=== PATIENT | male | born 1945 | race Caucasian/White ===

== ENCOUNTER 2016-08-24 10:12 | Emergency (ER) | payer MEDICARE ==
--- NOTE | 2016-08-24 10:49 | ED ---
General Adult HPI - General Chief complaint: Extremity Problem,Nontraumatic Stated complaint: arm swelling Time Seen by Provider: 08/24/16 10:25 Source: patient, RN notes reviewed Mode of arrival: ambulatory Limitations: no limitations - History of Present Illness Initial comments: Patient 71-year-old male who presents emergency room today with chief complaint of right arm swelling over the last 3 days. Patient does admit that he noticed this 3 days ago. He states that he had some local redness to the back of the forearm. He states it was mildly tender. States doesn't seem to be worse with any movements. Denies any injury or trauma. States with the family doctor earlier today and was advised coming here to the emergency room for further evaluation of this arm swelling and rule out blood clot with ultrasound. Patient denies any recent fever, chills, shortness of breath, chest pain, back pain, abdominal pain, nausea or vomiting, numbness or tingling, dysuria or hematuria, constipation or diarrhea, headaches or visual changes, or any other complaints. - Related Data Home Medications Medication Instructions Recorded Confirmed Atorvastatin [Lipitor] 20 mg PO HS 08/24/16 08/24/16 Lisinopril [Zestril] 10 mg PO DAILY 08/24/16 08/24/16 Previous Rx's Medication Instructions Recorded Cephalexin [Keflex] 500 mg PO Q12HR 10 Days 08/24/16 Allergies Allergy/AdvReac Type Severity Reaction Status Date / Time No Known Allergies Allergy Verified 08/24/16 10:36 Review of Systems ROS Statement: Those systems with pertinent positive or pertinent negative responses have been documented in the HPI. ROS Other: All systems not noted in ROS Statement are negative. Past Medical History Past Medical History: Hyperlipidemia, Hypertension History of Any Multi-Drug Resistant Organisms: None Reported Past Surgical History: Appendectomy Past Psychological History: No Psychological Hx Reported Smoking Status: Current every day smoker Past Alcohol Use History: Daily Past Drug Use History: None Reported General Exam - General Exam Comments Initial Comments: General: The patient is awake and alert, in no distress, and does not appear acutely ill. Eye: Pupils are equal, round and reactive to light, extra-ocular movements are intact. No nystagmus. There is normal conjunctiva bilaterally. No signs of icterus. Ears, nose, mouth and throat: There are moist mucous membranes and no oral lesions. Neck: The neck is supple, there is no tenderness or JVD. Cardiovascular: There is a regular rate and rhythm. No murmur, rub or gallop is appreciated. Respiratory: Lungs are clear to auscultation, respirations are non-labored, breath sounds are equal. No wheezes, stridor, rales, or rhonchi. Musculoskeletal: Moderate swelling to the right forearm. Normal ROM, no tenderness. Strength 5/5. Sensation intact. Pulses equal bilaterally 2+. Neurological: A&O x 3. CN II-XII intact, There are no obvious motor or sensory deficits. Coordination appears grossly intact. Speech is normal. Skin: Skin is warm and dry and no rashes or lesions are noted. Mild tenderness to the volar aspect of the right forearm. No trichomoniasis streaking. Psychiatric: Cooperative, appropriate mood & affect, normal judgment. Limitations: no limitations Course Vital Signs 08/24/16 10:16 Temperature 98.4 F Pulse Rate 69 Respiratory 18 Rate Blood Pressure 132/86 O2 Sat by Pulse 97 Oximetry Medical Decision Making - Medical Decision Making Case discussed in detail with attending physician Dr. Dobson. Patient ultrasound negative for any evidence of DVT. There is some faint redness to the volar aspect. There is swelling. Patient has no pain. Pulses equal bilaterally 2+. Patient will be started on a antibiotic to cover for sinus infection advised close follow-up the family doctor. Advised return if any symptoms increase worsen or for any other concerns. He states understanding and is in agreement with this plan. Disposition Clinical Impression: Cellulitis Disposition: HOME SELF-CARE Condition: Good Instructions: Cellulitis (ED) Additional Instructions: Please use medication as discussed. Please follow-up with family doctor in the next 2 days of symptoms have not improved. Please return to emergency room if the symptoms increase or worsen or for any other concerns. Prescriptions: Cephalexin [Keflex] 500 mg PO Q12HR 10 Days Referrals: Dane Baxter MD [Primary Care Provider] - 1-2 days Time of Disposition: 11:34
--- NOTE | 2016-08-24 11:15 | US ---
EXAMINATION TYPE: US venous doppler duplex UE RT DATE OF EXAM: 08/24/2016 COMPARISON: NONE CLINICAL HISTORY: Pain. Edema right arm x 3 days SIDE PERFORMED: right Right Arm: No evidence of DVT as visualized IMPRESSION: THIS EXAMINATION IS NEGATIVE FOR DVT WITHIN THE RIGHT ARM.
[2016-08-24 11:55] VITALS: BP 104/70; PULSE 62; RESP 16; TEMP 97.5
== END 2016-08-24 11:55 | disposition home or self-care (01) ==
LOC: EC 10:12
DX: L03.113 Cellulitis of right upper limb (principal); E78.5 Hyperlipidemia, unspecified; I10 Essential (primary) hypertension; F17.200 Nicotine dependence, unspecified, uncomplicated; Z79.899 Other long term (current) drug therapy
CPT/HCPCS: 99283

== ENCOUNTER → 2017-01-31 | Outpatient (CLI) | payer MEDICARE ==
--- NOTE | 2017-01-31 09:15 | US ---
EXAMINATION TYPE: US duplex aorta DATE OF EXAM: 01/31/2017 COMPARISON: NONE CLINICAL HISTORY: Z13.9 Screening for disorder. Pt states screening, no complaints at this time, smok er EXAM MEASUREMENTS: Abdominal Aorta: Proximal: 3.5 x 3.3 cm Mid: 2.5 x 2.5 cm Distal: 2.6 x 2.6 cm Bifurcation: STANLEY: 1.7 x 1.9 cm GUME: 1.5 x 2.0 cm Aorta ectatic with abnormal measurement at proximal portion >3cm Aorta is visualized through the bifurcation with mild to moderate diffuse atherosclerotic change. Guy e ectasia is present. IMPRESSION: Atherosclerotic and ectatic abdominal aorta with 3.5 cm aneurysm proximally measured by t echnologist.
== END | disposition home or self-care (01) ==
LOC: RADUSWWP 08:08
PROVIDERS: ATTEND Family Medicine
DX: I70.0 Atherosclerosis of aorta (principal); I71.4 Abdominal aortic aneurysm, without rupture
CPT/HCPCS: 93979

== ENCOUNTER → 2017-02-01 | Outpatient (CLI) | payer MEDICARE ==
--- NOTE | 2017-02-01 08:44 | BD ---
EXAMINATION TYPE: MG DEXA axial skeleton. DATE OF EXAM: 02/01/2017 CLINICAL HISTORY: Height: 68.5 inches Weight: 230 pounds FRAX RISK QUESTIONS: Alcohol (3 or more units per day): 3-4 beers a day Family History (Parent hip fracture): no Glucocorticoids (More than 3mos): no (Ex: prednisone, prednisolone, methylprednisolone, dexamethasone, and hydrocortisone). History of Fracture in Adulthood: finger Secondary Osteoporosis: 1. Type 1 Diabetes: no 2. Hyperthyroidism: no 4. Malnutrition: no 5. Chronic liver disease: no Rheumatoid Arthritis: no Current Tobacco Use: yes RISK FACTORS HISTORY OF: Family History of Osteoporosis: no Active: yes Diet low in dairy products/other sources of calcium: somewhat, perhaps one serving several times a w [place] Lost more than 2 inches in height since high school: no Frequent falls: no Poor Health: no Hyperparathyroidism: no Adrenal Insufficiency: no MEDICATIONS: Prednisone or other steroids: no Thyroid Medications: no Osteoporosis Medications: no Additional Medications: Blood pressure meds & cholesterol med Additional History: prison back pain EXAM MEASUREMENTS: Bone mineral densitometry was performed using the [employer] System. Bone mineral density as measured about the Lumbar spine is: ----- L1-L4(G/cm2): 1.499 T Score Values are as follows: ----- L2: 1.9 ----- L3: 3.5 ----- L4: 3.3 ----- L1-L4: 2.7 Bone mineral density BASELINE Bone mineral density about the R hip (g/cm2): 1.079 Bone mineral density about the L hip (g/cm2): 1.060 T Score values are as follows: -----R Neck: 0.3 -----L Neck: 0.2 -----R Total: 1.3 -----L Total: 1.4 Bone mineral density BASELINE IMPRESSION: Normal (Values between +1 and -1 indicate normal bone mass). Consider repeating this study in 5 year s or sooner if there is some new clinical indication. NOTE: T-SCORE=SD OF THE YOUNG ADULT MEAN.
== END | disposition home or self-care (01) ==
LOC: RADBDWWP 07:47
PROVIDERS: ATTEND Family Medicine
DX: Z13.9 Encounter for screening, unspecified (principal)
CPT/HCPCS: 77080

== ENCOUNTER → 2018-11-12 | Outpatient (CLI) | payer MEDICARE ==
--- NOTE | 2018-11-12 14:56 | CTL ---
EXAMINATION TYPE: CT Low Dose Lung DATE OF EXAM ORDERED: 11/12/2018 HISTORY: . Lung cancer screening CT DLP: 140.[address] CTDI: 3.4 mGy Automated exposure control for dose reduction was used. SCREENING VISIT: Initial COMPARISON: None TECHNIQUE: Low dose computed tomography scan was performed through the chest at 1 mm thick sections and reconstructed images in the coronal plane at [address] DIAGNOSTIC QUALITY: Satisfactory FINDINGS: LUNG NODULES: None. LUNGS: COPD: Severity: None Fibrosis: Severity: None Lymph nodes: None Other findings: None RIGHT PLEURAL SPACE: Effusion: None Calcification: None Thickening: None Pneumothorax: None LEFT PLEURAL SPACE: Effusion: None Calcification: None Thickening: None Pneumothorax: None HEART: Heart Size: Normal Coronary calcification: Fairly extensive Pericardial effusion: None OTHER FINDINGS: Upper abdomen: Normal Bony thorax: Normal Supraclavicular region: Normal Other: Ascending thoracic aorta at the level the main pulmonary artery measures 4.5 cm. The main pulmonary artery at the bifurcation measures 2.4 cm. IMPRESSION: 1. No suspicious lung findings. 2. Ascending thoracic aortic aneurysm of 4.[address] CHEST RECOMMENDATION: Yes, [address] chest for ascending thoracic aortic aneurysm CT LUNG RAD: 2 MTDD
== END | disposition home or self-care (01) ==
LOC: RADCTMAIN 08:05
PROVIDERS: ATTEND Family Medicine
DX: Z12.2 Encounter for screening for malignant neoplasm of respiratory organs (principal); I71.2 Thoracic aortic aneurysm, without rupture; F17.210 Nicotine dependence, cigarettes, uncomplicated

== ENCOUNTER 2019-05-20 11:21 | Inpatient (IN) | payer MEDICARE ==
[2019-05-20] MEDS ORDERED: SODIUM CHLORIDE 0.9% 1,000 ML IV STA (11:33)
[2019-05-20] MEDS ORDERED: MORPHINE SULFATE 4 MG/ML SYRINGE IV STA (11:33)
[2019-05-20] MEDS ORDERED: ASPIRIN 81 MG PO STA (11:33)
--- NOTE | 2019-05-20 11:41 | ED ---
General Adult HPI - General Chief complaint: Chest Pain Stated complaint: chest pain/SOB Time Seen by Provider: 05/20/19 11:25 Source: patient, EMS, RN notes reviewed, old records reviewed (Reviewed CT report) Mode of arrival: EMS Limitations: no limitations - History of Present Illness Initial comments: Patient is a pleasant 74-year-old male presenting to the emergency Department with complaints of chest discomfort. Onset of symptoms was a couple of weeks ago. Symptoms have been getting worse. Discomfort is moderate to severe rated 7 or 8/10. Discomfort feels like pressure in the chest without radiation. Patient has some associated dyspnea. Symptoms worsen with exertion. Patient has occasional associated sweating. No nausea. No history of similar symptoms previously. Patient does have a known history of thoracic aortic aneurysm - Related Data Home Medications Medication Instructions Recorded Confirmed Atorvastatin [Lipitor] 20 mg PO HS 08/24/16 05/20/19 Lisinopril [Zestril] 10 mg PO DAILY 08/24/16 05/20/19 Albuterol Sulfate [Ventolin HFA] 2 puff INHALATION RT-Q4H PRN 05/20/19 05/20/19 Cholecalciferol [Vitamin D3 (25 2,000 unit PO DAILY 05/20/19 05/20/19 Mcg = 1000 Iu)] Vits A,C,E/Lutein/Minerals [Vision 1 tab PO DAILY 05/20/19 05/20/19 Formula with Lutein Tab] Allergies Allergy/AdvReac Type Severity Reaction Status Date / Time No Known Allergies Allergy Verified 05/20/19 12:02 Review of Systems ROS Statement: Those systems with pertinent positive or pertinent negative responses have been documented in the HPI. ROS Other: All systems not noted in ROS Statement are negative. Constitutional: Denies: fever Eyes: Denies: eye pain ENT: Denies: ear pain Respiratory: Denies: cough Cardiovascular: Reports: chest pain Endocrine: Denies: fatigue Gastrointestinal: Denies: abdominal pain Genitourinary: Denies: dysuria Musculoskeletal: Denies: back pain Skin: Denies: rash Neurological: Denies: weakness Past Medical History Past Medical History: Hyperlipidemia, Hypertension Additional Past Medical History / Comment(s): aortic aneurysm History of Any Multi-Drug Resistant Organisms: None Reported Past Surgical History: Appendectomy Past Psychological History: No Psychological Hx Reported Smoking Status: Current every day smoker Past Alcohol Use History: Daily Past Drug Use History: None Reported General Exam Limitations: no limitations General appearance: alert, in no apparent distress Head exam: Present: normocephalic Eye exam: Present: normal appearance, PERRL ENT exam: Present: normal oropharynx Neck exam: Present: normal inspection Respiratory exam: Present: normal lung sounds bilaterally Cardiovascular Exam: Present: regular rate, normal rhythm Expanded Peripheral pulses: 2+: Radial (R), Radial (L), Posterior Tibialis (R), Posterior Tibialis (L), Dorsalis Pedis (R), Dorsalis Pedis (L) GI/Abdominal exam: Present: soft. Absent: tenderness Extremities exam: Present: normal inspection. Absent: pedal edema, calf tenderness Neurological exam: Present: alert Psychiatric exam: Present: normal affect, normal mood Skin exam: Present: normal color Course Vital Signs 05/20/19 05/20/19 05/20/19 11:23 11:29 11:30 Temperature 97.9 F Pulse Rate 81 Respiratory 18 Rate Blood Pressure 101/77 101/77 101/77 O2 Sat by Pulse 99 Oximetry 05/20/19 05/20/19 05/20/19 11:40 11:50 12:00 Temperature Pulse Rate 76 76 Respiratory 14 14 20 Rate Blood Pressure 103/76 103/76 103/76 O2 Sat by Pulse 96 96 95 Oximetry 05/20/19 05/20/19 05/20/19 12:10 12:20 12:30 Temperature Pulse Rate 74 76 Respiratory 20 12 Rate Blood Pressure 93/70 93/70 93/70 O2 Sat by Pulse 98 97 Oximetry 05/20/19 12:38 Temperature Pulse Rate 76 Respiratory 12 Rate Blood Pressure 93/70 O2 Sat by Pulse 97 Oximetry EKG Findings - EKG Comments: EKG Findings:: Normal sinus rhythm 83. For screening AV block [place] 202. QRS 84. QT 388. QTC 455. Normal axis. Septal Q waves. Nonspecific T waves. Medical Decision Making - Medical Decision Making Patient reevaluated and resting comfortably in bed, discomfort has improved to around 3 or 4/10. Case discussed with Dr. Knott who will admit covering for Dr. Baxter. Cardiology has been paged. - Lab Data Result diagrams: 05/20/19 11:27 05/20/19 11:27 Lab Results 05/20/19 05/20/19 05/20/19 Range/Units 11:27 11:27 11:27 WBC 8.9 (3.8-10.6) k/uL RBC 3.70 L (4.30-5.90) m/uL Hgb 11.3 L (13.0-17.5) gm/dL Hct 35.3 L (39.0-53.0) % MCV 95.4 (80.0-100.0) fL MCH 30.7 (25.0-35.0) pg MCHC 32.2 (31.0-37.0) g/dL RDW 13.8 (11.5-15.5) % Plt Count 131 L (150-450) k/uL Neutrophils % 78 % Lymphocytes % 15 % Monocytes % 4 % Eosinophils % 1 % Basophils % 0 % Neutrophils # 6.9 (1.3-7.7) k/uL Lymphocytes # 1.4 (1.0-4.8) k/uL Monocytes # 0.4 (0-1.0) k/uL Eosinophils # 0.1 (0-0.7) k/uL Basophils # 0.0 (0-0.2) k/uL PT 11.2 (9.0-12.0) sec INR 1.1 (<1.2) APTT 20.2 L (22.0-30.0) sec Sodium 138 (137-145) mmol/L Potassium 4.4 (3.5-5.1) mmol/L Chloride 109 H (98-107) mmol/L Carbon Dioxide 21 L (22-30) mmol/L Anion Gap 8 mmol/L BUN 27 H (9-20) mg/dL Creatinine 1.03 (0.66-1.25) mg/dL Est GFR (CKD-EPI)AfAm 84 (>60 ml/min/1.73 sqM) Est GFR (CKD-EPI)NonAf 73 (>60 ml/min/1.73 sqM) Glucose 166 H (74-99) mg/dL Calcium 8.2 L (8.4-10.2) mg/dL Magnesium 1.9 (1.6-2.3) mg/dL Total Bilirubin 0.8 (0.2-1.3) mg/dL AST 52 (17-59) U/L ALT 59 H (4-49) U/L Alkaline Phosphatase 121 (38-126) U/L Troponin I (0.000-0.034) ng/mL Total Protein 5.8 L (6.3-8.2) g/dL Albumin 3.2 L (3.5-5.0) g/dL 05/20/19 Range/Units 11:27 WBC (3.8-10.6) k/uL RBC (4.30-5.90) m/uL Hgb (13.0-17.5) gm/dL Hct (39.0-53.0) % MCV (80.0-100.0) fL MCH (25.0-35.0) pg MCHC (31.0-37.0) g/dL RDW (11.5-15.5) % Plt Count (150-450) k/uL Neutrophils % % Lymphocytes % % Monocytes % % Eosinophils % % Basophils % % Neutrophils # (1.3-7.7) k/uL Lymphocytes # (1.0-4.8) k/uL Monocytes # (0-1.0) k/uL Eosinophils # (0-0.7) k/uL Basophils # (0-0.2) k/uL PT (9.0-12.0) sec INR (<1.2) APTT (22.0-30.0) sec Sodium (137-145) mmol/L Potassium (3.5-5.1) mmol/L Chloride (98-107) mmol/L Carbon Dioxide (22-30) mmol/L Anion Gap mmol/L BUN (9-20) mg/dL Creatinine (0.66-1.25) mg/dL Est GFR (CKD-EPI)AfAm (>60 ml/min/1.73 sqM) Est GFR (CKD-EPI)NonAf (>60 ml/min/1.73 sqM) Glucose (74-99) mg/dL Calcium (8.4-10.2) mg/dL Magnesium (1.6-2.3) mg/dL Total Bilirubin (0.2-1.3) mg/dL AST (17-59) U/L ALT (4-49) U/L Alkaline Phosphatase (38-126) U/L Troponin I 2.990 H* (0.000-0.034) ng/mL Total Protein (6.3-8.2) g/dL Albumin (3.5-5.0) g/dL - Radiology Data Radiology results: report reviewed (CT angios chest is negative for pulmonary embolism. Correlate for CHF with bilateral pleural effusions. COPD. Pulmonary nodules. Pancreatic calcification.) Critical Care Time Critical Care Time: Yes Total Critical Care Time: 32 Disposition Clinical Impression: Acute non-ST elevation myocardial infarction (NSTEMI) Disposition: ADMITTED IP TO THIS [facility] Condition: Serious Is patient prescribed a controlled substance at d/c from ED?: No Referrals: Dane Baxter MD [Primary Care Provider] - 1-2 days Decision Time: 12:57
[2019-05-20 11:54] LABS: Basophils % (A) 0 %; Eosinophils # (A) 0.1 k/uL (0-0.7); Eosinophils % (A) 1 %; HCT 35.3 % (39.0-53.0); HGB 11.3 gm/dL (13.0-17.5); Lymphocytes # (A) 1.4 k/uL (1.0-4.8); Lymphocytes % (A) 15 %; MCH 30.7 pg (25.0-35.0); MCHC 32.2 g/dL (31.0-37.0); MCV 95.4 fL (80.0-100.0); Mean Platelet Volume 10.4; Monocytes # (A) 0.4 k/uL (0-1.0); Monocytes % (A) 4 %; Neutrophils # (A) 6.9 k/uL (1.3-7.7); Neutrophils % (A) 78 %; Platelet Count 131 k/uL (150-450); RDW 13.8 % (11.5-15.5); WBC 8.9 k/uL (3.8-10.6)
[2019-05-20 12:00] LABS: Albumin 3.2 g/dL (3.5-5.0); Calcium 8.2 mg/dL (8.4-10.2); Magnesium 1.9 mg/dL (1.6-2.3); Potassium 4.4 mmol/L (3.5-5.1); Total Bilirubin 0.8 mg/dL (0.2-1.3); Total Protein 5.8 g/dL (6.3-8.2)
[2019-05-20 12:13] LABS: INR 1.1 (<1.2); Prothrombin Time 11.2 sec (9.0-12.0)
[2019-05-20 12:22] LABS: Partial Thromboplastin Time 20.2 sec (22.0-30.0)
--- NOTE | 2019-05-20 12:44 | CT ---
EXAMINATION TYPE: CT angio chest DATE OF EXAM: 05/20/2019 12:25 PM COMPARISON: 11/12/2018 HISTORY: Chest pain and SOB CT DLP: 572.4 mGycm Automated exposure control for dose reduction was used. CONTRAST: CTA scan of the thorax is performed without and with IV Contrast, patient injected with 100 ml mL of Isovue 370, pulmonary embolism protocol. . FINDINGS: LUNGS: Hyperinflation suggests COPD and there is a coarsened interstitium. Bilateral pleural effusion s and consolidation likely in the basis of compressive atelectasis. No pneumothorax. Multiple subpleu ral less than 5 mm nodules are seen. MEDIASTINUM: There is satisfactory enhancement of the pulmonary artery and its branches, there is no CT evidence for pulmonary embolism. There is lymphadenopathy within the hilum bilaterally measuring a short axis of 1.5 cm. There is a 1 cm subcarinal lymphadenopathy measured in short axis. Trace of p ericardial fluid noted. There is coronary artery calcification and atherosclerotic change aorta. OTHER: Hypertrophic change of the spine noted. Trace amount ascites noted. Somewhat lobular contour the liver correlate with LFTs. Atherosclerotic change of the visualized vasculature. Calcification wi thin the pancreatic tail incidentally noted. IMPRESSION: 1. No diagnostic evidence of pulmonary embolism 2. Correlate for CHF with bilateral pleural effusions. 3. COPD. 4. There are multiple less than 5 mm pulmonary nodules too small to characterize. Given they were not seen with certainty on the recent CT scan recommended short-term follow-up standard CT of the chest for further evaluation. Additionally, bilateral hilar adenopathy noted measuring short axis of 1.5 cm 5. There is a small calcification within the pancreatic tail. Assessment pancreas is incomplete. Maggie elate with dedicated ultrasound or CT scan as clinically warranted.
[2019-05-20] MEDS ORDERED: HEPARIN SODIUM,PORCINE 5,000 UNIT/ML 1 ML VIAL IV PRN ×2 (12:54→15:49)
[2019-05-20] MEDS ORDERED: HEPARIN SODIUM,PORCINE 5,000 UNIT/ML 1 ML VIAL IV ONE (12:54)
[2019-05-20] MEDS ORDERED: NITROGLYCERIN SL TABS 0.4 MG TAB SUBLINGUAL PRN ×2 (12:58→14:22)
--- NOTE | 2019-05-20 12:58 | XR ---
EXAMINATION TYPE: XR chest 1V portable DATE OF EXAM: 05/20/2019 COMPARISON: Same date CTA chest study HISTORY: Chest pain. TECHNIQUE: Single frontal view of the chest is obtained. FINDINGS: There is background mild to moderate underlying emphysematous change with right greater th an left bibasilar opacities corresponding to small pleural effusions and associated atelectasis and/o r infiltrate. The cardiac silhouette size is upper limits of normal. The osseous structures are in tact. IMPRESSION: Background [id number] emphysematous change with central vascular congestion and sm all right greater than left pleural effusions along with mild interstitial edema. Suspected fluid ove rload state. Correlate clinically.
[2019-05-20] MEDS: HEPARIN SOD,PORK IN 0.45% NACL 25,000 UNIT in 0.45% NACL 1 250ML.BAG IV SCH ×2 (13:41→15:46)
[2019-05-20] MEDS ORDERED: ATORVASTATIN 80 MG TAB PO STA (14:22)
[2019-05-20] MEDS ORDERED: ALPRAZolam 0.5 MG TAB PO PRN (14:22)
[2019-05-20] MEDS ORDERED: ALPRAZolam 0.25 MG TAB PO PRN (14:22)
[2019-05-20] MEDS ORDERED: SODIUM CHLORIDE 0.9% 1,000 ML in EMPTY BAG 1 BAG IV ONE (14:22)
[2019-05-20] MEDS ORDERED: ASPIRIN 325 MG TAB PO STA (14:22)
[2019-05-20] MEDS ORDERED: ALBUTEROL NEBULIZED 2.5 MG/3 ML INHALATION PRN (14:41)
[2019-05-20] MEDS ORDERED: fentaNYL (PF) 50 MCG/ML 2 ML AMP ONE (14:43)
[2019-05-20] MEDS ORDERED: VERAPAMIL 2.5 MG/ML 2 ML AMP ONE (14:43)
[2019-05-20] MEDS ORDERED: IV FLUID CONTINUATION 900 ML IV ONE (14:47)
[2019-05-20] MEDS ORDERED: LIDOCAINE 1% INJ 10MG/ML (20 ML MDV) ONE ×2 (14:54→15:24)
[2019-05-20] MEDS ORDERED: fentaNYL (PF) 50 MCG/ML 2 ML AMP IV ONE (14:56)
[2019-05-20] MEDS: LIDOCAINE 1% INJ 10MG/ML (20 ML MDV) SQ ONE ×2 (14:57→15:09)
[2019-05-20] MEDS ORDERED: VERAPAMIL SYRINGE (5 MG/10 ML) INTRAARTER ONE (15:00)
[2019-05-20] MEDS ORDERED: IOPAMIDOL-370 125ML BTL INJ ONE (15:25)
[2019-05-20] MEDS ORDERED: MD COMMUNICATION TO PHARMACY 1 EACH MISC PO ONE ×5 (15:26)
[2019-05-20] MEDS ORDERED: RX INFO: IV CONTRAST WAS GIVEN 1 EACH MISC MISCELLANE PRN (15:46)
[2019-05-20] MEDS ORDERED: SODIUM CHLORIDE 0.9% 1,000 ML IV SCH (16:00)
[2019-05-20] MEDS ORDERED: HEPARIN SOD,PORK IN 0.45% NACL 25,000 UNIT in 0.45% NACL 1 250ML.BAG IV SCH (16:00)
[2019-05-20 16:05] LABS: Glucose,Whole Blood 121 mg/dL (75-99)
[2019-05-20] MEDS ORDERED: THIAMINE 100 MG TAB PO SCH (16:30)
--- NOTE | 2019-05-20 16:49 | P.GSCN ---
<Jeanna Corona - Last Filed: 05/20/19 16:29> History of Present Illness Consult date: 05/20/19 Reason for Consult: Severe triple vessel coronary artery disease with left main disease Requesting physician: Tavia Lux History of present illness: This is a 74-year-old active gentleman who follows on an outpatient basis with Dr. Baxter. He has a previous medical history of hypertension, hyperlipidemia, current tobacco dependence, daily alcohol use although he has cut down lately, and appendectomy. He denies any other medical history. He presented to [facility] emergency room this morning with complaints of severe chest discomf ort which he described as pressure associated with shortness of breath, and diaphoresis. Denies nausea or any other aggravating or alleviating symptoms. EKG was completed demonstrating normal sinus rhythm with no ST elevation, troponin was 2.90, BNP was 3420. Chest x-ray was completed demonstrating changes associated with COPD, central vascular congestion, and bilateral pleural effusions, right greater than left. Chest CT was also completed demonstrating no evidence of tumor embolism, bilateral pleural effusions present, COPD present, and trace ascites. Urgent consultation was placed to Dr. Lux who saw the patient and recommended heart catheterization which was completed today. Heart catheterization demonstrated severe triple vessel coronary artery disease with significant left main disease. Due to these findings Dr. Kim from cardiothoracic surgery was urgently consulted and did see the patient in the catheterization lab. Recommendations were for placement of intra-aortic balloon pump, with urgent/emergent coronary artery bypass grafting within 24 hours. Transthoracic echocardiogram was completed in the clinical lab scientist which demonstrated impaired left ventricular function with ejection fraction approximately 35% and hypokinesis of the anterior apical wall with no significant valvular pathology. Review of Systems Review of systems was completed is negative except as noted - Cardiovascular Reports as per HPI, Reports chest pain, Reports dyspnea on exertion, Reports shortness of breath - Respiratory Reports as per HPI Past Medical History Past Medical History: Coronary Artery Disease (CAD), COPD, Eye Disorder, Hyperlipidemia, Hypertension, Osteoarthritis (OA), Pneumonia, Vascular Disorder Additional Past Medical History / Comment(s): Thoracic aortic aneurysm, arthritis bilateral hands, back problems, macular degeneration bilaterally. History of Any Multi-Drug Resistant Organisms: None Reported Past Surgical History: Appendectomy Additional Past Surgical History / Comment(s): L lower leg hematoma removal, colonoscopies/benign polypectomy Past Anesthesia/Blood Transfusion Reactions: No Reported Reaction Past Psychological History: No Psychological Hx Reported Smoking Status: Current every day smoker Past Alcohol Use History: Daily Past Drug Use History: None Reported - Past Family History Father Family Medical History: Diabetes Mellitus Additional Family Medical History / Comment(s): Father lived to be 92 yrs old. Mother Family Medical History: Cancer Additional Family Medical History / Comment(s): Mother had lung cancer. She was a smoker. Medications and Allergies Home Medications Medication Instructions Recorded Confirmed Type Atorvastatin [Lipitor] 20 mg PO HS 08/24/16 05/20/19 History Lisinopril [Zestril] 10 mg PO DAILY 08/24/16 05/20/19 History Albuterol Sulfate [Ventolin HFA] 2 puff INHALATION RT-Q4H PRN 05/20/19 05/20/19 History Cholecalciferol [Vitamin D3 (25 2,000 unit PO DAILY 05/20/19 05/20/19 History Mcg = 1000 Iu)] Vits A,C,E/Lutein/Minerals [Vision 1 tab PO DAILY 05/20/19 05/20/19 History Formula with Lutein Tab] Allergies Allergy/AdvReac Type Severity Reaction Status Date / Time No Known Allergies Allergy Verified 05/20/19 12:02 Surgical - Exam Vital Signs Temp Pulse Resp BP Pulse Ox 97.9 F 81 18 101/77 99 05/20/19 11:23 05/20/19 11:23 05/20/19 11:23 05/20/19 11:23 05/20/19 11:23 - General well developed, well nourished, no distress, no pain - Eyes normal ocular movement - ENT no hearing loss - Neck no masses, no bruits, trachea midline - Respiratory Lungs sounds diminished bilaterally. Respirations even, nonlabored. Currently on 2 L nasal cannula with oxygen saturation 97%. No clubbing or cyanosis present. - Cardiovascular S1, S2 present. Regular rate and rhythm, sinus rhythm on telemetry. Palpable peripheral pulses bilaterally. No edema present. No calf pain or tenderness noted. Right radial artery catheterization site with Tband in place. Left Adrian's test positive, greater than 8 seconds. Right femoral artery with intra- aortic balloon pump with augmentation 1:1. - Abdomen Abdomen: soft, non tender, bowel sounds - Genitourinary Deferred - Rectum Deferred - Integumentary no rash, no growths - Neurologic normal coordination, normal sensation - Musculoskeletal normal posture - Psychiatric oriented to time, oriented to person, oriented to place, speech is normal, memory intact Results - Labs 05/20/19 11:27 05/20/19 11:27 Abnormal Lab Results - Last 24 Hours (Table) 05/20/19 05/20/19 05/20/19 Range/Units 11:27 11:27 11:27 RBC 3.70 L (4.30-5.90) m/uL Hgb 11.3 L (13.0-17.5) gm/dL Hct 35.3 L (39.0-53.0) % Plt Count 131 L (150-450) k/uL APTT 20.2 L (22.0-30.0) sec Chloride 109 H (98-107) mmol/L Carbon Dioxide 21 L (22-30) mmol/L BUN 27 H (9-20) mg/dL Glucose 166 H (74-99) mg/dL POC Glucose (mg/dL) (75-99) mg/dL Calcium 8.2 L (8.4-10.2) mg/dL ALT 59 H (4-49) U/L Troponin I (0.000-0.034) ng/mL Total Protein 5.8 L (6.3-8.2) g/dL Albumin 3.2 L (3.5-5.0) g/dL 05/20/19 05/20/19 Range/Units 11:27 16:03 RBC (4.30-5.90) m/uL Hgb (13.0-17.5) gm/dL Hct (39.0-53.0) % Plt Count (150-450) k/uL APTT (22.0-30.0) sec Chloride (98-107) mmol/L Carbon Dioxide (22-30) mmol/L BUN (9-20) mg/dL Glucose (74-99) mg/dL POC Glucose (mg/dL) 121 H (75-99) mg/dL Calcium (8.4-10.2) mg/dL ALT (4-49) U/L Troponin I 2.990 H* (0.000-0.034) ng/mL Total Protein (6.3-8.2) g/dL Albumin (3.5-5.0) g/dL Diabetes panel 05/20/19 Range/Units 11:27 Sodium 138 (137-145) mmol/L Potassium 4.4 (3.5-5.1) mmol/L Chloride 109 H (98-107) mmol/L Carbon Dioxide 21 L (22-30) mmol/L BUN 27 H (9-20) mg/dL Creatinine 1.03 (0.66-1.25) mg/dL Glucose 166 H (74-99) mg/dL Calcium 8.2 L (8.4-10.2) mg/dL AST 52 (17-59) U/L ALT 59 H (4-49) U/L Alkaline Phosphatase 121 (38-126) U/L Total Protein 5.8 L (6.3-8.2) g/dL Albumin 3.2 L (3.5-5.0) g/dL Calcium panel 05/20/19 Range/Units 11:27 Calcium 8.2 L (8.4-10.2) mg/dL Albumin 3.2 L (3.5-5.0) g/dL Pituitary panel 05/20/19 Range/Units 11:27 Sodium 138 (137-145) mmol/L Potassium 4.4 (3.5-5.1) mmol/L Chloride 109 H (98-107) mmol/L Carbon Dioxide 21 L (22-30) mmol/L BUN 27 H (9-20) mg/dL Creatinine 1.03 (0.66-1.25) mg/dL Glucose 166 H (74-99) mg/dL Calcium 8.2 L (8.4-10.2) mg/dL Adrenal panel 05/20/19 Range/Units 11:27 Sodium 138 (137-145) mmol/L Potassium 4.4 (3.5-5.1) mmol/L Chloride 109 H (98-107) mmol/L Carbon Dioxide 21 L (22-30) mmol/L BUN 27 H (9-20) mg/dL Creatinine 1.03 (0.66-1.25) mg/dL Glucose 166 H (74-99) mg/dL Calcium 8.2 L (8.4-10.2) mg/dL Total Bilirubin 0.8 (0.2-1.3) mg/dL AST 52 (17-59) U/L ALT 59 H (4-49) U/L Alkaline Phosphatase 121 (38-126) U/L Total Protein 5.8 L (6.3-8.2) g/dL Albumin 3.2 L (3.5-5.0) g/dL - Imaging Chest x-ray: report reviewed, image reviewed CT scan - chest: report reviewed, image reviewed EKG: image reviewed Additional studies: Heart catheterization films reviewed in the clinical lab scientist with Dr. Kim and Dr. Lux Assessment and Plan Assessment: 1. Severe triple-vessel coronary artery disease with significant left main disease 2. Non-STEMI this admission 3. Hypertension 4. Hyperlipidemia 5. Current chronic tobacco dependence 6. Daily EtOH use Plan: The patient was seen and examined with Dr. Kim and Dr. Lux and the heart catheterization lab. Chart/diagnostics were reviewed. Recommendation is for emergent coronary artery bypass graft surgery tomorrow, 05/21/[address] Kim. Usual perioperative course was discussed in detail with the patient, all risks and benefits were reviewed, all questions were answered and the patient does consent to surgery. Intra-aortic balloon pump was placed in the clinical lab scientist. Patient is on a heparin IV. We will hydrate his kidneys. Continue aspirin, statin, beta tosha, heparin drip. No IV nitro. Preoperative testing was initiated. More recommendations to follow Thank you Dr. Lux for this consult. We look forward to working with you the care of your patient. Time with Patient: Greater than 30 <Neto Kim - Last Filed: 05/20/19 17:04> History of Present Illness History of present illness: Patint started experiencing chest pain for around a month now that it got much worse the past 2 days occuring at rest sometimes with the longest episode lasting around 1/2 hour. Currently pain free. Also history of Abdominal aortic aneurysm on US performed in 2017 (max 3.5 cm). His Ascending aorta on current CT shows moderate dilatation at 4.1 cm (measured on 2D reconstrruction by myself) . Surgical - Exam Vital Signs Temp Pulse Resp BP Pulse Ox 97.9 F 81 18 101/77 99 05/20/19 11:23 05/20/19 11:23 05/20/19 11:23 05/20/19 11:23 05/20/19 11:23 Results - Labs 05/20/19 11:27 05/20/19 11:27 Abnormal Lab Results - Last 24 Hours (Table) 05/20/19 05/20/19 05/20/19 Range/Units 11:27 11:27 11:27 RBC 3.70 L (4.30-5.90) m/uL Hgb 11.3 L (13.0-17.5) gm/dL Hct 35.3 L (39.0-53.0) % Plt Count 131 L (150-450) k/uL APTT 20.2 L (22.0-30.0) sec Chloride 109 H (98-107) mmol/L Carbon Dioxide 21 L (22-30) mmol/L BUN 27 H (9-20) mg/dL Glucose 166 H (74-99) mg/dL POC Glucose (mg/dL) (75-99) mg/dL Calcium 8.2 L (8.4-10.2) mg/dL ALT 59 H (4-49) U/L Troponin I (0.000-0.034) ng/mL Total Protein 5.8 L (6.3-8.2) g/dL Albumin 3.2 L (3.5-5.0) g/dL 05/20/19 05/20/19 Range/Units 11:27 16:03 RBC (4.30-5.90) m/uL Hgb (13.0-17.5) gm/dL Hct (39.0-53.0) % Plt Count (150-450) k/uL APTT (22.0-30.0) sec Chloride (98-107) mmol/L Carbon Dioxide (22-30) mmol/L BUN (9-20) mg/dL Glucose (74-99) mg/dL POC Glucose (mg/dL) 121 H (75-99) mg/dL Calcium (8.4-10.2) mg/dL ALT (4-49) U/L Troponin I 2.990 H* (0.000-0.034) ng/mL Total Protein (6.3-8.2) g/dL Albumin (3.5-5.0) g/dL Diabetes panel 05/20/19 Range/Units 11:27 Sodium 138 (137-145) mmol/L Potassium 4.4 (3.5-5.1) mmol/L Chloride 109 H (98-107) mmol/L Carbon Dioxide 21 L (22-30) mmol/L BUN 27 H (9-20) mg/dL Creatinine 1.03 (0.66-1.25) mg/dL Glucose 166 H (74-99) mg/dL Calcium 8.2 L (8.4-10.2) mg/dL AST 52 (17-59) U/L ALT 59 H (4-49) U/L Alkaline Phosphatase 121 (38-126) U/L Total Protein 5.8 L (6.3-8.2) g/dL Albumin 3.2 L (3.5-5.0) g/dL Calcium panel 05/20/19 Range/Units 11:27 Calcium 8.2 L (8.4-10.2) mg/dL Albumin 3.2 L (3.5-5.0) g/dL Pituitary panel 05/20/19 Range/Units 11:27 Sodium 138 (137-145) mmol/L Potassium 4.4 (3.5-5.1) mmol/L Chloride 109 H (98-107) mmol/L Carbon Dioxide 21 L (22-30) mmol/L BUN 27 H (9-20) mg/dL Creatinine 1.03 (0.66-1.25) mg/dL Glucose 166 H (74-99) mg/dL Calcium 8.2 L (8.4-10.2) mg/dL Adrenal panel 05/20/19 Range/Units 11:27 Sodium 138 (137-145) mmol/L Potassium 4.4 (3.5-5.1) mmol/L Chloride 109 H (98-107) mmol/L Carbon Dioxide 21 L (22-30) mmol/L BUN 27 H (9-20) mg/dL Creatinine 1.03 (0.66-1.25) mg/dL Glucose 166 H (74-99) mg/dL Calcium 8.2 L (8.4-10.2) mg/dL Total Bilirubin 0.8 (0.2-1.3) mg/dL AST 52 (17-59) U/L ALT 59 H (4-49) U/L Alkaline Phosphatase 121 (38-126) U/L Total Protein 5.8 L (6.3-8.2) g/dL Albumin 3.2 L (3.5-5.0) g/dL Assessment and Plan Assessment: Moderate dilatation abdominal and ascending aorta. Plan: Preliminary findings on 2D Echo: moderate LV dysfunction 35%, mild MR, Severe hypokinesia to akinesia mid to distal asia-apical wall. Patient candidate for high risk CABG using IGLESIAS and SVG (positive left modified Adrian's test). The STS risk was discussed with him. He understood it and agreed to proceed. NETO KIM MD
--- NOTE | 2019-05-20 17:13 | HP ---
HISTORY AND PHYSICAL DATE OF SERVICE: 05/20/2019. CHIEF COMPLAINT: Chest pain. HISTORY OF PRESENT ILLNESS: This 74-year-old gentleman with a past medical history of hypertension, hyperlipidemia, history of aortic aneurysm, appendectomy, being followed by Dr. Baxter in the outpatient setting, was complaining of some chest pain which was felt in the anterior part of chest, moderate in intensity without much radiation; more of a pressure type. Patient came to [facility] and was admitted for further evaluation. Of note, the patient is also complaining of significant increased shortness of breath and difficult exhalation and dyspnea which has been progressive over the past several weeks. The patient continues to smoke but is trying to cut down. There is no history of any fever, rigor or chills. No history of headache, loss of consciousness, seizures at this time. The troponins were found to be 2.990, indicating [id number]-elevation myocardial infarction. The EKG showed diffuse ST-T changes and inferior wall changes. Chest CTA showed a trace amount of ascites; otherwise some CHF and bilateral pleural effusion was suspected. Five-millimeter pulmonary nodules were also noted also. Calcification noted in the pancreatic tail. There is no history of any fever, rigors, chills at this time. PAST MEDICAL HISTORY: History of hypertension, hyperlipidemia, history of aortic aneurysm, history of nicotine dependence. MEDICATIONS PRIOR TO ADMISSION: 1. Vitamin A, C, lutein 1 p.o. daily. 2. Zestril 10 mg daily. 3. Vitamin D3 2000 daily. 4. Lipitor 20 mg at bedtime. 5. Albuterol 2 puffs q.4 p.r.n. ALLERGIES: NONE. FAMILY HISTORY: No history of heart disease or strokes in the family. SOCIAL HISTORY: History of smoking, continued and ongoing. REVIEW OF SYSTEMS: ENT: No diminished hearing. No diminished vision. CARDIOVASCULAR SYSTEM: As mentioned earlier. RESPIRATORY SYSTEM: As mentioned earlier. GI: No nausea, vomiting, diarrhea. : No dysuria or retention. NERVOUS SYSTEM: No numbness, weakness. ALLERGY/IMMUNOLOGY: No asthma, hayfever. MUSCULOSKELETAL: As mentioned earlier. HEMATOLOGY/ONCOLOGY: No history of anemia. ENDOCRINE: No history of diabetes, hypothyroidism. CONSTITUTIONAL: As mentioned earlier. DERMATOLOGY: Negative. RHEUMATOLOGY: Negative. PSYCHIATRY: As mentioned earlier. PHYSICAL EXAMINATION: Patient alert and oriented x3. Pulse 73, blood pressure 98/78, respiration 21, temperature normal, pulse ox 97% on room air. HEENT: Conjunctivae normal. NECK: No jugular venous distention. CARDIOVASCULAR SYSTEM: S1, S2 muffled. RESPIRATORY SYSTEM: Breath sounds diminished at the bases. A few scattered rhonchi and crackles. ABDOMEN: Soft, obese, non-tender. LEGS: No edema. No swelling. NERVOUS SYSTEM: No focal deficit. LABS: WBC 8.9, hemoglobin 11.3, platelets 131. Sodium 138, potassium 4.4 and troponin 2.990. ASSESSMENT: 1. Chest pain, possible acute [id number]-elevation myocardial infarction. 2. Troponin 2.990. 3. Shortness of breath for evaluation. Rule out COPD or CHF. 4. Elevated random blood sugar; diabetes mellitus, type 2. 5. Increased ALT. 6. Continued ongoing nicotine dependence. 7. Anemia, normocytic, undetermined etiology. 8. Thrombocytopenia. 9. Hypertension. 10.Hyperlipidemia. 11.History of aortic aneurysm. 12.History of appendectomy. 13.History of ethanol. RECOMMENDATIONS AND DISCUSSION: In this 74-year-old gentleman who presented with multiple complex medical issues, we will monitor the patient closely, continue the current medications, continue symptomatic treatment. Unstable angina protocol. Cardiology consultation for possible cardiac cath. Otherwise, 2D echo with Doppler. Repeat chest x-ray. The BNP is elevated up to 3420. Prognosis is guarded. Further recommendations to follow. A copy of this dictation is being forwarded to Dr. Baxter, who is the primary physician. MMTIARRAL / ANDREWN: [id number] /
--- NOTE | 2019-05-20 17:33 | XR ---
EXAMINATION TYPE: XR chest 1V portable DATE OF EXAM: 05/20/2019 COMPARISON: Today HISTORY: Chest pain. Balloon pump. TECHNIQUE: Single view FINDINGS: There is mild pulmonary interstitial edema. Heart is top normal in size. There is no pulmon landon consolidation. There are chest leads. No catheter seen. IMPRESSION: Pulmonary interstitial edema the same or slightly improved compared to exam earlier today .
[2019-05-20] MEDS ORDERED: NITROGLYCERIN OINT 1 INCH/GM PACKET TOPICAL SCH (18:00)
[2019-05-20 18:41] LABS: Basophils % (A) 0 %; Eosinophils # (A) 0.1 k/uL (0-0.7); Eosinophils % (A) 1 %; HCT 37.8 % (39.0-53.0); HGB 11.8 gm/dL (13.0-17.5); Hypochromasia Slight; Lymphocytes # (A) 1.3 k/uL (1.0-4.8); Lymphocytes % (A) 15 %; MCHC 31.3 g/dL (31.0-37.0); MCV 99.1 fL (80.0-100.0); Mean Platelet Volume 10.5; Monocytes # (A) 0.4 k/uL (0-1.0); Monocytes % (A) 4 %; Neutrophils # (A) 6.7 k/uL (1.3-7.7); Neutrophils % (A) 79 %; Platelet Count 118 k/uL (150-450); RBC 3.81 m/uL (4.30-5.90); RDW 13.8 % (11.5-15.5); WBC 8.5 k/uL (3.8-10.6)
[2019-05-20 18:46] LABS: INR 1.1 (<1.2); Partial Thromboplastin Time 51.4 sec (22.0-30.0); Prothrombin Time 11.3 sec (9.0-12.0)
[2019-05-20 18:49] LABS: Albumin 3.5 g/dL (3.5-5.0); Calcium 8.5 mg/dL (8.4-10.2); Magnesium 2.1 mg/dL (1.6-2.3); Potassium 4.5 mmol/L (3.5-5.1); Total Bilirubin 0.6 mg/dL (0.2-1.3); Total Protein 6.5 g/dL (6.3-8.2)
[2019-05-20] MEDS ORDERED: METOPROLOL TARTRATE 12.5 MG TAB PO STA (19:01)
--- NOTE | 2019-05-20 19:23 | US ---
EXAMINATION TYPE: US carotid duplex BILAT DATE OF EXAM: 05/20/2019 COMPARISON: NONE CLINICAL HISTORY: PreOp Cardiac Surgery. Heart surgery tomorrow. EXAM MEASUREMENTS: RIGHT: Peak Systolic Velocity (PSV) cm/sec ----- Right CCA: 49.3 ----- Right ICA: 62.3 ----- Right ECA: 36.2 ICA/CCA ratio: 1.3 RIGHT: End Diastole cm/sec ----- Right CCA: 24.8 ----- Right ICA: 26.0 ----- Right ECA: 15.8 LEFT: Peak Systolic Velocity (PSV) cm/sec ----- Left CCA: 86.7 ----- Left ICA: 79.8 ----- Left ECA: 82.87 ICA/CCA ratio: 1.2 LEFT: End Diastole cm/sec ----- Left CCA: 28.9 ----- Left ICA: 30.4 ----- Left ECA: 18.7 VERTEBRALS (direction of flow): Right Vertebral: Antegrade Left Vertebral: Antegrade Rhythm: Normal Bilateral plaque visualized. No significant stenosis seen IMPRESSION: There is antegrade flow in the vertebral arteries. There is minimal plaque formation. Images and sylvia urements suggest less than 35% stenosis in both internal carotid arteries. Criteria for Assigning % of Stenosis / Diameter reduction (Estimation based on the indirect measurements of the internal carotid artery velocities (ICA PSV). 1. Normal (no stenosis)=ICA PSV < 125 cm/s: ratio < 2.0: ICA EDV<40 cm/s. 2. Less than 50% stenosis=ICA PSV < 125 cm/s: ratio < 2.0: ICA EDV<40 cm/s. 3. 50 to 69% stenosis=ICA PSV of 125 to 230 cm/s: ration 2.0 ? 4.0: ICA EDV 40-100 cm/s. 4. Greater than 70% stenosis to near occlusion= ICA PSV > 230 cm/s: ratio > 4.0: ICA EDV > 100 cm/s. 5. Near occlusion= ICA PSV velocities may be low or undetectable: variable ratio and ICA EDV. 6. Total occlusion=unable to detect flow.
[2019-05-20] MEDS ORDERED: ALBUTEROL NEBULIZED 2.5 MG/3 ML INHALATION SCH (20:00)
[2019-05-20 20:05] LABS: Appearance,Urine Clear (Clear); Bacteria,Urine Rare /hpf; Bilirubin,Urine Negative (Negative); Blood,Urine Negative (Negative); Color,Urine Yellow; Glucose,Urine (UA) Negative (Negative); Hyaline Casts,Urine 1 /lpf (0-2); Ketones,Urine Negative (Negative); Leukocyte Esterase,Urine Negative (Negative); Mucus,Urine Few /hpf; Nitrite,Urine Negative (Negative); Protein,Urine 1+ (Negative); RBC,Urine 3 /hpf (0-5); Squamous Epithelial Cell,Urine <1 /hpf (0-4); WBC,Urine 10 /hpf (0-5)
[2019-05-20 20:23] LABS: Specific Gravity,Urine >1.050 (1.001-1.035)
[2019-05-20] MEDS: BUDESONIDE 0.5 MG/2 ML NEBU INHALATION SCH (20:31)
--- NOTE | 2019-05-20 21:10 | CONS ---
CONSULTATION Mr. Ansari is a 74-year-old male with known history of hypertension, hyperlipidemia, history of chronic tobacco use and a prior history of alcohol intake who presented with symptoms of chest discomfort. His discomfort has been going on for months, exertional in pattern, associated with dyspnea. His discomfort was worse today and he came into the emergency room. He is feeling better at the time of my evaluation. He denies any prior documented history of cardiac disease or prior cardiac evaluation. He has no PND, no orthopnea. He has chronic dyspnea on exertion. He used to smoke up to two packs per day. He is down to about a third of a pack a day. He used to have a history of significant alcohol intake up to 6 months ago. He has no history of malignant arrhythmia or syncope. His coronary risk factors are remarkable for hypertension, hyperlipidemia and smoking. He is nondiabetic. MEDICATIONS: Lisinopril 10 mg daily, Lipitor 20 mg daily, albuterol and vitamin D. REVIEW OF SYSTEMS: RESPIRATORY SYSTEM: He has chronic dyspnea on exertion, chronic tobacco use. GI SYSTEM: No recent GI bleeding. He has a prior history of bleeding related to hemorrhoids. SYSTEM: No dysuria or hematuria. NERVOUS SYSTEM: No stroke or seizure. PHYSICAL EXAMINATION: This is a 74-year-old male, alert, oriented, in no apparent distress. Blood pressure is running in the low 100s with a heart rate in the 70s. HEAD: Normocephalic. Eyes: Sclerae anicteric. NECK: Good carotid upstroke. No bruit. No jugular venous distention. LUNGS: Decreased air exchange and a few scattered wheezes. HEART: Regular rate, rhythm. Distant heart sounds. S1, S2. No S3. No murmur appreciated. ABDOMEN: Soft, nontender. Positive bowel sounds. No organomegaly. EXTREMITIES: No edema. Intact distal pulses. LAB DATA/IMAGING: Lab data revealed BUN and creatinine of 27 and 1.03. Troponin 2.99. NT-proBNP of 3420. Hemoglobin of 11.3. His chest x-ray revealed mild to moderate emphysema with mild congestion. He underwent CT angiogram of the chest that revealed no evidence of pulmonary embolism, evidence of COPD, multiple pulmonary nodules and calcification in the pancreatic tail. His EKG revealed a sinus mechanism, normal axis, intervals, poor R-wave progression; cannot exclude anterior myocardial infarction with ST-segment depression in the lateral leads. IMPRESSION: 1. Yql-[id number]-elevation myocardial infarction in a patient with multiple risk factors. 2. Chronic tobacco use. 3. History of hypertension. 4. Hyperlipidemia. 5. Chronic obstructive pulmonary disease. RECOMMENDATIONS: From the cardiac standpoint, I have recommended proceeding with coronary angiography to assess his status and guide his treatment. The rationale behind the procedure, its risks and complications were discussed with the patient, who is in full understanding and agreement. Thank you for this consult. Will follow with you. MARIA DL / IJN: [id number] /
[2019-05-20] MEDS: METOPROLOL TARTRATE 12.5 MG TAB PO ONE (21:27)
--- NOTE | 2019-05-20 23:02 | CC ---
CARDIAC CATHETERIZATION REPORT Mr. Ansari is a 74-year-old male with known history of hypertension, hyperlipidemia, who presented with progressive symptoms of exertional chest discomfort and dyspnea on exertion. In the emergency room he was found to have ST-segment depression on the lateral leads with evidence of troponin elevation up to 2.9. In view of that, recommendation was made regarding cardiac catheterization. The procedure, its risks and complication were discussed with the patient, who was in full understanding and agreement. PROCEDURE DESCRIPTION: Patient was brought to the veterinarian laboratory animal care in a fasting, semi-sedated state after receiving fentanyl Benadryl and achieving moderate conscious sedated state. Using Xylocaine anesthesia and Seldinger technique, a 6-Cuban sheath was introduced in the right radial artery. Selective right and left coronary angiography was performed using 5- Cuban 3-1/2 bend right and left Raj catheters. Multiple views were taken of the arteries, including hemiaxial views. Following that, a 5-Cuban tight pigtail catheter was introduced in the left ventricle and pressures were calculated. Following that, catheter was removed, and using a microcatheter, the right femoral artery after xylocaine anesthesia was cannulated. Following that an intra-aortic balloon pump was inserted under fluoroscopic guidance and secured in place. Following that, the right radial sheath was removed and hemostasis was obtained with deployment of a TR band. There was no immediate complication. Patient was returned to his room in stable condition. Of note, the patient received 5000 units of intravenous heparin. FINDINGS: FLUOROSCOPY: There was severe calcification involving all the coronary arteries. LEFT MAIN: This is a large-sized vessel bifurcating into left circumflex and left anterior descending artery. Left main coronary artery has a 99% stenosis distally. LEFT ANTERIOR DESCENDING ARTERY: This vessel gives rise to a large diagonal branch. At the takeoff of the diagonal branch the LAD is subtotally occluded with slow antegrade flow. The diagonal branch has no high-grade stenosis. LEFT CIRCUMFLEX: This is a nondominant vessel, large in caliber, giving rise to 3 obtuse marginal branches. The third one is the largest in caliber. The proximal left circumflex has diffuse intimal disease up to 80%. Prior to the takeoff of the second obtuse marginal branch there is a 90% stenosis. The rest of the vessel has no high- grade stenosis. RIGHT CORONARY ARTERY: This is a large dominant vessel, calcified, bifurcating into PDA and posterolateral segment and branches. The proximal right coronary artery has a 99% stenosis and there is another plaque of 80% in the mid segment. The rest of the vessel has no high-grade stenosis. LEFT VENTRICULOGRAM: Left ventriculogram was not performed. HEMODYNAMICS: There was no gradient across the aortic valve. The left ventricular end-diastolic pressure was 26 mmHg. CONCLUSION: 1. Calcified coronary arteries. 2. Critical stenosis in the left main. 3. Severe triple-vessel coronary artery disease. RECOMMENDATIONS: In view of findings and anatomy, I have recommended proceeding with evaluation for coronary artery bypass grafting in an emergent fashion. Those findings and recommendations were discussed with the patient, and he is in full understanding and agreement. He has been evaluated by Dr. Kim. Duration of procedure was 43 minutes. MMTIARRAL / ANDREWN: [id number] /
--- NOTE | 2019-05-20 23:02 | LTR ---
May 20, 2019 To: Dr. Baxter Re: Brock Ansari (49) Dear Dr. Baxter, I had the pleasure of performing cardiac catheterization on Mr. Ansari at [facility] on May 19, and a full copy of the procedure note will be forwarded to you. In brief, he was found to have critical left main disease with severe triple-vessel coronary artery disease. Based on those findings, he is scheduled to undergo coronary artery bypass grafting tomorrow. I will keep you updated on his progress. Thank you again for allowing me to participate in his care. Please feel free to call with any questions. Sincerely, Tavia Lux M.D. ISAK / LUKASZ: [id number] /
[2019-05-21 01:05] LABS: Hemoglobin A1C 5.5 % (4.0-6.0)
[2019-05-21 04:21] LABS: Hepatitis A Antibody IgM Non-Reactive (Non-Reactive); Hepatitis B Core IgM Non-Reactive (Non-Reactive); Hepatitis B Surface Antigen Non-Reactive (Non-Reactive)
[2019-05-21 04:27] LABS: Basophils % (A) 0 %; Eosinophils % (A) 0 %; HCT 36.3 % (39.0-53.0); HGB 11.6 gm/dL (13.0-17.5); Lymphocytes # (A) 1.8 k/uL (1.0-4.8); Lymphocytes % (A) 19 %; MCH 30.5 pg (25.0-35.0); MCV 95.4 fL (80.0-100.0); Mean Platelet Volume 10.2; Monocytes # (A) 0.4 k/uL (0-1.0); Monocytes % (A) 4 %; Neutrophils # (A) 7.4 k/uL (1.3-7.7); Neutrophils % (A) 75 %; Platelet Count 125 k/uL (150-450); RDW 13.8 % (11.5-15.5); WBC 9.9 k/uL (3.8-10.6)
[2019-05-21 04:58] LABS: African American GFR (CKD) >90 (>60 ml/min/1.73 sqM); Anion Gap 8 mmol/L; Blood Urea Nitrogen 25 mg/dL (9-20); Calcium 8.5 mg/dL (8.4-10.2); Carbon Dioxide 22 mmol/L (22-30); Chloride 109 mmol/L (98-107); Cholesterol 136 mg/dL (<200); Glucose 98 mg/dL (74-99); HDL Cholesterol 25 mg/dL (40-60); LDL Cholesterol,Calculated 92 mg/dL (0-99); Non-African American GFR(CKD) 82 (>60 ml/min/1.73 sqM); Potassium 4.3 mmol/L (3.5-5.1); Sodium 139 mmol/L (137-145); Triglycerides 97 mg/dL (<150)
[2019-05-21] MEDS ORDERED: ALBUMIN HUMAN 25% 50 ML in EMPTY BAG 1 BAG IVPB ONE (05:00)
[2019-05-21] MEDS ORDERED: PROTAMINE SULFATE 10 MG/ML 25 ML VIAL IV ONE ×2 (05:00→16:23)
[2019-05-21] MEDS ORDERED: MANNITOL 25% 12.5 GM/50 ML VIAL IV ONE ×2 (05:00)
[2019-05-21] MEDS ORDERED: NITROGLYCERIN-D5W PMX 25 MG/250 ML BTL IV ONE (05:00)
[2019-05-21] MEDS ORDERED: ceFAZolin 2,000 MG in SODIUM CHLORIDE 0.9% 30 ML IVPB ONE (05:00)
[2019-05-21] MEDS ORDERED: ALBUMIN HUMAN 5% 500 ML in EMPTY BAG 1 BAG IVPB ONE ×6 (05:00)
[2019-05-21] MEDS ORDERED: CALCIUM CHLORIDE 100 MG/ML 10 ML SYRINGE IVP ONE (05:00)
[2019-05-21] MEDS ORDERED: ATORVASTATIN 10 MG TAB PO ONE (05:00)
[2019-05-21] MEDS ORDERED: PHENYLEPHRINE 10 MG/ML VIAL IV ONE (05:00)
[2019-05-21] MEDS ORDERED: ceFAZolin 1,000 MG in SODIUM CHLORIDE 0.9% IRRIGATIO 1,000 ML IRRIGATION ONE (05:00)
[2019-05-21] MEDS ORDERED: MAGNESIUM SULFATE SYG 4.06 MEQ/ML SYRINGE IV ONE (05:00)
[2019-05-21] MEDS ORDERED: ASPIRIN 325 MG TAB PO ONE (05:00)
[2019-05-21] MEDS ORDERED: TRANEXAMIC ACID 2,000 MG in SODIUM CHLORIDE 0.9% 80 ML IV ONE (05:00)
[2019-05-21] MEDS ORDERED: ceFAZolin 2 GM in SODIUM CHLORIDE 0.9% 30 ML IVPB ONE (05:00)
[2019-05-21] MEDS ORDERED: MUPIROCIN 2% OINT 22 GM TUBE NASAL SCH (05:00)
[2019-05-21] MEDS: METOPROLOL TARTRATE 12.5 MG TAB PO ONE (05:13)
[2019-05-21] MEDS ORDERED: NITROGLYCERIN-D5W PMX 50 MG in DEXTROSE/WATER 1 250ML.BAG IV SCH ×2 (06:00→16:15)
[2019-05-21] MEDS ORDERED: HEPARIN SODIUM 1,000 UN/ML (10ML VL) IV ONE (06:00)
[2019-05-21] MEDS ORDERED: INSULIN REGULAR 100 UNIT in SODIUM CHLORIDE 0.9% 100 ML IV SCH (06:00)
[2019-05-21] MEDS ORDERED: SODIUM BICARB 8.4% 50 ML SYR (1 MEQ/ML) IV ONE (06:00)
[2019-05-21] MEDS ORDERED: HEPARIN SODIUM,PORCINE 5,000 UNIT in SODIUM CHLORIDE 0.9% 500 ML 500 ML IV ONE (06:00)
[2019-05-21] MEDS ORDERED: DEXTROSE 5% IN WATER 1,000 ML with POTASSIUM CHLORIDE 25 MEQ, SODIUM CHLORIDE 2.5MEQ/ML... IV SCH ×6 (06:00)
[2019-05-21] MEDS ORDERED: PHENYLEPHRINE 40 MG in SODIUM CHLORIDE 0.9% 250 ML IV ONE (06:00)
[2019-05-21] MEDS ORDERED: CHLORHEXIDINE GLUCONATE 15 ML CUP MUCOUS MEM ONE (06:00)
[2019-05-21] MEDS ORDERED: NOREPINEPHRINE 4 MG in SODIUM CHLORIDE 0.9% 250 ML IV SCH (06:00)
[2019-05-21] MEDS ORDERED: PROTAMINE SULFATE 250 MG in EMPTY BAG 1 BAG IV ONE (06:00)
[2019-05-21] MEDS ORDERED: PAPAVERINE 360 MG in SODIUM CHLORIDE 0.9% 90 ML IV ONE ×2 (06:00→09:21)
[2019-05-21] MEDS ORDERED: DEXTROSE 5% IN WATER 1,000 ML with POTASSIUM CHLORIDE 110 MEQ, MAGNESIUM SULFATE 16 MEQ... IV SCH ×5 (06:00)
[2019-05-21] MEDS ORDERED: CLEVIDIPINE BUTYRATE 25 MG in EMPTY BAG 1 BAG IV SCH (06:00)
[2019-05-21] MEDS ORDERED: PROPOFOL 1,000 MG in EMPTY BAG 1 BAG IV PRN (06:00)
--- NOTE | 2019-05-21 08:11 | XR ---
EXAMINATION TYPE: XR chest 1V portable DATE OF EXAM: 05/21/2019 COMPARISON: 05/20/2019 HISTORY: Congestive heart failure. TECHNIQUE: Single frontal view of the chest is obtained. FINDINGS: Right infrahilar airspace disease is persistent and similar in degree to the prior. Mild d iffuse interstitial prominence. Intracardiac balloon pump overlies the aortic arch. Cardiomediastinal silhouette is stable. No new pneumothorax. Costophrenic angles are not included on the images. IMPRESSION: Persistent right infrahilar opacity may represent confluent pulmonary edema or pneumonia . Background mild interstitial coronary edema is likely on the basis of congestive heart failure.
[2019-05-21 08:29] LABS: ABG Base Excess -2.4 mmol/L; ABG Glucose Whole Blood 100 mg/dL (75-99); ABG HCO3 23 mmol/L (21-25); ABG Hematocrit 33 % (34.0-46.0); ABG Ionized Calcium 4.7 mg/dL (4.5-5.3); ABG Lactic Acid Whole Blood 0.9 mmol/L (0.5-1.6); ABG Oxygen Saturation 88.3 % (94-97); ABG PCO2 40 mmHg (35-45); ABG PH 7.37 (7.35-7.45); ABG Potassium Whole Blood 4.2 mmol/L (3.4-4.5); ABG Sodium Whole Blood 140 mmol/L (135-146); ABG TCO2 24 mmol/L (19-24)
[2019-05-21] MEDS: BUDESONIDE 0.5 MG/2 ML NEBU INHALATION SCH ×2 (08:44→19:13)
--- NOTE | 2019-05-21 08:57 | PN ---
PROGRESS NOTE Mr. Ansari is a 74-year-old male with a known history of hypertension, hyperlipidemia, history of chronic tobacco use and a prior history of alcohol intake who presented to the emergency room with symptoms of chest pain, non ST-segment elevation myocardial infarction, underwent cardiac catheterization, was found to have critical left main disease as well as severe triple-vessel disease. An intra-aortic balloon pump was placed and is scheduled to undergo surgical intervention this morning. He could not sleep last night because of anxiety, but he had no further anginal pain. He is in sinus mechanism. There is no evidence of ventricular ectopic activity. Hemodynamically, he has been stable. He continued to be on aspirin once a day, Lipitor 80 mg daily, and metoprolol tartrate 12.5 mg. PHYSICAL EXAMINATION: Blood pressure running in the low 100s with the heart rate in 70s. LUNGS: Clear anteriorly with decreased air exchange, no wheezes. HEART: Regular rate and rhythm. S1, S2. No S3. No rub. ABDOMEN: Soft, nontender. EXTREMITIES: No edema. Right Groin: No hematoma. Right radial pulse intact. LAB DATA: Lab data revealed BUN and creatinine 25 and 0.93, potassium 4.3 hemoglobin of 11.6. IMPRESSION: 1. Non ST-segment elevation myocardial infarction. 2. Severe triple-vessel coronary artery disease with severe critical left main disease. 3. Ischemic cardiomyopathy. 4. History of chronic tobacco use and chronic obstructive lung disease. 5. Hypertension. 6. Hyperlipidemia. 7. Prior history of alcohol intake. RECOMMENDATION: From the cardiac standpoint, will continue present therapy. We will proceed with surgical intervention as scheduled today. Depending on his progress, further condition will be made. Those findings and recommendations were discussed with the patient and his family. ISAK / ANDREWN: [id number] /
[2019-05-21] MEDS ORDERED: CHOLECALCIFEROL 1,000 UNIT TAB PO SCH (09:00)
[2019-05-21] MEDS ORDERED: ASPIRIN 325 MG TAB PO SCH (09:00)
[2019-05-21] MEDS ORDERED: LISINOPRIL 10 MG TAB PO SCH (09:00)
--- NOTE | 2019-05-21 09:08 | P.ANPRN ---
Procedure Note - Anesthesia - Invasive Line Right Central Line Time Out Performed: Yes (750) Date of Procedure: 05/21/19 Time of Procedure: 07:51 Location of Patient: OR Preparation: Sterile Prep Arterial Line Location: Brachial Ultrasound Used: Yes Purpose - Visualization and Identification of Vasculature: Yes Needle Guage: 18g angiocath Image Stored and Saved: Yes (Image saved to chart) Narrative: Central line placement per sterile protocol utilized. +Local +Angiocath +CVP +Jwire +uneventful dilation and introduction right IJ Cordis. Free Flow. Non Pulsitile Right [place] Antonio Time Out Performed: Yes (750) Date of Procedure: 05/21/19 Time of Procedure: 07:59 Location of Patient: OR Preparation: Sterile Prep Arterial Line Location: Brachial (R IJ) Ultrasound Used: No Purpose - Visualization and Identification of Vasculature: No Needle Guage: n/a Image Stored and Saved: No Narrative: Central line placement per sterile protocol utilized. [place] floated utilizing sterile protocol to pA at 51 cm, no wedge.
[2019-05-21] MEDS ORDERED: SODIUM CHLORIDE 0.9% 500 ML 500 ML with HEPARIN SODIUM,PORCINE 5,000 UNIT IV ONE ×2 (09:21)
[2019-05-21] MEDS ORDERED: ceFAZolin 1,000 MG in SODIUM CHLORIDE 0.9% 1,000 ML IRRIGATION ONE (09:22)
--- NOTE | 2019-05-21 10:05 | CONS ---
CONSULTATION PULMONARY/CRITICAL CARE CONSULTATION: DATE OF SERVICE: May 21, 2019 This is a patient who apparently presented to the the emergency room at 11:30 a.m. yesterday for chest pain. He also apparently had shortness of breath. It had been going on for a couple of weeks and getting progressively worse. He graded his pain as being 7 or 8/10. It felt like pressure in his chest without radiation. He also felt short of breath. He states that when he exerted himself, his symptoms got worse. He also had some diaphoresis without nausea. He apparently has had no previous symptoms similar to this. Anyway, he was evaluated in the emergency room and admitted with a diagnosis of non-ST segment elevation myocardial infarction. Intra-aortic balloon pump was placed. It is augmenting at 1:1. He had a cardiac catheterization performed yesterday by Dr. Lux. It showed calcified coronary arteries, critical stenosis in the left main coronary artery, and severe triple vessel coronary artery disease. The patient is going to the operating room today for a bypass grafting maybe 3 or 4 vessel. In addition, in the emergency room, he had a CT angiogram which showed no evidence of PE but evidence of CHF and pleural effusion as well as COPD. In addition, he had multiple 5-mm pulmonary nodules too small to characterize. In addition, he had bilateral hilar adenopathy with lymph nodes measuring 1.5 cm. A chest x-ray was also done in the emergency room yesterday which showed some emphysematous changes and some vascular congestion. EKG did not show any ST segment changes and Thoracic Surgery was consulted. The patient when seen this morning was on O2 at 3 liters by nasal cannula. He was getting saline at 80 cc an hour and heparin via a weight-based protocol. Again, the balloon pump was augmenting at 1:1. HOME MEDICATIONS: His home medications are reviewed. He was on Lipitor, Zestril, albuterol inhaler, vitamin D3, eye vitamins. ALLERGIES: BENIGN. MEDICAL HISTORY: Hyperlipidemia and hypertension possibly from underlying COPD from chronic tobacco use. He also has a history of aortic aneurysm. SURGICAL HISTORY: Previous appendectomy. SOCIAL HISTORY: Positive for previous heavy alcohol use and current every day tobacco use. No illicit drug use. FAMILY HISTORY: Noncontributory. Apparently, mother and father were healthy. REVIEW OF SYSTEMS: CONSTITUTIONAL: Negative. NEUROLOGIC: Negative. HEENT: Negative. CARDIOVASCULAR: Chest pain. PULMONARY: Shortness of breath. GI: Negative. : Negative. HEMATOLOGIC: Negative. IMMUNOLOGIC: Negative. ENDOCRINE: Negative. DERMATOLOGIC: Negative. PHYSICAL EXAMINATION: VITAL SIGNS: Temperature 98, heart rate 66, respiratory rate 19, saturation 92% on 3 liters. Appears in no acute distress. HEENT: Examination is grossly unremarkable. Nasal O2 in place. NECK: Supple. Full range of motion. No adenopathy. CARDIOVASCULAR: Examination reveals regular rhythm and rate. Heart rate is 66 beats per minute. S1, S2 normal. LUNGS: Reveal clear breath sounds. No wheezers, rhonchi or crackles. ABDOMEN: Soft. Bowel sounds are heard. EXTREMITIES: Intact. No cyanosis, clubbing or edema. SKIN: Without rash. NEUROLOGIC: Examination is brief but nonfocal. LABS: Nasal swab was pending. Labs are reviewed. From this morning, white count 9.9, hemoglobin 11.6, hematocrit 36.3, platelet count 125,000. Sodium 139, potassium 4.3, chloride 109, CO2 22, anion gap is 8, BUN and creatinine were 25 and 0.93. His troponins were 3.640 and 5.610. Urine was essentially negative. Hepatitis screen was negative. RADIOLOGY: Chest x-ray in my opinion shows some mild fluid overload and vascular congestion. MEDICATIONS: Medications are reviewed. Everything seems appropriate. ASSESSMENT: 1. Severe triple vessel coronary artery disease. 2. Non-ST segment elevation myocardial infarction. 3. Hypertension by history. 4. History of hyperlipidemia. 5. Probable COPD from nearly 60 years of tobacco use. 6. History of thoracic aortic aneurysm. 7. Prior history of appendectomy. 8. History of ongoing tobacco use with nicotine addiction. PLAN: The patient is going to the operating room today. We will see him afterwards. Hopefully, we will get him extubated within six hours of leaving the operating room. We will make sure that he is on albuterol and Atrovent updrafts q.4 hours after surgery. We will work on getting him weaned from mechanical ventilation. We will encourage the hourly use of incentive spirometer once extubated. ISAK / ANDREWN: [id number] /
[2019-05-21 10:52] LABS: ABG Base Excess -6.2 mmol/L; ABG Glucose Whole Blood 130 mg/dL (75-99); ABG HCO3 21 mmol/L (21-25); ABG Hematocrit 36 % (34.0-46.0); ABG Ionized Calcium 4.8 mg/dL (4.5-5.3); ABG Lactic Acid Whole Blood 0.9 mmol/L (0.5-1.6); ABG Oxygen Saturation 99.1 % (94-97); ABG PCO2 51 mmHg (35-45); ABG PH 7.23 (7.35-7.45); ABG PO2 182 mmHg (83-108); ABG Potassium Whole Blood 4.6 mmol/L (3.4-4.5); ABG Sodium Whole Blood 140 mmol/L (135-146); ABG TCO2 23 mmol/L (19-24)
[2019-05-21 10:55] LABS: ABG Base Excess -6.1 mmol/L; ABG Glucose Whole Blood 130 mg/dL (75-99); ABG HCO3 21 mmol/L (21-25); ABG Hematocrit 35 % (34.0-46.0); ABG Ionized Calcium 4.8 mg/dL (4.5-5.3); ABG Lactic Acid Whole Blood 0.8 mmol/L (0.5-1.6); ABG Oxygen Saturation 99.2 % (94-97); ABG PCO2 50 mmHg (35-45); ABG PH 7.24 (7.35-7.45); ABG PO2 191 mmHg (83-108); ABG Potassium Whole Blood 4.6 mmol/L (3.4-4.5); ABG Sodium Whole Blood 140 mmol/L (135-146); ABG TCO2 23 mmol/L (19-24)
[2019-05-21 11:58] LABS: ABG Base Excess -3.3 mmol/L; ABG Glucose Whole Blood 131 mg/dL (75-99); ABG HCO3 22 mmol/L (21-25); ABG Hematocrit 32 % (34.0-46.0); ABG Ionized Calcium 4.7 mg/dL (4.5-5.3); ABG Lactic Acid Whole Blood 1.4 mmol/L (0.5-1.6); ABG Oxygen Saturation 99.6 % (94-97); ABG PCO2 40 mmHg (35-45); ABG PH 7.35 (7.35-7.45); ABG PO2 196 mmHg (83-108); ABG Potassium Whole Blood 4.5 mmol/L (3.4-4.5); ABG Sodium Whole Blood 140 mmol/L (135-146); ABG TCO2 23 mmol/L (19-24)
[2019-05-21 12:43] LABS: ABG Base Excess -1.3 mmol/L; ABG Glucose Whole Blood 198 mg/dL (75-99); ABG HCO3 25 mmol/L (21-25); ABG Hematocrit 27 % (34.0-46.0); ABG Ionized Calcium 4.3 mg/dL (4.5-5.3); ABG Lactic Acid Whole Blood 1.2 mmol/L (0.5-1.6); ABG Oxygen Saturation 98.9 % (94-97); ABG PCO2 49 mmHg (35-45); ABG PH 7.32 (7.35-7.45); ABG PO2 139 mmHg (83-108); ABG Potassium Whole Blood 5.4 mmol/L (3.4-4.5); ABG Sodium Whole Blood 137 mmol/L (135-146); ABG TCO2 27 mmol/L (19-24)
[2019-05-21 13:07] LABS: ABG Base Excess -1.9 mmol/L; ABG Glucose Whole Blood 199 mg/dL (75-99); ABG HCO3 24 mmol/L (21-25); ABG Hematocrit 29 % (34.0-46.0); ABG Ionized Calcium 4.4 mg/dL (4.5-5.3); ABG Lactic Acid Whole Blood 1.3 mmol/L (0.5-1.6); ABG Oxygen Saturation 99.9 % (94-97); ABG PCO2 43 mmHg (35-45); ABG PH 7.35 (7.35-7.45); ABG PO2 367 mmHg (83-108); ABG Potassium Whole Blood 4.9 mmol/L (3.4-4.5); ABG Sodium Whole Blood 138 mmol/L (135-146); ABG TCO2 25 mmol/L (19-24)
[2019-05-21 13:36] LABS: ABG Base Excess -1.9 mmol/L; ABG Glucose Whole Blood 218 mg/dL (75-99); ABG HCO3 24 mmol/L (21-25); ABG Hematocrit 28 % (34.0-46.0); ABG Ionized Calcium 4.4 mg/dL (4.5-5.3); ABG Lactic Acid Whole Blood 1.6 mmol/L (0.5-1.6); ABG Oxygen Saturation 97.9 % (94-97); ABG PCO2 43 mmHg (35-45); ABG PH 7.35 (7.35-7.45); ABG PO2 105 mmHg (83-108); ABG Sodium Whole Blood 137 mmol/L (135-146); ABG TCO2 25 mmol/L (19-24)
[2019-05-21 14:04] LABS: ABG Base Excess -2.6 mmol/L; ABG Glucose Whole Blood 206 mg/dL (75-99); ABG HCO3 24 mmol/L (21-25); ABG Hematocrit 27 % (34.0-46.0); ABG Ionized Calcium 4.5 mg/dL (4.5-5.3); ABG Oxygen Saturation 99.8 % (94-97); ABG PCO2 47 mmHg (35-45); ABG PH 7.31 (7.35-7.45); ABG PO2 309 mmHg (83-108); ABG Potassium Whole Blood 4.6 mmol/L (3.4-4.5); ABG Sodium Whole Blood 138 mmol/L (135-146); ABG TCO2 25 mmol/L (19-24)
[2019-05-21 14:58] LABS: ABG PO2 55 mmHg (83-108)
[2019-05-21 14:59] LABS: ABG Base Excess -3.3 mmol/L; ABG Glucose Whole Blood 171 mg/dL (75-99); ABG HCO3 23 mmol/L (21-25); ABG Hematocrit 26 % (34.0-46.0); ABG Ionized Calcium 4.8 mg/dL (4.5-5.3); ABG Oxygen Saturation 98.8 % (94-97); ABG PCO2 43 mmHg (35-45); ABG PH 7.33 (7.35-7.45); ABG PO2 138 mmHg (83-108); ABG Potassium Whole Blood 3.9 mmol/L (3.4-4.5); ABG Sodium Whole Blood 139 mmol/L (135-146); ABG TCO2 24 mmol/L (19-24)
[2019-05-21 15:02] LABS: ABG Lactic Acid Whole Blood 2.1 mmol/L (0.5-1.6)
[2019-05-21 15:24] LABS: ABG Lactic Acid Whole Blood 2.9 mmol/L (0.5-1.6)
[2019-05-21] MEDS ORDERED: MILRINONE-D5W PMX 20 MG in DEXTROSE/WATER 1 100ML.BAG IV SCH (15:48)
[2019-05-21] MEDS ORDERED: BENZOCAINE/MENTHOL LOZENG 1 EACH LOZENGE MUCOUS MEM PRN (15:48)
[2019-05-21] MEDS ORDERED: Magnesium Replacement Protocol 1 EACH MISC MISCELLANE PRN (15:48)
[2019-05-21] MEDS ORDERED: Phosphorus Replacement Protoco 1 EACH MISC MISCELLANE PRN (15:48)
[2019-05-21] MEDS ORDERED: PROPOFOL 1,000 MG in EMPTY BAG 1 BAG IV SCH (15:48)
[2019-05-21] MEDS ORDERED: Potassium Replacement Protocol 1 EACH MISC MISCELLANE PRN (15:48)
[2019-05-21] MEDS ORDERED: ONDANSETRON 4 MG/2 ML VIAL IVP PRN (15:48)
[2019-05-21] MEDS ORDERED: CALCIUM GLUCONATE 2 GM in SODIUM CHLORIDE 0.9% 100 ML IVPB PRN (15:48)
[2019-05-21] MEDS ORDERED: METOCLOPRAMIDE 5 MG/ML 2 ML VIAL IVP PRN (15:48)
[2019-05-21] MEDS ORDERED: MORPHINE SULFATE 2 MG/ML SYRINGE IVP PRN (15:48)
[2019-05-21] MEDS: LACTATED RINGERS 1,000 ML IV SCH (16:15)
[2019-05-21] MEDS: INSULIN REGULAR 100 UNIT in SODIUM CHLORIDE 0.9% 100 ML IV SCH (16:15)
[2019-05-21] MEDS: NOREPINEPHRINE 4 MG in SODIUM CHLORIDE 0.9% 250 ML IV SCH (16:15)
[2019-05-21 16:22] LABS: Glucose,Whole Blood 151 mg/dL (75-99)
[2019-05-21] MEDS ORDERED: PROTAMINE SULFATE 10 MG/ML 5 ML VIAL IV ONE (16:23)
[2019-05-21] MEDS ORDERED: ALBUMIN HUMAN 5% (25gm) 500 ML VIAL IVPB ONE (16:23)
[2019-05-21] MEDS ORDERED: PROPOFOL 10 MG/ML 20 ML VIAL IV ONE (16:23)
[2019-05-21] MEDS ORDERED: MIDAZOLAM 2 MG/2 ML VIAL ONE (16:23)
[2019-05-21] MEDS ORDERED: VECURONIUM 10 MG VIAL IV ONE (16:23)
[2019-05-21] MEDS ORDERED: LACTATED RINGERS 1,000 ML BAG IV ONE (16:23)
[2019-05-21] MEDS ORDERED: TRANEXAMIC ACID 1,000 MG/10 ML VIAL ONE (16:23)
[2019-05-21] MEDS ORDERED: NITROGLYCERIN-D5W PMX 50 MG/250 ML BOTTLE IV ONE (16:23)
[2019-05-21] MEDS ORDERED: SODIUM CHLORIDE 0.9% 250 ML BAG ONE (16:23)
[2019-05-21] MEDS ORDERED: ALBUTEROL INHALER 60 PUFF/8 GM INHALER INHALATION ONE (16:23)
[2019-05-21] MEDS ORDERED: MAGNESIUM SULFATE 4 MEQ/ML 10ML VIAL ONE (16:23)
[2019-05-21] MEDS ORDERED: HEPARIN SODIUM,PORCINE 10,000 UNIT/ML 1 ML VIAL ONE (16:23)
[2019-05-21] MEDS ORDERED: PHENYLEPHRINE-0.9% NACL SYG 1 MG/10 ML SYRINGE ONE (16:23)
[2019-05-21] MEDS ORDERED: SODIUM BICARB 8.4% 50 ML SYR (1 MEQ/ML) ONE (16:23)
[2019-05-21] MEDS ORDERED: WATER FOR INJECTION, STERILE 10 ML VIAL IV ONE (16:23)
[2019-05-21] MEDS ORDERED: LIDOCAINE 2% SYG (PF) 100 MG/5 ML ONE (16:23)
[2019-05-21] MEDS ORDERED: ELECTROLYTE-R (PH 7.4) 1,000 ML IV.SOLN IV ONE (16:23)
[2019-05-21] MEDS ORDERED: CALCIUM CHLORIDE 100 MG/ML 10 ML SYRINGE ONE (16:23)
[2019-05-21] MEDS ORDERED: fentaNYL (PF) 50 MCG/ML 50 ML VIAL ONE (16:23)
--- NOTE | 2019-05-21 16:29 | XR ---
EXAMINATION TYPE: XR chest 1V portable DATE OF EXAM: 05/21/2019 COMPARISON: 05/21/2019 HISTORY: Status post cardiac surgery TECHNIQUE: Single frontal view of the chest is obtained. FINDINGS: Left thoracostomy tube terminates overlying the left upper lung. Right-sided Pimento-Antonio cat heter from the internal jugular approach terminates in the pulmonary outflow tract. Post CABG changes of the chest are seen. Intracardiac balloon pump overlies the inferior aspect of the aortic arch. Ao rtic closure device is seen. Mediastinal drains are present. Trace left apical pneumothorax estimated at less than 5%. Small amount air is seen adjacent to the left ventricular margin possibly due to ad jacent atelectasis or pleural air. Minimal right infrahilar subsegmental atelectasis is seen. Stable cardiomediastinal silhouette size. Endotracheal tube terminates appropriately at the level of the aor tic arch. IMPRESSION: Appropriately placed lines and tubes. Trace left residual pneumothorax and minimal right basilar subsegmental atelectasis.
[2019-05-21 16:51] LABS: ABG Base Excess -3.4 mmol/L; ABG HCO3 24 mmol/L (21-25); ABG Oxygen Saturation 99.5 % (94-97); ABG PCO2 53 mmHg (35-45); ABG PH 7.26 (7.35-7.45); ABG PO2 186 mmHg (83-108); ABG TCO2 25 mmol/L (19-24); Allen Test Performed? Yes
[2019-05-21] MEDS: IPRATROPIUM-ALBUTEROL 3 ML NEB INHALATION SCH ×3 (16:55→20:00)
[2019-05-21 17:05] LABS: Glucose,Whole Blood 160 mg/dL (75-99)
[2019-05-21 17:20] LABS: Basophils % (A) 0 %; Eosinophils % (A) 0 %; HCT 26.7 % (39.0-53.0); Lymphocytes % (A) 6 %; MCH 31.8 pg (25.0-35.0); MCHC 33.2 g/dL (31.0-37.0); MCV 95.6 fL (80.0-100.0); Monocytes # (A) 0.9 k/uL (0-1.0); Monocytes % (A) 5 %; Neutrophils # (A) 16.2 k/uL (1.3-7.7); Neutrophils % (A) 88 %; Platelet Count 107 k/uL (150-450); RBC 2.79 m/uL (4.30-5.90); RDW 13.9 % (11.5-15.5); WBC 18.4 k/uL (3.8-10.6)
[2019-05-21 17:23] LABS: HGB 8.9 gm/dL (13.0-17.5)
[2019-05-21 17:27] LABS: INR 1.3 (<1.2); Partial Thromboplastin Time 29.6 sec (22.0-30.0); Prothrombin Time 12.7 sec (9.0-12.0)
[2019-05-21 17:30] LABS: Ionized Calcium 4.9 mg/dL (4.5-5.3)
[2019-05-21] MEDS: ATORVASTATIN 80 MG TAB PO SCH (17:36)
[2019-05-21 17:40] LABS: ALT 39 U/L (4-49); AST 68 U/L (17-59); African American GFR (CKD) >90 (>60 ml/min/1.73 sqM); Albumin 2.7 g/dL (3.5-5.0); Alkaline Phosphatase 70 U/L (38-126); Anion Gap 5 mmol/L; Blood Urea Nitrogen 22 mg/dL (9-20); Calcium 7.6 mg/dL (8.4-10.2); Carbon Dioxide 24 mmol/L (22-30); Chloride 108 mmol/L (98-107); Glucose 134 mg/dL (74-99); Magnesium 2.5 mg/dL (1.6-2.3); Non-African American GFR(CKD) 88 (>60 ml/min/1.73 sqM); Sodium 137 mmol/L (137-145); Total Bilirubin 1.7 mg/dL (0.2-1.3); Total Protein 4.9 g/dL (6.3-8.2)
[2019-05-21 18:17] LABS: Glucose,Whole Blood 172 mg/dL (75-99)
[2019-05-21] MEDS: ACETAMINOPHEN IV (For NPO) 1,000 MG in EMPTY BAG 1 BAG IVPB SCH ×2 (18:46→23:55)
[2019-05-21] MEDS: KETOROLAC 30 MG/ML 1 ML VIAL IVP SCH ×2 (18:56→23:54)
[2019-05-21 19:19] LABS: Glucose,Whole Blood 167 mg/dL (75-99)
[2019-05-21 20:20] LABS: Glucose,Whole Blood 158 mg/dL (75-99)
[2019-05-21] MEDS: ALBUMIN HUMAN 5% 250 ML in EMPTY BAG 1 BAG IVPB PRN ×5 (20:26→22:41)
[2019-05-21] MEDS: DEXMEDETOMIDINE/0.9% NACL(PMX) 400 MCG in EMPTY BAG 1 BAG IV SCH (20:40)
[2019-05-21 20:41] LABS: Basophils % (A) 0 %; Eosinophils % (A) 0 %; HCT 26.2 % (39.0-53.0); HGB 8.5 gm/dL (13.0-17.5); Lymphocytes # (A) 0.7 k/uL (1.0-4.8); Lymphocytes % (A) 4 %; MCH 30.9 pg (25.0-35.0); MCHC 32.3 g/dL (31.0-37.0); MCV 95.6 fL (80.0-100.0); Mean Platelet Volume 9.9; Monocytes # (A) 0.6 k/uL (0-1.0); Monocytes % (A) 4 %; Neutrophils # (A) 14.8 k/uL (1.3-7.7); Neutrophils % (A) 92 %; Platelet Count 120 k/uL (150-450); RBC 2.74 m/uL (4.30-5.90); WBC 16.1 k/uL (3.8-10.6)
[2019-05-21 21:18] LABS: Glucose,Whole Blood 142 mg/dL (75-99)
[2019-05-21] MEDS ORDERED: CALCIUM GLUCONATE 1 GM in SODIUM CHLORIDE 0.9% 100 ML IVPB ONE (21:30)
[2019-05-21 22:14] LABS: Glucose,Whole Blood 118 mg/dL (75-99)
--- NOTE | 2019-05-21 22:17 | XR ---
EXAMINATION TYPE: XR chest 1V portable DATE OF EXAM: 05/21/2019 COMPARISON: Today HISTORY: Balloon pump placement TECHNIQUE: Single view portable FINDINGS: There is right jugular catheter with the tip in the main pulmonary artery. Endotracheal tub e is 6 cm from the benito. There is nasogastric tube. There are sternal wires. There is mild pulmonar y interstitial edema. There is left-sided chest tube. No pneumothorax. There is mild blunting right c ostophrenic angle. IMPRESSION: Right pleural effusion increased compared to exam earlier today. Increased infiltrate rig ht lower lobe. Mild pulmonary edema unchanged.
[2019-05-21] MEDS: CLEVIDIPINE BUTYRATE 25 MG in EMPTY BAG 1 BAG IV SCH (22:18)
[2019-05-21] MEDS: MUPIROCIN 2% OINT 22 GM TUBE NASAL SCH (22:18)
[2019-05-21 22:19] LABS: Basophils % (A) 0 %; Eosinophils % (A) 0 %; HCT 23.5 % (39.0-53.0); HGB 7.4 gm/dL (13.0-17.5); Lymphocytes # (A) 0.5 k/uL (1.0-4.8); Lymphocytes % (A) 4 %; MCH 30.2 pg (25.0-35.0); MCHC 31.7 g/dL (31.0-37.0); MCV 95.3 fL (80.0-100.0); Mean Platelet Volume 11.2; Monocytes # (A) 0.6 k/uL (0-1.0); Monocytes % (A) 4 %; Neutrophils % (A) 91 %; Platelet Count 107 k/uL (150-450); RBC 2.47 m/uL (4.30-5.90); WBC 13.2 k/uL (3.8-10.6)
[2019-05-21 23:04] LABS: Glucose,Whole Blood 92 mg/dL (75-99)
[2019-05-21] MEDS: IPRATROPIUM-ALBUTEROL 3 ML NEB INHALATION PRN (23:13)
[2019-05-21 23:54] LABS: Glucose,Whole Blood 97 mg/dL (75-99)
[2019-05-21] MEDS: HEPARIN SODIUM,PORCINE 5,000 UNIT/ML 1 ML VIAL SQ SCH (23:55)
[2019-05-22] MEDS ORDERED: SALINE 1 500ML.BAG with HEPARIN SODIUM,PORCINE/NS/PF 1,000 UNIT IV ONE (01:00)
[2019-05-22 01:05] LABS: Glucose,Whole Blood 145 mg/dL (75-99)
[2019-05-22 02:06] LABS: Glucose,Whole Blood 146 mg/dL (75-99)
[2019-05-22] MEDS: DEXMEDETOMIDINE/0.9% NACL(PMX) 400 MCG in EMPTY BAG 1 BAG IV SCH (02:06)
[2019-05-22 02:38] LABS: ABG HCO3 21 mmol/L (21-25); ABG Oxygen Saturation 95.7 % (94-97); ABG PCO2 34 mmHg (35-45); ABG PO2 73 mmHg (83-108); ABG TCO2 22 mmol/L (19-24); Allen Test Performed? Yes
[2019-05-22] MEDS: HYDROcodone/APAP 5-325MG 1 EACH TAB PO PRN ×5 (02:40→20:58)
[2019-05-22 03:03] LABS: Glucose,Whole Blood 136 mg/dL (75-99)
[2019-05-22] MEDS: NOREPINEPHRINE 4 MG in SODIUM CHLORIDE 0.9% 250 ML IV SCH ×3 (03:37→23:39)
[2019-05-22 04:04] LABS: Glucose,Whole Blood 115 mg/dL (75-99)
[2019-05-22 04:18] LABS: Basophils % (A) 0 %; Eosinophils % (A) 0 %; HCT 22.8 % (39.0-53.0); HGB 7.4 gm/dL (13.0-17.5); Lymphocytes % (A) 7 %; MCH 30.6 pg (25.0-35.0); MCHC 32.5 g/dL (31.0-37.0); MCV 94.3 fL (80.0-100.0); Mean Platelet Volume 10.5; Monocytes # (A) 0.7 k/uL (0-1.0); Monocytes % (A) 4 %; Neutrophils # (A) 12.9 k/uL (1.3-7.7); Neutrophils % (A) 88 %; Platelet Count 109 k/uL (150-450); RBC 2.42 m/uL (4.30-5.90); WBC 14.7 k/uL (3.8-10.6)
[2019-05-22 04:24] LABS: Ionized Calcium 4.8 mg/dL (4.5-5.3)
[2019-05-22 04:32] LABS: ALT 30 U/L (4-49); AST 64 U/L (17-59); African American GFR (CKD) >90 (>60 ml/min/1.73 sqM); Albumin 3.1 g/dL (3.5-5.0); Alkaline Phosphatase 63 U/L (38-126); Anion Gap 7 mmol/L; Blood Urea Nitrogen 25 mg/dL (9-20); Calcium 8.2 mg/dL (8.4-10.2); Carbon Dioxide 23 mmol/L (22-30); Chloride 108 mmol/L (98-107); Glucose 99 mg/dL (74-99); Magnesium 2.3 mg/dL (1.6-2.3); Non-African American GFR(CKD) 79 (>60 ml/min/1.73 sqM); Potassium 3.9 mmol/L (3.5-5.1); Sodium 138 mmol/L (137-145); Total Protein 5.2 g/dL (6.3-8.2)
[2019-05-22 05:04] LABS: Glucose,Whole Blood 94 mg/dL (75-99)
[2019-05-22] MEDS: KETOROLAC 30 MG/ML 1 ML VIAL IVP SCH ×3 (05:26→18:44)
[2019-05-22] MEDS ORDERED: POTASSIUM CHLORIDE ER 20 MEQ TAB.ER PO SCH (06:00)
[2019-05-22 06:05] LABS: Glucose,Whole Blood 115 mg/dL (75-99)
[2019-05-22 07:04] LABS: Glucose,Whole Blood 144 mg/dL (75-99)
--- NOTE | 2019-05-22 07:30 | PN ---
PROGRESS NOTE PULMONARY/CRITICAL CARE PROGRESS NOTE: DATE OF SERVICE: 05/22/2019 CRITICAL CARE TIME 33 minutes. This is a patient who is postop day #1 status post 4-vessel bypass grafting. He had a IGLESIAS to LAD bypass and 3 saphenous vein grafts. The patient is doing relatively well. He was finally extubated early this morning. He is currently on 6 L. He is on Primacor at 0.1 mcg/kg per minute, lactated Ringer's at 50 mL an hour, insulin drip at 3 units an hour, norepinephrine at 7 mcg/minute, Precedex 0.2 mcg/kg per hour. He still has a balloon pump in place. He is augmenting at 1-1. The patient as I mentioned is a feeling a bit more stable today. Unfortunately, we cannot extubate him within the 6 hour window. The patient will likely have his balloon pump removed today according to Cardiothoracic surgery. He has no particular complaints at this time. Current vital signs are reviewed. Temperature is 98.2, heart rate 92, respiratory rate 19, blood pressure 98/44. Pulmonary pressure is 34/10. central venous pressure is 10, saturation is 98% on 6 L. Appears in no acute distress. Currently lying flat. HEENT: Examination is grossly unremarkable. Nasal O2 in place. NECK: Supple. No adenopathy or thyromegaly. CARDIOVASCULAR: Examination reveals regular rhythm and rate. Heart rate mid to high 80s. S1, S2 normal. LUNGS: A few scattered rhonchi. Some mild expiratory crackles. No wheezes. Breath sounds equal. ABDOMEN: Soft. Bowel sounds are heard. EXTREMITIES: Intact. No significant edema. SKIN: Without rash. NEUROLOGIC: Examination is nonfocal. He is calm. He does respond appropriately. LAB DATA: Reviewed. White count 14.7, hemoglobin 7.4, hematocrit 22.8, platelet count 109,000, blood gas prior to extubation showed a pO2 of 73, pCO2 of 34, pH 7.40. Sodium 138, potassium 3.9, chloride 108, CO2 is 23, anion gap is 7. BUN and creatinine were 25 and 0.96. Albumin 3.1. Microbiology is negative. Chest x-ray shows either infiltrate or atelectasis at the right lung base. The costophrenic angles look clear. Postoperative changes are noted. Current medications are reviewed. The patient remains on Pulmicort and updrafts. ASSESSMENT: 1. Postoperative day #1 status post 4-vessel bypass grafting including IGLESIAS to LAD and 3 saphenous vein grafts and left atrial appendage exclusion. 2. Severe triple-vessel coronary artery disease. 3. Non ST-segment elevation myocardial infarction. 4. Benign essential hypertension by history. 5. History of hyperlipidemia. 6. Probable underlying COPD from nearly 60 years of tobacco use. 7. History of thoracic aortic aneurysm. 8. Prior history of appendectomy. 9. History of ongoing tobacco use and nicotine addiction. PLAN: The patient currently is still on a number of different drips including Primacor 0.1 mcg/kg per minute, Precedex 0.2 mcg/kg per hour, norepinephrine at 7 mcg/minute and insulin drip at 3 units an hour. In addition, he is getting lactated Ringer's at 50 mL an hour. The intra-aortic balloon pump will place Augmentin at 1-1. Currently, he is clinically stable. Chest x-ray does not look bad. Oxygenation is reasonable. He is alert and oriented. Labs, x-rays and medications are all reviewed. Critical care time 33 minutes. MMODL / IJN: [id number] /
--- NOTE | 2019-05-22 07:37 | XR ---
EXAMINATION TYPE: XR chest 1V portable DATE OF EXAM: 05/22/2019 CLINICAL HISTORY: Difficulty breathing progress study. Status post aortic balloon placement. TECHNIQUE: Single AP portable supine view of the chest is obtained. COMPARISON: Chest x-ray from one day earlier and older studies. FINDINGS: Interval extubation removal of endotracheal and orogastric tubes. Overlying sternal wires and mediastinal clips redemonstrated. Stable right internal jugular Olive-Antonio catheter and cardiac cl osure device superior left heart border. Stable mediastinal drainage catheter and left-sided chest tu be along with linear density from aortic balloon pump just below aortic knob. Patchy bibasilar opacit ies and mild cardiomegaly remains present. No pneumothorax seen bilaterally. Osseous structures are i ntact. IMPRESSION: Interval extubation. Persistent mild cardiomegaly and small bilateral pleural effusions w ith associated right greater than left bibasilar atelectasis and/or infiltrates.
[2019-05-22] MEDS: BUDESONIDE 0.5 MG/2 ML NEBU INHALATION SCH ×2 (08:00→19:42)
[2019-05-22] MEDS: FORMOTEROL FUMARATE 20 MCG/2 ML NEBU INHALATION SCH ×2 (08:00→19:42)
[2019-05-22] MEDS: IPRATROPIUM-ALBUTEROL 3 ML NEB INHALATION SCH ×4 (08:00→19:42)
--- NOTE | 2019-05-22 08:00 | PN ---
PROGRESS NOTE Mr. Ansari is a 74-year-old male with known history of hypertension, hyperlipidemia, chronic tobacco use, who presented to the hospital with non ST-segment elevation myocardial infarction, underwent a cardiac catheterization, was found to have severe triple-vessel coronary artery disease with severe left main disease. He underwent placement of an ICD of an intra-aortic balloon pump yesterday underwent coronary bypass grafting. He is extubated, awake, alert, still has the intra-aortic balloon pump in place. He has no chest discomfort. He is in sinus mechanism on Milrinone and norepinephrine. The balloon pump continue to remains at 1-1. His urine output is stable. He continues to be on aspirin once a day, Lipitor 80 mg daily, Plavix 75 mg daily, metoprolol tartrate 12.5 mg twice a day. PHYSICAL EXAMINATION: Blood pressure running in the 90s and low 100s with a heart rate in 90s lungs is clear to auscultation anteriorly. HEART: Regular rhythm S1, S2. No S3, plus rub. No gallop. ABDOMEN: Soft, nontender. EXTREMITIES: No edema. Right groin is dry. LAB DATA: Lab data revealed a hemoglobin of 7.4 BUN creatinine 25 and 0.96. IMPRESSION: 1. Status post bypass grafting for severe triple-vessel coronary disease. 2. Status post non ST-segment elevation myocardial infarction. 3. Chief history of hypertension. 4. History of hyperlipidemia. 5. History of chronic tobacco use. 6. Ischemic cardiomyopathy. RECOMMENDATION: From the cardiac standpoint, will wean the intra-aortic balloon pump and probably remove the today. We will continue the rest of his medical regimen. Depending on his blood pressure, the dose of his beta tosha will be increased and an ROBSON inhibitor will be added. We will wean the Milrinone and norepinephrine as tolerated. Of note, the patient received a IGLESIAS to LAD, saphenous vein graft to the ramus, obtuse marginal branch 1 and to the PDA. He will continue incentive spirometry and depending on his progress, further recommendation will be made. MMODL / IJN: [id number] /
--- NOTE | 2019-05-22 08:00 | OP ---
OPERATIVE REPORT DATE OF SURGERY: 05/21/2019 SURGEON: Dr. Radhika Kim ASSISTANTS: 1. Noel Jennings. 2. Phil Sunshine. PREOPERATIVE DIAGNOSES: Non-ST elevation myocardial infarction, severe left main disease, severe ostial right coronary artery disease, subtotal occlusion of the left anterior descending artery, moderate left ventricular dysfunction with an ejection fraction estimated at 35%, mild mitral valve regurgitation, hypertension, hyperlipidemia, tobacco, and ETOH abuse. POSTOPERATIVE DIAGNOSES: Non-ST elevation myocardial infarction, severe left main disease, severe ostial right coronary artery disease, subtotal occlusion of the left anterior descending artery, moderate left ventricular dysfunction with an ejection fraction estimated at 35%, mild mitral valve regurgitation, hypertension, hyperlipidemia, tobacco, and ETOH abuse with evidence of an old anteroapical myocardial infarction. PROCEDURE: 1. Quadruple coronary artery bypass grafting using the left internal mammary artery to the left anterior descending artery, reverse saphenous vein graft from the aorta to the high diagonal artery, reverse saphenous vein graft taken from the previous vein graft and anastomosed to the first obtuse marginal artery, reverse saphenous vein graft from the aorta to the posterior descending artery. 2. Exclusion of the left atrial appendage using a 45-mm AtriClip. 3. Intraoperative graft flow measurement using the [employer]. 4. Intraoperative transesophageal echocardiogram and epiaortic scanning. INDICATIONS FOR SURGERY: The patient is a 74-year-old gentleman with the above comorbidities who was admitted yesterday with chest pain that got worse and had been evolving in an unstable fashion for two days and admits to having pain for a month on and off. His enzymes were positive. He was taken to the lab courier where the angiogram showed severe calcified proximal right coronary artery as well as severe distal left main disease with subtotally occluded left anterior descending artery. A 2D echo showed an ejection fraction of 35% with severe anteroapical hypokinesia and septal hypokinesia, with mild mitral valve regurgitation. The patient had an intra-aortic balloon pump placed preoperatively in the lab courier and was taken to the ICU where he was worked up and stabilized over night and hydrated and he had also received a CT scan of the chest with contrast earlier. The patient has been taken today for an urgent/emergent coronary artery bypass grafting with an increased STS as was discussed with him and . They understood it and agreed to proceed. DESCRIPTION OF PROCEDURE: The patient was brought from the ICU with an arterial line already in place. As mentioned above, he had an intra-aortic balloon pump placed in the lab courier after his angiogram and view of anatomy. His troponin had peaked at 5. In the preoperative holding area, he had a [place] [employer]-Antonio catheter inserted that showed a PA pressure of 5/20 with a cardiac index of 2.7. Subsequently, he was brought to the operating room where general endotracheal anesthesia was induced uneventfully. He remained stable. Benjamin catheter was inserted. The chest, abdomen, and both lower extremities were prepped and draped using ChloraPrep. Ioban was used to cover the skin. The patient received 2 gm of cefazolin intravenously. Transesophageal echocardiogram confirmed the preoperative finding of moderate left ventricular dysfunction with severe drc-fh-ebgmiy intra-apical and intraseptal hypokinesia to akinesia. There was mild mitral valve regurgitation. The right ventricular function was overall preserved. Midline sternotomy was performed and BoneSeal was used. The left nohemy-sternum was elevated and the left internal mammary artery was harvested in a somewhat skeletonized fashion. The left pleura was intentionally opened in this process and was drained with a 19-Thai Alcon drain. I made a small opening in the right pleura at the end of the case to aspirate 700 mL of serous right pleural effusion that was seen on CT scan. The right pleural cavity was not drained. In the same setting, initially, the left greater saphenous vein was harvested endoscopically from groin to above the ankle level. In view of poor quality in some of its segment, decision was made to harvest the right greater saphenous vein which was done between groin to below-knee level. All in all, we had reasonable segments of vein to work with. The patient had a positive modified Adrian's test precluding using the radial artery as a conduit. Both leg incisions were closed over drains. Mediastinal fat was transected between two ties and epiaortic scanning revealed concentric intimal thickening but no protruding atheroma in the ascending aorta. Pericardium was opened in an inverted T-fashion. Pericardial cradle was created. Findings included a mildly dilated aorta that we knew about and was around [address] scan. The heart was also enlarged. There was severe calcific coronary artery disease involving mainly the first third to the first proximal half of each coronary system. Distally, the targets were soft. After systemic heparinization after placement of respective pledgeted pursestring, aortic cannulation of the proximal arch with a 21-Thai Softflow cannula and venous cannulation via the right atrial appendage was performed. Antegrade as well retrograde cardioplegia catheters were placed. Cardiopulmonary bypass was initiated and patient's temperature was allowed to drift down to 34 degrees Celsius. With the heart empty and beating, we looked at the target. There was evidence of an old intra-apical myocardial infarction with thinning and fibrotic changes. The LAD was found in its qrc-nj-teesri aspect which was thin walled. The high diagonal artery or ramus intermedius artery was found and was soft. The more distal circumflex artery was also found and had a soft distality. On the right side, the posterior descending artery proximal aspect was elected for bypass and it was also soft. Aorta was clamped with a soft clamp and myocardial protection was achieved with an initial dose of 800 mL of antegrade cold blood cardioplegia followed by 400 mL of retrograde cold blood cardioplegia. All subsequent doses were given retrograde at 15- minute intervals. The first distal anastomosis was seen in a segment of vein and the high diagonal artery which was around 1.5 mm in diameter, thinned wall, using Prolene 7-0 in continuous fashion. The second distal anastomosis was seen in another segment of vein and the posterior descending artery which was around 1.5 mm in diameter, thinned wall, using a Prolene 7-0 in continuous fashion. A third and last venous distal anastomosis was seen in another segment of vein and the distal circumflex artery which was around 1.5 mm in diameter, thinned wall. The fourth and last distal anastomosis was seen in the left internal mammary artery and the kiw-nj-iswwgy aspect of the left anterior descending artery which was around 1.7 mm in diameter, thin walled. The mammary veins were affixed to the epicardium with Prolene 6-0 suture. Satisfied with the distal anastomosis, attention was moved to performing the proximal anastomosis. Rewarming was started. The vein to the distal circumflex artery was something we knew about would be short to reach the aorta but that was the only usable segment. For the other two veins to the ramus and to the posterior descending artery, two buttons of 4 mm each were punched out of the ascending aorta and the proximal anastomosis performed using Prolene 6-0 in continuous fashion. The inflow of the vein graft going to the distal circumflex artery was taken from the vein that is going to the ramus intermedius artery around 2 cm from its proximal implantation of the aorta. That venovenostomy was performed using Prolene 7-0 in continuous fashion. Retrograde airing of the vein graft was done as we were given the retrograde warm blood for a total of around 1 liter. The patient was given lidocaine and magnesium and had been half loaded with Primacor. Deairing maneuvers were done and the aorta was unclamped with the patient in Trendelenburg position and the aortic root vent on maximum. He regained spontaneous sinus rhythm. After around 15 minutes of reperfusion, we were able to wean off of cardiopulmonary bypass on low dose Primacor for the balloon pump at 1:1. To mention that the balloon pump was left on internal mode during bypass. The left atrial appendage was excluded with a 45 mm AtriClip before we unclamped the aorta. Test dose and full dose of protamine was given. Decannulation followed. Two monopolar atrial pacing wires were affixed to respective pursestring on the right atrial wall. No ventricular pacing wires placed. Two 19-Thai Alcon drains were left substernally. A groove was made in the left pleural pericardial fat to accommodate the mammary artery medial to the lung and away from the posterior sternal table. Pericardial fat was loosely approximated over the aorta and the graft and the heart. After ensuring adequate hemostasis and hemodynamics and after correct sponge, instrument, and needle counts, and after performing a graft flow measurement earlier that showed excellent functioning grafts, the sternum was closed using 6 figure-of- eight pineal cables after interposing Fibrillar between the sternal edges. Thorough irrigation with cefazolin followed. The rest of the closure proceeded in layers. Skin glue was applied. The patient did not receive blood bank product but received 400 mL of Cell Saver blood. He was transferred to the ICU with a cardiac index of 3.7, PA pressure of 38/21, mean atrial pressure of 75 with an intra-aortic balloon pump at 1:1, and a Primacor at 0.15 mcg/kg per minute and low-dose levophed. The graft flow measurement performed earlier before giving protamine showed a flow of 90 mL/minute in the vein graft going to the posterior descending artery. In the vein graft going to the first obtuse marginal artery, the flow was 139 mL/minute with a pulsatility index of 1.5 and diastolic filling of 77%. The flow into the vein graft going to the ramus intermedius artery was around 77 mL/minute with a pulsatility index of 1.7 and diastolic filling of 67%. The flow into the left intramammary artery to the left anterior descending artery was 120 mL/minute, pulsatility index of 1.6, and diastolic filling of 68%, all showing beautifully functioning grafts. MMODL / IJN: [id number] /
[2019-05-22 08:14] LABS: Glucose,Whole Blood 114 mg/dL (75-99)
--- NOTE | 2019-05-22 08:59 | ECHOF ---
Referral Reason:mi MEASUREMENTS -------- HEIGHT: 0.0 cm WEIGHT: 0.0 kg BP: RVIDd: 3.6 cm (< 3.3) IVSd: 1.4 cm (0.6 - 1.1) LVIDd: 5.4 cm (3.9 - 5.3) LVPWd: 1.8 cm (0.6 - 1.1) IVSs: 1.7 cm LVIDs: 4.5 cm LVPWs: 1.8 cm Ao Diam: 3.6 cm (2.0 - 3.7) AV Cusp: 1.9 cm (1.5 - 2.6) FINDINGS -------- Sinus rhythm. This was a technically adequate study. The left ventricular size is normal. There is mild concentric left ventricular hypertrophy. Overa ll left ventricular systolic function is severely impaired with, an EF between 25 - 30 %. Mitral Do ppler inflow pattern suggests diastolic filling abnormality {E/E'}. Mid anteroseptal LV wall motion is hypokinetic. Apical anterior LV wall motion is hypokinetic. Apical lateral LV wall motion i s hypokinetic. Apical inferior LV wall motion is hypokinetic. Apical septum LV wall motion is h ypokinetic. The right ventricle is normal in size. The left atrium was not well visualized. The left atrium is mildly dilated. The right atrium was not well visualized. Interatrial and interventricular septum intact. There is moderate aortic valve sclerosis. There is no evidence of aortic regurgitation. There is mild aortic stenosis present. Mild mitral regurgitation is present. The tricuspid valve was not well visualized. Mild tricuspid regurgitation present. Unable to mone mate RVSP due to inadequate TR jet spectral doppler profile. There is no pulmonic regurgitation present. The aortic root size is normal. The inferior vena cava is mildly dilated. There is no pericardial effusion. CONCLUSIONS -------- 1. Sinus rhythm. 2. This was a technically adequate study. 3. The left ventricular size is normal. 4. There is mild concentric left ventricular hypertrophy. 5. Mid anteroseptal LV wall motion is hypokinetic. 6. Apical anterior LV wall motion is hypokinetic. 7. Apical lateral LV wall motion is hypokinetic. 8. Apical inferior LV wall motion is hypokinetic. 9. Apical septum LV wall motion is hypokinetic. 10. The right ventricle is normal in size. 11. The left atrium was not well visualized. 12. The left atrium is mildly dilated. 13. The right atrium was not well visualized. 14. Interatrial and interventricular septum intact. 15. There is no evidence of aortic regurgitation. 16. There is mild aortic stenosis present. 17. Mild mitral regurgitation is present. 18. The tricuspid valve was not well visualized. 19. Mild tricuspid regurgitation present. 20. Unable to estimate RVSP due to inadequate TR jet spectral doppler profile. 21. There is no pulmonic regurgitation present. 22. The aortic root size is normal. 23. The inferior vena cava is mildly dilated. 24. There is no pericardial effusion. MEDICAL LOGISTICS SPECIALIST: Karyn Briseno RDCS
[2019-05-22] MEDS ORDERED: BISACODYL 10 MG SUPP RECTAL PRN (09:00)
[2019-05-22] MEDS ORDERED: PANTOPRAZOLE 40 MG/10 ML VIAL IVP SCH (09:00)
[2019-05-22] MEDS ORDERED: MAGNESIUM HYDROXIDE 2,400 MG/10 ML CUP PO PRN (09:00)
[2019-05-22] MEDS: HEPARIN SODIUM,PORCINE 5,000 UNIT/ML 1 ML VIAL SQ SCH ×2 (09:04→18:44)
[2019-05-22 09:11] LABS: Glucose,Whole Blood 84 mg/dL (75-99)
--- NOTE | 2019-05-22 09:22 | P.PCN ---
Date of Procedure: 05/22/19 Indications for Procedure: This is a 74-year-old gentleman was found to have multivessel coronary artery disease with left main disease. An intra-aortic balloon pump was placed in the Disk Recordist by Dr. Lux. He went for coronary artery bypass surgery yesterday and has done well. This morning he is hemodynamically stable and is no longer in need of intra-aortic balloon pump assistance. Removal of the device was recommended. The risks, benefits, alternatives to this procedure were discussed with the patient, all questions were answered. Consent was obtained Description of Procedure: The right groin was examined. There was no evidence of hematoma. The balloon pump was turned off. The pre-existing sheath and balloon were removed en caleb and the artery was allowed to bleed both antegrade and retrograde for several beats. Direct pressure was held over the site for 40 minutes. There was no residual bleeding or hematoma noted. The groin itself was soft. The right lower extremity appeared warm and well perfused. There was no immediate complications. He remained hemodynamically stable with good follow-up cardiac index.
[2019-05-22 09:46] VITALS: BMI 35.4
[2019-05-22] MEDS: METOPROLOL TARTRATE 12.5 MG TAB PO SCH ×2 (09:47→20:59)
[2019-05-22] MEDS: CLOPIDOGREL 75 MG TAB PO SCH (09:47)
[2019-05-22] MEDS: ATORVASTATIN 80 MG TAB PO SCH (09:47)
[2019-05-22] MEDS: ASPIRIN 325 MG TAB PO SCH (09:47)
--- NOTE | 2019-05-22 09:52 | P.PN ---
Subjective Progress Note Date: 05/22/19 Principal diagnosis: Non-ST elevation myocardial infarction, severe left main disease, severe ostial right coronary artery, subtotal occlusion of the left anterior descending arter y, moderate left ventricular dysfunction with an ejection fraction estimated at 35%, mild mitral valve regurgitation. Previous medical history of evidence of old anteroapical myocardial infarction, hypertension, hyperlipidemia, current chronic tobacco dependence, daily EtOH abuse, abdominal aortic aneurysm measured 3.5 cm in 2017, current CT shows moderate dilatation at 4.1 cm POD #1 quadruple coronary artery bypass grafting using the left internal mammary artery to the left anterior descending artery, reverse saphenous vein graft from the aorta to the high diagonal artery, reverse saphenous vein graft taken from the previous vein graft and an anastomosis to the first obtuse marginal artery, reverse saphenous vein graft from the aorta to the posterior descending artery. Endoscopic harvesting of the left greater saphenous vein from the groin to above the knee level, as well as the right greater saphenous vein from the groin to below the knee level. Exclusion of the left atrial appendage using a 45 mm after clip. Intraoperative graft flow measurements using the [employer] system. Intraoperative transesophageal echocardiogram and epi-aortic scanning. Postoperative acute blood loss anemia, expected secondary to hemodilution and cardiopulmonary bypass pump Patient's currently laying flat in bed in no acute distress in the intensive care unit. He was successfully extubated this morning at 2:45. Intra-aortic balloon pump was removed at this morning. The patient complains of post surgical pain which he states is well controlled on current medication regimen, denies shortness of breath. He is in normal sinus rhythm and hemodynamically stable on small dose of Levophed. Primacor was turned off this morning. Remains on Precedex. Mediastinal left pleural chest tubes, right internal jugular [place]/Cordis, left radial arterial line present. No new concerns. Objective - Vital Signs Vital signs: Vital Signs Temp 99.3 F 05/22/19 08:00 Pulse 92 05/22/19 09:00 Resp 16 05/22/19 09:00 BP 116/56 05/21/19 16:30 Pulse Ox 95 05/22/19 09:00 Intake & Output 05/21/19 05/22/19 05/22/19 18:59 06:59 18:59 Intake Total 868.988 3587.638 417.192 Output Total 2348 1155 205 Balance -5524.231 4505.638 212.192 Weight 112.1 kg Intake: IV 327.5 2242.5 247 Albumin 1250 Cardiac Output 60 300 20 Lactated Ringers 1,000 ml 150 600 150 @ 20 mls/hr IV .Q24H BRENDA Rx#:[id number] Nitroglycerin-D5w Pmx 50 4.5 1.5 mg In Dextrose/Water 1 250ml.bag @ 5 MCG/MIN 1.5 mls/hr IV .Q24H BRENDA Rx#: [id number] Pressure Bags 27 91 27 Sodium Chloride 0.9% 1, 80 000 ml @ 80 mls/hr IV . [id number] BRENDA Rx#:[id number] ceFAZolin 2 gm In Sodium 50 Chloride 0.9% 50 ml @ 100 mls/hr IVPB Q8HR BRENDA Rx# :[id number] Intake, IV Titration 57.300 404.138 170.192 Amount Dexmedetomidine/0.9% NaCl 77.658 (Pmx) 400 mcg In Empty Bag 1 bag @ Titrate IV . Q0M BRENDA Rx#:[id number] Insulin Regular 100 unit 4.848 43.120 10.420 In Sodium Chloride 0.9% 100 ml @ Per Protocol IV .Q0M BRENDA Rx#:[id number] Milrinone-D5w Pmx 20 mg 22.205 24.974 In Dextrose/Water 1 100ml .bag @ Per Protocol IV . Q0M BRENDA Rx#:[id number] Nitroglycerin-D5w Pmx 50 7.875 mg In Dextrose/Water 1 250ml.bag @ 5 MCG/MIN 1.5 mls/hr IV .Q24H BRENDA Rx#: [id number] Norepinephrine 4 mg In 3.277 220.462 134.798 Sodium Chloride 0.9% 250 ml @ 0.02 MCG/KG/MIN 7. 864 mls/hr IV .Q24H BRENDA Rx#:[id number] Propofol 1,000 mg In 49.175 32.818 Empty Bag 1 bag @ Titrate IV .Q0M BRENDA Rx#: [id number] Output: Chest Tube Drainage 450 380 100 Left Lateral Chest 280 230 50 Mediastinal 170 150 50 Drainage 220 Left Calf 40 Right Calf 180 Urine 898 555 105 Estimated Blood Loss 1000 Other: Voiding Method Indwelling Catheter Indwelling Catheter ABP, PAP, CO, CI - Last Documented Arterial Blood Pressure 97/53 Pulmonary Artery Pressure 40/17 Cardiac Output 9.9 Cardiac Index 4.5 - Constitutional General appearance: Present: cooperative, no acute distress - Respiratory Details: Lungs sounds diminished bilaterally. Respirations even, nonlabored. Currently on 6 L nasal cannula with oxygen saturation 96%. Able to achieve 1200 mL on his incentive spirometry. Strong cough. Mediastinal chest tube to continuous wall suction, 80 mL serosanguineous drainage overnight, 400 mL since surgery, no air leak present. Left pleural chest tube to continuous wall suction, 120 mL serosanguineous drainage overnight, 500 mL since surgery, no air leak present. - Cardiovascular Details: S1, S2 present. Positive rub. Regular rate and rhythm, sinus rhythm on telemetry. Sternum stable. A/V epicardial pacemaker wires present, connected to generator, AAI mode with backup rate 50 bpm. Palpable peripheral pulses bilaterally. No edema present. No calf pain or tenderness noted. Right internal jugular [place], left radial arterial line present. Last CO/CI 9.9/4.5 on small dose IV Levophed. Heart hugger in place. Antiembolism stockings, SCDs present. - Gastrointestinal Gastrointestinal Comment(s): Abdomen soft, nontender, nondistended. Active bowel sounds present 4 quadrants. Tolerating clear liquids. Negative flatus. - Genitourinary Genitourinary Comment(s): Benjamin present draining clear, yellow urine. Output 30-50 mL per hour overnight. - Integumentary Integumentary Comment(s): Skin is warm dry with evidence of good perfusion. Anterior chest incision well approximated and covered with dry intact dressing. Right femoral artery balloon pump site without hematoma. Right and left lower extremity EVH site well approximated, ANGEL drains present with minimal drainage. - Neurologic Neurologic: Present: CNII-XII intact - Musculoskeletal Musculoskeletal: Present: strength equal bilaterally - Psychiatric Psychiatric: Present: A&O x's 3, appropriate affect, intact judgment & insight - Allied health notes Allied health notes reviewed: nursing - Labs CBC & Chem 7: 05/22/19 04:00 05/22/19 04:00 Labs: Abnormal Lab Results - Last 24 Hours (Table) 05/20/19 05/21/19 05/21/19 Range/Units 15:35 08:31 10:54 WBC (3.8-10.6) k/uL RBC (4.30-5.90) m/uL Hgb (13.0-17.5) gm/dL Hct (39.0-53.0) % Plt Count (150-450) k/uL Neutrophils # (1.3-7.7) k/uL Lymphocytes # (1.0-4.8) k/uL PT (9.0-12.0) sec INR (<1.2) ABG pH 7.23 L (7.35-7.45) ABG pCO2 51 H (35-45) mmHg ABG pO2 55 L* 182 H (83-108) mmHg ABG Total CO2 (19-24) mmol/L ABG O2 Saturation 88.3 L 99.1 H (94-97) % ABG Hematocrit 33 L (34.0-46.0) % ABG Potassium 4.6 H (3.4-4.5) mmol/L ABG Ionized Calcium (4.5-5.3) mg/dL ABG Glucose 100 H 130 H (75-99) mg/dL ABG Lactic Acid (0.5-1.6) mmol/L Hemoglobin 10.9 L 11.6 L (13.0-17.5) gm/dL Chloride (98-107) mmol/L BUN (9-20) mg/dL Glucose (74-99) mg/dL POC Glucose (mg/dL) (75-99) mg/dL Calcium (8.4-10.2) mg/dL Magnesium (1.6-2.3) mg/dL Total Bilirubin (0.2-1.3) mg/dL AST (17-59) U/L Total Protein (6.3-8.2) g/dL Albumin (3.5-5.0) g/dL Arterial Blood Potassium 4.6 H (3.4-4.5) mmol/L Arterial Blood Glucose 100 H 130 H (75-99) mg/dL Crossmatch See Detail 05/21/19 05/21/19 05/21/19 Range/Units 10:57 12:00 12:45 WBC (3.8-10.6) k/uL RBC (4.30-5.90) m/uL Hgb (13.0-17.5) gm/dL Hct (39.0-53.0) % Plt Count (150-450) k/uL Neutrophils # (1.3-7.7) k/uL Lymphocytes # (1.0-4.8) k/uL PT (9.0-12.0) sec INR (<1.2) ABG pH 7.24 L 7.32 L (7.35-7.45) ABG pCO2 50 H 49 H (35-45) mmHg ABG pO2 191 H 196 H 139 H (83-108) mmHg ABG Total CO2 27 H (19-24) mmol/L ABG O2 Saturation 99.2 H 99.6 H 98.9 H (94-97) % ABG Hematocrit 32 L 27 L (34.0-46.0) % ABG Potassium 4.6 H 5.4 H (3.4-4.5) mmol/L ABG Ionized Calcium 4.3 L (4.5-5.3) mg/dL ABG Glucose 130 H 131 H 198 H (75-99) mg/dL ABG Lactic Acid (0.5-1.6) mmol/L Hemoglobin 11.5 L 10.5 L 8.9 L (13.0-17.5) gm/dL Chloride (98-107) mmol/L BUN (9-20) mg/dL Glucose (74-99) mg/dL POC Glucose (mg/dL) (75-99) mg/dL Calcium (8.4-10.2) mg/dL Magnesium (1.6-2.3) mg/dL Total Bilirubin (0.2-1.3) mg/dL AST (17-59) U/L Total Protein (6.3-8.2) g/dL Albumin (3.5-5.0) g/dL Arterial Blood Potassium 4.6 H 5.4 H (3.4-4.5) mmol/L Arterial Blood Glucose 130 H 131 H 198 H (75-99) mg/dL Crossmatch 05/21/19 05/21/19 05/21/19 Range/Units 13:08 13:38 14:06 WBC (3.8-10.6) k/uL RBC (4.30-5.90) m/uL Hgb (13.0-17.5) gm/dL Hct (39.0-53.0) % Plt Count (150-450) k/uL Neutrophils # (1.3-7.7) k/uL Lymphocytes # (1.0-4.8) k/uL PT (9.0-12.0) sec INR (<1.2) ABG pH 7.31 L (7.35-7.45) ABG pCO2 47 H (35-45) mmHg ABG pO2 367 H 309 H (83-108) mmHg ABG Total CO2 25 H 25 H 25 H (19-24) mmol/L ABG O2 Saturation 99.9 H 97.9 H 99.8 H (94-97) % ABG Hematocrit 29 L 28 L 27 L (34.0-46.0) % ABG Potassium 4.9 H 5.0 H 4.6 H (3.4-4.5) mmol/L ABG Ionized Calcium 4.4 L 4.4 L (4.5-5.3) mg/dL ABG Glucose 199 H 218 H 206 H (75-99) mg/dL ABG Lactic Acid 2.1 H (0.5-1.6) mmol/L Hemoglobin 9.5 L 9.1 L 8.8 L (13.0-17.5) gm/dL Chloride (98-107) mmol/L BUN (9-20) mg/dL Glucose (74-99) mg/dL POC Glucose (mg/dL) (75-99) mg/dL Calcium (8.4-10.2) mg/dL Magnesium (1.6-2.3) mg/dL Total Bilirubin (0.2-1.3) mg/dL AST (17-59) U/L Total Protein (6.3-8.2) g/dL Albumin (3.5-5.0) g/dL Arterial Blood Potassium 4.9 H 5.0 H 4.6 H (3.4-4.5) mmol/L Arterial Blood Glucose 199 H 218 H 206 H (75-99) mg/dL Crossmatch 05/21/19 05/21/19 05/21/19 Range/Units 15:00 16:19 16:44 WBC 18.4 H (3.8-10.6) k/uL RBC 2.79 L (4.30-5.90) m/uL Hgb 8.9 L D (13.0-17.5) gm/dL Hct 26.7 L (39.0-53.0) % Plt Count 107 L (150-450) k/uL Neutrophils # 16.2 H (1.3-7.7) k/uL Lymphocytes # (1.0-4.8) k/uL PT (9.0-12.0) sec INR (<1.2) ABG pH 7.33 L (7.35-7.45) ABG pCO2 (35-45) mmHg ABG pO2 138 H (83-108) mmHg ABG Total CO2 (19-24) mmol/L ABG O2 Saturation 98.8 H (94-97) % ABG Hematocrit 26 L (34.0-46.0) % ABG Potassium (3.4-4.5) mmol/L ABG Ionized Calcium (4.5-5.3) mg/dL ABG Glucose 171 H (75-99) mg/dL ABG Lactic Acid 2.9 H* (0.5-1.6) mmol/L Hemoglobin 8.4 L (13.0-17.5) gm/dL Chloride (98-107) mmol/L BUN (9-20) mg/dL Glucose (74-99) mg/dL POC Glucose (mg/dL) 151 H (75-99) mg/dL Calcium (8.4-10.2) mg/dL Magnesium (1.6-2.3) mg/dL Total Bilirubin (0.2-1.3) mg/dL AST (17-59) U/L Total Protein (6.3-8.2) g/dL Albumin (3.5-5.0) g/dL Arterial Blood Potassium (3.4-4.5) mmol/L Arterial Blood Glucose 171 H (75-99) mg/dL Crossmatch 05/21/19 05/21/19 05/21/19 Range/Units 16:44 16:44 16:46 WBC (3.8-10.6) k/uL RBC (4.30-5.90) m/uL Hgb (13.0-17.5) gm/dL Hct (39.0-53.0) % Plt Count (150-450) k/uL Neutrophils # (1.3-7.7) k/uL Lymphocytes # (1.0-4.8) k/uL PT 12.7 H (9.0-12.0) sec INR 1.3 H (<1.2) ABG pH 7.26 L (7.35-7.45) ABG pCO2 53 H (35-45) mmHg ABG pO2 186 H (83-108) mmHg ABG Total CO2 25 H (19-24) mmol/L ABG O2 Saturation 99.5 H (94-97) % ABG Hematocrit (34.0-46.0) % ABG Potassium (3.4-4.5) mmol/L ABG Ionized Calcium (4.5-5.3) mg/dL ABG Glucose (75-99) mg/dL ABG Lactic Acid (0.5-1.6) mmol/L Hemoglobin (13.0-17.5) gm/dL Chloride 108 H (98-107) mmol/L BUN 22 H (9-20) mg/dL Glucose 134 H (74-99) mg/dL POC Glucose (mg/dL) (75-99) mg/dL Calcium 7.6 L (8.4-10.2) mg/dL Magnesium 2.5 H (1.6-2.3) mg/dL Total Bilirubin 1.7 H (0.2-1.3) mg/dL AST 68 H (17-59) U/L Total Protein 4.9 L (6.3-8.2) g/dL Albumin 2.7 L (3.5-5.0) g/dL Arterial Blood Potassium (3.4-4.5) mmol/L Arterial Blood Glucose (75-99) mg/dL Crossmatch 05/21/19 05/21/19 05/21/19 Range/Units 17:03 18:16 19:16 WBC (3.8-10.6) k/uL RBC (4.30-5.90) m/uL Hgb (13.0-17.5) gm/dL Hct (39.0-53.0) % Plt Count (150-450) k/uL Neutrophils # (1.3-7.7) k/uL Lymphocytes # (1.0-4.8) k/uL PT (9.0-12.0) sec INR (<1.2) ABG pH (7.35-7.45) ABG pCO2 (35-45) mmHg ABG pO2 (83-108) mmHg ABG Total CO2 (19-24) mmol/L ABG O2 Saturation (94-97) % ABG Hematocrit (34.0-46.0) % ABG Potassium (3.4-4.5) mmol/L ABG Ionized Calcium (4.5-5.3) mg/dL ABG Glucose (75-99) mg/dL ABG Lactic Acid (0.5-1.6) mmol/L Hemoglobin (13.0-17.5) gm/dL Chloride (98-107) mmol/L BUN (9-20) mg/dL Glucose (74-99) mg/dL POC Glucose (mg/dL) 160 H 172 H 167 H (75-99) mg/dL Calcium (8.4-10.2) mg/dL Magnesium (1.6-2.3) mg/dL Total Bilirubin (0.2-1.3) mg/dL AST (17-59) U/L Total Protein (6.3-8.2) g/dL Albumin (3.5-5.0) g/dL Arterial Blood Potassium (3.4-4.5) mmol/L Arterial Blood Glucose (75-99) mg/dL Crossmatch 05/21/19 05/21/19 05/21/19 Range/Units 20:00 20:17 21:15 WBC 16.1 H (3.8-10.6) k/uL RBC 2.74 L (4.30-5.90) m/uL Hgb 8.5 L (13.0-17.5) gm/dL Hct 26.2 L (39.0-53.0) % Plt Count 120 L (150-450) k/uL Neutrophils # 14.8 H (1.3-7.7) k/uL Lymphocytes # 0.7 L (1.0-4.8) k/uL PT (9.0-12.0) sec INR (<1.2) ABG pH (7.35-7.45) ABG pCO2 (35-45) mmHg ABG pO2 (83-108) mmHg ABG Total CO2 (19-24) mmol/L ABG O2 Saturation (94-97) % ABG Hematocrit (34.0-46.0) % ABG Potassium (3.4-4.5) mmol/L ABG Ionized Calcium (4.5-5.3) mg/dL ABG Glucose (75-99) mg/dL ABG Lactic Acid (0.5-1.6) mmol/L Hemoglobin (13.0-17.5) gm/dL Chloride (98-107) mmol/L BUN (9-20) mg/dL Glucose (74-99) mg/dL POC Glucose (mg/dL) 158 H 142 H (75-99) mg/dL Calcium (8.4-10.2) mg/dL Magnesium (1.6-2.3) mg/dL Total Bilirubin (0.2-1.3) mg/dL AST (17-59) U/L Total Protein (6.3-8.2) g/dL Albumin (3.5-5.0) g/dL Arterial Blood Potassium (3.4-4.5) mmol/L Arterial Blood Glucose (75-99) mg/dL Crossmatch 05/21/19 05/21/19 05/22/19 Range/Units 22:10 22:12 01:04 WBC 13.2 H (3.8-10.6) k/uL RBC 2.47 L (4.30-5.90) m/uL Hgb 7.4 L (13.0-17.5) gm/dL Hct 23.5 L (39.0-53.0) % Plt Count 107 L (150-450) k/uL Neutrophils # 12.0 H (1.3-7.7) k/uL Lymphocytes # 0.5 L (1.0-4.8) k/uL PT (9.0-12.0) sec INR (<1.2) ABG pH (7.35-7.45) ABG pCO2 (35-45) mmHg ABG pO2 (83-108) mmHg ABG Total CO2 (19-24) mmol/L ABG O2 Saturation (94-97) % ABG Hematocrit (34.0-46.0) % ABG Potassium (3.4-4.5) mmol/L ABG Ionized Calcium (4.5-5.3) mg/dL ABG Glucose (75-99) mg/dL ABG Lactic Acid (0.5-1.6) mmol/L Hemoglobin (13.0-17.5) gm/dL Chloride (98-107) mmol/L BUN (9-20) mg/dL Glucose (74-99) mg/dL POC Glucose (mg/dL) 118 H 145 H (75-99) mg/dL Calcium (8.4-10.2) mg/dL Magnesium (1.6-2.3) mg/dL Total Bilirubin (0.2-1.3) mg/dL AST (17-59) U/L Total Protein (6.3-8.2) g/dL Albumin (3.5-5.0) g/dL Arterial Blood Potassium (3.4-4.5) mmol/L Arterial Blood Glucose (75-99) mg/dL Crossmatch 05/22/19 05/22/19 05/22/19 Range/Units 02:04 02:36 03:01 WBC (3.8-10.6) k/uL RBC (4.30-5.90) m/uL Hgb (13.0-17.5) gm/dL Hct (39.0-53.0) % Plt Count (150-450) k/uL Neutrophils # (1.3-7.7) k/uL Lymphocytes # (1.0-4.8) k/uL PT (9.0-12.0) sec INR (<1.2) ABG pH (7.35-7.45) ABG pCO2 34 L (35-45) mmHg ABG pO2 73 L (83-108) mmHg ABG Total CO2 (19-24) mmol/L ABG O2 Saturation (94-97) % ABG Hematocrit (34.0-46.0) % ABG Potassium (3.4-4.5) mmol/L ABG Ionized Calcium (4.5-5.3) mg/dL ABG Glucose (75-99) mg/dL ABG Lactic Acid (0.5-1.6) mmol/L Hemoglobin (13.0-17.5) gm/dL Chloride (98-107) mmol/L BUN (9-20) mg/dL Glucose (74-99) mg/dL POC Glucose (mg/dL) 146 H 136 H (75-99) mg/dL Calcium (8.4-10.2) mg/dL Magnesium (1.6-2.3) mg/dL Total Bilirubin (0.2-1.3) mg/dL AST (17-59) U/L Total Protein (6.3-8.2) g/dL Albumin (3.5-5.0) g/dL Arterial Blood Potassium (3.4-4.5) mmol/L Arterial Blood Glucose (75-99) mg/dL Crossmatch 05/22/19 05/22/19 05/22/19 Range/Units 04:00 04:00 04:01 WBC 14.7 H (3.8-10.6) k/uL RBC 2.42 L (4.30-5.90) m/uL Hgb 7.4 L (13.0-17.5) gm/dL Hct 22.8 L (39.0-53.0) % Plt Count 109 L (150-450) k/uL Neutrophils # 12.9 H (1.3-7.7) k/uL Lymphocytes # (1.0-4.8) k/uL PT (9.0-12.0) sec INR (<1.2) ABG pH (7.35-7.45) ABG pCO2 (35-45) mmHg ABG pO2 (83-108) mmHg ABG Total CO2 (19-24) mmol/L ABG O2 Saturation (94-97) % ABG Hematocrit (34.0-46.0) % ABG Potassium (3.4-4.5) mmol/L ABG Ionized Calcium (4.5-5.3) mg/dL ABG Glucose (75-99) mg/dL ABG Lactic Acid (0.5-1.6) mmol/L Hemoglobin (13.0-17.5) gm/dL Chloride 108 H (98-107) mmol/L BUN 25 H (9-20) mg/dL Glucose (74-99) mg/dL POC Glucose (mg/dL) 115 H (75-99) mg/dL Calcium 8.2 L (8.4-10.2) mg/dL Magnesium (1.6-2.3) mg/dL Total Bilirubin (0.2-1.3) mg/dL AST 64 H (17-59) U/L Total Protein 5.2 L (6.3-8.2) g/dL Albumin 3.1 L (3.5-5.0) g/dL Arterial Blood Potassium (3.4-4.5) mmol/L Arterial Blood Glucose (75-99) mg/dL Crossmatch 05/22/19 05/22/19 05/22/19 Range/Units 06:02 07:03 08:02 WBC (3.8-10.6) k/uL RBC (4.30-5.90) m/uL Hgb (13.0-17.5) gm/dL Hct (39.0-53.0) % Plt Count (150-450) k/uL Neutrophils # (1.3-7.7) k/uL Lymphocytes # (1.0-4.8) k/uL PT (9.0-12.0) sec INR (<1.2) ABG pH (7.35-7.45) ABG pCO2 (35-45) mmHg ABG pO2 (83-108) mmHg ABG Total CO2 (19-24) mmol/L ABG O2 Saturation (94-97) % ABG Hematocrit (34.0-46.0) % ABG Potassium (3.4-4.5) mmol/L ABG Ionized Calcium (4.5-5.3) mg/dL ABG Glucose (75-99) mg/dL ABG Lactic Acid (0.5-1.6) mmol/L Hemoglobin (13.0-17.5) gm/dL Chloride (98-107) mmol/L BUN (9-20) mg/dL Glucose (74-99) mg/dL POC Glucose (mg/dL) 115 H 144 H 114 H (75-99) mg/dL Calcium (8.4-10.2) mg/dL Magnesium (1.6-2.3) mg/dL Total Bilirubin (0.2-1.3) mg/dL AST (17-59) U/L Total Protein (6.3-8.2) g/dL Albumin (3.5-5.0) g/dL Arterial Blood Potassium (3.4-4.5) mmol/L Arterial Blood Glucose (75-99) mg/dL Crossmatch Microbiology - Last 24 Hours (Table) 05/20/19 20:55 Nasal Screen MRSA/MSSA - Preliminary Nasal Swab - Imaging and Cardiology Chest x-ray: report reviewed, image reviewed Assessment and Plan Assessment: 1. Severe triple-vessel coronary artery disease with significant left main disease, status post four-vessel CABG 2. Non-STEMI this admission 3. Hypertension 4. Hyperlipidemia 5. Current chronic tobacco dependence 6. Daily EtOH use 7. Postoperative acute blood loss anemia Plan: 1. Continue aspirin, statin, Plavix, beta tosha therapy. Will increase beta tosha therapy as tolerated. Wean levo as tolerated. Primacor discontinued 2. Monitor right femoral artery balloon pump site for hematoma, drainage. Once able to sit up will discontinue Precedex 3. Wean O2 as tolerated. Encourage is a spontaneous 10 times every hour while awake. 4. Bronchodilators, inhaled steroids per pulmonology. 5. Will monitor daily labs and x-rays. Electrolyte replacement per protocol. No blood transfusion. 6. Once able to be out of bed increase activity as tolerated. PT/OT/cardiac rehab following. 7. Pain controlled current medication regimen 8. IV insulin management per primary care service 9. Will discontinue [place]. Connect Cordis to continue CVP monitoring 10. Will continue chest tubes for another 24 hours 11. Continue Benjamin catheter for another 24 hours for strict accurate intake and output 12. More recommendations to follow based on patient's progress. Time with Patient: Greater than 30
[2019-05-22 10:05] LABS: Glucose,Whole Blood 117 mg/dL (75-99)
--- NOTE | 2019-05-22 10:11 | P.VSCSTY ---
Greater Saphenous Vein Mapping This is bilateral lower extremity greater saphenous vein mapping. Date of service: 05/20/2019 Vein quality and ultrasound appearance: We see no endoluminal thrombus or wall changes. Vein size groin right : 8.5 x 5.2 groin left: 7.8 x 6.8 High thigh right: 4.4 x 3.9 high thigh left: 6.3 x 4.5 Mid thigh right: 3.8 x 3.6 mid thigh left: 5.2 x 4.3 Above-knee right: 2.5 x 2.2 above- knee left: 4.7 x 4.2 Below knee right: 4.4 x 2.6 below-knee left: 3.7 x 2.2 Mid calf right: 2.8 x 1.6 mid calf left: 3.5 x 1.7 Ankle right: 2.3 x 1.4 ankle left: 1.9 x 1.7 Impression: Usable bilateral greater saphenous vein. Both legs become small about mid calf..
--- NOTE | 2019-05-22 10:16 | P.PN ---
Progress Note - Text Progress Note Date: 05/21/19 Presenting complaint: Chest pain Interval history: Patient admitted with acute non-ST elevation NH. SEVERE coronary artery disease. EF of 35%. Patient today underwent quadruple bypass. In the ICU. Intubated. FiO2 60%, PEEP of 10. Drips include nitroglycerin, milrinone, norepinephrine, insulin, has been on Precedex been changed to Toprol before. Telemetry shows sinus rhythm. Patient is an aortic balloon pump. Has 3 chest tubes including 2 mediastinal and one left pleural. Has 2 ANGEL drains in the leg. Progress review of systems cannot be done-patient intubated Current medications reviewed in today's electronic records On examination: VITAL SIGNS: Afebrile, 86, 17, 11 4/50, 99% GENERAL APPEARANCE: BMI 35.5, laying in bed, intubated. HEENT: Normal external appearance of nose and ear. Endotracheal tube EYES: Pupils equal. Conjunctiva normal. NECK: JVD unable to assess. Mass not palpable. RESPIRATORY: Respiratory effort normal. Lungs decreased breath sounds, 2 mediastinal one left pleural chest tube. CARDIOVASCULAR: First and second sounds normal. No edema. ABDOMEN: Soft. Liver and spleen not palpable. No tenderness. No mass palpable. PSYCHIATRY: Patient sedated INVESTIGATIONS, reviewed in the clinical context: White count 16.1 hemoglobin 8.5 platelets 120 Potassium 4 creatinine 0.82 Assessment: -Status post four-vessel coronary bypass -Severe coronary artery disease per cardiac catheterization -Acute non-Q-wave NH, POA -COPD in a current smoker -Hyperlipidemia -Essential hypertension -Primary osteoarthritis -Thoracic aortic aneurysm -Macular degeneration bilaterally -Chronic nicotine dependence patient cigarette smoker Plan: Patient currently intubated current drips include nitroglycerin,milrinone, norepinephrine, insulin, Lasix is being switched to propofol. Will be followed closely hemodynamically. Is an aortic balloon pump. Currently no family the bedside. Thank you Dr. Kim
[2019-05-22] MEDS: ALBUMIN HUMAN 5% 250 ML in EMPTY BAG 1 BAG IVPB PRN (10:53)
[2019-05-22 11:19] LABS: Glucose,Whole Blood 144 mg/dL (75-99)
[2019-05-22] MEDS: LACTATED RINGERS 1,000 ML IV SCH (11:20)
[2019-05-22] MEDS: MUPIROCIN 2% OINT 22 GM TUBE NASAL SCH ×2 (11:20→21:02)
[2019-05-22 12:19] LABS: Glucose,Whole Blood 102 mg/dL (75-99)
[2019-05-22] MEDS ORDERED: NICOTINE 14MG/24HR PATCH TRANSDERM PRN (13:12)
[2019-05-22] MEDS ORDERED: THIAMINE 100 MG TAB PO SCH (13:15)
[2019-05-22 13:26] LABS: Glucose,Whole Blood 114 mg/dL (75-99)
--- NOTE | 2019-05-22 13:31 | P.PN ---
Progress Note - Text Progress Note Date: 05/22/19 Presenting complaint: Chest pain Interval history: Patient admitted with acute non-ST elevation DE. Severe coronary artery disease. EF of 35%. April 22-quadruple bypass. In the ICU. Today-extubated. Awake. Laying in bed. After balloon pump. Hemoglobin was 7.4. Also on Precedex and insulin. On 11 g of Levothroid. Chest tube still in place. On 6 L of oxygen. For the low blood pressure given albumin bolus. Some shortness of breath Review of systems: Was done for constitutional, cardiovascular, GI, pulmonary. relevant finding as above Active Medications Hydrocodone Bitart/Acetaminophen ([place] 5-325) 2 each PO Q4HR PRN PRN Reason: Severe Pain Last Admin: 05/22/19 09:53 Dose: 2 each Documented by: Hydrocodone Bitart/Acetaminophen ([place] 5-325) 1 each PO Q4HR PRN PRN Reason: Moderate Pain Last Admin: 05/22/19 06:18 Dose: 1 each Documented by: Albuterol/Ipratropium (Duoneb 0.5 Mg-3 Mg/3 Ml Soln) 3 ml INHALATION RT-Q2H PRN PRN Reason: Shortness Of Breath Or Wheezing Last Admin: 05/21/19 23:13 Dose: 3 ml Documented by: Albuterol/Ipratropium (Duoneb 0.5 Mg-3 Mg/3 Ml Soln) 3 ml INHALATION RT-QID [facility] Last Admin: 05/22/19 12:31 Dose: 3 ml Documented by: Alprazolam (Xanax) 0.25 mg PO BID PRN PRN Reason: Anxiety Ascorbic Acid (Vitamin C) 500 mg PO BID-W/MEALS [facility] Aspirin (Aspirin) 325 mg PO DAILY [facility] Last Admin: 05/22/19 09:47 Dose: 325 mg Documented by: Atorvastatin Calcium (Lipitor) 80 mg PO DAILY [facility] Last Admin: 05/22/19 09:47 Dose: 80 mg Documented by: Benzocaine/Menthol (Cepacol Lozenge) 1 each MUCOUS MEM Q2H PRN PRN Reason: Sore Throat Bisacodyl (Dulcolax) 10 mg RECTAL DAILY PRN PRN Reason: Constipation Budesonide (Pulmicort) 1 mg INHALATION RT-BID [facility] Last Admin: 05/22/19 08:00 Dose: Not Given Documented by: Clopidogrel Bisulfate (Plavix) 75 mg PO DAILY [facility] Last Admin: 05/22/19 09:47 Dose: 75 mg Documented by: Ferrous Sulfate (Feosol) 325 mg PO BID-W/MEALS [facility] Formoterol Fumarate (Perforomist) 20 mcg INHALATION RT-BID [facility] Last Admin: 05/22/19 08:00 Dose: Not Given Documented by: Heparin Sodium (Porcine) (Heparin) 5,000 unit SQ Q8HR [facility] Last Admin: 05/22/19 09:04 Dose: 5,000 unit Documented by: Insulin Human Regular 100 unit (/ Sodium Chloride) 101 mls @ 0 mls/hr IV .Q0M [facility]; Protocol Last Titration: 05/22/19 12:18 Dose: 0 unit/hr, 0 mls/hr Documented by: Clevidipine 25 mg/ IV Solution 50 mls @ 2 mls/hr IV .Q24H [facility]; Protocol Last Admin: 05/21/19 22:18 Dose: Not Given Documented by: Norepinephrine Bitartrate 4 mg (/ Sodium Chloride) 254 mls @ 7.864 mls/hr IV .Q24H [facility]; Protocol Last Titration: 05/22/19 10:47 Dose: 0.1 mcg/kg/min, 39.319 mls/hr Documented by: Amiodarone HCl 150 mg/ (Dextrose/Water) 103 mls @ 618 mls/hr IV .Q10M PRN; Protocol PRN Reason: A.FIB/FLUTTER Amiodarone HCl 360 mg/ (Dextrose/Water) 200 mls @ 33.333 mls/hr IV .Q6H PRN; Protocol PRN Reason: A.FIB/FLUTTER Amiodarone HCl 300 mg/ (Dextrose/Water) 250 mls @ 25 mls/hr IV .Q10H PRN; Protocol PRN Reason: A.FIB/FLUTTER Albumin Human 250 ml/ IV (Solution) 250 mls @ 250 mls/hr IVPB Q1HR PRN PRN Reason: For Volume Stop: 05/23/19 15:49 Last Admin: 05/22/19 10:53 Dose: 250 mls/hr Documented by: Lactated Ringer's (Lactated Ringers) 1,000 mls @ 20 mls/hr IV .Q24H [facility] Last Admin: 05/22/19 11:20 Dose: 20 mls/hr Documented by: Calcium Gluconate 2 gm/ Sodium (Chloride) 120 mls @ 100 mls/hr IVPB ONCE PRN PRN Reason: Ionized Calcium less than 4.4 Stop: 06/20/19 23:00 Dexmedetomidine HCl 400 mcg/ (IV Solution) 100 mls @ 0 mls/hr IV .Q0M [facility]; Protocol Stop: 05/22/19 19:58 Last Titration: 05/22/19 10:35 Dose: 0 mcg/kg/hr, 0 mls/hr Documented by: Ketorolac Tromethamine (Toradol) 15 mg IVP Q6HR [facility] Stop: 05/26/19 18:01 Last Admin: 05/22/19 12:20 Dose: 15 mg Documented by: Magnesium Hydroxide (Milk Of Magnesia) 2,400 mg PO BID PRN PRN Reason: Constipation Metoclopramide HCl (Reglan) 10 mg IVP Q4H PRN PRN Reason: Nausea And Vomiting Metoprolol Tartrate (Lopressor) 12.5 mg PO BID [facility] Last Admin: 05/22/19 09:47 Dose: 12.5 mg Documented by: Miscellaneous Information (Potassium Per Protocol) 1 each MISCELLANE DAILY PRN; Protocol PRN Reason: Per Protocol Miscellaneous Information (Magnesium Per Protocol) 1 each MISCELLANE DAILY PRN; Protocol PRN Reason: Per Protocol Miscellaneous Information (Phosphorus Per Protocol) 1 each MISCELLANE DAILY PRN; Protocol PRN Reason: Per Protocol Multivitamins (Theragran) 1 each PO DAILY [facility] Mupirocin (Bactroban Oint) 1 applic NASAL BID [facility] Stop: 05/24/19 21:01 Last Admin: 05/22/19 11:20 Dose: 1 applic Documented by: Nicotine (Habitrol 14mg/24hr Patch) 1 patch TRANSDERM DAILY PRN PRN Reason: Nicotine Cravings Ondansetron HCl (Zofran) 4 mg IVP Q6HR PRN PRN Reason: Nausea And Vomiting Pantoprazole Sodium (Protonix) 40 mg PO AC-BRKFST [facility] Senna/Docusate Sodium (Senokot-S) 2 each PO HS [facility] Sodium Chloride (Saline Flush) 10 ml IV BID [facility] Last Admin: 05/22/19 09:05 Dose: Not Given Documented by: Thiamine HCl (Vitamin B-1) 100 mg PO DAILY [facility] On examination: VITAL SIGNS: 99.7-80-20-96/54-94% on 6 L GENERAL APPEARANCE: Laying in bed, awake HEENT: Normal external appearance of nose and ear. EYES: Pupils equal. Conjunctiva pale. NECK: JVD unable to assess. Mass not palpable. RESPIRATORY: Respiratory effort increased. Lungs decreased breath sounds, 2 mediastinal one left pleural chest tube. CARDIOVASCULAR: First and second sounds normal. No edema. ABDOMEN: Soft. Liver and spleen not palpable. No tenderness. No mass palpable. PSYCHIATRY: Awake, answering question INVESTIGATIONS, reviewed in the clinical context: White count 40.7 hemoglobin 7.4 platelets 109 potassium 3.9 creatinine 0.96 Previous testing White count 16.1 hemoglobin 8.5 platelets 120 Potassium 4 creatinine 0.82 Assessment: -Status post four-vessel coronary bypass -Severe coronary artery disease per cardiac catheterization -Acute non-Q-wave DE, POA -COPD in a current smoker -Hyperlipidemia -Essential hypertension -Primary osteoarthritis -Thoracic aortic aneurysm -Macular degeneration bilaterally -Chronic nicotine dependence patient cigarette smoker -Acute postprocedure. Blood loss anemia expected from surgery -Thrombocytopenia-dilutional -Leukocytosis reactive, no evidence of infection Plan: Patient is on a levo fed drip at 11 mics. May require blood transfusion depending on how he does. On Precedex and insulin drip. Her diet down the FiO2. Care was discussed with the patient. Thank you Dr. Kim
[2019-05-22 14:10] LABS: Glucose,Whole Blood 128 mg/dL (75-99)
[2019-05-22] MEDS: CLEVIDIPINE BUTYRATE 25 MG in EMPTY BAG 1 BAG IV SCH (15:38)
[2019-05-22 15:54] LABS: Glucose,Whole Blood 131 mg/dL (75-99)
[2019-05-22 16:15] LABS: African American GFR (CKD) >90 (>60 ml/min/1.73 sqM); Anion Gap 9 mmol/L; Blood Urea Nitrogen 25 mg/dL (9-20); Calcium 8.2 mg/dL (8.4-10.2); Carbon Dioxide 19 mmol/L (22-30); Chloride 109 mmol/L (98-107); Glucose 113 mg/dL (74-99); Non-African American GFR(CKD) 79 (>60 ml/min/1.73 sqM); Potassium 4.3 mmol/L (3.5-5.1); Sodium 137 mmol/L (137-145)
[2019-05-22] MEDS: MULTIVITAMINS, THERA 1 EACH TAB PO SCH (16:18)
[2019-05-22] MEDS: ALPRAZolam 0.25 MG TAB PO PRN (16:18)
[2019-05-22 17:22] LABS: Glucose,Whole Blood 137 mg/dL (75-99)
[2019-05-22] MEDS: ASCORBIC ACID 500 MG TAB PO SCH (18:44)
[2019-05-22] MEDS: FERROUS SULFATE 325 MG TAB PO SCH (18:44)
[2019-05-22 18:48] LABS: Glucose,Whole Blood 183 mg/dL (75-99)
[2019-05-22] MEDS ORDERED: ALPRAZolam 0.25 MG TAB PO STA (19:02)
[2019-05-22] MEDS: DEXTROSE 5% IN WATER 100 ML with AMIODARONE 150 MG IV PRN ×2 (19:23→21:11)
[2019-05-22 20:20] LABS: Glucose,Whole Blood 126 mg/dL (75-99)
[2019-05-22] MEDS: INSULIN REGULAR 100 UNIT in SODIUM CHLORIDE 0.9% 100 ML IV SCH (20:21)
[2019-05-22] MEDS: AMIODARONE 360 MG in DEXTROSE 5% IN WATER 200 ML IV PRN ×2 (20:51)
[2019-05-22] MEDS: SENNOSIDES-DOCUSATE SODIUM 1 EACH TAB PO SCH (20:58)
[2019-05-22 22:11] LABS: Glucose,Whole Blood 75 mg/dL (75-99)
[2019-05-22] MEDS ORDERED: DIGOXIN 250 MCG TAB PO ONE (22:15)
[2019-05-22 23:13] LABS: Glucose,Whole Blood 104 mg/dL (75-99)
[2019-05-23] MEDS: ALPRAZolam 0.25 MG TAB PO PRN (00:21)
[2019-05-23] MEDS: KETOROLAC 30 MG/ML 1 ML VIAL IVP SCH ×5 (00:22→21:52)
[2019-05-23] MEDS: HEPARIN SODIUM,PORCINE 5,000 UNIT/ML 1 ML VIAL SQ SCH ×4 (00:22→23:54)
[2019-05-23] MEDS: DEXTROSE 5% IN WATER 100 ML with AMIODARONE 150 MG IV PRN ×2 (00:24→01:26)
[2019-05-23 00:35] LABS: Glucose,Whole Blood 181 mg/dL (75-99)
[2019-05-23 01:12] LABS: Glucose,Whole Blood 159 mg/dL (75-99)
[2019-05-23] MEDS: ALBUMIN HUMAN 5% 250 ML in EMPTY BAG 1 BAG IVPB PRN (01:44)
[2019-05-23] MEDS: DIGOXIN 250 MCG TAB PO SCH ×2 (02:16→06:30)
--- NOTE | 2019-05-23 03:10 | XR ---
EXAMINATION TYPE: XR chest 1V portable DATE OF EXAM: 05/23/2019 COMPARISON: Yesterday HISTORY: Central line placement TECHNIQUE: Single view FINDINGS: Heart is enlarged. There is mild pulmonary congestion. There are sternal wires. There is re moval of the right jugular catheter compared to yesterday. There are chest leads. There is a drain ov er the left side of the chest. I see no central venous catheter. There are 1 or 2 drains over the heart. IMPRESSION: There is mild pulmonary vascular congestion. Unchanged. No pneumothorax.
[2019-05-23 03:17] LABS: Glucose,Whole Blood 129 mg/dL (75-99)
[2019-05-23 03:33] LABS: Basophils % (A) 0 %; Eosinophils % (A) 0 %; HCT 21.7 % (39.0-53.0); Lymphocytes # (A) 1.5 k/uL (1.0-4.8); Lymphocytes % (A) 10 %; MCH 30.6 pg (25.0-35.0); MCHC 32.3 g/dL (31.0-37.0); MCV 94.6 fL (80.0-100.0); Mean Platelet Volume 10.9; Monocytes # (A) 0.7 k/uL (0-1.0); Monocytes % (A) 4 %; Neutrophils % (A) 84 %; Platelet Count 123 k/uL (150-450); RDW 14.5 % (11.5-15.5); WBC 15.4 k/uL (3.8-10.6)
[2019-05-23] MEDS: AMIODARONE 300 MG in DEXTROSE 5% IN WATER 250 ML IV PRN ×6 (03:33→19:51)
[2019-05-23 03:34] LABS: Ionized Calcium 4.5 mg/dL (4.5-5.3)
[2019-05-23 03:44] LABS: ALT 22 U/L (4-49); AST 42 U/L (17-59); African American GFR (CKD) >90 (>60 ml/min/1.73 sqM); Alkaline Phosphatase 68 U/L (38-126); Anion Gap 8 mmol/L; Blood Urea Nitrogen 29 mg/dL (9-20); Carbon Dioxide 20 mmol/L (22-30); Chloride 108 mmol/L (98-107); Glucose 109 mg/dL (74-99); Non-African American GFR(CKD) 78 (>60 ml/min/1.73 sqM); Potassium 4.3 mmol/L (3.5-5.1); Sodium 136 mmol/L (137-145); Total Bilirubin 0.5 mg/dL (0.2-1.3); Total Protein 5.3 g/dL (6.3-8.2)
[2019-05-23] MEDS ORDERED: ALPRAZolam 0.25 MG TAB PO STA (04:14)
[2019-05-23] MEDS: AMIODARONE 360 MG in DEXTROSE 5% IN WATER 200 ML IV PRN ×2 (04:15)
[2019-05-23] MEDS ORDERED: CALCIUM GLUCONATE 1 GM in SODIUM CHLORIDE 0.9% 100 ML IVPB ONE (04:30)
[2019-05-23] MEDS ORDERED: DILTIAZEM 125 MG in SODIUM CHLORIDE 0.9% 100 ML IV SCH (04:30)
[2019-05-23 04:59] LABS: Glucose,Whole Blood 96 mg/dL (75-99)
[2019-05-23] MEDS: NOREPINEPHRINE 4 MG in SODIUM CHLORIDE 0.9% 250 ML IV SCH ×3 (05:00→20:01)
[2019-05-23] MEDS: ASCORBIC ACID 500 MG TAB PO SCH ×2 (06:29→17:34)
[2019-05-23] MEDS: PANTOPRAZOLE 40 MG TABLET PO SCH (06:30)
[2019-05-23] MEDS: FERROUS SULFATE 325 MG TAB PO SCH ×2 (06:30→17:34)
[2019-05-23 06:43] LABS: Glucose,Whole Blood 88 mg/dL (75-99)
[2019-05-23] MEDS ORDERED: METOPROLOL TARTRATE 25 MG TAB PO STA (07:01)
[2019-05-23] MEDS ORDERED: THIAMINE 100 MG/ML 2 ML VIAL IM STA ×2 (07:22→21:00)
[2019-05-23] MEDS ORDERED: LORazepam 2 MG/ML INJ IV PRN ×5 (07:22→21:00)
[2019-05-23] MEDS: IPRATROPIUM-ALBUTEROL 3 ML NEB INHALATION SCH ×4 (07:50→20:12)
[2019-05-23] MEDS: FORMOTEROL FUMARATE 20 MCG/2 ML NEBU INHALATION SCH ×2 (07:50→20:12)
[2019-05-23] MEDS: BUDESONIDE 0.5 MG/2 ML NEBU INHALATION SCH ×2 (07:50→20:12)
[2019-05-23 07:59] LABS: Glucose,Whole Blood 146 mg/dL (75-99)
--- NOTE | 2019-05-23 08:02 | PN ---
PROGRESS NOTE Mr. Ansari is a 74-year-old male with a known history of chronic tobacco use, hypertension, prior history of his alcohol intake who presented with an acute myocardial infarction with severe triple-vessel coronary artery underwent coronary artery bypass grafting. His intra-aortic balloon pump has been removed. He had episode of recurrent atrial fibrillation and he has been on IV amiodarone as well as IV Cardizem. Hemodynamically, he is on the lower dose of norepinephrine. His breathing has been stable. He has no anginal pain. He denies any dizziness or palpitation. He denies any nausea. He continued to be on aspirin, Plavix, metoprolol 12.5 mg twice a day, Lipitor 80 mg daily. PHYSICAL EXAMINATION: Blood pressure 120/60 with the heart rate running between the 70 and 130. LUNGS: Clear anteriorly. HEART: On examination, he was in sinus mechanism. Regular rate and rhythm. S1, S2. No S3. No rub appreciated. ABDOMEN: Soft, nontender. Positive bowel sounds. No organomegaly. EXTREMITIES: No edema. RIGHT GROIN: No hematoma. LAB DATA: Lab data revealed BUN and creatinine 29 and 0.97, potassium 4.3 hemoglobin of 7. Chest x-ray shows mild congestion. IMPRESSION: 1. Status post coronary artery bypass grafting. 2. Severe ischemic cardiomyopathy. 3. Paroxysmal atrial fibrillation. 4. Prior history of smoking. 5. Prior history of alcohol intake. RECOMMENDATION: From the cardiac standpoint, I will increase the dose of his beta tosha. Follow his rhythm closely. Patient most likely will require anticoagulation. Once he is off the norepinephrine, I will add to his regimen an ROBSON inhibitor because of his cardiomyopathy. We will follow his renal function closely and depending on that, further recommendation will be made. MMODL / IJN: [id number] /
[2019-05-23] MEDS: ASPIRIN 325 MG TAB PO SCH (08:14)
[2019-05-23] MEDS: MULTIVITAMINS, THERA 1 EACH TAB PO SCH (08:14)
[2019-05-23] MEDS: CLOPIDOGREL 75 MG TAB PO SCH (08:14)
[2019-05-23] MEDS: ATORVASTATIN 80 MG TAB PO SCH (08:14)
[2019-05-23] MEDS: MUPIROCIN 2% OINT 22 GM TUBE NASAL SCH ×2 (08:15→21:57)
[2019-05-23] MEDS: HYDROcodone/APAP 5-325MG 1 EACH TAB PO PRN (08:49)
[2019-05-23 09:53] LABS: Glucose,Whole Blood 137 mg/dL (75-99)
[2019-05-23] MEDS: DEXMEDETOMIDINE/0.9% NACL(PMX) 400 MCG in EMPTY BAG 1 BAG IV SCH ×3 (10:12→21:16)
--- NOTE | 2019-05-23 10:13 | P.PN ---
Subjective Progress Note Date: 05/23/19 This patient is 74 was post non-STEMI along with severe left main disease in addition to severe ostial right coronary artery and some total occlusion of the LAD and a impaired LV function with ejection fraction of 35%. The patient has had a previous old anteroapical myocardial infarction. His comorbidities include hypertension, hyperlipidemia and history of smoking and alcohol drinking. He also has an abdominal aortic aneurysm measuring 3.5 cm. Note that the most current CAT scan showed some moderate dilatation of the abdominal aortic aneurysm measuring 4.1 cm. The patient underwent emergent quadruple bypass surgery. The patient is currently postop day #2. He did well postop day #1. He extubated nicely and he was quite lucid and alert. This morning, he is going into some mild delirium tremens. He is confused. Restless and somewhat agitated in bed. He is on oxygen at 3 L per minute nasal cannula. Overnight he went into atrial fibrillation and he was given Cardizem and subsequently became hypotensive and currently is on amiodarone running at 1 mg per minute. Cardizem was discontinued. He is currently on norepinephrine infusion at 8 mics per minute. Immovable from today was at 7 and the patient giving a unit of packed RBC. The patient also required Ativan and a total of 1 mg of vitamin was given to him today. He has mediastinal chest tube and left pleural chest tube. The output from the mediastinal chest tube is minimal. The mediastinal tissues will be removed today. In view of his ongoing venereum tremors, I recommended to put the patient on low-dose Precedex control his agitation and restlessness. Sternum stable clean and intact. [place] catheter has been removed. He is currently in normal sinus rhythm. ANGEL drains in his lower extremities bilaterally that would be also pulled out today due to his lower output. Chest x-ray from today shows some mild pulmonary vascular congestion. No evidence of any pneumothorax. Chest tubes are all in good location. No fever. No aspiration. Objective - Vital Signs Vital signs: Vital Signs Temp 99.2 F 05/23/19 09:11 Pulse 67 05/23/19 09:11 Resp 18 05/23/19 09:11 BP 90/49 05/23/19 09:11 Pulse Ox 97 05/23/19 09:11 Intake & Output 05/22/19 05/23/19 05/23/19 18:59 06:59 18:59 Intake Total 8972.013 4046.243 69.078 Output Total 865 710 170 Balance 419.738 797.243 -100.922 Weight 112.1 kg 113.3 kg Intake: IV 966 332 62 Albumin 250 Cardiac Output 80 Lactated Ringers 1,000 ml 470 260 50 @ 20 mls/hr IV .Q24H [facility] Rx#:[id number] Pressure Bags 116 72 12 ceFAZolin 2 gm In Sodium 50 Chloride 0.9% 50 ml @ 100 mls/hr IVPB Q8HR [facility] Rx# :[id number] Intake, IV Titration 318.738 775.243 7.078 Amount Amiodarone 300 mg In 17.5 0 Dextrose 5% in Water 250 ml @ 0.5 MG/MIN 25 mls/hr IV .Q10H PRN Rx#: [id number] Amiodarone 360 mg In 200 Dextrose 5% in Water 200 ml @ 1 MG/MIN 33.333 mls/ hr IV .Q6H PRN Rx#: [id number] Dexmedetomidine/0.9% NaCl 39.474 (Pmx) 400 mcg In Empty Bag 1 bag @ Titrate IV . Q0M [facility] Rx#:[id number] Insulin Regular 100 unit 28.600 30.410 In Sodium Chloride 0.9% 100 ml @ Per Protocol IV .Q0M [facility] Rx#:[id number] Milrinone-D5w Pmx 20 mg 24.974 In Dextrose/Water 1 100ml .bag @ Per Protocol IV . Q0M [facility] Rx#:[id number] Norepinephrine 4 mg In 225.690 527.333 7.078 Sodium Chloride 0.9% 250 ml @ 0.02 MCG/KG/MIN 7. 864 mls/hr IV .Q24H [facility] Rx#:[id number] Oral 400 Blood Product 0 Rc As-1 Unit 0 [id number] Output: Chest Tube Drainage 440 270 30 Left Lateral Chest 240 200 30 Mediastinal 200 70 0 Drainage 20 40 20 Left Calf 30 10 Right Calf 20 10 10 Urine 405 400 120 Other: Voiding Method Indwelling Catheter Indwelling Catheter ABP, PAP, CO, CI - Last Documented Arterial Blood Pressure 102/57 Pulmonary Artery Pressure 32/18 Cardiac Output 8.4 Cardiac Index 3.8 - Exam Gen. appearance the patient is currently on nasal cannula. No signs of any re spiratory distress. Nevertheless, his restless and agitated and confused. Head exam was generally normal. There was no scleral icterus or corneal arcus. Mucous membranes were moist. Neck was supple and without jugular venous distension, thyromegaly, or carotid bruits. Carotids were easily palpable bilaterally. There was no adenopathy. The right IJ [place] catheter has been removed. The cordis is also been removed. Lung sounds are diminished in lung bases bilaterally. Sternum stable clean and intact. The patient has mediastinal and left pleural chest tube in place. Cardiac exam revealed the PMI to be normally situated and sized. The rhythm was regular and no extrasystoles were noted during several minutes of auscultation. The first and second heart sounds were normal and physiologic splitting of the second heart sound was noted. There were no murmurs, clicks, or gallops. The patient has a post cardiac surgery are heard throughout the precordium. The wires are still in place. Abdominal exam revealed normal bowel sounds. The abdomen was soft, non-tender, and without masses, organomegaly, or appreciable enlargement of the abdominal aorta. Examination of the extremities revealed easily palpable radial, femoral and pedal pulses. There was no cyanosis, clubbing or edema. The patient is ANGEL drains in the surgical wound site bilaterally lower extremities. No cyanosis. No clubbing. No significant edema. Neurologically the patient is confused and restless. He is moving all 4 extremities without any limitation. No focal neurological deficits. Pupils are equal and reactive to light. - Labs CBC & Chem 7: 05/23/19 03:15 05/23/19 03:15 Labs: Abnormal Lab Results - Last 24 Hours (Table) 05/20/19 05/22/19 05/22/19 Range/Units 15:35 11:18 12:17 WBC (3.8-10.6) k/uL RBC (4.30-5.90) m/uL Hgb (13.0-17.5) gm/dL Hct (39.0-53.0) % Plt Count (150-450) k/uL Neutrophils # (1.3-7.7) k/uL Sodium (137-145) mmol/L Chloride (98-107) mmol/L Carbon Dioxide (22-30) mmol/L BUN (9-20) mg/dL Glucose (74-99) mg/dL POC Glucose (mg/dL) 144 H 102 H (75-99) mg/dL Calcium (8.4-10.2) mg/dL Total Protein (6.3-8.2) g/dL Albumin (3.5-5.0) g/dL Crossmatch See Detail 05/22/19 05/22/19 05/22/19 Range/Units 13:25 14:09 15:43 WBC (3.8-10.6) k/uL RBC (4.30-5.90) m/uL Hgb (13.0-17.5) gm/dL Hct (39.0-53.0) % Plt Count (150-450) k/uL Neutrophils # (1.3-7.7) k/uL Sodium (137-145) mmol/L Chloride (98-107) mmol/L Carbon Dioxide (22-30) mmol/L BUN (9-20) mg/dL Glucose (74-99) mg/dL POC Glucose (mg/dL) 114 H 128 H 131 H (75-99) mg/dL Calcium (8.4-10.2) mg/dL Total Protein (6.3-8.2) g/dL Albumin (3.5-5.0) g/dL Crossmatch 05/22/19 05/22/19 05/22/19 Range/Units 15:45 17:11 18:40 WBC (3.8-10.6) k/uL RBC (4.30-5.90) m/uL Hgb (13.0-17.5) gm/dL Hct (39.0-53.0) % Plt Count (150-450) k/uL Neutrophils # (1.3-7.7) k/uL Sodium (137-145) mmol/L Chloride 109 H (98-107) mmol/L Carbon Dioxide 19 L (22-30) mmol/L BUN 25 H (9-20) mg/dL Glucose 113 H (74-99) mg/dL POC Glucose (mg/dL) 137 H 183 H (75-99) mg/dL Calcium 8.2 L (8.4-10.2) mg/dL Total Protein (6.3-8.2) g/dL Albumin (3.5-5.0) g/dL Crossmatch 05/22/19 05/22/19 05/23/19 Range/Units 20:19 23:12 00:33 WBC (3.8-10.6) k/uL RBC (4.30-5.90) m/uL Hgb (13.0-17.5) gm/dL Hct (39.0-53.0) % Plt Count (150-450) k/uL Neutrophils # (1.3-7.7) k/uL Sodium (137-145) mmol/L Chloride (98-107) mmol/L Carbon Dioxide (22-30) mmol/L BUN (9-20) mg/dL Glucose (74-99) mg/dL POC Glucose (mg/dL) 126 H 104 H 181 H (75-99) mg/dL Calcium (8.4-10.2) mg/dL Total Protein (6.3-8.2) g/dL Albumin (3.5-5.0) g/dL Crossmatch 05/23/19 05/23/19 05/23/19 Range/Units 01:10 03:15 03:15 WBC 15.4 H (3.8-10.6) k/uL RBC 2.30 L (4.30-5.90) m/uL Hgb 7.0 L (13.0-17.5) gm/dL Hct 21.7 L (39.0-53.0) % Plt Count 123 L (150-450) k/uL Neutrophils # 13.0 H (1.3-7.7) k/uL Sodium 136 L (137-145) mmol/L Chloride 108 H (98-107) mmol/L Carbon Dioxide 20 L (22-30) mmol/L BUN 29 H (9-20) mg/dL Glucose 109 H (74-99) mg/dL POC Glucose (mg/dL) 159 H (75-99) mg/dL Calcium 8.0 L (8.4-10.2) mg/dL Total Protein 5.3 L (6.3-8.2) g/dL Albumin 3.0 L (3.5-5.0) g/dL Crossmatch 05/23/19 05/23/19 05/23/19 Range/Units 03:16 07:57 09:52 WBC (3.8-10.6) k/uL RBC (4.30-5.90) m/uL Hgb (13.0-17.5) gm/dL Hct (39.0-53.0) % Plt Count (150-450) k/uL Neutrophils # (1.3-7.7) k/uL Sodium (137-145) mmol/L Chloride (98-107) mmol/L Carbon Dioxide (22-30) mmol/L BUN (9-20) mg/dL Glucose (74-99) mg/dL POC Glucose (mg/dL) 129 H 146 H 137 H (75-99) mg/dL Calcium (8.4-10.2) mg/dL Total Protein (6.3-8.2) g/dL Albumin (3.5-5.0) g/dL Crossmatch Microbiology - Last 24 Hours (Table) 05/20/19 20:55 Nasal Screen MRSA/MSSA - Final Nasal Swab Assessment and Plan Plan: 1. Severe triple-vessel coronary artery disease with significant left main disease, status post four-vessel CABG, currently postop day #2. The patient is hemodynamically stable. The chest tubes are still in place. [place] catheter has been removed. The active issue for now is delirium tremens for which the patient received 1 mg of Ativan today. 2. Non-STEMI this admission 3. Hypertension 4. Hyperlipidemia 5. Current chronic tobacco dependence 6. Daily EtOH use, the patient is going through delirium tremens for now. Is quite restless and agitated and confused. 7. Postoperative acute blood loss anemia, the hemoglobin dropped down to 7 the patient is receiving a unit of packed RBC 8 paroxysmal atrial fibrillation and the patient went into sinus rhythm currently on amiodarone 1 mg per minute loading dose to be switched to maintenance 9 hypotension currently requiring Levophed for hemodynamic support 10 ischemic cardiomyopathy with an ejection fraction of 35% preoperatively 11 COPD and the patient is a chronic cigarette smoker. Well abdominal aortic aneurysm measuring 4.1 cm Plan Start the patient on Precedex for delirium tremens. Hold Ativan for now. The dose of the Precedex will be titrated to control his agitation and restlessness. Given unit of packed RBC Complete amiodarone loading and current rhythm is sinus Titrate levo fed dose to maintain immunosuppression above 65 The mediastinal chest tubes will be removed and the left pleural chest tube will be kept in place Monitor hemoglobin DuoNeb nebulized treatments around the clock Incentive spirometer We'll keep the patient ICU for now continue to follow make further recommendations based on his progress.
--- NOTE | 2019-05-23 10:24 | P.PN ---
Subjective Progress Note Date: 05/23/19 Principal diagnosis: Non-ST elevation myocardial infarction, severe left main disease, severe ostial right coronary artery, subtotal occlusion of the left anterior descending arter y, moderate left ventricular dysfunction with an ejection fraction estimated at 35%, mild mitral valve regurgitation. Previous medical history of evidence of old anteroapical myocardial infarction, hypertension, hyperlipidemia, current chronic tobacco dependence, daily EtOH abuse, abdominal aortic aneurysm measured 3.5 cm in 2017, current CT shows moderate dilatation at 4.1 cm POD #2 quadruple coronary artery bypass grafting using the left internal mammary artery to the left anterior descending artery, reverse saphenous vein graft from the aorta to the high diagonal artery, reverse saphenous vein graft taken from the previous vein graft and an anastomosis to the first obtuse marginal artery, reverse saphenous vein graft from the aorta to the posterior descending artery. Endoscopic harvesting of the left greater saphenous vein from the groin to above the knee level, as well as the right greater saphenous vein from the groin to below the knee level. Exclusion of the left atrial appendage using a 45 mm after clip. Intraoperative graft flow measurements using the [employer] system. Intraoperative transesophageal echocardiogram and epi-aortic scanning. Postoperative acute blood loss anemia, expected secondary to hemodilution and cardiopulmonary bypass pump Postoperative atrial fibrillation with rapid ventricular response, unexpected but potential outcome of cardiac surgery Postoperative DTs, expected due to patient's daily EtOH abuse The patient is currently laying in bed in the intensive care unit in mild distress, very restless. Does appear to be starting to have DVTs, is confused to place and time as well as situation. Ativan given per CIWA protocol. In addition, patient went into A. fib with RVR last night, was bolused with amiodarone, Cardizem, and digoxin. Currently normal sinus rhythm. Remains on low-dose Levophed. Intra-aortic discontinued yesterday, patient was up in chair yesterday afternoon and tolerated well. Objective - Vital Signs Vital signs: Vital Signs Temp 99.2 F 05/23/19 09:11 Pulse 67 05/23/19 09:11 Resp 18 05/23/19 09:11 BP 90/49 05/23/19 09:11 Pulse Ox 97 05/23/19 09:11 Intake & Output 05/22/19 05/23/19 05/23/19 18:59 06:59 18:59 Intake Total 7322.155 7322.243 69.078 Output Total 865 710 170 Balance 419.738 797.243 -100.922 Weight 112.1 kg 113.3 kg Intake: IV 966 332 62 Albumin 250 Cardiac Output 80 Lactated Ringers 1,000 ml 470 260 50 @ 20 mls/hr IV .Q24H [facility]ENDA Rx#:[id number] Pressure Bags 116 72 12 ceFAZolin 2 gm In Sodium 50 Chloride 0.9% 50 ml @ 100 mls/hr IVPB Q8HR BRENDA Rx# :[id number] Intake, IV Titration 318.738 775.243 7.078 Amount Amiodarone 300 mg In 17.5 0 Dextrose 5% in Water 250 ml @ 0.5 MG/MIN 25 mls/hr IV .Q10H PRN Rx#: [id number] Amiodarone 360 mg In 200 Dextrose 5% in Water 200 ml @ 1 MG/MIN 33.333 mls/ hr IV .Q6H PRN Rx#: [id number] Dexmedetomidine/0.9% NaCl 39.474 (Pmx) 400 mcg In Empty Bag 1 bag @ Titrate IV . Q0M [facility]ENDA Rx#:[id number] Insulin Regular 100 unit 28.600 30.410 In Sodium Chloride 0.9% 100 ml @ Per Protocol IV .Q0M [facility] Rx#:[id number] Milrinone-D5w Pmx 20 mg 24.974 In Dextrose/Water 1 100ml .bag @ Per Protocol IV . Q0M [facility]ENDA Rx#:[id number] Norepinephrine 4 mg In 225.690 527.333 7.078 Sodium Chloride 0.9% 250 ml @ 0.02 MCG/KG/MIN 7. 864 mls/hr IV .Q24H [facility]ENDA Rx#:[id number] Oral 400 Blood Product 0 Rc As-1 Unit 0 [id number] Output: Chest Tube Drainage 440 270 30 Left Lateral Chest 240 200 30 Mediastinal 200 70 0 Drainage 20 40 20 Left Calf 30 10 Right Calf 20 10 10 Urine 405 400 120 Other: Voiding Method Indwelling Catheter Indwelling Catheter ABP, PAP, CO, CI - Last Documented Arterial Blood Pressure 102/57 Pulmonary Artery Pressure 32/18 Cardiac Output 8.4 Cardiac Index 3.8 - Constitutional General appearance: Present: mild distress, obese - Respiratory Details: Lungs sounds diminished bilaterally. Respirations even, nonlabored. Currently on 4 L nasal cannula with oxygen saturation 95%. Able to achieve 1250 mL on his incentive spirometry. Strong cough. Mediastinal chest tube to continuous wall suction, 20 mL serosanguineous drainage overnight, 300 mL since surgery, no air leak present. Left pleural chest tube to continuous wall suction, 90 mL serosanguineous drainage overnight, 450 mL since surgery, no air leak present. - Cardiovascular Details: S1, S2 present. Positive rub. Regular rate and rhythm, sinus rhythm on telemetry. Sternum stable. A/V epicardial pacemaker wires present, connected to generator, grounded Palpable peripheral pulses bilaterally. No edema present. No calf pain or tenderness noted. Right internal jugular Cordis, left radial arterial line present. Heart hugger in place. Antiembolism stockings, SCDs present. - Gastrointestinal Gastrointestinal Comment(s): Abdomen soft, nontender, nondistended. Active bowel sounds present 4 quadrants. Tolerating clear liquids. Positive flatus. - Genitourinary Genitourinary Comment(s): Benjamin present draining clear, yellow urine. Output 35-450 mL per hour o vernight. - Integumentary Integumentary Comment(s): Skin is warm dry with evidence of good perfusion. Anterior chest incision well approximated and covered with dry intact dressing. Right femoral artery site without hematoma. Right and left lower extremity EVH site well approximated, ANGEL drains present with minimal drainage. - Neurologic Neurologic: Present: CNII-XII intact - Musculoskeletal Musculoskeletal: Present: strength equal bilaterally - Psychiatric Psychiatric Comment(s): Patient is confused to place, time, and situation. Very restless - Allied health notes Allied health notes reviewed: nursing - Labs CBC & Chem 7: 05/23/19 03:15 05/23/19 03:15 Labs: Abnormal Lab Results - Last 24 Hours (Table) 05/20/19 05/22/19 05/22/19 Range/Units 15:35 11:18 12:17 WBC (3.8-10.6) k/uL RBC (4.30-5.90) m/uL Hgb (13.0-17.5) gm/dL Hct (39.0-53.0) % Plt Count (150-450) k/uL Neutrophils # (1.3-7.7) k/uL Sodium (137-145) mmol/L Chloride (98-107) mmol/L Carbon Dioxide (22-30) mmol/L BUN (9-20) mg/dL Glucose (74-99) mg/dL POC Glucose (mg/dL) 144 H 102 H (75-99) mg/dL Calcium (8.4-10.2) mg/dL Total Protein (6.3-8.2) g/dL Albumin (3.5-5.0) g/dL Crossmatch See Detail 05/22/19 05/22/19 05/22/19 Range/Units 13:25 14:09 15:43 WBC (3.8-10.6) k/uL RBC (4.30-5.90) m/uL Hgb (13.0-17.5) gm/dL Hct (39.0-53.0) % Plt Count (150-450) k/uL Neutrophils # (1.3-7.7) k/uL Sodium (137-145) mmol/L Chloride (98-107) mmol/L Carbon Dioxide (22-30) mmol/L BUN (9-20) mg/dL Glucose (74-99) mg/dL POC Glucose (mg/dL) 114 H 128 H 131 H (75-99) mg/dL Calcium (8.4-10.2) mg/dL Total Protein (6.3-8.2) g/dL Albumin (3.5-5.0) g/dL Crossmatch 05/22/19 05/22/19 05/22/19 Range/Units 15:45 17:11 18:40 WBC (3.8-10.6) k/uL RBC (4.30-5.90) m/uL Hgb (13.0-17.5) gm/dL Hct (39.0-53.0) % Plt Count (150-450) k/uL Neutrophils # (1.3-7.7) k/uL Sodium (137-145) mmol/L Chloride 109 H (98-107) mmol/L Carbon Dioxide 19 L (22-30) mmol/L BUN 25 H (9-20) mg/dL Glucose 113 H (74-99) mg/dL POC Glucose (mg/dL) 137 H 183 H (75-99) mg/dL Calcium 8.2 L (8.4-10.2) mg/dL Total Protein (6.3-8.2) g/dL Albumin (3.5-5.0) g/dL Crossmatch 05/22/19 05/22/19 05/23/19 Range/Units 20:19 23:12 00:33 WBC (3.8-10.6) k/uL RBC (4.30-5.90) m/uL Hgb (13.0-17.5) gm/dL Hct (39.0-53.0) % Plt Count (150-450) k/uL Neutrophils # (1.3-7.7) k/uL Sodium (137-145) mmol/L Chloride (98-107) mmol/L Carbon Dioxide (22-30) mmol/L BUN (9-20) mg/dL Glucose (74-99) mg/dL POC Glucose (mg/dL) 126 H 104 H 181 H (75-99) mg/dL Calcium (8.4-10.2) mg/dL Total Protein (6.3-8.2) g/dL Albumin (3.5-5.0) g/dL Crossmatch 05/23/19 05/23/19 05/23/19 Range/Units 01:10 03:15 03:15 WBC 15.4 H (3.8-10.6) k/uL RBC 2.30 L (4.30-5.90) m/uL Hgb 7.0 L (13.0-17.5) gm/dL Hct 21.7 L (39.0-53.0) % Plt Count 123 L (150-450) k/uL Neutrophils # 13.0 H (1.3-7.7) k/uL Sodium 136 L (137-145) mmol/L Chloride 108 H (98-107) mmol/L Carbon Dioxide 20 L (22-30) mmol/L BUN 29 H (9-20) mg/dL Glucose 109 H (74-99) mg/dL POC Glucose (mg/dL) 159 H (75-99) mg/dL Calcium 8.0 L (8.4-10.2) mg/dL Total Protein 5.3 L (6.3-8.2) g/dL Albumin 3.0 L (3.5-5.0) g/dL Crossmatch 05/23/19 05/23/19 05/23/19 Range/Units 03:16 07:57 09:52 WBC (3.8-10.6) k/uL RBC (4.30-5.90) m/uL Hgb (13.0-17.5) gm/dL Hct (39.0-53.0) % Plt Count (150-450) k/uL Neutrophils # (1.3-7.7) k/uL Sodium (137-145) mmol/L Chloride (98-107) mmol/L Carbon Dioxide (22-30) mmol/L BUN (9-20) mg/dL Glucose (74-99) mg/dL POC Glucose (mg/dL) 129 H 146 H 137 H (75-99) mg/dL Calcium (8.4-10.2) mg/dL Total Protein (6.3-8.2) g/dL Albumin (3.5-5.0) g/dL Crossmatch Microbiology - Last 24 Hours (Table) 05/20/19 20:55 Nasal Screen MRSA/MSSA - Final Nasal Swab - Imaging and Cardiology Chest x-ray: report reviewed, image reviewed Assessment and Plan Assessment: 1. Severe triple-vessel coronary artery disease with significant left main disease, status post four-vessel CABG 2. Non-STEMI this admission 3. Hypertension 4. Hyperlipidemia 5. Current chronic tobacco dependence 6. Daily EtOH use 7. Postoperative acute blood loss anemia 8. Postoperative paroxysmal atrial fibrillation with rapid ventricular response 9. Postoperative DTs Plan: 1. Continue aspirin, statin, Plavix, beta tosha therapy. Will increase beta tosha therapy as tolerated. Wean levo as tolerated. 2. IV Cardizem discontinued. Amiodarone decreased. 3. Wean O2 as tolerated. Encourage is a spontaneous 10 times every hour while awake. 4. Bronchodilators, inhaled steroids per pulmonology. 5. Will monitor daily labs and x-rays. Electrolyte replacement per protocol. Will transfuse 1 unit packed red blood cells today followed by IV Lasix 6. Increase activity as tolerated. PT/OT/cardiac rehab following. 7. Pain control with current medication regimen 8. IV insulin management per primary care service 9. Cordis discontinued 10. Will discontinue mediastinal chest tubes, continue left pleural chest tube for another 24 hours 11. Discontinued continue Benjamin catheter after IV Lasix given. May bladder scan and straight cathed for greater than 300 mL residual 12. CIWA protocol. Will re-add Precedex for another 24 hours 13. More recommendations to follow based on patient's progress. Time with Patient: Greater than 30
[2019-05-23] MEDS: CLEVIDIPINE BUTYRATE 25 MG in EMPTY BAG 1 BAG IV SCH (10:34)
[2019-05-23 11:08] LABS: Glucose,Whole Blood 158 mg/dL (75-99)
[2019-05-23] MEDS: HYDROmorphone 0.5 MG/0.5 ML SYRINGE IVP PRN ×2 (11:41→12:54)
[2019-05-23] MEDS ORDERED: FUROSEMIDE 10 MG/ML 2 ML VIAL IV ONE (11:59)
[2019-05-23 12:02] LABS: Glucose,Whole Blood 120 mg/dL (75-99)
[2019-05-23] MEDS: LACTATED RINGERS 1,000 ML IV SCH (12:03)
[2019-05-23] MEDS: IPRATROPIUM-ALBUTEROL 3 ML NEB INHALATION PRN (12:28)
[2019-05-23 14:38] LABS: Glucose,Whole Blood 125 mg/dL (75-99)
[2019-05-23] MEDS ORDERED: HYDROmorphone 0.5 MG/0.5 ML SYRINGE IVP PRN (14:40)
--- NOTE | 2019-05-23 16:02 | P.PN ---
Progress Note - Text Progress Note Date: 05/23/19 Presenting complaint: Chest pain Interval history: Patient admitted with acute non-ST elevation IN. Severe coronary artery disease. EF of 35%. April 22-quadruple bypass. In the ICU. Today-overnight patient became delirious. Family informed and patient be drinking about at least 6 beers at night. Patient has been on Precedex, insulin drip, we will affect. Also received IV Ativan. Blood pressures running on the low side. Getting a unit of blood. Also overnight had an episode of atrial fibrillation with rapid ventricular rate. Received IV amiodarone. Still somewhat delirious. Some of the bedside. Review of systems: Could not be done as patient delirious Active Medications Hydrocodone Bitart/Acetaminophen ([place] 5-325) 2 each PO Q4HR PRN PRN Reason: Severe Pain Last Admin: 05/23/19 08:49 Dose: 2 each Documented by: Hydrocodone Bitart/Acetaminophen ([place] 5-325) 1 each PO Q4HR PRN PRN Reason: Moderate Pain Last Admin: 05/22/19 06:18 Dose: 1 each Documented by: Albuterol/Ipratropium (Duoneb 0.5 Mg-3 Mg/3 Ml Soln) 3 ml INHALATION RT-Q2H PRN PRN Reason: Shortness Of Breath Or Wheezing Last Admin: 05/23/19 12:28 Dose: 3 ml Documented by: Albuterol/Ipratropium (Duoneb 0.5 Mg-3 Mg/3 Ml Soln) 3 ml INHALATION RT-QID [facility] Last Admin: 05/23/19 15:16 Dose: Not Given Documented by: Alprazolam (Xanax) 0.25 mg PO BID PRN PRN Reason: Anxiety Last Admin: 05/23/19 00:21 Dose: 0.25 mg Documented by: Ascorbic Acid (Vitamin C) 500 mg PO BID-W/MEALS [facility] Last Admin: 05/23/19 06:29 Dose: 500 mg Documented by: Aspirin (Aspirin) 325 mg PO DAILY [facility] Last Admin: 05/23/19 08:14 Dose: 325 mg Documented by: Atorvastatin Calcium (Lipitor) 80 mg PO DAILY [facility] Last Admin: 05/23/19 08:14 Dose: 80 mg Documented by: Benzocaine/Menthol (Cepacol Lozenge) 1 each MUCOUS MEM Q2H PRN PRN Reason: Sore Throat Bisacodyl (Dulcolax) 10 mg RECTAL DAILY PRN PRN Reason: Constipation Budesonide (Pulmicort) 1 mg INHALATION RT-BID [facility] Last Admin: 05/23/19 07:50 Dose: 1 mg Documented by: Clopidogrel Bisulfate (Plavix) 75 mg PO DAILY [facility] Last Admin: 05/23/19 08:14 Dose: 75 mg Documented by: Ferrous Sulfate (Feosol) 325 mg PO BID-W/MEALS [facility] Last Admin: 05/23/19 06:30 Dose: 325 mg Documented by: Formoterol Fumarate (Perforomist) 20 mcg INHALATION RT-BID [facility] Last Admin: 05/23/19 07:50 Dose: 20 mcg Documented by: Heparin Sodium (Porcine) (Heparin) 5,000 unit SQ Q8HR [facility] Last Admin: 05/23/19 08:14 Dose: 5,000 unit Documented by: Hydromorphone HCl (Dilaudid) 0.5 mg IVP ONCE PRN PRN Reason: Pain Last Admin: 05/23/19 12:54 Dose: 0.5 mg Documented by: Hydromorphone HCl (Dilaudid) 0.5 mg IVP Q3HR PRN PRN Reason: Pain Insulin Human Regular 100 unit (/ Sodium Chloride) 101 mls @ 0 mls/hr IV .Q0M [facility]; Protocol Last Titration: 05/23/19 12:01 Dose: 2 unit/hr, 2.02 mls/hr Documented by: Clevidipine 25 mg/ IV Solution 50 mls @ 2 mls/hr IV .Q24H [facility]ENDA; Protocol Last Admin: 05/23/19 10:34 Dose: Not Given Documented by: Norepinephrine Bitartrate 4 mg (/ Sodium Chloride) 254 mls @ 7.864 mls/hr IV .Q24H [facility]ENDA; Protocol Last Admin: 05/23/19 15:28 Dose: 0.08 mcg/kg/min, 31.455 mls/hr Documented by: Amiodarone HCl 150 mg/ (Dextrose/Water) 103 mls @ 618 mls/hr IV .Q10M PRN; Protocol PRN Reason: A.FIB/FLUTTER Last Admin: 05/23/19 01:26 Dose: 618 mls/hr Documented by: Amiodarone HCl 360 mg/ (Dextrose/Water) 200 mls @ 33.333 mls/hr IV .Q6H PRN; Protocol PRN Reason: A.FIB/FLUTTER Last Admin: 05/23/19 04:15 Dose: 1 mg/min, 33.333 mls/hr Documented by: Amiodarone HCl 300 mg/ (Dextrose/Water) 250 mls @ 25 mls/hr IV .Q10H PRN; Protocol PRN Reason: A.FIB/FLUTTER Last Admin: 05/23/19 09:48 Dose: 0.5 mg/min, 25 mls/hr Documented by: Lactated Ringer's (Lactated Ringers) 1,000 mls @ 20 mls/hr IV .Q24H [facility] Last Admin: 05/23/19 12:03 Dose: 20 mls/hr Documented by: Calcium Gluconate 2 gm/ Sodium (Chloride) 120 mls @ 100 mls/hr IVPB ONCE PRN PRN Reason: Ionized Calcium less than 4.4 Stop: 06/20/19 23:00 Dexmedetomidine HCl 400 mcg/ (IV Solution) 100 mls @ 0 mls/hr IV .Q0M [facility]; Protocol Stop: 05/24/19 09:46 Last Admin: 05/23/19 12:39 Dose: 0.7 mcg/kg/hr, 19.828 mls/hr Documented by: Ketorolac Tromethamine (Toradol) 15 mg IVP Q6HR [facility] Stop: 05/26/19 18:01 Last Admin: 05/23/19 12:06 Dose: 15 mg Documented by: Magnesium Hydroxide (Milk Of Magnesia) 2,400 mg PO BID PRN PRN Reason: Constipation Metoclopramide HCl (Reglan) 10 mg IVP Q4H PRN PRN Reason: Nausea And Vomiting Metoprolol Tartrate (Lopressor) 25 mg PO BID [facility] Miscellaneous Information (Potassium Per Protocol) 1 each MISCELLANE DAILY PRN; Protocol PRN Reason: Per Protocol Miscellaneous Information (Magnesium Per Protocol) 1 each MISCELLANE DAILY PRN; Protocol PRN Reason: Per Protocol Miscellaneous Information (Phosphorus Per Protocol) 1 each MISCELLANE DAILY PRN; Protocol PRN Reason: Per Protocol Multivitamins (Theragran) 1 each PO DAILY [facility] Last Admin: 05/23/19 08:14 Dose: 1 each Documented by: Mupirocin (Bactroban Oint) 1 applic NASAL BID [facility] Stop: 05/24/19 21:01 Last Admin: 05/23/19 08:15 Dose: 1 applic Documented by: Nicotine (Habitrol 14mg/24hr Patch) 1 patch TRANSDERM DAILY PRN PRN Reason: Nicotine Cravings Last Admin: 05/23/19 10:34 Dose: 1 patch Documented by: Ondansetron HCl (Zofran) 4 mg IVP Q6HR PRN PRN Reason: Nausea And Vomiting Pantoprazole Sodium (Protonix) 40 mg PO AC-BRKFST [facility] Last Admin: 05/23/19 06:30 Dose: 40 mg Documented by: Senna/Docusate Sodium (Senokot-S) 2 each PO HS [facility] Last Admin: 05/22/19 20:58 Dose: 2 each Documented by: Sodium Chloride (Saline Flush) 10 ml IV BID [facility] Last Admin: 05/23/19 08:15 Dose: Not Given Documented by: Thiamine HCl (Vitamin B-1) 100 mg PO BID-W/MEALS [facility] On examination: VITAL SIGNS: Afebrile, 73, 18, 107/65, 95% on nasal cannula 4 L GENERAL APPEARANCE: Somewhat restless in bed HEENT: Normal external appearance of nose and ear. EYES: Pupils equal. Conjunctiva pale. NECK: JVD unable to assess. Mass not palpable. RESPIRATORY: Respiratory effort increased. Lungs decreased breath sounds, 2 mediastinal one left pleural chest tube. CARDIOVASCULAR: Irregular heart sounds. No edema. ABDOMEN: Soft. Liver and spleen not palpable. No tenderness. No mass palpable. PSYCHIATRY: Delirious INVESTIGATIONS, reviewed in the clinical context: White count 15.4 hemoglobin 7 platelets 123 potassium 4.3 creatinine 0.97 Previous testing White count 16.1 hemoglobin 8.5 platelets 120 Potassium 4 creatinine 0.82 Assessment: -Status post four-vessel coronary bypass -Severe coronary artery disease per cardiac catheterization -New onset atrial fibrillation with rapid ventricular rate -Acute delirium from alcohol withdrawal -Acute non-Q-wave IN, POA -COPD in a current smoker -Hyperlipidemia -Hypotension from blood loss, requiring pressure support, hypotensive shock -Primary osteoarthritis -Thoracic aortic aneurysm -Macular degeneration bilaterally -Chronic nicotine dependence patient cigarette smoker -Acute postprocedure. Blood loss anemia expected from surgery -Thrombocytopenia-dilutional -Leukocytosis reactive, no evidence of infection Plan: Patient agrees to be in a CIWA scale. Getting IV amiodarone. Remains a levo fed drip. Continue using unit of blood. Discussed some of the bedside. Received IV amiodarone. Thank you Dr. Kim
[2019-05-23 16:21] LABS: Glucose,Whole Blood 96 mg/dL (75-99)
[2019-05-23] MEDS ORDERED: THIAMINE 100 MG TAB PO SCH (17:30)
[2019-05-23] MEDS: THIAMINE 100 MG TAB PO SCH (17:34)
[2019-05-23 18:59] LABS: Glucose,Whole Blood 130 mg/dL (75-99)
[2019-05-23 20:16] LABS: Glucose,Whole Blood 132 mg/dL (75-99)
[2019-05-23] MEDS ORDERED: METOPROLOL TARTRATE 5 MG/5 ML VIAL IVP ONE (20:42)
[2019-05-23] MEDS ORDERED: DEXTROSE 5%-0.45% NACL 1,000 ML IV SCH (20:45)
[2019-05-23 20:49] LABS: ABG Base Excess -3.1 mmol/L; ABG HCO3 21 mmol/L (21-25); ABG Oxygen Saturation 97.3 % (94-97); ABG PCO2 33 mmHg (35-45); ABG PH 7.42 (7.35-7.45); ABG PO2 85 mmHg (83-108); ABG TCO2 22 mmol/L (19-24)
[2019-05-23] MEDS: SENNOSIDES-DOCUSATE SODIUM 1 EACH TAB PO SCH (20:49)
[2019-05-23 20:52] LABS: Allen Test Performed? no
[2019-05-23] MEDS ORDERED: METOPROLOL TARTRATE 25 MG TAB PO SCH (21:00)
[2019-05-23 22:04] LABS: Glucose,Whole Blood 118 mg/dL (75-99)
[2019-05-23 23:53] LABS: Glucose,Whole Blood 112 mg/dL (75-99)
[2019-05-24] MEDS: INSULIN REGULAR 100 UNIT in SODIUM CHLORIDE 0.9% 100 ML IV SCH (01:00)
[2019-05-24 01:04] LABS: Glucose,Whole Blood 121 mg/dL (75-99)
[2019-05-24] MEDS: DEXTROSE 5% IN WATER 100 ML with AMIODARONE 150 MG IV PRN (01:54)
[2019-05-24 02:03] LABS: Glucose,Whole Blood 148 mg/dL (75-99)
[2019-05-24 02:23] LABS: Basophils % (A) 0 %; Eosinophils # (A) 0.1 k/uL (0-0.7); Eosinophils % (A) 0 %; HCT 25.9 % (39.0-53.0); HGB 8.3 gm/dL (13.0-17.5); Lymphocytes # (A) 1.5 k/uL (1.0-4.8); Lymphocytes % (A) 11 %; MCH 30.2 pg (25.0-35.0); MCHC 32.1 g/dL (31.0-37.0); MCV 94.4 fL (80.0-100.0); Mean Platelet Volume 9.8; Monocytes # (A) 0.6 k/uL (0-1.0); Monocytes % (A) 5 %; Neutrophils # (A) 11.4 k/uL (1.3-7.7); Neutrophils % (A) 83 %; Platelet Count 113 k/uL (150-450); RBC 2.75 m/uL (4.30-5.90); RDW 14.9 % (11.5-15.5); WBC 13.8 k/uL (3.8-10.6)
[2019-05-24 02:32] LABS: ALT 62 U/L (4-49); AST 70 U/L (17-59); African American GFR (CKD) >90 (>60 ml/min/1.73 sqM); Albumin 2.9 g/dL (3.5-5.0); Alkaline Phosphatase 95 U/L (38-126); Anion Gap 7 mmol/L; Blood Urea Nitrogen 31 mg/dL (9-20); Calcium 8.1 mg/dL (8.4-10.2); Carbon Dioxide 20 mmol/L (22-30); Chloride 107 mmol/L (98-107); Glucose 133 mg/dL (74-99); Magnesium 2.1 mg/dL (1.6-2.3); Non-African American GFR(CKD) 80 (>60 ml/min/1.73 sqM); Potassium 4.7 mmol/L (3.5-5.1); Sodium 134 mmol/L (137-145); Total Bilirubin 0.8 mg/dL (0.2-1.3); Total Protein 5.1 g/dL (6.3-8.2)
[2019-05-24] MEDS: DEXMEDETOMIDINE/0.9% NACL(PMX) 400 MCG in EMPTY BAG 1 BAG IV SCH ×2 (02:38→08:44)
[2019-05-24 03:03] LABS: Glucose,Whole Blood 140 mg/dL (75-99)
[2019-05-24] MEDS: AMIODARONE 300 MG in DEXTROSE 5% IN WATER 250 ML IV PRN ×2 (04:07)
[2019-05-24 04:17] LABS: Glucose,Whole Blood 130 mg/dL (75-99)
[2019-05-24 04:54] LABS: Ionized Calcium 4.6 mg/dL (4.5-5.3)
[2019-05-24 05:02] LABS: Magnesium 2.2 mg/dL (1.6-2.3)
[2019-05-24 05:02] LABS: Glucose,Whole Blood 124 mg/dL (75-99)
[2019-05-24 05:54] LABS: Glucose,Whole Blood 129 mg/dL (75-99)
[2019-05-24] MEDS: KETOROLAC 30 MG/ML 1 ML VIAL IVP SCH ×3 (06:00→17:53)
[2019-05-24 06:49] LABS: Glucose,Whole Blood 120 mg/dL (75-99)
[2019-05-24] MEDS: FORMOTEROL FUMARATE 20 MCG/2 ML NEBU INHALATION SCH ×2 (07:35→19:32)
[2019-05-24] MEDS: BUDESONIDE 0.5 MG/2 ML NEBU INHALATION SCH ×2 (07:35→19:30)
[2019-05-24] MEDS: IPRATROPIUM-ALBUTEROL 3 ML NEB INHALATION SCH ×4 (07:36→19:32)
[2019-05-24] MEDS ORDERED: FUROSEMIDE 10 MG/ML 2 ML VIAL IV ONE (07:42)
[2019-05-24] MEDS ORDERED: CALCIUM GLUCONATE 1 GM in SODIUM CHLORIDE 0.9% 100 ML IVPB ONE (07:42)
[2019-05-24] MEDS ORDERED: AMIODARONE 300 MG in DEXTROSE 5% IN WATER 250 ML IV PRN ×2 (07:43)
[2019-05-24 07:58] LABS: Glucose,Whole Blood 114 mg/dL (75-99)
--- NOTE | 2019-05-24 08:06 | PN ---
PROGRESS NOTE Mr. Ansari is a 74-year-old male who presented with non ST-segment elevation infarction, was found to have severe triple-vessel coronary artery disease with severe left main disease. He underwent coronary artery bypass grafting. Yesterday he was confused, that could be related to alcohol withdrawal. He is more awake and alert this morning. He denies any chest discomfort. He complains of a dry throat. He had episode of atrial fibrillation, but remains in sinus mechanism at this time. He has no evidence of significant ventricular ectopic activity. Hemodynamically, he is on a low dose of norepinephrine. He continues to be at this time on IV amiodarone because of a question of his mental status he could not take oral. He is on aspirin, Lipitor 80 mg daily that was held for now, Plavix 75 mg daily, and he received IV metoprolol. He was on metoprolol orally 25 mg twice a day. PHYSICAL EXAMINATION: Blood pressure running in the one teens with the heart rate in 60s. LUNGS: With few crackles at the bases, no wheezes. HEART: Regular rate and rhythm. S1, S2. No S3. No rub appreciated. ABDOMEN: Soft, nontender. EXTREMITIES: No edema. LAB DATA: Lab data revealed magnesium is 2.2, BUN and creatinine 31 and 0.95, hemoglobin of 8.3. IMPRESSION: 1. Status post coronary artery bypass grafting with evidence of severe triple-vessel coronary artery disease. 2. Ischemic cardiomyopathy. 3. Change in mental status could be related to alcohol withdrawal improving at this time. 4. Paroxysmal atrial fibrillation remains in sinus mechanism at this point. RECOMMENDATION: From the cardiac standpoint, will switch him back to the oral amiodarone and beta tosha. Continue incentive spirometry. Wean the norepinephrine to off and if stable I will initiate treatment with ROBSON inhibitor. The patient would require diuretics on a p.r.n. basis. I would proceed with repeating an echocardiogram on Monday to further evaluate his left ventricular systolic function. Depending on his progress, further recommendation will be made. MMODL / IJN: [id number] /
--- NOTE | 2019-05-24 08:17 | XR ---
EXAMINATION TYPE: XR chest 1V portable DATE OF EXAM: 05/24/2019 COMPARISON: 05/23/2019 INDICATION: Post cardiac surgery TECHNIQUE: Single frontal view of the chest is obtained. FINDINGS: The heart size is normal. The pulmonary vasculature is prominent. Diffuse increased lung markings are present. This is increasing from comparison. There is silhouettin g of the right diaphragm. A right basilar infiltrate is developing. Left basilar infiltrate may be de veloping to a lesser degree. Sternotomy wires are present from prior CABG. Left-sided chest tube is present. No pneumothorax is ev ident. IMPRESSION: 1. Increasing vascular prominence with increasing lung markings suspicious for volume overload and ea rly pulmonary edema. 2. Developing right lower lobe and to a lesser degree left lower lobe infiltrates. Correlate for atyp ical pulmonary edema, atelectasis. Pneumonia could be considered.
--- NOTE | 2019-05-24 08:34 | P.PN ---
Subjective Progress Note Date: 05/24/19 Principal diagnosis: Non-ST elevation myocardial infarction, severe left main disease, severe ostial right coronary artery, subtotal occlusion of the left anterior descending arter y, moderate left ventricular dysfunction with an ejection fraction estimated at 35%, mild mitral valve regurgitation. Previous medical history of evidence of old anteroapical myocardial infarction, hypertension, hyperlipidemia, current chronic tobacco dependence, daily EtOH abuse, abdominal aortic aneurysm measured 3.5 cm in 2017, current CT shows moderate dilatation at 4.1 cm POD #3 quadruple coronary artery bypass grafting using the left internal mammary artery to the left anterior descending artery, reverse saphenous vein graft from the aorta to the high diagonal artery, reverse saphenous vein graft taken from the previous vein graft and an anastomosis to the first obtuse marginal artery, reverse saphenous vein graft from the aorta to the posterior descending artery. Endoscopic harvesting of the left greater saphenous vein from the groin to above the knee level, as well as the right greater saphenous vein from the groin to below the knee level. Exclusion of the left atrial appendage using a 45 mm after clip. Intraoperative graft flow measurements using the [employer] system. Intraoperative transesophageal echocardiogram and epi-aortic scanning. Postoperative acute blood loss anemia, expected secondary to hemodilution and cardiopulmonary bypass pump Postoperative atrial fibrillation with rapid ventricular response, unexpected but potential outcome of cardiac surgery Postoperative DTs, expected due to patient's daily EtOH abuse The patient is currently sitting up in bed in the intensive care unit in no acute distress. Patient's mentation is better today, much less restless since reinitiation of Precedex, oriented to person, place, time, situation. He did have another short episode of atrial fibrillation yesterday, was given additional IV bolus of amiodarone, currently normal sinus rhythm. Remains on low-dose Levophed, IV amiodarone. The patient did receive 1 unit packed red blood cells yesterday for hemoglobin 7.0, hemoglobin this morning 8.3. Mediasti nal chest tubes, Cordis, JPs were discontinued yesterday. No new concerns. Objective - Vital Signs Vital signs: Vital Signs Temp 97.9 F 05/24/19 04:00 Pulse 65 05/24/19 08:08 Resp 17 05/24/19 07:00 BP 93/51 05/23/19 11:46 Pulse Ox 99 03/06/20 07:36 Intake & Output 05/23/19 05/24/19 05/24/19 18:59 06:59 18:59 Intake Total 5878.475 6713.025 43 Output Total 1210 750 50 Balance 102.578 711.025 -7 Weight 113.5 kg Intake: IV 332 76 3 Lactated Ringers 1,000 ml 290 40 @ 20 mls/hr IV .Q24H BRENDA Rx#:[id number] Pressure Bags 42 36 3 Intake, IV Titration 146.899 0106.025 40 Amount Amiodarone 300 mg In 0 456.667 Dextrose 5% in Water 250 ml @ 0.5 MG/MIN 25 mls/hr IV .Q10H PRN Rx#: [id number] Dexmedetomidine/0.9% NaCl 145.322 92.056 (Pmx) 400 mcg In Empty Bag 1 bag @ Titrate IV . Q0M BRENDA Rx#:[id number] Dextrose 5% in Water 100 100 ml @ 618 mls/hr IV .Q10M PRN with Amiodarone 150 mg Rx#:[id number] Dextrose 5%-0.45% NaCl 1, 400 40 000 ml @ 40 mls/hr IV . Q24H BRENDA Rx#:[id number] Insulin Regular 100 unit 15.647 26.925 In Sodium Chloride 0.9% 100 ml @ Per Protocol IV .Q0M BRENDA Rx#:[id number] Norepinephrine 4 mg In 199.609 309.377 Sodium Chloride 0.9% 250 ml @ 0.02 MCG/KG/MIN 7. 864 mls/hr IV .Q24H BRENDA Rx#:[id number] Blood Product 620 Rc As-1 Unit 310 [id number] Output: Chest Tube Drainage 470 210 0 Left Lateral Chest 380 210 0 Mediastinal 90 Drainage 20 Left Calf 10 Right Calf 10 Urine 720 540 50 Other: Voiding Method Indwelling Catheter Indwelling Catheter ABP, PAP, CO, CI - Last Documented Arterial Blood Pressure 98/58 Pulmonary Artery Pressure 32/18 Cardiac Output 8.4 Cardiac Index 3.8 - Constitutional General appearance: Present: cooperative, no acute distress, obese - Respiratory Details: Lungs sounds diminished bilaterally. Respirations even, nonlabored. Currently on 4 L nasal cannula with oxygen saturation 98%. Able to achieve 750 mL on his incentive spirometry. Strong cough. Left pleural chest tube to continuous wall suction, 160 mL serous drainage overnight, 700 mL in the last 24 hours, no air leak present. - Cardiovascular Details: S1, S2 present. Positive rub. Regular rate and rhythm, sinus rhythm on telemetry. Sternum stable. A/V epicardial pacemaker wires present, grounded. No edema present. No calf pain or tenderness noted. Left radial arterial line present. Heart hugger in place with patient demonstrating appropriate use. Antiembolism stockings, SCDs present. - Gastrointestinal Gastrointestinal Comment(s): Abdomen soft, nontender, nondistended. Active bowel sounds present 4 quadrants. Tolerating clear liquids. Positive flatus. - Genitourinary Genitourinary Comment(s): Benjamin present draining clear, yellow urine. Output 35-60 mL per hour overnight. - Integumentary Integumentary Comment(s): Skin is warm and dry with evidence of good perfusion. Anterior chest incision well approximated and covered with dry intact dressing. Right femoral artery site soft, no hematoma. Right and left lower extremity EVH site well approximated. - Neurologic Neurologic: Present: CNII-XII intact - Musculoskeletal Musculoskeletal: Present: strength equal bilaterally - Psychiatric Psychiatric: Present: A&O x's 3, appropriate affect - Allied health notes Allied health notes reviewed: nursing - Labs CBC & Chem 7: 05/24/19 02:03 05/24/19 02:03 Labs: Abnormal Lab Results - Last 24 Hours (Table) 05/20/19 05/23/19 05/23/19 Range/Units 15:35 09:52 10:57 WBC (3.8-10.6) k/uL RBC (4.30-5.90) m/uL Hgb (13.0-17.5) gm/dL Hct (39.0-53.0) % Plt Count (150-450) k/uL Neutrophils # (1.3-7.7) k/uL ABG pCO2 (35-45) mmHg ABG O2 Saturation (94-97) % Sodium (137-145) mmol/L Carbon Dioxide (22-30) mmol/L BUN (9-20) mg/dL Glucose (74-99) mg/dL POC Glucose (mg/dL) 137 H 158 H (75-99) mg/dL Calcium (8.4-10.2) mg/dL AST (17-59) U/L ALT (4-49) U/L Total Protein (6.3-8.2) g/dL Albumin (3.5-5.0) g/dL Crossmatch See Detail 05/23/19 05/23/19 05/23/19 Range/Units 11:57 14:36 18:57 WBC (3.8-10.6) k/uL RBC (4.30-5.90) m/uL Hgb (13.0-17.5) gm/dL Hct (39.0-53.0) % Plt Count (150-450) k/uL Neutrophils # (1.3-7.7) k/uL ABG pCO2 (35-45) mmHg ABG O2 Saturation (94-97) % Sodium (137-145) mmol/L Carbon Dioxide (22-30) mmol/L BUN (9-20) mg/dL Glucose (74-99) mg/dL POC Glucose (mg/dL) 120 H 125 H 130 H (75-99) mg/dL Calcium (8.4-10.2) mg/dL AST (17-59) U/L ALT (4-49) U/L Total Protein (6.3-8.2) g/dL Albumin (3.5-5.0) g/dL Crossmatch 05/23/19 05/23/19 05/23/19 Range/Units 20:15 20:49 22:02 WBC (3.8-10.6) k/uL RBC (4.30-5.90) m/uL Hgb (13.0-17.5) gm/dL Hct (39.0-53.0) % Plt Count (150-450) k/uL Neutrophils # (1.3-7.7) k/uL ABG pCO2 33 L (35-45) mmHg ABG O2 Saturation 97.3 H (94-97) % Sodium (137-145) mmol/L Carbon Dioxide (22-30) mmol/L BUN (9-20) mg/dL Glucose (74-99) mg/dL POC Glucose (mg/dL) 132 H 118 H (75-99) mg/dL Calcium (8.4-10.2) mg/dL AST (17-59) U/L ALT (4-49) U/L Total Protein (6.3-8.2) g/dL Albumin (3.5-5.0) g/dL Crossmatch 05/23/19 05/24/19 05/24/19 Range/Units 23:52 00:57 02:01 WBC (3.8-10.6) k/uL RBC (4.30-5.90) m/uL Hgb (13.0-17.5) gm/dL Hct (39.0-53.0) % Plt Count (150-450) k/uL Neutrophils # (1.3-7.7) k/uL ABG pCO2 (35-45) mmHg ABG O2 Saturation (94-97) % Sodium (137-145) mmol/L Carbon Dioxide (22-30) mmol/L BUN (9-20) mg/dL Glucose (74-99) mg/dL POC Glucose (mg/dL) 112 H 121 H 148 H (75-99) mg/dL Calcium (8.4-10.2) mg/dL AST (17-59) U/L ALT (4-49) U/L Total Protein (6.3-8.2) g/dL Albumin (3.5-5.0) g/dL Crossmatch 05/24/19 05/24/19 05/24/19 Range/Units 02:03 02:03 03:01 WBC 13.8 H (3.8-10.6) k/uL RBC 2.75 L (4.30-5.90) m/uL Hgb 8.3 L (13.0-17.5) gm/dL Hct 25.9 L (39.0-53.0) % Plt Count 113 L (150-450) k/uL Neutrophils # 11.4 H (1.3-7.7) k/uL ABG pCO2 (35-45) mmHg ABG O2 Saturation (94-97) % Sodium 134 L (137-145) mmol/L Carbon Dioxide 20 L (22-30) mmol/L BUN 31 H (9-20) mg/dL Glucose 133 H (74-99) mg/dL POC Glucose (mg/dL) 140 H (75-99) mg/dL Calcium 8.1 L (8.4-10.2) mg/dL AST 70 H (17-59) U/L ALT 62 H (4-49) U/L Total Protein 5.1 L (6.3-8.2) g/dL Albumin 2.9 L (3.5-5.0) g/dL Crossmatch 05/24/19 05/24/19 05/24/19 Range/Units 04:15 05:00 05:53 WBC (3.8-10.6) k/uL RBC (4.30-5.90) m/uL Hgb (13.0-17.5) gm/dL Hct (39.0-53.0) % Plt Count (150-450) k/uL Neutrophils # (1.3-7.7) k/uL ABG pCO2 (35-45) mmHg ABG O2 Saturation (94-97) % Sodium (137-145) mmol/L Carbon Dioxide (22-30) mmol/L BUN (9-20) mg/dL Glucose (74-99) mg/dL POC Glucose (mg/dL) 130 H 124 H 129 H (75-99) mg/dL Calcium (8.4-10.2) mg/dL AST (17-59) U/L ALT (4-49) U/L Total Protein (6.3-8.2) g/dL Albumin (3.5-5.0) g/dL Crossmatch 05/24/19 05/24/19 Range/Units 06:48 07:56 WBC (3.8-10.6) k/uL RBC (4.30-5.90) m/uL Hgb (13.0-17.5) gm/dL Hct (39.0-53.0) % Plt Count (150-450) k/uL Neutrophils # (1.3-7.7) k/uL ABG pCO2 (35-45) mmHg ABG O2 Saturation (94-97) % Sodium (137-145) mmol/L Carbon Dioxide (22-30) mmol/L BUN (9-20) mg/dL Glucose (74-99) mg/dL POC Glucose (mg/dL) 120 H 114 H (75-99) mg/dL Calcium (8.4-10.2) mg/dL AST (17-59) U/L ALT (4-49) U/L Total Protein (6.3-8.2) g/dL Albumin (3.5-5.0) g/dL Crossmatch - Imaging and Cardiology Chest x-ray: report reviewed, image reviewed Assessment and Plan Assessment: 1. Severe triple-vessel coronary artery disease with significant left main disease, status post four-vessel CABG 2. Non-STEMI this admission 3. Hypertension 4. Hyperlipidemia 5. Current chronic tobacco dependence 6. Daily EtOH use 7. Postoperative acute blood loss anemia, status post packed red blood cell transfusion 8. Postoperative paroxysmal atrial fibrillation with rapid ventricular response 9. Postoperative DTs Plan: 1. Continue aspirin, statin, Plavix, beta tosha therapy. Will increase beta tosha therapy as tolerated. Wean levo as tolerated. Patient will need ROBSON inhibitor once off IV Levophed and able to tolerate 2. Will initiate oral amiodarone, discontinue IV amiodarone after oral admin istration 3. Wean O2 as tolerated. Encourage is a spontaneous 10 times every hour while awake. 4. Bronchodilators, inhaled steroids per pulmonology. 5. Will monitor daily labs and x-rays. Electrolyte replacement per protocol. Will give 1 g calcium gluconate today. Will give IV Lasix today. No further transfusion at this point 6. Increase activity as tolerated, out of bed to chair. PT/OT/cardiac rehab following. 7. Pain control with current medication regimen 8. IV insulin management per primary care service 9. Continue left pleural chest tube for another 24 hours 10. Discontinued continue Benjamin catheter after IV Lasix given. May bladder scan and straight cathed for greater than 300 mL residual 11. CIWA protocol. Wean Precedex 12. More recommendations to follow based on patient's progress. Time with Patient: Greater than 30
[2019-05-24] MEDS: AMIODARONE 200 MG TAB PO SCH ×2 (08:46→21:33)
[2019-05-24] MEDS ORDERED: METOPROLOL TARTRATE 25 MG TAB PO SCH (09:00)
[2019-05-24] MEDS: FERROUS SULFATE 325 MG TAB PO SCH ×2 (09:15→16:32)
[2019-05-24] MEDS: SPIRONOLACTONE 25 MG TAB PO SCH (09:15)
[2019-05-24] MEDS: ASCORBIC ACID 500 MG TAB PO SCH ×2 (09:15→16:32)
[2019-05-24] MEDS: THIAMINE 100 MG TAB PO SCH ×2 (09:15→16:32)
[2019-05-24] MEDS: ASPIRIN 325 MG TAB PO SCH (09:15)
[2019-05-24] MEDS: ATORVASTATIN 80 MG TAB PO SCH (09:15)
[2019-05-24] MEDS: PANTOPRAZOLE 40 MG TABLET PO SCH (09:25)
[2019-05-24] MEDS: HEPARIN SODIUM,PORCINE 5,000 UNIT/ML 1 ML VIAL SQ SCH ×2 (09:26→16:32)
[2019-05-24] MEDS: CLOPIDOGREL 75 MG TAB PO SCH (09:32)
[2019-05-24] MEDS: MULTIVITAMINS, THERA 1 EACH TAB PO SCH (09:32)
[2019-05-24] MEDS: MUPIROCIN 2% OINT 22 GM TUBE NASAL SCH ×2 (09:32→21:32)
[2019-05-24 09:35] LABS: Glucose,Whole Blood 73 mg/dL (75-99)
--- NOTE | 2019-05-24 10:28 | P.PN ---
Subjective Progress Note Date: 05/24/19 On 05/24/2019 patient seen in follow-up in intensive care unit, this is postop day 3, status post coronary artery bypass grafting surgery. Patient is more arousable on today's exam, still slightly somnolent but easily arousable, and answering questions appropriately, mildly short of breath, but no acute distress, he is on 2 L of oxygen with a pulse ox of 91%. D5 half-normal saline infusing at rate of 40 ML per hour, this is being cut back to KVO, Precedex is infusing at 0.4 mics per kilo per hour. Patient is slightly hypotensive this morning, with systolic blood pressure in the 81/53, in sinus mechanism, with a rate of 62 BPM. Cut dose of Precedex in half. Today's chest x-ray has been reviewed showing increasing vascular prominence with increasing lung markings suspicious for volume overload and early pulmonary edema, CT surgery has ordered a dose of IV Lasix for the patient. PA catheter was discontinued yesterday, patient still has a set of atrial epicardial wires, grounded at this time. Urine output is anywhere between 30-70 ML per hour. Left pleural chest tube remains in place, with a total of 460 mL of serous output in the last 24 hours, no air leak, it is currently to waterseal. Lung sounds reveal diminished breath sounds with some crackles at the bases. She'll incision is clean dry and intact, covered with a surgical dressing, chest tube sites are clean dry and intact, saphenous graft harvest site incisions on bilateral legs are covered with dressings, clean dry and intact. Objective - Vital Signs Vital signs: Vital Signs Temp 98.4 F 05/24/19 07:30 Pulse 70 05/24/19 09:30 Resp 24 05/24/19 09:30 BP 106/74 05/24/19 09:30 Pulse Ox 95 05/24/19 09:30 Intake & Output 05/23/19 05/24/19 05/24/19 18:59 06:59 18:59 Intake Total 0273.195 6957.025 336.525 Output Total 1210 750 620 Balance 102.578 711.025 -283.475 Weight 113.5 kg Intake: IV 332 76 89 Dextrose 5%-0.45% NaCl 1, 80 000 ml @ 40 mls/hr IV . Q24H BRENDA Rx#:[id number] Lactated Ringers 1,000 ml 290 40 @ 20 mls/hr IV .Q24H BRENDA Rx#:[id number] Pressure Bags 42 36 9 Intake, IV Titration 057.418 2003.025 147.525 Amount Amiodarone 300 mg In 0 456.667 Dextrose 5% in Water 250 ml @ 0.5 MG/MIN 25 mls/hr IV .Q10H PRN Rx#: [id number] Dexmedetomidine/0.9% NaCl 145.322 92.056 104.966 (Pmx) 400 mcg In Empty Bag 1 bag @ Titrate IV . Q0M BRENDA Rx#:[id number] Dextrose 5% in Water 100 100 ml @ 618 mls/hr IV .Q10M PRN with Amiodarone 150 mg Rx#:[id number] Dextrose 5%-0.45% NaCl 1, 400 40 000 ml @ 40 mls/hr IV . Q24H BRENDA Rx#:[id number] Insulin Regular 100 unit 15.647 26.925 2.559 In Sodium Chloride 0.9% 100 ml @ Per Protocol IV .Q0M BRENDA Rx#:[id number] Norepinephrine 4 mg In 199.609 309.377 Sodium Chloride 0.9% 250 ml @ 0.02 MCG/KG/MIN 7. 864 mls/hr IV .Q24H BRENDA Rx#:[id number] Oral 100 Blood Product 620 Rc As-1 Unit 310 [id number] Output: Chest Tube Drainage 470 210 470 Left Lateral Chest 380 210 470 Mediastinal 90 Drainage 20 Left Calf 10 Right Calf 10 Urine 720 540 150 Other: Voiding Method Indwelling Catheter Indwelling Catheter Indwelling Catheter ABP, PAP, CO, CI - Last Documented Arterial Blood Pressure 113/66 Pulmonary Artery Pressure 32/18 Cardiac Output 8.4 Cardiac Index 3.8 - Exam GENERAL EXAM: Somnolent, but arousable, patient wakes up, makes eye contact, answers questions appropriately, drifts back to sleep, comfortable in no apparent distress. HEAD: Normocephalic/atraumatic. EYES: Normal reaction of pupils, equal size. Conjunctiva pink, sclera white. NOSE: Clear with pink turbinates. THROAT: No erythema or exudates. NECK: No masses, no JVD, no thyroid enlargement, no adenopathy. CHEST: No chest wall deformity. Symmetrical expansion. Midsternal incision is clean dry and intact, mediastinal left pleural chest tube sites are clean dry and intact, onset of atrial epicardial wires grounded at this time LUNGS: Equal air entry with no crackles, wheeze, rhonchi or dullness. CVS: Regular rate and rhythm, normal S1 and S2, no gallops, no murmurs, no rubs ABDOMEN: Soft, nontender. No hepatosplenomegaly, normal bowel sounds, no guarding or rigidity. EXTREMITIES: No clubbing, no edema, no cyanosis, 2+ pulses and upper and lower extremities. MUSCULOSKELETAL: Muscle strength and tone normal. SPINE: No scoliosis or deformity SKIN: No rashes, bilateral saphenous graft site incisions clean dry and intact on lower extremities CENTRAL NERVOUS SYSTEM: Alert and oriented -3. No focal deficits, tone is normal in all 4 extremities. PSYCHIATRIC: Alert and oriented -3. Appropriate affect. Intact judgment and insight. - Labs CBC & Chem 7: 05/24/19 02:03 05/24/19 02:03 Labs: Abnormal Lab Results - Last 24 Hours (Table) 05/20/19 05/23/19 05/23/19 Range/Units 15:35 10:57 11:57 WBC (3.8-10.6) k/uL RBC (4.30-5.90) m/uL Hgb (13.0-17.5) gm/dL Hct (39.0-53.0) % Plt Count (150-450) k/uL Neutrophils # (1.3-7.7) k/uL ABG pCO2 (35-45) mmHg ABG O2 Saturation (94-97) % Sodium (137-145) mmol/L Carbon Dioxide (22-30) mmol/L BUN (9-20) mg/dL Glucose (74-99) mg/dL POC Glucose (mg/dL) 158 H 120 H (75-99) mg/dL Calcium (8.4-10.2) mg/dL AST (17-59) U/L ALT (4-49) U/L Total Protein (6.3-8.2) g/dL Albumin (3.5-5.0) g/dL Crossmatch See Detail 03/05/20 03/05/20 03/05/20 Range/Units 14:36 18:57 20:15 WBC (3.8-10.6) k/uL RBC (4.30-5.90) m/uL Hgb (13.0-17.5) gm/dL Hct (39.0-53.0) % Plt Count (150-450) k/uL Neutrophils # (1.3-7.7) k/uL ABG pCO2 (35-45) mmHg ABG O2 Saturation (94-97) % Sodium (137-145) mmol/L Carbon Dioxide (22-30) mmol/L BUN (9-20) mg/dL Glucose (74-99) mg/dL POC Glucose (mg/dL) 125 H 130 H 132 H (75-99) mg/dL Calcium (8.4-10.2) mg/dL AST (17-59) U/L ALT (4-49) U/L Total Protein (6.3-8.2) g/dL Albumin (3.5-5.0) g/dL Crossmatch 05/23/19 05/23/19 05/23/19 Range/Units 20:49 22:02 23:52 WBC (3.8-10.6) k/uL RBC (4.30-5.90) m/uL Hgb (13.0-17.5) gm/dL Hct (39.0-53.0) % Plt Count (150-450) k/uL Neutrophils # (1.3-7.7) k/uL ABG pCO2 33 L (35-45) mmHg ABG O2 Saturation 97.3 H (94-97) % Sodium (137-145) mmol/L Carbon Dioxide (22-30) mmol/L BUN (9-20) mg/dL Glucose (74-99) mg/dL POC Glucose (mg/dL) 118 H 112 H (75-99) mg/dL Calcium (8.4-10.2) mg/dL AST (17-59) U/L ALT (4-49) U/L Total Protein (6.3-8.2) g/dL Albumin (3.5-5.0) g/dL Crossmatch 05/24/19 05/24/19 05/24/19 Range/Units 00:57 02:01 02:03 WBC 13.8 H (3.8-10.6) k/uL RBC 2.75 L (4.30-5.90) m/uL Hgb 8.3 L (13.0-17.5) gm/dL Hct 25.9 L (39.0-53.0) % Plt Count 113 L (150-450) k/uL Neutrophils # 11.4 H (1.3-7.7) k/uL ABG pCO2 (35-45) mmHg ABG O2 Saturation (94-97) % Sodium (137-145) mmol/L Carbon Dioxide (22-30) mmol/L BUN (9-20) mg/dL Glucose (74-99) mg/dL POC Glucose (mg/dL) 121 H 148 H (75-99) mg/dL Calcium (8.4-10.2) mg/dL AST (17-59) U/L ALT (4-49) U/L Total Protein (6.3-8.2) g/dL Albumin (3.5-5.0) g/dL Crossmatch 05/24/19 05/24/19 05/24/19 Range/Units 02:03 03:01 04:15 WBC (3.8-10.6) k/uL RBC (4.30-5.90) m/uL Hgb (13.0-17.5) gm/dL Hct (39.0-53.0) % Plt Count (150-450) k/uL Neutrophils # (1.3-7.7) k/uL ABG pCO2 (35-45) mmHg ABG O2 Saturation (94-97) % Sodium 134 L (137-145) mmol/L Carbon Dioxide 20 L (22-30) mmol/L BUN 31 H (9-20) mg/dL Glucose 133 H (74-99) mg/dL POC Glucose (mg/dL) 140 H 130 H (75-99) mg/dL Calcium 8.1 L (8.4-10.2) mg/dL AST 70 H (17-59) U/L ALT 62 H (4-49) U/L Total Protein 5.1 L (6.3-8.2) g/dL Albumin 2.9 L (3.5-5.0) g/dL Crossmatch 05/24/19 05/24/19 05/24/19 Range/Units 05:00 05:53 06:48 WBC (3.8-10.6) k/uL RBC (4.30-5.90) m/uL Hgb (13.0-17.5) gm/dL Hct (39.0-53.0) % Plt Count (150-450) k/uL Neutrophils # (1.3-7.7) k/uL ABG pCO2 (35-45) mmHg ABG O2 Saturation (94-97) % Sodium (137-145) mmol/L Carbon Dioxide (22-30) mmol/L BUN (9-20) mg/dL Glucose (74-99) mg/dL POC Glucose (mg/dL) 124 H 129 H 120 H (75-99) mg/dL Calcium (8.4-10.2) mg/dL AST (17-59) U/L ALT (4-49) U/L Total Protein (6.3-8.2) g/dL Albumin (3.5-5.0) g/dL Crossmatch 05/24/19 05/24/19 Range/Units 07:56 09:34 WBC (3.8-10.6) k/uL RBC (4.30-5.90) m/uL Hgb (13.0-17.5) gm/dL Hct (39.0-53.0) % Plt Count (150-450) k/uL Neutrophils # (1.3-7.7) k/uL ABG pCO2 (35-45) mmHg ABG O2 Saturation (94-97) % Sodium (137-145) mmol/L Carbon Dioxide (22-30) mmol/L BUN (9-20) mg/dL Glucose (74-99) mg/dL POC Glucose (mg/dL) 114 H 73 L (75-99) mg/dL Calcium (8.4-10.2) mg/dL AST (17-59) U/L ALT (4-49) U/L Total Protein (6.3-8.2) g/dL Albumin (3.5-5.0) g/dL Crossmatch Assessment and Plan Plan: Assessment: 1. Severe triple-vessel coronary artery disease with significant left main disease, status post four-vessel CABG, currently postop day #3. The patient is hemodynamically stable. The chest tubes are still in place. [place] catheter has been removed. Postoperative delirium tremens and acute alcohol withdrawal, currently on Precedex, mentation is improving 2. Non-STEMI this admission 3. Hypertension 4. Hyperlipidemia 5. Current chronic tobacco dependence 6. Daily EtOH use, the patient is going through delirium tremens for now. Is quite restless and agitated and confused. Mentation is improving, patient is less anxious and agitated, currently on Precedex infusion at 0.4 mg/kg/h 7. Postoperative acute blood loss anemia, the hemoglobin dropped down to 7 the patient is receiving a unit of packed RBC 8 paroxysmal atrial fibrillation and the patient went into sinus rhythm currently on amiodarone 1 mg per minute loading dose to be switched to maintenance 9 hypotension currently requiring Levophed for hemodynamic support 10 ischemic cardiomyopathy with an ejection fraction of 35% preoperatively 11 COPD and the patient is a chronic cigarette smoker. Well abdominal aortic aneurysm measuring 4.1 cm 12 pulmonary edema, fluid overload, patient will receive a dose of IV Lasix today Plan: Mentation is improving, patient is less restless and agitated on today's exam, will adjust the dose of Precedex infusion as the patient is slightly bradycardic and hypotensive, maintain aspiration precautions, oxygenation stable on 2 L of oxygen, encourage deep breathing and coughing today's chest x-ray shows fluid overload, patient will receive a dose of IV Lasix per CT surgery. Continue mo nitoring hemodynamic status, we'll continue to follow I performed a history & physical examination of the patient and discussed their management with my nurse practitioner, Lindsay Hamlin. I reviewed the nurse practitioner's note and agree with the documented findings and plan of care. Lung sounds are positive for management sounds at the bases with bibasilar crackles. The findings and the impression was discussed with the patient. I attest to the documentation by the nurse practitioner. Time with Patient: Less than 30
[2019-05-24] MEDS ORDERED: DEXMEDETOMIDINE/0.9% NACL(PMX) 400 MCG in EMPTY BAG 1 BAG IV SCH (10:30)
[2019-05-24 11:10] LABS: Glucose,Whole Blood 128 mg/dL (75-99)
[2019-05-24 12:43] LABS: Glucose,Whole Blood 138 mg/dL (75-99)
[2019-05-24] MEDS ORDERED: ACETAMINOPHEN TAB 500 MG TAB PO PRN (14:36)
[2019-05-24 14:39] LABS: Glucose,Whole Blood 129 mg/dL (75-99)
[2019-05-24] MEDS: NOREPINEPHRINE 4 MG in SODIUM CHLORIDE 0.9% 250 ML IV SCH ×2 (15:23→23:56)
--- NOTE | 2019-05-24 15:35 | CDI ---
Documentation Clarification Form Date: 05/24/2019 01:46:51 PM From: Marla Patterson Admit Date: 05/20/2019 12:58:00 PM Patient Name: Brock Ansari Visit Number: [id number] Discharge Date: ATTENTION: The Clinical Documentation Specialists (CDI) and [facility] Coding Staff appreciate your assistance in clarifying documentation. Please respond to the clarification below the line at the bottom and electronically sign. The CDI & [facility] Coding staff will review the response and follow-up if needed. Please note: Queries are made part of the Legal Health Record. If you have any questions, please contact the author of this message via ITS. Dr. Osmany Byrne Hypotension from blood loss, requiring pressure support, hypotensive shock has been documented in Medical management progress note 05/22 Patients Admitting Diagnosis: Non ST elevation myocardial infarction, severe left main disease, severe ostial right coronary artery disease, subtotal occlusion of the left anterior descending artery, moderate left ventricular dysfunction with an ejection fraction estimated at 35% mild mitral valve regurgitation, HTN, Hyperlipidemia, Tobacco and ETOH abuse. Post-Operative Diagnosis: Same as admitting Diagnosis Procedure performed: Quadruple coronary artery bypass grafting using the left internal mammary artery to the left anterior descending artery reverse saphenous vein graft from the aorta to the high diagonal artery, reverse vein graft taken from the previous vein graft and anastomosed to the first obtuse marginal artery, reverse saphenous vein graft from the aorta to the posterior descending artery . Exclusion of the left atrial appendage. History/Risk Factors: 74-year-old male presents to the ED via EMS for chest discomfort that has been on going for a few weeks. History of Thoracic aortic aneurysm, HTN, HLD, chronic tobacco uses and history of alcohol intake Clinical Indicators: CTS progress note 3/4 Postoperative acute blood loss anemia, expected secondary to hemodilution and cardiopulmonary bypass pump. 05/22 09:45 BP 100/54 hr 67; 05/22 BP 100/48 HR 72; 05/22 10:00 BP 99/55 HR 70; 05/22 10:15 BP 89/47 65; 05/22 10:30 BP 93/46 HR 66; 05/22 10:45 BP 90/53 HR 67; 05/22 11:00 BP 96/48 HR 66; 05/22 12:40 BP 113/60 HR 71 Treatment: 05/22 1 Unit PRBC transfused, 05/20 Norepinephrine 254 mls @ 7.864 mls/hr IV Q 24 Hrs In order to accurately reflect this patients severity of illness, please clarify if the post-operative diagnosis is: * Hypovolemic Shock related to blood loss from surgical procedure has been ruled out * Hypovolemic Shock related to blood loss from surgical procedure is a complication of surgical procedure * Hypovolemic Shock related to blood loss from surgical procedure is an expected outcome of the surgical procedure * Hypovolemic Shock is related to co-morbid condition(s) of [insert comorbid dxs] * Other please specify * Unable to determine (Last Revision: June 2018) MTDD
[2019-05-24 16:02] LABS: Glucose,Whole Blood 126 mg/dL (75-99)
[2019-05-24 17:52] LABS: Glucose,Whole Blood 118 mg/dL (75-99)
--- NOTE | 2019-05-24 19:54 | P.PN ---
Progress Note - Text Progress Note Date: 05/24/19 Presenting complaint: Chest pain Interval history: Patient admitted with acute non-ST elevation TN. Severe coronary artery disease. EF of 35%. April 22-quadruple bypass. In the ICU. It was discovered that patient takes anywhere from 6-8 beers at night. Did go into alcohol withdrawal. Also went into atrial fibrillation this required IV amiodarone. Today-patient's less did yesterday. Able to hold some conversation. Back in sinus rhythm. On insulin drip. Did receive a unit of blood yesterday. Still on a small dose of levo fed Review of systems: Was done for constitutional, cardiovascular, GI, pulmonary. relevant finding as above Active Medications Acetaminophen (Tylenol Tab) 1,000 mg PO Q6HR PRN PRN Reason: Fever and/ or Pain Hydrocodone Bitart/Acetaminophen ([place] 5-325) 2 each PO Q4HR PRN PRN Reason: Severe Pain Last Admin: 05/23/19 08:49 Dose: 2 each Documented by: Hydrocodone Bitart/Acetaminophen ([place] 5-325) 1 each PO Q4HR PRN PRN Reason: Moderate Pain Last Admin: 05/22/19 06:18 Dose: 1 each Documented by: Albuterol/Ipratropium (Duoneb 0.5 Mg-3 Mg/3 Ml Soln) 3 ml INHALATION RT-Q2H PRN PRN Reason: Shortness Of Breath Or Wheezing Last Admin: 05/23/19 12:28 Dose: 3 ml Documented by: Albuterol/Ipratropium (Duoneb 0.5 Mg-3 Mg/3 Ml Soln) 3 ml INHALATION RT-QID [facility] Last Admin: 05/24/19 19:32 Dose: 3 ml Documented by: Alprazolam (Xanax) 0.25 mg PO BID PRN PRN Reason: Anxiety Last Admin: 05/23/19 00:21 Dose: 0.25 mg Documented by: Amiodarone HCl (Cordarone) 400 mg PO BID [facility] Last Admin: 05/24/19 08:46 Dose: 400 mg Documented by: Ascorbic Acid (Vitamin C) 500 mg PO BID-W/MEALS [facility] Last Admin: 05/24/19 16:32 Dose: 500 mg Documented by: Aspirin (Aspirin) 325 mg PO DAILY [facility] Last Admin: 05/24/19 09:15 Dose: 325 mg Documented by: Atorvastatin Calcium (Lipitor) 80 mg PO DAILY [facility] Last Admin: 05/24/19 09:15 Dose: 80 mg Documented by: Benzocaine/Menthol (Cepacol Lozenge) 1 each MUCOUS MEM Q2H PRN PRN Reason: Sore Throat Bisacodyl (Dulcolax) 10 mg RECTAL DAILY PRN PRN Reason: Constipation Budesonide (Pulmicort) 1 mg INHALATION RT-BID [facility] Last Admin: 05/24/19 19:30 Dose: 1 mg Documented by: Clopidogrel Bisulfate (Plavix) 75 mg PO DAILY [facility] Last Admin: 05/24/19 09:32 Dose: 75 mg Documented by: Ferrous Sulfate (Feosol) 325 mg PO BID-W/MEALS [facility] Last Admin: 05/24/19 16:32 Dose: 325 mg Documented by: Formoterol Fumarate (Perforomist) 20 mcg INHALATION RT-BID [facility] Last Admin: 05/24/19 19:32 Dose: 20 mcg Documented by: Heparin Sodium (Porcine) (Heparin) 5,000 unit SQ Q8HR [facility] Last Admin: 05/24/19 16:32 Dose: 5,000 unit Documented by: Insulin Human Regular 100 unit (/ Sodium Chloride) 101 mls @ 0 mls/hr IV .Q0M [facility]; Protocol Last Titration: 05/24/19 17:52 Dose: 1.5 unit/hr, 1.515 mls/hr Documented by: Norepinephrine Bitartrate 4 mg (/ Sodium Chloride) 254 mls @ 7.864 mls/hr IV .Q24H [facility]; Protocol Last Titration: 05/24/19 17:52 Dose: 0.06 mcg/kg/min, 23.592 mls/hr Documented by: Ketorolac Tromethamine (Toradol) 15 mg IVP Q6HR [facility] Stop: 05/26/19 18:01 Last Admin: 05/24/19 17:53 Dose: 15 mg Documented by: Lorazepam (Ativan) 1 mg IV Q1HR PRN PRN Reason: CIWA 10 to 15 Lorazepam (Ativan) 2 mg IV Q10M PRN PRN Reason: CIWA 16 or higher Stop: 05/25/19 21:00 Magnesium Hydroxide (Milk Of Magnesia) 2,400 mg PO BID PRN PRN Reason: Constipation Metoclopramide HCl (Reglan) 10 mg IVP Q4H PRN PRN Reason: Nausea And Vomiting Metoprolol Tartrate (Lopressor) 12.5 mg PO BID [facility] Miscellaneous Information (Potassium Per Protocol) 1 each MISCELLANE DAILY PRN; Protocol PRN Reason: Per Protocol Miscellaneous Information (Magnesium Per Protocol) 1 each MISCELLANE DAILY PRN; Protocol PRN Reason: Per Protocol Miscellaneous Information (Phosphorus Per Protocol) 1 each MISCELLANE DAILY PRN; Protocol PRN Reason: Per Protocol Multivitamins (Theragran) 1 each PO DAILY [facility] Last Admin: 05/24/19 09:32 Dose: 1 each Documented by: Mupirocin (Bactroban Oint) 1 applic NASAL BID [facility] Stop: 05/24/19 21:01 Last Admin: 05/24/19 09:32 Dose: 1 applic Documented by: Nicotine (Habitrol 14mg/24hr Patch) 1 patch TRANSDERM DAILY PRN PRN Reason: Nicotine Cravings Last Admin: 05/23/19 10:34 Dose: 1 patch Documented by: Patient's Own--Eye (Vitamin) 1 each PO BID [facility] Ondansetron HCl (Zofran) 4 mg IVP Q6HR PRN PRN Reason: Nausea And Vomiting Pantoprazole Sodium (Protonix) 40 mg PO AC-BRKFST [facility] Last Admin: 05/24/19 09:25 Dose: 40 mg Documented by: Senna/Docusate Sodium (Senokot-S) 2 each PO HS [facility] Last Admin: 05/23/19 20:49 Dose: Not Given Documented by: Sodium Chloride (Saline Flush) 10 ml IV BID [facility] Last Admin: 05/24/19 09:00 Dose: 10 ml Documented by: Spironolactone (Aldactone) 25 mg PO DAILY [facility] Last Admin: 05/24/19 09:15 Dose: 25 mg Documented by: Thiamine HCl (Vitamin B-1) 100 mg PO BID-W/MEALS [facility] Last Admin: 05/24/19 16:32 Dose: 100 mg Documented by: On examination: VITAL SIGNS: 98.1, 75, 20, 102/66, 95% on 2 L GENERAL APPEARANCE: Laying in bed, less confused conversing more HEENT: Normal external appearance of nose and ear. EYES: Pupils equal. Conjunctiva pale. NECK: JVD unable to assess. Mass not palpable. RESPIRATORY: Respiratory effort increased. Lungs decreased breath sounds, 2 mediastinal one left pleural chest tube. CARDIOVASCULAR: Heart sounds regular. No edema. ABDOMEN: Soft. Liver and spleen not palpable. No tenderness. No mass palpable. PSYCHIATRY: Acute onset simple questions but tired INVESTIGATIONS, reviewed in the clinical context: White count 13.8 hemoglobin 8.3 potassium 4.7 creatinine 0.95 Previous testing White count 16.1 hemoglobin 8.5 platelets 120 Potassium 4 creatinine 0.82 Assessment: -Status post four-vessel coronary bypass -Severe coronary artery disease per cardiac catheterization -Paroxysmal new onset atrial fibrillation with rapid ventricular rate-normal sinus rhythm -Acute delirium from alcohol withdrawal-improving -Acute non-Q-wave TN, POA -COPD in a current smoker -Hyperlipidemia -Hypotension from blood loss, requiring pressure support, hypotensive shock- remains on levo fed -Primary osteoarthritis -Thoracic aortic aneurysm -Macular degeneration bilaterally -Chronic nicotine dependence patient cigarette smoker -Acute postprocedure. Blood loss anemia expected from surgery-received a unit of blood -Thrombocytopenia-dilutional -Leukocytosis reactive, no evidence of infection Plan: Remains on levo fed drip. Received a unit of blood. Delirium much better. Continue other medications. Thank you Dr. Kim
[2019-05-24 20:31] LABS: Glucose,Whole Blood 110 mg/dL (75-99)
[2019-05-24] MEDS: EYE VITAMIN PO SCH (21:31)
[2019-05-24] MEDS: SENNOSIDES-DOCUSATE SODIUM 1 EACH TAB PO SCH (21:31)
[2019-05-24] MEDS: METOPROLOL TARTRATE 12.5 MG TAB PO SCH (21:32)
[2019-05-24 22:02] LABS: Glucose,Whole Blood 144 mg/dL (75-99)
[2019-05-24 23:54] LABS: Glucose,Whole Blood 153 mg/dL (75-99)
[2019-05-25] MEDS: HEPARIN SODIUM,PORCINE 5,000 UNIT/ML 1 ML VIAL SQ SCH ×4 (00:06→22:16)
[2019-05-25] MEDS: KETOROLAC 30 MG/ML 1 ML VIAL IVP SCH ×4 (00:06→18:26)
[2019-05-25 02:21] LABS: Glucose,Whole Blood 127 mg/dL (75-99)
[2019-05-25 04:31] LABS: Glucose,Whole Blood 114 mg/dL (75-99)
[2019-05-25 05:59] LABS: Glucose,Whole Blood 105 mg/dL (75-99)
[2019-05-25 06:00] LABS: Basophils % (A) 0 %; Eosinophils # (A) 0.1 k/uL (0-0.7); Eosinophils % (A) 1 %; HGB 8.5 gm/dL (13.0-17.5); Hypochromasia Slight; Lymphocytes # (A) 1.3 k/uL (1.0-4.8); Lymphocytes % (A) 10 %; MCH 31.4 pg (25.0-35.0); MCHC 32.7 g/dL (31.0-37.0); MCV 96.1 fL (80.0-100.0); Mean Platelet Volume 9.2; Monocytes # (A) 0.6 k/uL (0-1.0); Monocytes % (A) 5 %; Neutrophils # (A) 10.4 k/uL (1.3-7.7); Neutrophils % (A) 82 %; RBC 2.71 m/uL (4.30-5.90); RDW 14.8 % (11.5-15.5); WBC 12.7 k/uL (3.8-10.6)
[2019-05-25 06:01] LABS: Platelet Count 188 k/uL (150-450)
[2019-05-25 06:44] LABS: ALT 44 U/L (4-49); AST 47 U/L (17-59); African American GFR (CKD) >90 (>60 ml/min/1.73 sqM); Albumin 2.9 g/dL (3.5-5.0); Alkaline Phosphatase 86 U/L (38-126); Anion Gap 8 mmol/L; Blood Urea Nitrogen 31 mg/dL (9-20); Calcium 8.2 mg/dL (8.4-10.2); Carbon Dioxide 19 mmol/L (22-30); Chloride 109 mmol/L (98-107); Glucose 106 mg/dL (74-99); Magnesium 2.3 mg/dL (1.6-2.3); Non-African American GFR(CKD) 87 (>60 ml/min/1.73 sqM); Sodium 136 mmol/L (137-145); Total Protein 5.5 g/dL (6.3-8.2)
[2019-05-25 06:59] LABS: Potassium 4.7 mmol/L (3.5-5.1)
--- NOTE | 2019-05-25 07:48 | XR ---
EXAMINATION TYPE: XR chest 1V portable DATE OF EXAM: 05/25/2019 CLINICAL HISTORY: Difficulty breathing progress study. Postoperative cardiac surgery. TECHNIQUE: Single AP portable upright view of the chest is obtained. COMPARISON: Chest x-ray from one day earlier and older studies. FINDINGS: : Overlying sternal wires and mediastinal clips are redemonstrated. Stable cardiac closur e device superior left heart border. Stable left-sided chest . Patchy bibasilar opacities and cardi omegaly remains present. Improved central vascular congestion noted from most recent prior. No pneumo thorax seen bilaterally. Degenerative change left glenohumeral joint noted. IMPRESSION: Improved central vascular congestion and interstitial edema. Patchy bibasilar atelectasis and/or infiltrate remains present on background chronic changes and cardiomegaly.
--- NOTE | 2019-05-25 08:10 | P.PN ---
Subjective Progress Note Date: 05/25/19 On today's evaluation of 05/25/2019 I'm pleased to report that the patient is fully awake and alert and oriented without any major difficulties. No altered mental status. No focal neurological deficits. He has recovered from his delirium tremens. He is off the Precedex. He is still running at a low dose of Levothroid 0.04 g per KG per minute. He does an adequate urine output. Hemoglobin is at 8.5. Longus capitis been removed. The patient has only a left-sided pleural chest tube with the output being minimal at this point in time. All of the electrodes are within normal limits. His postop day #4 following coronary artery bypass surgery. The patient had CAD with subtotal occlusion of the LAD with vitamin of the LV function with a preop ejection fraction of 35%. He also has a about the aneurysm measuring 4.1 cm. He underwent four-vessel bypass surgery. His chest x-ray from today shows some limited atelectatic changes in the lung bases. Otherwise no other acute abnormalities. Objective - Vital Signs Vital signs: Vital Signs Temp 98.1 F 05/25/19 04:00 Pulse 81 05/25/19 07:00 Resp 19 05/25/19 07:00 BP 118/67 05/25/19 07:00 Pulse Ox 97 05/25/19 07:00 Intake & Output 05/24/19 05/25/19 05/25/19 18:59 06:59 18:59 Intake Total 1231.563 637.787 40 Output Total 1955 735 20 Balance -723.437 -97.213 20 Weight 115.1 kg Intake: IV 455 480 40 Dextrose 5%-0.45% NaCl 1, 440 480 40 000 ml @ 40 mls/hr IV . Q24H [facility] Rx#:[id number] Pressure Bags 15 Intake, IV Titration 336.563 157.787 Amount Dexmedetomidine/0.9% NaCl 120.478 (Pmx) 400 mcg In Empty Bag 1 bag @ Titrate IV . Q0M [facility] Rx#:[id number] Dexmedetomidine/0.9% NaCl 2.932 (Pmx) 400 mcg In Empty Bag 1 bag @ Titrate IV . Q0M [facility] Rx#:[id number] Dextrose 5%-0.45% NaCl 1, 40 000 ml @ 40 mls/hr IV . Q24H [facility] Rx#:[id number] Insulin Regular 100 unit 17.061 14.662 In Sodium Chloride 0.9% 100 ml @ Per Protocol IV .Q0M [facility] Rx#:[id number] Norepinephrine 4 mg In 156.092 143.125 Sodium Chloride 0.9% 250 ml @ 0.02 MCG/KG/MIN 7. 864 mls/hr IV .Q24H [facility] Rx#:[id number] Oral 440 Output: Chest Tube Drainage 740 285 20 Left Lateral Chest 740 285 20 Urine 1215 450 Other: Voiding Method Indwelling Catheter Indwelling Catheter # Voids 0 1 # Bowel Movements 1 ABP, PAP, CO, CI - Last Documented Arterial Blood Pressure 113/66 Pulmonary Artery Pressure 32/18 Cardiac Output 8.4 Cardiac Index 3.8 - Exam Gen. appearance the patient is currently on nasal cannula. No signs of any respiratory distress. Awake and alert and there is no focal neurological deficit Head exam was generally normal. There was no scleral icterus or corneal arcus. Mucous membranes were moist. Neck was supple and without jugular venous distension, thyromegaly, or carotid bruits. Carotids were easily palpable bilaterally. There was no adenopathy. The right IJ [place] catheter has been removed. The cordis is also been removed. Lung sounds are diminished in lung bases bilaterally. Sternum stable clean and intact. The patient has mediastinal and left pleural chest tube in place. Cardiac exam revealed the PMI to be normally situated and sized. The rhythm was regular and no extrasystoles were noted during several minutes of auscultation. The first and second heart sounds were normal and physiologic splitting of the second heart sound was noted. There were no murmurs, clicks, or gallops. The patient has a post cardiac surgery are heard throughout the precordium. The wires are still in place. Abdominal exam revealed normal bowel sounds. The abdomen was soft, non-tender, and without masses, organomegaly, or appreciable enlargement of the abdominal aorta. Examination of the extremities revealed easily palpable radial, femoral and pedal pulses. There was no cyanosis, clubbing or edema. The patient is ANGEL drains in the surgical wound site bilaterally lower extremities. No cyanosis. No clubbing. No significant edema. Neurologically the no focal neurological deficit awake and alert - Labs CBC & Chem 7: 05/25/19 05:28 05/25/19 05:28 Labs: Abnormal Lab Results - Last 24 Hours (Table) 05/24/19 05/24/19 05/24/19 Range/Units 09:34 11:07 12:42 WBC (3.8-10.6) k/uL RBC (4.30-5.90) m/uL Hgb (13.0-17.5) gm/dL Hct (39.0-53.0) % Neutrophils # (1.3-7.7) k/uL Sodium (137-145) mmol/L Chloride (98-107) mmol/L Carbon Dioxide (22-30) mmol/L BUN (9-20) mg/dL Glucose (74-99) mg/dL POC Glucose (mg/dL) 73 L 128 H 138 H (75-99) mg/dL Calcium (8.4-10.2) mg/dL Total Protein (6.3-8.2) g/dL Albumin (3.5-5.0) g/dL 05/24/19 05/24/19 05/24/19 Range/Units 14:37 15:59 17:51 WBC (3.8-10.6) k/uL RBC (4.30-5.90) m/uL Hgb (13.0-17.5) gm/dL Hct (39.0-53.0) % Neutrophils # (1.3-7.7) k/uL Sodium (137-145) mmol/L Chloride (98-107) mmol/L Carbon Dioxide (22-30) mmol/L BUN (9-20) mg/dL Glucose (74-99) mg/dL POC Glucose (mg/dL) 129 H 126 H 118 H (75-99) mg/dL Calcium (8.4-10.2) mg/dL Total Protein (6.3-8.2) g/dL Albumin (3.5-5.0) g/dL 05/24/19 05/24/19 05/24/19 Range/Units 20:30 22:00 23:53 WBC (3.8-10.6) k/uL RBC (4.30-5.90) m/uL Hgb (13.0-17.5) gm/dL Hct (39.0-53.0) % Neutrophils # (1.3-7.7) k/uL Sodium (137-145) mmol/L Chloride (98-107) mmol/L Carbon Dioxide (22-30) mmol/L BUN (9-20) mg/dL Glucose (74-99) mg/dL POC Glucose (mg/dL) 110 H 144 H 153 H (75-99) mg/dL Calcium (8.4-10.2) mg/dL Total Protein (6.3-8.2) g/dL Albumin (3.5-5.0) g/dL 05/25/19 05/25/19 05/25/19 Range/Units 02:19 04:29 05:28 WBC (3.8-10.6) k/uL RBC (4.30-5.90) m/uL Hgb (13.0-17.5) gm/dL Hct (39.0-53.0) % Neutrophils # (1.3-7.7) k/uL Sodium 136 L (137-145) mmol/L Chloride 109 H (98-107) mmol/L Carbon Dioxide 19 L (22-30) mmol/L BUN 31 H (9-20) mg/dL Glucose 106 H (74-99) mg/dL POC Glucose (mg/dL) 127 H 114 H (75-99) mg/dL Calcium 8.2 L (8.4-10.2) mg/dL Total Protein 5.5 L (6.3-8.2) g/dL Albumin 2.9 L (3.5-5.0) g/dL 05/25/19 05/25/19 Range/Units 05:28 05:57 WBC 12.7 H (3.8-10.6) k/uL RBC 2.71 L (4.30-5.90) m/uL Hgb 8.5 L (13.0-17.5) gm/dL Hct 26.0 L (39.0-53.0) % Neutrophils # 10.4 H (1.3-7.7) k/uL Sodium (137-145) mmol/L Chloride (98-107) mmol/L Carbon Dioxide (22-30) mmol/L BUN (9-20) mg/dL Glucose (74-99) mg/dL POC Glucose (mg/dL) 105 H (75-99) mg/dL Calcium (8.4-10.2) mg/dL Total Protein (6.3-8.2) g/dL Albumin (3.5-5.0) g/dL Assessment and Plan Plan: 1. Severe triple-vessel coronary artery disease with significant left main disease, status post four-vessel CABG, currently postop day #4. Doing well with low-dose pressors for hemodynamic support and can be weaned off over the next 24 hours. Rest of the hemodynamics are all stable. The output from the left pleural chest tube is in the order of 200 mL over the past 24 hours. Chest x- ray from today shows some limited atelectatic changes in lung bases. 2. Non-STEMI this admission 3. Hypertension 4. Hyperlipidemia 5. Current chronic tobacco dependence 6. Daily EtOH use, post delirium tremens with adequate recovery 7. Postoperative acute blood loss anemia, the hemoglobin stable at 8.5 and the patient had received a unit of packed RBC during the course of this surgery postop 8 paroxysmal atrial fibrillation and the patient is currently in a sinus rhythm and the patient has been switched to oral amiodarone 400 mg by mouth twice a day . 9 hypotension currently requiring Levophed for hemodynamic support 10 ischemic cardiomyopathy with an ejection fraction of 35% preoperatively 11 COPD and the patient is a chronic cigarette smoker. Well abdominal aortic aneurysm measuring 4.1 cm Plan Recovered from delirium tremens Discontinued Precedex 4 left amiodarone and the cardiac rhythm is sinus Wean off levo fed Possible removal of the left sided chest tube today Incentive spirometer is being used and the patient is pulling more than 1000 Tolerating diet We'll follow
[2019-05-25] MEDS: IPRATROPIUM-ALBUTEROL 3 ML NEB INHALATION SCH ×4 (08:12→20:01)
[2019-05-25] MEDS: FORMOTEROL FUMARATE 20 MCG/2 ML NEBU INHALATION SCH ×2 (08:12→20:01)
[2019-05-25] MEDS: BUDESONIDE 0.5 MG/2 ML NEBU INHALATION SCH ×2 (08:16→20:01)
[2019-05-25] MEDS: FERROUS SULFATE 325 MG TAB PO SCH ×2 (08:45→16:59)
[2019-05-25] MEDS: PANTOPRAZOLE 40 MG TABLET PO SCH (08:45)
[2019-05-25] MEDS: ASPIRIN 325 MG TAB PO SCH (08:45)
[2019-05-25] MEDS: CLOPIDOGREL 75 MG TAB PO SCH (08:45)
[2019-05-25] MEDS: ATORVASTATIN 80 MG TAB PO SCH (08:45)
[2019-05-25] MEDS: AMIODARONE 200 MG TAB PO SCH ×2 (08:45→22:16)
[2019-05-25] MEDS: THIAMINE 100 MG TAB PO SCH ×2 (08:45→16:59)
[2019-05-25] MEDS: METOPROLOL TARTRATE 12.5 MG TAB PO SCH ×2 (08:45→22:16)
[2019-05-25] MEDS: MULTIVITAMINS, THERA 1 EACH TAB PO SCH (08:45)
[2019-05-25] MEDS: SPIRONOLACTONE 25 MG TAB PO SCH (08:45)
[2019-05-25] MEDS: ASCORBIC ACID 500 MG TAB PO SCH ×2 (08:46→16:59)
[2019-05-25] MEDS: EYE VITAMIN PO SCH ×2 (08:53→22:15)
[2019-05-25] MEDS ORDERED: FUROSEMIDE 10 MG/ML 2 ML VIAL IV ONE (09:25)
--- NOTE | 2019-05-25 10:20 | P.PN ---
Subjective Progress Note Date: 05/25/19 Principal diagnosis: Non-ST elevation myocardial infarction with positive troponins as high as 5.610, severe left main coronary artery disease, severe ostial right coronary artery, subtotal occlusion of the left anterior descending coronary artery, moderate left ventricular dysfunction with an ejection fraction estimated at 35%, mild mitral valve regurgitation. Past medical history significant for evidence of old anteroapical myocardial infarction, hypertension, hyperlipidemia, current chronic tobacco dependence, daily EtOH abuse, abdominal aortic aneurysm measured 3.5 cm in 2017, current CT shows moderate dilatation at 4.1 cm. POD #4 quadruple coronary artery bypass grafting using the left internal mammary artery to the left anterior descending artery, a reverse greater saphenous vein graft from the aorta to the high diagonal coronary artery, a reverse greater saphenous vein graft taken from the previous vein graft and an anastomosis to the first obtuse marginal coronary artery, a reverse reverse saphenous vein graft from the aorta to the posterior descending coronary artery. Endoscopic harvesting of the left greater saphenous vein from the groin to above the knee level, as well as the right greater saphenous vein from the groin to below the knee level. Exclusion of the left atrial appendage using a 45 mm after clip. Intraoperative graft flow measurements using the [employer] system. Intraoperative transesophageal echocardiogram and epi-aortic scanning. Postoperative acute blood loss anemia, an expected secondary to hemodilution and cardiopulmonary bypass pump. Postoperative paroxysmal atrial fibrillation with rapid ventricular response, an unexpected but potential outcome of cardiac surgery. Postoperative delirium tremors, an expected outcome due to patient's daily EtOH abuse. Patient is sitting up to the bedside chair in the intensive care unit. He is in no acute distress. He is currently on Levophed drip at 0.05 mcg/kg/m with a blood pressure 118/67 mmHg. Bedside telemetry showing normal sinus rhythm heart rate 78. He denies any complaints of pain or shortness of breath. He is alert and oriented 3. Oxygen saturations are 92% on 2 L nasal cannula and he is achieving 1000 mL on his incentive spirometry with encouragement. He is tolerating oral intake. He remains afebrile the last 24 hours. Left pleural chest tube remains in place to low continuous wall suction -20 cm H2O. Draining thin serosanguineous drainage with 225 mL output in the last 8 hours and 600 mL output in the last 24 hours. No air leak is present. His Benjamin catheter was discontinued early this morning and the patient reports that he has urinated since the catheter was removed although missed the bedpan so the amount was not recorded. Objective - Vital Signs Vital signs: Vital Signs Temp 98.6 F 05/25/19 08:00 Pulse 70 05/25/19 09:00 Resp 24 05/25/19 09:00 BP 94/62 05/25/19 09:00 Pulse Ox 96 05/25/19 09:00 Intake & Output 05/24/19 05/25/19 05/25/19 18:59 06:59 18:59 Intake Total 1231.563 637.787 629.076 Output Total 1955 735 70 Balance -723.437 -97.213 559.076 Weight 115.1 kg Intake: IV 455 480 80 Dextrose 5%-0.45% NaCl 1, 440 480 80 000 ml @ 40 mls/hr IV . Q24H BRENDA Rx#:[id number] Pressure Bags 15 Intake, IV Titration 336.563 157.787 169.076 Amount Dexmedetomidine/0.9% NaCl 120.478 (Pmx) 400 mcg In Empty Bag 1 bag @ Titrate IV . Q0M BRENDA Rx#:[id number] Dexmedetomidine/0.9% NaCl 2.932 (Pmx) 400 mcg In Empty Bag 1 bag @ Titrate IV . Q0M [facility]ENDA Rx#:[id number] Dextrose 5%-0.45% NaCl 1, 40 000 ml @ 40 mls/hr IV . Q24H [facility]ENDA Rx#:[id number] Insulin Regular 100 unit 17.061 14.662 In Sodium Chloride 0.9% 100 ml @ Per Protocol IV .Q0M BRENDA Rx#:[id number] Norepinephrine 4 mg In 156.092 143.125 169.076 Sodium Chloride 0.9% 250 ml @ 0.02 MCG/KG/MIN 7. 864 mls/hr IV .Q24H [facility]ENDA Rx#:[id number] Oral 440 340 Lipid 40 Dextrose 5%-0.45% NaCl 1, 40 000 ml @ 40 mls/hr IV . Q24H BRENDA Rx#:[id number] Output: Chest Tube Drainage 740 285 70 Left Lateral Chest 740 285 70 Urine 1215 450 Other: Voiding Method Indwelling Catheter Indwelling Catheter # Voids 0 1 # Bowel Movements 1 ABP, PAP, CO, CI - Last Documented Arterial Blood Pressure 113/66 Pulmonary Artery Pressure 32/18 Cardiac Output 8.4 Cardiac Index 3.8 - Constitutional General appearance: Present: cooperative, no acute distress, obese - Respiratory Details: Lungs sounds essentially clear to his bilateral upper lobes, few scattered crackles to his bilateral bases. Respirations are symmetrical and nonlabored. Oxygen saturation are 92% on 2 L nasal cannula. Achieving 1000 mL on his incentive spirometry. Left pleural chest tube remains in place to low continuous wall suction -20 cm H2O with no air leak present. Draining thin serosanguineous drainage to 225 mL output in the last 8 hours, 600 mL output in the last 24 hours. - Cardiovascular Details: Regular rhythm and rate. S1 and S2 present, negative for S3, gallop or murmur. Sternum is stable. Bedside telemetry showing normal sinus rhythm heart rate 78. Generalized +1 edema. Heart hugger is in place and he is demonstrating appropriate use. Knee-high JESSICA hose and sequential compression devices in place to his bilateral lower extremities. Atrial epicardial pacemaker wires in place and grounded. - Gastrointestinal Gastrointestinal Comment(s): Abdomen is soft, nontender and nondistended. Active bowel sounds present in all 4 abdominal quadrants. No guarding or rigidity. Bowel movement this morning. Tolerating oral intake. - Genitourinary Genitourinary Comment(s): Voiding clear alma urine. - Integumentary Integumentary Comment(s): Skin is warm and dry. No clubbing or cyanosis is present. Midline sternal incision is clean, dry and approximated. No drainage or redness is present. Right groin site where intra-aortic balloon pump was placed is soft with no hematoma present. Right and left lower extremity EVH sites clean, dry and approximated. No drainage or redness is present. - Neurologic Neurologic Comment(s): No focal neurological deficits. Neurologic: Present: CNII-XII intact - Musculoskeletal Musculoskeletal: Present: gait normal, generalized weakness, strength equal bilaterally - Psychiatric Psychiatric: Present: A&O x's 3, appropriate affect, intact judgment & insight - Allied health notes Allied health notes reviewed: nursing - Labs CBC & Chem 7: 05/25/19 05:28 05/25/19 05:28 Labs: Abnormal Lab Results - Last 24 Hours (Table) 05/24/19 05/24/19 05/24/19 Range/Units 11:07 12:42 14:37 WBC (3.8-10.6) k/uL RBC (4.30-5.90) m/uL Hgb (13.0-17.5) gm/dL Hct (39.0-53.0) % Neutrophils # (1.3-7.7) k/uL Sodium (137-145) mmol/L Chloride (98-107) mmol/L Carbon Dioxide (22-30) mmol/L BUN (9-20) mg/dL Glucose (74-99) mg/dL POC Glucose (mg/dL) 128 H 138 H 129 H (75-99) mg/dL Calcium (8.4-10.2) mg/dL Total Protein (6.3-8.2) g/dL Albumin (3.5-5.0) g/dL 05/24/19 05/24/19 05/24/19 Range/Units 15:59 17:51 20:30 WBC (3.8-10.6) k/uL RBC (4.30-5.90) m/uL Hgb (13.0-17.5) gm/dL Hct (39.0-53.0) % Neutrophils # (1.3-7.7) k/uL Sodium (137-145) mmol/L Chloride (98-107) mmol/L Carbon Dioxide (22-30) mmol/L BUN (9-20) mg/dL Glucose (74-99) mg/dL POC Glucose (mg/dL) 126 H 118 H 110 H (75-99) mg/dL Calcium (8.4-10.2) mg/dL Total Protein (6.3-8.2) g/dL Albumin (3.5-5.0) g/dL 05/24/19 05/24/19 05/25/19 Range/Units 22:00 23:53 02:19 WBC (3.8-10.6) k/uL RBC (4.30-5.90) m/uL Hgb (13.0-17.5) gm/dL Hct (39.0-53.0) % Neutrophils # (1.3-7.7) k/uL Sodium (137-145) mmol/L Chloride (98-107) mmol/L Carbon Dioxide (22-30) mmol/L BUN (9-20) mg/dL Glucose (74-99) mg/dL POC Glucose (mg/dL) 144 H 153 H 127 H (75-99) mg/dL Calcium (8.4-10.2) mg/dL Total Protein (6.3-8.2) g/dL Albumin (3.5-5.0) g/dL 05/25/19 05/25/19 05/25/19 Range/Units 04:29 05:28 05:28 WBC 12.7 H (3.8-10.6) k/uL RBC 2.71 L (4.30-5.90) m/uL Hgb 8.5 L (13.0-17.5) gm/dL Hct 26.0 L (39.0-53.0) % Neutrophils # 10.4 H (1.3-7.7) k/uL Sodium 136 L (137-145) mmol/L Chloride 109 H (98-107) mmol/L Carbon Dioxide 19 L (22-30) mmol/L BUN 31 H (9-20) mg/dL Glucose 106 H (74-99) mg/dL POC Glucose (mg/dL) 114 H (75-99) mg/dL Calcium 8.2 L (8.4-10.2) mg/dL Total Protein 5.5 L (6.3-8.2) g/dL Albumin 2.9 L (3.5-5.0) g/dL 05/25/19 Range/Units 05:57 WBC (3.8-10.6) k/uL RBC (4.30-5.90) m/uL Hgb (13.0-17.5) gm/dL Hct (39.0-53.0) % Neutrophils # (1.3-7.7) k/uL Sodium (137-145) mmol/L Chloride (98-107) mmol/L Carbon Dioxide (22-30) mmol/L BUN (9-20) mg/dL Glucose (74-99) mg/dL POC Glucose (mg/dL) 105 H (75-99) mg/dL Calcium (8.4-10.2) mg/dL Total Protein (6.3-8.2) g/dL Albumin (3.5-5.0) g/dL - Imaging and Cardiology Chest x-ray: report reviewed, image reviewed Assessment and Plan Assessment: 1. Severe triple-vessel coronary artery disease with significant left main disease, status post four-vessel CABG 2. Non-STEMI this admission 3. Hypertension 4. Hyperlipidemia 5. Current chronic tobacco dependence 6. Chronic daily EtOH abuse 7. Postoperative acute blood loss anemia, status post packed red blood cell transfusion 8. Postoperative paroxysmal atrial fibrillation with rapid ventricular response 9. Postoperative delirium tremors Plan: 1. Continue aspirin, statin, Plavix, and beta tosha. Will increase beta tosha therapy as tolerated, metoprolol tartrate decreased to 12.5 mg by mouth twice a day yesterday. Wean levo as tolerated. The patient will need an ROBSON inhibitor once off IV Levophed and able to tolerate. 2. Continue amiodarone 400 mg by mouth twice a day for atrial fibrillation prophylaxis. 3. Wean O2 as tolerated. Encourage use of his incentive spirometry 10 times every hour while awake. 4. Bronchodilators, inhaled steroids per pulmonology management. 5. Will monitor daily labs and chest x-rays. Electrolyte replacement per protocol. No further transfusion at this point. 6. Increase activity as tolerated, out of bed to chair. PT/OT/cardiac rehab following. 7. Pain control with current medication regimen. 8. IV insulin management per primary care service. 9. Continue left pleural chest tube for another 24 hours, still draining thin serosanguineous drainage with 225 mL output in the last 8 hours and 600 mL output in the last 24 hours. We will give Lasix 20 mg IV 1 now. 10. Benjamin catheter was discontinued early this morning. May bladder scan and straight cathed for greater than 300 mL residual urine. 11. Continue CIWA protocol. 12. Ground atrial epicardial pacemaker wires. 13. More recommendations to follow based on patient's clinical course. Time with Patient: Greater than 30
--- NOTE | 2019-05-25 10:25 | PN ---
PROGRESS NOTE Mr. Ansari 74-year-old male with a known history of chronic tobacco and alcohol intake who presented with an acute non-STEMI with severe coronary artery disease and severe ischemic cardiomyopathy, underwent emergent cardiac catheterization. He had episode of confusion postoperatively. He is more awake and alert. He had episode of atrial fibrillation but continued to be in sinus mechanism. He is feeling better. His breathing is better. He is denying any dizziness. No palpitation. Hemodynamically stable. He is off the norepinephrine. Continues to be on amiodarone 40 mg twice a day, aspirin once a day, Lipitor 80 mg daily, Plavix 75 mg daily, metoprolol tartrate 12.5 mg twice a day, spironolactone 25 mg daily. PHYSICAL EXAMINATION: Blood pressure running in the 90s with a heart rate in the 70s. Lungs with a few crackles at the bases. HEART: Regular rate and rhythm, S1, S2. No S3. No rub appreciated. ABDOMEN: Soft, nontender. Extremities was trace to 1+ edema. LAB DATA: Lab data revealed BUN and creatinine 31 and 0.86, potassium 4.7. Hemoglobin of 8.5. IMPRESSION: 1. Status post coronary bypass grafting. 2. Ischemic cardiomyopathy. 3. Recent non-STEMI. 4. History of chronic tobacco use. 5. Chronic alcohol intake. RECOMMENDATIONS: From the cardiac standpoint, we will continue present therapy. Continue to increase his level of activity. Follow his blood pressure and if it is stable, add ROBSON inhibitor to his regimen. He will have repeat echocardiogram on Monday to re-evaluate his left ventricular systolic function and guide his treatment. MMODL / IJN: [id number] /
[2019-05-25 11:44] LABS: Glucose,Whole Blood 120 mg/dL (75-99)
[2019-05-25] MEDS: INSULIN ASPART (NovoLOG) 100 UNIT/ML VIAL SQ SCH ×4 (12:13→21:54)
[2019-05-25 16:46] LABS: Glucose,Whole Blood 108 mg/dL (75-99)
[2019-05-25 20:38] LABS: Glucose,Whole Blood 86 mg/dL (75-99)
[2019-05-25] MEDS ORDERED: MELATONIN 3 MG TABLET PO PRN (21:00)
--- NOTE | 2019-05-25 21:00 | P.PN ---
Progress Note - Text Progress Note Date: 05/25/19 Presenting complaint: Chest pain Interval history: Patient admitted with acute non-ST elevation TN. Severe coronary artery disease. EF of 35%. April 22-quadruple bypass. In the ICU. It was discovered that patient takes anywhere from 6-8 beers at night. Did go into alcohol withdrawal. Also went into atrial fibrillation this required IV amiodarone. Today-more awake today. To sit out of bed. Did eat a small amount. Sinus rhythm. Not delirious anymore. Patient off levo fed Review of systems: Was done for constitutional, cardiovascular, GI, pulmonary. relevant finding as above Active Medications Acetaminophen (Tylenol Tab) 1,000 mg PO Q6HR PRN PRN Reason: Fever and/ or Pain Hydrocodone Bitart/Acetaminophen ([place] 5-325) 1 each PO Q4HR PRN PRN Reason: Moderate Pain Last Admin: 05/22/19 06:18 Dose: 1 each Documented by: Albuterol/Ipratropium (Duoneb 0.5 Mg-3 Mg/3 Ml Soln) 3 ml INHALATION RT-Q2H PRN PRN Reason: Shortness Of Breath Or Wheezing Last Admin: 05/23/19 12:28 Dose: 3 ml Documented by: Albuterol/Ipratropium (Duoneb 0.5 Mg-3 Mg/3 Ml Soln) 3 ml INHALATION RT-QID [facility] Last Admin: 05/25/19 20:01 Dose: 3 ml Documented by: Alprazolam (Xanax) 0.25 mg PO BID PRN PRN Reason: Anxiety Last Admin: 05/23/19 00:21 Dose: 0.25 mg Documented by: Amiodarone HCl (Cordarone) 400 mg PO BID [facility] Last Admin: 05/25/19 08:45 Dose: 400 mg Documented by: Ascorbic Acid (Vitamin C) 500 mg PO BID-W/MEALS [facility] Last Admin: 05/25/19 16:59 Dose: 500 mg Documented by: Aspirin (Aspirin) 325 mg PO DAILY [facility] Last Admin: 05/25/19 08:45 Dose: 325 mg Documented by: Atorvastatin Calcium (Lipitor) 80 mg PO DAILY [facility] Last Admin: 05/25/19 08:45 Dose: 80 mg Documented by: Benzocaine/Menthol (Cepacol Lozenge) 1 each MUCOUS MEM Q2H PRN PRN Reason: Sore Throat Bisacodyl (Dulcolax) 10 mg RECTAL DAILY PRN PRN Reason: Constipation Budesonide (Pulmicort) 1 mg INHALATION RT-BID [facility] Last Admin: 05/25/19 20:01 Dose: 1 mg Documented by: Clopidogrel Bisulfate (Plavix) 75 mg PO DAILY [facility] Last Admin: 05/25/19 08:45 Dose: 75 mg Documented by: Ferrous Sulfate (Feosol) 325 mg PO BID-W/MEALS [facility] Last Admin: 05/25/19 16:59 Dose: 325 mg Documented by: Formoterol Fumarate (Perforomist) 20 mcg INHALATION RT-BID [facility] Last Admin: 05/25/19 20:01 Dose: 20 mcg Documented by: Heparin Sodium (Porcine) (Heparin) 5,000 unit SQ Q8HR [facility] Last Admin: 05/25/19 16:59 Dose: 5,000 unit Documented by: Norepinephrine Bitartrate 4 mg (/ Sodium Chloride) 254 mls @ 7.864 mls/hr IV .Q24H [facility]; Protocol Last Titration: 05/25/19 08:32 Dose: 0 mcg/kg/min, 0 mls/hr Documented by: Insulin Aspart (Novolog) 0 unit SQ ACHS [facility]; Protocol Last Admin: 05/25/19 18:26 Dose: Not Given Documented by: Ketorolac Tromethamine (Toradol) 15 mg IVP Q6HR [facility] Stop: 05/26/19 18:01 Last Admin: 05/25/19 18:26 Dose: 15 mg Documented by: Lorazepam (Ativan) 1 mg IV Q1HR PRN PRN Reason: CIWA 10 to 15 Lorazepam (Ativan) 2 mg IV Q10M PRN PRN Reason: CIWA 16 or higher Stop: 05/25/19 21:00 Magnesium Hydroxide (Milk Of Magnesia) 2,400 mg PO BID PRN PRN Reason: Constipation Melatonin (Melatonin) 6 mg PO HS PRN PRN Reason: Insomnia Metoclopramide HCl (Reglan) 10 mg IVP Q4H PRN PRN Reason: Nausea And Vomiting Metoprolol Tartrate (Lopressor) 12.5 mg PO BID [facility] Last Admin: 05/25/19 08:45 Dose: 12.5 mg Documented by: Miscellaneous Information (Potassium Per Protocol) 1 each MISCELLANE DAILY PRN; Protocol PRN Reason: Per Protocol Miscellaneous Information (Magnesium Per Protocol) 1 each MISCELLANE DAILY PRN; Protocol PRN Reason: Per Protocol Miscellaneous Information (Phosphorus Per Protocol) 1 each MISCELLANE DAILY PRN; Protocol PRN Reason: Per Protocol Multivitamins (Theragran) 1 each PO DAILY [facility] Last Admin: 05/25/19 08:45 Dose: 1 each Documented by: Nicotine (Habitrol 14mg/24hr Patch) 1 patch TRANSDERM DAILY PRN PRN Reason: Nicotine Cravings Last Admin: 05/23/19 10:34 Dose: 1 patch Documented by: Patient's Own--Eye (Vitamin) 1 each PO BID [facility] Last Admin: 05/25/19 08:53 Dose: 1 each Documented by: Ondansetron HCl (Zofran) 4 mg IVP Q6HR PRN PRN Reason: Nausea And Vomiting Pantoprazole Sodium (Protonix) 40 mg PO AC-BRKFST [facility] Last Admin: 05/25/19 08:45 Dose: 40 mg Documented by: Senna/Docusate Sodium (Senokot-S) 2 each PO HS [facility] Last Admin: 05/24/19 21:31 Dose: 2 each Documented by: Sodium Chloride (Saline Flush) 10 ml IV BID [facility] Last Admin: 05/25/19 08:53 Dose: 10 ml Documented by: Spironolactone (Aldactone) 25 mg PO DAILY [facility] Last Admin: 05/25/19 08:45 Dose: 25 mg Documented by: Thiamine HCl (Vitamin B-1) 100 mg PO BID-W/MEALS [facility] Last Admin: 05/25/19 16:59 Dose: 100 mg Documented by: On examination: VITAL SIGNS: 98.2, 67, 20, 95/61 99% on nasal cannula 4 L GENERAL APPEARANCE: Sitting up in bed, awake a bit tired HEENT: Normal external appearance of nose and ear. EYES: Pupils equal. Conjunctiva pale. NECK: JVD unable to assess. Mass not palpable. RESPIRATORY: Respiratory effort increased. Lungs decreased breath sounds,. CARDIOVASCULAR: Heart sounds regular. No edema. ABDOMEN: Soft. Liver and spleen not palpable. No tenderness. No mass palpable. PSYCHIATRY: Answering simple questions INVESTIGATIONS, reviewed in the clinical context: White count 12.7 hemoglobin 8.5 platelets 188 potassium 4.7 creatinine 0.86 Previous testing White count 16.1 hemoglobin 8.5 platelets 120 Potassium 4 creatinine 0.82 Assessment: -Status post four-vessel coronary bypass -Severe coronary artery disease per cardiac catheterization -Paroxysmal new onset atrial fibrillation with rapid ventricular rate-normal sinus rhythm -Acute delirium from alcohol withdrawal-improving -Acute non-Q-wave TN, POA -COPD in a current smoker -Hyperlipidemia -Hypotension from blood loss, requiring pressure support, hypotensive shock- remains on levo fed -Primary osteoarthritis -Thoracic aortic aneurysm -Macular degeneration bilaterally -Chronic nicotine dependence patient cigarette smoker -Acute postprocedure. Blood loss anemia expected from surgery-received a unit of blood -Thrombocytopenia-dilutional -Leukocytosis reactive, no evidence of infection Plan: He is off levo fed drip. Continue current medication treatment plan. On amiodarone. Encouraged to be out of bed. Thank you Dr. Kim
[2019-05-25] MEDS: SENNOSIDES-DOCUSATE SODIUM 1 EACH TAB PO SCH (21:55)
[2019-05-26] MEDS: KETOROLAC 30 MG/ML 1 ML VIAL IVP SCH ×2 (00:14→06:07)
[2019-05-26 05:15] LABS: Basophils % (A) 0 %; Eosinophils # (A) 0.2 k/uL (0-0.7); Eosinophils % (A) 3 %; HCT 24.7 % (39.0-53.0); HGB 7.8 gm/dL (13.0-17.5); Lymphocytes % (A) 13 %; MCH 30.3 pg (25.0-35.0); MCHC 31.7 g/dL (31.0-37.0); MCV 95.6 fL (80.0-100.0); Mean Platelet Volume 9.2; Monocytes # (A) 0.4 k/uL (0-1.0); Monocytes % (A) 6 %; Neutrophils # (A) 5.6 k/uL (1.3-7.7); Neutrophils % (A) 74 %; Platelet Count 141 k/uL (150-450); RBC 2.58 m/uL (4.30-5.90); RDW 15.1 % (11.5-15.5); WBC 7.5 k/uL (3.8-10.6)
[2019-05-26 05:28] LABS: ALT 38 U/L (4-49); AST 35 U/L (17-59); African American GFR (CKD) >90 (>60 ml/min/1.73 sqM); Albumin 2.7 g/dL (3.5-5.0); Alkaline Phosphatase 88 U/L (38-126); Anion Gap 7 mmol/L; Blood Urea Nitrogen 32 mg/dL (9-20); Calcium 8.1 mg/dL (8.4-10.2); Carbon Dioxide 21 mmol/L (22-30); Chloride 108 mmol/L (98-107); Glucose 91 mg/dL (74-99); Non-African American GFR(CKD) 85 (>60 ml/min/1.73 sqM); Potassium 4.6 mmol/L (3.5-5.1); Sodium 136 mmol/L (137-145); Total Bilirubin 0.8 mg/dL (0.2-1.3); Total Protein 5.1 g/dL (6.3-8.2)
[2019-05-26 06:59] LABS: Glucose,Whole Blood 106 mg/dL (75-99)
[2019-05-26] MEDS: BUDESONIDE 0.5 MG/2 ML NEBU INHALATION SCH ×2 (08:01→20:05)
--- NOTE | 2019-05-26 08:01 | XR ---
EXAMINATION TYPE: XR chest 1V portable DATE OF EXAM: 05/26/2019 Comparison: 05/25/2019 Clinical History: 74-year-old male post cardiac surgery Findings: Median sternotomy wires are present. Post-CABG clips in mediastinum. Heart mildly enlarged. Mild inte rstitial prominence. Hazy bibasilar opacities, right greater than left, increased from prior. Left-si ded chest tube remains in place. Now seen is a 7 mm trace left apical pneumothorax. Impression: 1. New trace left apical pneumothorax measuring 7 mm with left-sided chest tube in place. 2. Residual pulmonary vascular congestion. Hazy densities in the lower lungs suggests some layering e ffusions, slightly increased.
[2019-05-26] MEDS: FORMOTEROL FUMARATE 20 MCG/2 ML NEBU INHALATION SCH ×2 (08:02→20:05)
[2019-05-26] MEDS: IPRATROPIUM-ALBUTEROL 3 ML NEB INHALATION SCH ×4 (08:02→20:05)
[2019-05-26] MEDS: AMIODARONE 200 MG TAB PO SCH ×2 (08:14→21:02)
[2019-05-26] MEDS: CLOPIDOGREL 75 MG TAB PO SCH (08:14)
[2019-05-26] MEDS: PANTOPRAZOLE 40 MG TABLET PO SCH (08:14)
[2019-05-26] MEDS: SPIRONOLACTONE 25 MG TAB PO SCH (08:14)
[2019-05-26] MEDS: MULTIVITAMINS, THERA 1 EACH TAB PO SCH (08:14)
[2019-05-26] MEDS: FERROUS SULFATE 325 MG TAB PO SCH ×2 (08:14→16:55)
[2019-05-26] MEDS: ATORVASTATIN 80 MG TAB PO SCH (08:14)
[2019-05-26] MEDS: ASPIRIN 325 MG TAB PO SCH (08:14)
[2019-05-26] MEDS: ASCORBIC ACID 500 MG TAB PO SCH ×2 (08:14→16:55)
[2019-05-26] MEDS: THIAMINE 100 MG TAB PO SCH ×2 (08:14→16:55)
[2019-05-26] MEDS: HEPARIN SODIUM,PORCINE 5,000 UNIT/ML 1 ML VIAL SQ SCH ×3 (08:15→23:12)
[2019-05-26] MEDS: EYE VITAMIN PO SCH ×2 (08:21→21:02)
[2019-05-26] MEDS: INSULIN ASPART (NovoLOG) 100 UNIT/ML VIAL SQ SCH ×4 (08:21→20:50)
[2019-05-26] MEDS: METOPROLOL TARTRATE 12.5 MG TAB PO SCH ×2 (08:23→21:02)
--- NOTE | 2019-05-26 10:09 | PN ---
PROGRESS NOTE Mr. Ansari is a 74-year-old male with a known history of chronic tobacco and alcohol intake who presented with non ST-segment elevation myocardial infarction, underwent cardiac catheterization, was found to have severe triple-vessel coronary artery disease with severe left main disease. He underwent coronary artery bypass grafting. He had some episode of paroxysmal fibrillation, but continues to be in sinus mechanism at this time. He is feeling better overall, feeling stronger. He is still dyspneic when he ambulated, but he has no anginal pain. He denies any dizziness palpitation. He denies any nausea. He continues to be on aspirin once a day, amiodarone 400 mg twice a day, Lipitor 80 mg daily, Plavix 75 mg daily, metoprolol tartrate 12.5 mg twice a day and spironolactone 25 mg daily. PHYSICAL EXAMINATION: Blood pressure running in the 90s with a heart rate in the 60s. Lungs with few crackles. No wheezes. Heart regular rate and rhythm, S1, S2. No S3. No rub appreciated. ABDOMEN: Soft and nontender. Extremities trace to 1+ edema. LAB DATA: Revealed BUN and creatinine 32 and 0.9, hemoglobin of 7.8. Chest x-ray revealed small pneumothorax. IMPRESSION: 1. Status post coronary artery bypass grafting. 2. Ischemic cardiomyopathy. 3. Recent non-STEMI. 4. History of chronic tobacco use. 5. Chronic alcohol intake. RECOMMENDATION: From the cardiac standpoint, we will continue present therapy. We will follow his blood pressure to see if we can initiate treatment with an ROBSON inhibitor. The patient will be undergoing a repeat echocardiogram tomorrow to re-evaluate the left ventricular systolic function to see if he is a candidate for LifeVest. MMODL / IJN: [id number] /
[2019-05-26] MEDS: MIDODRINE 5 MG TAB PO SCH ×2 (10:58→16:57)
--- NOTE | 2019-05-26 11:06 | P.PN ---
Subjective Progress Note Date: 05/26/19 Principal diagnosis: Severe triple-vessel coronary artery disease with significant left main disease, status post four-vessel CABG, currently postop day #5. The patient is seen today 05/26/2019 and follow-up in the intensive care unit. He had severe triple-vessel coronary artery disease with significant left main disease, status post four-vessel CABG, currently postop day #5. He is currently awake and alert in no acute distress. He's been up ambulating in the hallway today with assistance. He denies any worsening shortness of breath, cough or congestion. He is working with the incentive spirometer. Remains on 2 L/m per nasal cannula. Chest x-ray reveals new trace left apical pneumothorax measuring 7 mm with left sided chest tube in place. There is residual pulmonary vascular congestion. White count 7.5. Hemoglobin 7.8. Sodium 136. Potassium 4.6. Creatinine 0.90. Objective - Vital Signs Vital signs: Vital Signs Temp 97.6 F 05/26/19 04:00 Pulse 64 05/26/19 10:00 Resp 18 05/26/19 10:00 BP 91/62 05/26/19 10:00 Pulse Ox 98 05/26/19 10:00 Intake & Output 05/25/19 05/26/19 05/26/19 17:59 06:59 18:59 Intake Total 240 Output Total 130 Balance 110 Weight Intake: IV Dextrose 5%-0.45% NaCl 1, 000 ml @ 40 mls/hr IV . Q24H BRENDA Rx#:[id number] Intake, IV Titration Amount Norepinephrine 4 mg In Sodium Chloride 0.9% 250 ml @ 0.02 MCG/KG/MIN 7. 864 mls/hr IV .Q24H BRENDA Rx#:[id number] Oral 240 Lipid Dextrose 5%-0.45% NaCl 1, 000 ml @ 40 mls/hr IV . Q24H BRENDA Rx#:[id number] Output: Chest Tube Drainage 130 Left Lateral Chest 130 Urine Other: Voiding Method Urinal # Voids 0 # Bowel Movements ABP, PAP, CO, CI - Last Documented Arterial Blood Pressure 113/66 Pulmonary Artery Pressure 32/18 Cardiac Output 8.4 Cardiac Index 3.8 - Exam Gen. appearance Very pleasant 74-year-old gentleman, on nasal cannula. No signs of any respiratory distress. Awake and alert and there is no focal neurological deficit Head exam was generally normal. There was no scleral icterus or corneal arcus. Mucous membranes were moist. Neck was supple and without jugular venous distension, thyromegaly, or carotid bruits. Carotids were easily palpable bilaterally. There was no adenopathy. Lung sounds are diminished in lung bases bilaterally, crackles. Sternum stable clean and intact. The patient has mediastinal and left pleural chest tube in place and the plan is to remove today. Cardiac exam revealed the PMI to be normally situated and sized. The rhythm was regular and no extrasystoles were noted during several minutes of auscultation. The first and second heart sounds were normal and physiologic splitting of the second heart sound was noted. There were no murmurs, clicks, or gallops. The patient has a post cardiac surgery are heard throughout the precordium. The wires are still in place. Abdominal exam revealed normal bowel sounds. The abdomen was soft, non-tender, and without masses, organomegaly, or appreciable enlargement of the abdominal aorta. Examination of the extremities revealed easily palpable radial, femoral and pedal pulses. There was no cyanosis, clubbing or edema. The patient is ANGEL drains in the surgical wound site bilaterally lower extremities. No cyanosis. No clubbing. No significant edema. Neurologically the no focal neurological deficit awake and alert - Labs CBC & Chem 7: 05/26/19 04:47 05/26/19 04:47 Labs: Abnormal Lab Results - Last 24 Hours (Table) 05/25/19 05/25/19 05/26/19 Range/Units 11:42 16:45 04:47 RBC 2.58 L (4.30-5.90) m/uL Hgb 7.8 L (13.0-17.5) gm/dL Hct 24.7 L (39.0-53.0) % Plt Count 141 L (150-450) k/uL Sodium (137-145) mmol/L Chloride (98-107) mmol/L Carbon Dioxide (22-30) mmol/L BUN (9-20) mg/dL POC Glucose (mg/dL) 120 H 108 H (75-99) mg/dL Calcium (8.4-10.2) mg/dL Total Protein (6.3-8.2) g/dL Albumin (3.5-5.0) g/dL 05/26/19 05/26/19 Range/Units 04:47 06:47 RBC (4.30-5.90) m/uL Hgb (13.0-17.5) gm/dL Hct (39.0-53.0) % Plt Count (150-450) k/uL Sodium 136 L (137-145) mmol/L Chloride 108 H (98-107) mmol/L Carbon Dioxide 21 L (22-30) mmol/L BUN 32 H (9-20) mg/dL POC Glucose (mg/dL) 106 H (75-99) mg/dL Calcium 8.1 L (8.4-10.2) mg/dL Total Protein 5.1 L (6.3-8.2) g/dL Albumin 2.7 L (3.5-5.0) g/dL Assessment and Plan Assessment: 1. Severe triple-vessel coronary artery disease with significant left main disease, status post four-vessel CABG, currently postop day #5. Chest x-ray from today shows some limited atelectatic changes in lung bases, minimal left apical pneumothorax. 2. Non-STEMI this admission 3. Hypertension 4. Hyperlipidemia 5. Current chronic tobacco dependence 6. Daily EtOH use, post delirium tremens with adequate recovery 7. Postoperative acute blood loss anemia, the hemoglobin stable at 8.5 and the patient had received a unit of packed RBC during the course of this surgery postop 8 paroxysmal atrial fibrillation and the patient is currently in a sinus rhythm and the patient has been switched to oral amiodarone 400 mg by mouth twice a day. 9 hypotension currently requiring Levophed for hemodynamic support 10 ischemic cardiomyopathy with an ejection fraction of 35% preoperatively 11 COPD and the patient is a chronic cigarette smoker. 12 abdominal aortic aneurysm measuring 4.1 cm Plan The patient was seen and evaluated by Dr. Ellis. Chest x-ray and labs reviewed. Plan is for chest tube removal today. He's been up ambulating in the cook. Working well with the incentive spirometer. Titrate down the FiO2 as tolerated. Increase his activity as tolerated. We'll continue to follow. I, the cosigning physician, performed a history & physical examination of the patient. Lungs sounds with crackles in the bilateral posterior bases, diminished. Maintaining good O2 saturations in the 90s on 2 L/m per nasal cannula. I discussed the assessment and plan of care with my nurse practitioner, Michelle Moses. I attest to the above note as dictated by her.
[2019-05-26 11:46] LABS: Glucose,Whole Blood 110 mg/dL (75-99)
--- NOTE | 2019-05-26 11:56 | P.PN ---
Subjective Progress Note Date: 05/26/19 Principal diagnosis: Non-ST elevation myocardial infarction with positive troponins as high as 5.610, severe left main coronary artery disease, severe ostial right coronary artery, subtotal occlusion of the left anterior descending coronary artery, moderate left ventricular dysfunction with an ejection fraction estimated at 35%, mild mitral valve regurgitation. Past medical history significant for evidence of old anteroapical myocardial infarction, hypertension, hyperlipidemia, current chronic tobacco dependence, daily EtOH abuse, abdominal aortic aneurysm measured 3.5 cm in 2017, current CT shows moderate dilatation at 4.1 cm. POD #5 quadruple coronary artery bypass grafting using the left internal mammary artery to the left anterior descending artery, a reverse greater saphenous vein graft from the aorta to the high diagonal coronary artery, a reverse greater saphenous vein graft taken from the previous vein graft and an anastomosis to the first obtuse marginal coronary artery, a reverse reverse saphenous vein graft from the aorta to the posterior descending coronary artery. Endoscopic harvesting of the left greater saphenous vein from the groin to above the knee level, as well as the right greater saphenous vein from the groin to below the knee level. Exclusion of the left atrial appendage using a 45 mm after clip. Intraoperative graft flow measurements using the [employer] system. Intraoperative transesophageal echocardiogram and epi-aortic scanning. Postoperative acute blood loss anemia, an expected secondary to hemodilution and cardiopulmonary bypass pump. Postoperative paroxysmal atrial fibrillation with rapid ventricular response, an unexpected but potential outcome of cardiac surgery. Postoperative delirium tremors, an expected outcome due to patient's daily EtOH abuse. Patient is sitting up to the bedside chair in the intensive care unit. He is in no acute distress. He reports he is feeling better on a daily basis and currently denies any complaints of pain or shortness of breath. He remains on 4 L nasal cannula with oxygen saturations 96%. He is achieving 8593-1536 mL on his incentive spirometry with encouragement. He is awake, alert and oriented 3, and has been ambulating this morning in the intensive care unit hallway with minimal assistance from nursing and physical therapy staff. He remains with a left pleural chest tube in place to low continuous wall suction -20 cm H2O. No air leak is present. Draining thin serosanguineous drainage with 30 mL output in the last 8 hours and 320 mL output in the last 24 hours. His Benjamin catheter was discontinued yesterday and he has been voiding without difficulty with 350 mL output in the last 8 hours. He remains afebrile. Objective - Vital Signs Vital signs: Vital Signs Temp 97.6 F 05/26/19 04:00 Pulse 65 05/26/19 11:00 Resp 18 05/26/19 11:00 BP 98/63 05/26/19 11:00 Pulse Ox 93 L 05/26/19 11:00 Intake & Output 05/25/19 05/26/19 05/26/19 17:59 06:59 18:59 Intake Total 340 Output Total 130 Balance 210 Weight Intake: IV Dextrose 5%-0.45% NaCl 1, 000 ml @ 40 mls/hr IV . Q24H [facility]ENDA Rx#:[id number] Intake, IV Titration Amount Norepinephrine 4 mg In Sodium Chloride 0.9% 250 ml @ 0.02 MCG/KG/MIN 7. 864 mls/hr IV .Q24H [facility]ENDA Rx#:[id number] Oral 340 Lipid Dextrose 5%-0.45% NaCl 1, 000 ml @ 40 mls/hr IV . Q24H BRENDA Rx#:[id number] Output: Chest Tube Drainage 130 Left Lateral Chest 130 Urine Other: Voiding Method Urinal # Voids 0 # Bowel Movements ABP, PAP, CO, CI - Last Documented Arterial Blood Pressure 113/66 Pulmonary Artery Pressure 32/18 Cardiac Output 8.4 Cardiac Index 3.8 - Constitutional General appearance: Present: cooperative, no acute distress, obese - Respiratory Details: Lung sounds are essentially clear to his bilateral upper lobes, diminished to his bilateral bases with few scattered crackles. Respirations are symmetrical and nonlabored. Oxygen saturation are 96% on 4 L nasal cannula and he is achieving 7972-6193 mL on his incentive spirometry. Left pleural chest tube remains in place low continuous wall suction -20 cm H2O. No air leak is present. Draining thin serosanguineous drainage with 30 mL output in the last 8 hours, 320 mL output in the last 24 hours. - Cardiovascular Details: Regular rhythm and rate. S1 and S2 present, negative for S3, gallop or murmur. Sternum is stable. Bedside telemetry showing normal sinus rhythm heart rate 65. Generalized +1 edema. Heart hugger is in place and he is demonstrating appropriate use. Knee-high JESSICA hose and sequential compression devices in place to his bilateral lower extremities. Atrial epicardial pacemaker wires are in place and grounded. - Gastrointestinal Gastrointestinal Comment(s): Abdomen is soft, nontender and nondistended. Active bowel sounds present in all 4 abdominal quadrants. No guarding or rigidity. No organomegaly appreciated. - Genitourinary Genitourinary Comment(s): Voiding clear alma urine with 350 mL output in the last 8 hours. - Integumentary Integumentary Comment(s): Skin is warm and dry. No clubbing or cyanosis is present. Midline sternal incision is clean, dry and approximated. No drainage or redness is present. Right groin site where intra-aortic balloon pump was placed is soft with no hematoma present. Right and left lower extremity EVH sites clean, dry and a pproximated. No drainage or redness is present. - Neurologic Neurologic: Present: CNII-XII intact - Musculoskeletal Musculoskeletal: Present: gait normal, generalized weakness, strength equal bilaterally - Psychiatric Psychiatric: Present: A&O x's 3, appropriate affect, intact judgment & insight - Allied health notes Allied health notes reviewed: nursing - Labs CBC & Chem 7: 05/26/19 04:47 05/26/19 04:47 Labs: Abnormal Lab Results - Last 24 Hours (Table) 05/25/19 05/25/19 05/26/19 Range/Units 11:42 16:45 04:47 RBC 2.58 L (4.30-5.90) m/uL Hgb 7.8 L (13.0-17.5) gm/dL Hct 24.7 L (39.0-53.0) % Plt Count 141 L (150-450) k/uL Sodium (137-145) mmol/L Chloride (98-107) mmol/L Carbon Dioxide (22-30) mmol/L BUN (9-20) mg/dL POC Glucose (mg/dL) 120 H 108 H (75-99) mg/dL Calcium (8.4-10.2) mg/dL Total Protein (6.3-8.2) g/dL Albumin (3.5-5.0) g/dL 05/26/19 05/26/19 05/26/19 Range/Units 04:47 06:47 11:45 RBC (4.30-5.90) m/uL Hgb (13.0-17.5) gm/dL Hct (39.0-53.0) % Plt Count (150-450) k/uL Sodium 136 L (137-145) mmol/L Chloride 108 H (98-107) mmol/L Carbon Dioxide 21 L (22-30) mmol/L BUN 32 H (9-20) mg/dL POC Glucose (mg/dL) 106 H 110 H (75-99) mg/dL Calcium 8.1 L (8.4-10.2) mg/dL Total Protein 5.1 L (6.3-8.2) g/dL Albumin 2.7 L (3.5-5.0) g/dL - Imaging and Cardiology Chest x-ray: report reviewed, image reviewed Assessment and Plan Assessment: 1. Severe triple-vessel coronary artery disease with significant left main disease, status post four-vessel CABG 2. Non-STEMI this admission 3. Hypertension 4. Hyperlipidemia 5. Current chronic tobacco dependence 6. Chronic daily EtOH abuse 7. Postoperative acute blood loss anemia, status post packed red blood cell transfusion 8. Postoperative paroxysmal atrial fibrillation with rapid ventricular response 9. Postoperative delirium tremors Plan: 1. Continue aspirin, statin, Plavix, and beta tosha. Will increase beta tosha therapy as tolerated. The patient will need an ROBSON inhibitor once his blood pressure can tolerate. 2. Continue amiodarone 400 mg by mouth twice a day for atrial fibrillation prophylaxis. 3. Wean O2 as tolerated. Encourage use of his incentive spirometry 10 times every hour while awake. 4. Bronchodilators, inhaled steroids per pulmonology management. 5. Will monitor daily labs and chest x-rays. Electrolyte replacement per protocol. No further transfusion at this point. 6. Increase activity as tolerated, out of bed to chair. PT/OT/cardiac rehab following. 7. Pain control with current medication regimen. Discontinue [place] and Toradol as his BUN is trending up. 8. IV insulin management per primary care service. 9. Discontinue left pleural chest tube. 10. No diuresis today. 11. Continue to keep atrial epicardial pacemaker wires grounded. 13. More recommendations to follow based on patient's clinical course. Time with Patient: Greater than 30
[2019-05-26 16:53] LABS: Glucose,Whole Blood 98 mg/dL (75-99)
--- NOTE | 2019-05-26 20:20 | P.PN ---
Progress Note - Text Progress Note Date: 05/26/19 Presenting complaint: Chest pain Interval history: Patient admitted with acute non-ST elevation NV. Severe coronary artery disease. EF of 35%. April 22-quadruple bypass. In the ICU. It was discovered that patient takes anywhere from 6-8 beers at night. Did go into alcohol withdrawal. Also went into atrial fibrillation this required IV amiodarone. Today-doing much better. Chest tubes are out. Telemetry shows sinus rhythm. On nasal cannula 2 L. Eating anywhere from 25-50%. Does not like hospital food. Blood pressures running low around 80 systolic. Has been out of bed. Did walk a bit. Review of systems: Was done for constitutional, cardiovascular, GI, pulmonary. relevant finding as above Active Medications Acetaminophen (Tylenol Tab) 1,000 mg PO Q6HR PRN PRN Reason: Fever and/ or Pain Albuterol/Ipratropium (Duoneb 0.5 Mg-3 Mg/3 Ml Soln) 3 ml INHALATION RT-Q2H PRN PRN Reason: Shortness Of Breath Or Wheezing Last Admin: 05/23/19 12:28 Dose: 3 ml Documented by: Albuterol/Ipratropium (Duoneb 0.5 Mg-3 Mg/3 Ml Soln) 3 ml INHALATION RT-QID REPLACED BY [facility] Last Admin: 05/26/19 20:05 Dose: 3 ml Documented by: Alprazolam (Xanax) 0.25 mg PO BID PRN PRN Reason: Anxiety Last Admin: 05/23/19 00:21 Dose: 0.25 mg Documented by: Amiodarone HCl (Cordarone) 400 mg PO BID REPLACED BY [facility] Last Admin: 05/26/19 08:14 Dose: 400 mg Documented by: Ascorbic Acid (Vitamin C) 500 mg PO BID-W/MEALS REPLACED BY [facility] Last Admin: 05/26/19 16:55 Dose: 500 mg Documented by: Aspirin (Aspirin) 325 mg PO DAILY REPLACED BY [facility] Last Admin: 05/26/19 08:14 Dose: 325 mg Documented by: Atorvastatin Calcium (Lipitor) 80 mg PO DAILY REPLACED BY [facility] Last Admin: 05/26/19 08:14 Dose: 80 mg Documented by: Benzocaine/Menthol (Cepacol Lozenge) 1 each MUCOUS MEM Q2H PRN PRN Reason: Sore Throat Bisacodyl (Dulcolax) 10 mg RECTAL DAILY PRN PRN Reason: Constipation Budesonide (Pulmicort) 1 mg INHALATION RT-BID REPLACED BY [facility] Last Admin: 05/26/19 20:05 Dose: 1 mg Documented by: Clopidogrel Bisulfate (Plavix) 75 mg PO DAILY REPLACED BY [facility] Last Admin: 05/26/19 08:14 Dose: 75 mg Documented by: Ferrous Sulfate (Feosol) 325 mg PO BID-W/MEALS REPLACED BY [facility] Last Admin: 05/26/19 16:55 Dose: 325 mg Documented by: Formoterol Fumarate (Perforomist) 20 mcg INHALATION RT-BID REPLACED BY [facility] Last Admin: 05/26/19 20:05 Dose: 20 mcg Documented by: Heparin Sodium (Porcine) (Heparin) 5,000 unit SQ Q8HR REPLACED BY [facility] Last Admin: 05/26/19 16:55 Dose: 5,000 unit Documented by: Norepinephrine Bitartrate 4 mg (/ Sodium Chloride) 254 mls @ 7.864 mls/hr IV .Q24H REPLACED BY [facility]; Protocol Last Titration: 05/25/19 08:32 Dose: 0 mcg/kg/min, 0 mls/hr Documented by: Insulin Aspart (Novolog) 0 unit SQ ACHS REPLACED BY [facility]; Protocol Last Admin: 05/26/19 16:55 Dose: Not Given Documented by: Magnesium Hydroxide (Milk Of Magnesia) 2,400 mg PO BID PRN PRN Reason: Constipation Melatonin (Melatonin) 6 mg PO HS PRN PRN Reason: Insomnia Metoclopramide HCl (Reglan) 10 mg IVP Q4H PRN PRN Reason: Nausea And Vomiting Metoprolol Tartrate (Lopressor) 12.5 mg PO BID REPLACED BY [facility] Last Admin: 05/26/19 08:23 Dose: 12.5 mg Documented by: Midodrine (Proamatine) 5 mg PO AC-BID REPLACED BY [facility] Last Admin: 05/26/19 16:57 Dose: 5 mg Documented by: Miscellaneous Information (Potassium Per Protocol) 1 each MISCELLANE DAILY PRN; Protocol PRN Reason: Per Protocol Miscellaneous Information (Magnesium Per Protocol) 1 each MISCELLANE DAILY PRN; Protocol PRN Reason: Per Protocol Miscellaneous Information (Phosphorus Per Protocol) 1 each MISCELLANE DAILY PRN; Protocol PRN Reason: Per Protocol Multivitamins (Theragran) 1 each PO DAILY REPLACED BY [facility] Last Admin: 05/26/19 08:14 Dose: 1 each Documented by: Nicotine (Habitrol 14mg/24hr Patch) 1 patch TRANSDERM DAILY PRN PRN Reason: Nicotine Cravings Last Admin: 05/23/19 10:34 Dose: 1 patch Documented by: Patient's Own--Eye (Vitamin) 1 each PO BID REPLACED BY [facility] Last Admin: 05/26/19 08:21 Dose: 1 each Documented by: Ondansetron HCl (Zofran) 4 mg IVP Q6HR PRN PRN Reason: Nausea And Vomiting Pantoprazole Sodium (Protonix) 40 mg PO AC-BRKFST REPLACED BY [facility] Last Admin: 05/26/19 08:14 Dose: 40 mg Documented by: Senna/Docusate Sodium (Senokot-S) 2 each PO HS REPLACED BY [facility] Last Admin: 05/25/19 21:55 Dose: Not Given Documented by: Sodium Chloride (Saline Flush) 10 ml IV BID REPLACED BY [facility] Last Admin: 05/26/19 08:15 Dose: 10 ml Documented by: Spironolactone (Aldactone) 25 mg PO DAILY REPLACED BY [facility] Last Admin: 05/26/19 08:14 Dose: 25 mg Documented by: Thiamine HCl (Vitamin B-1) 100 mg PO BID-W/MEALS REPLACED BY [facility] Last Admin: 05/26/19 16:55 Dose: 100 mg Documented by: On examination: VITAL SIGNS: 98.2, 64, 24, 87/63, 98% on 2 L GENERAL APPEARANCE: Sitting up in bed, awake HEENT: Normal external appearance of nose and ear. EYES: Pupils equal. Conjunctiva pale. NECK: JVD unable to assess. Mass not palpable. RESPIRATORY: Respiratory effort increased. Lungs decreased breath sounds,. CARDIOVASCULAR: Heart sounds regular. No edema. ABDOMEN: Soft. Liver and spleen not palpable. No tenderness. No mass palpable. PSYCHIATRY: Answering questions INVESTIGATIONS, reviewed in the clinical context: White count 7.5 hemoglobin 7.8 potassium 4.6 creatinine 0.90 Previous testing White count 16.1 hemoglobin 8.5 platelets 120 Potassium 4 creatinine 0.82 Assessment: -Status post four-vessel coronary bypass -Severe coronary artery disease per cardiac catheterization -Paroxysmal new onset atrial fibrillation with rapid ventricular rate-normal sinus rhythm -Acute delirium from alcohol withdrawal-improved -Acute non-Q-wave NV, POA -COPD in a current smoker -Hyperlipidemia -Hypotension from blood loss, requiring pressure support, hypotensive status post levo fed. -Primary osteoarthritis -Thoracic aortic aneurysm -Macular degeneration bilaterally -Chronic nicotine dependence patient cigarette smoker -Acute postprocedure. Blood loss anemia expected from surgery-received a unit of blood -Thrombocytopenia-dilutional -Leukocytosis reactive, no evidence of infection-improved Plan: Continue current medication treatment plan. The patient's hypotensive and the setting of acute blood loss-is reasonable to keep the hemoglobin above 8 e specially considering severe coronary artery disease. Defer decision to cardiothoracic and cardiology team. Thank you Dr. Kim
[2019-05-26 20:49] LABS: Glucose,Whole Blood 115 mg/dL (75-99)
[2019-05-26] MEDS: SENNOSIDES-DOCUSATE SODIUM 1 EACH TAB PO SCH (21:02)
[2019-05-27 05:33] LABS: Basophils % (A) 0 %; Eosinophils # (A) 0.2 k/uL (0-0.7); Eosinophils % (A) 3 %; HCT 25.9 % (39.0-53.0); HGB 8.2 gm/dL (13.0-17.5); Hypochromasia Slight; Lymphocytes # (A) 1.1 k/uL (1.0-4.8); Lymphocytes % (A) 15 %; MCH 30.4 pg (25.0-35.0); MCHC 31.8 g/dL (31.0-37.0); MCV 95.6 fL (80.0-100.0); Mean Platelet Volume 8.6; Monocytes # (A) 0.5 k/uL (0-1.0); Monocytes % (A) 6 %; Neutrophils # (A) 5.5 k/uL (1.3-7.7); Neutrophils % (A) 72 %; Platelet Count 178 k/uL (150-450); RBC 2.71 m/uL (4.30-5.90); RDW 15.2 % (11.5-15.5); WBC 7.6 k/uL (3.8-10.6)
[2019-05-27 06:10] LABS: African American GFR (CKD) >90 (>60 ml/min/1.73 sqM); Anion Gap 6 mmol/L; Blood Urea Nitrogen 28 mg/dL (9-20); Calcium 8.2 mg/dL (8.4-10.2); Carbon Dioxide 23 mmol/L (22-30); Chloride 107 mmol/L (98-107); Glucose 87 mg/dL (74-99); Non-African American GFR(CKD) 82 (>60 ml/min/1.73 sqM); Potassium 4.6 mmol/L (3.5-5.1); Sodium 136 mmol/L (137-145)
[2019-05-27 07:02] LABS: Glucose,Whole Blood 91 mg/dL (75-99)
[2019-05-27] MEDS: INSULIN ASPART (NovoLOG) 100 UNIT/ML VIAL SQ SCH ×4 (07:02→21:45)
[2019-05-27] MEDS: THIAMINE 100 MG TAB PO SCH ×2 (07:05→18:07)
[2019-05-27] MEDS: ASCORBIC ACID 500 MG TAB PO SCH ×2 (07:05→18:08)
[2019-05-27] MEDS: FERROUS SULFATE 325 MG TAB PO SCH ×2 (07:05→18:08)
[2019-05-27] MEDS: PANTOPRAZOLE 40 MG TABLET PO SCH (07:05)
[2019-05-27] MEDS: MIDODRINE 5 MG TAB PO SCH ×2 (07:05→18:08)
[2019-05-27] MEDS: FORMOTEROL FUMARATE 20 MCG/2 ML NEBU INHALATION SCH ×2 (07:59→20:19)
[2019-05-27] MEDS: IPRATROPIUM-ALBUTEROL 3 ML NEB INHALATION SCH ×4 (07:59→20:19)
[2019-05-27] MEDS: BUDESONIDE 0.5 MG/2 ML NEBU INHALATION SCH ×2 (07:59→20:19)
--- NOTE | 2019-05-27 08:22 | XR ---
EXAMINATION TYPE: XR chest 1V portable DATE OF EXAM: 05/27/2019 Comparison: 05/26/2019 Clinical History: 74-year-old male Postoperative CABG Findings: Median sternotomy wires with postoperative clips in the mediastinum. Hazy densities mid and lower coretta gs persist. Previously visualized trace left apical pneumothorax no longer identified. Heart remains mildly enlarged. Impression: Hazy densities persist, likely layering pleural effusions with adjacent atelectasis and/or consolidat ion. Correlate to exclude mild pulmonary vascular congestion. Previously seen trace left pneumothorax no longer identified.
[2019-05-27] MEDS: AMIODARONE 200 MG TAB PO SCH ×2 (08:26→21:43)
[2019-05-27] MEDS: ASPIRIN 325 MG TAB PO SCH (08:26)
[2019-05-27] MEDS: HEPARIN SODIUM,PORCINE 5,000 UNIT/ML 1 ML VIAL SQ SCH ×2 (08:26→18:07)
[2019-05-27] MEDS: ATORVASTATIN 80 MG TAB PO SCH (08:26)
[2019-05-27] MEDS: METOPROLOL TARTRATE 12.5 MG TAB PO SCH ×2 (08:27→21:43)
[2019-05-27] MEDS: SPIRONOLACTONE 25 MG TAB PO SCH (08:27)
[2019-05-27] MEDS: MULTIVITAMINS, THERA 1 EACH TAB PO SCH (08:27)
[2019-05-27] MEDS: CLOPIDOGREL 75 MG TAB PO SCH (08:27)
[2019-05-27] MEDS: EYE VITAMIN PO SCH ×2 (08:27→21:45)
[2019-05-27] MEDS ORDERED: LISINOPRIL 2.5 MG TAB PO SCH (09:00)
[2019-05-27] MEDS ORDERED: FUROSEMIDE 10 MG/ML 2 ML VIAL IV ONE (09:02)
--- NOTE | 2019-05-27 09:31 | PN ---
PROGRESS NOTE Mr. Ansari is a 74-year-old male with a known history of chronic tobacco and alcohol intake who presented with [id number] elevation myocardial infarction, was found to have severely impaired left ventricular systolic function, severe triple-vessel coronary artery disease, underwent emergent coronary artery bypass grafting. Postoperatively, he had episode of paroxysmal atrial fibrillation. He is in sinus mechanism at this time, feels well, feeling stronger. His breathing is improved. He denies any dizziness or palpitation. He is on no pressors. Hemodynamically, he is stable. He has good urine output. He continues to be on aspirin once a day, Plavix 75 mg daily, amiodarone 400 mg twice a day, Lipitor 80 mg daily, and metoprolol tartrate 12.5 mg twice a day. PHYSICAL EXAMINATION: Blood pressure running in the one teens with the heart rate in the 60s. LUNGS: Clear with a few crackles at the bases. HEART: Regular rate and rhythm. S1, S2. No S3. No rub appreciated. ABDOMEN: Soft, nontender. EXTREMITIES: No edema. LAB DATA: Lab data revealed BUN and creatinine 28 and 0.93, potassium 4.6, hemoglobin of 8.2. IMPRESSION: 1. Status post coronary artery bypass grafting, stable. 2. Ischemic cardiomyopathy. 3. Prior history of chronic tobacco use. RECOMMENDATION: From the cardiac standpoint, I will cut down the amiodarone to 200 mg twice a day. I will add to his regimen lisinopril 2.5 mg twice a day, increase his level of activity, follow his renal function and depending on his progress, further recommendation will be made. He will undergo an echocardiogram today to further evaluate his left ventricular systolic function and see if he is a candidate for a Life Vest. MMODL / IJN: [id number] /
--- NOTE | 2019-05-27 10:16 | ECHOF ---
Referral Reason:mi MEASUREMENTS -------- HEIGHT: 180.3 cm WEIGHT: 112.5 kg BP: 106/73 RVIDd: 2.4 cm (< 3.3) IVSd: 1.1 cm (0.6 - 1.1) LVIDd: 5.8 cm (3.9 - 5.3) LVPWd: 1.4 cm (0.6 - 1.1) IVSs: 1.8 cm LVIDs: 4.9 cm LVPWs: 1.6 cm Ao Diam: 3.5 cm (2.0 - 3.7) AV Cusp: 2.2 cm (1.5 - 2.6) LA Diam: 3.8 cm (2.7 - 3.8) MV EXCURSION: 25.683 mm (> 18.000) MV EF SLOPE: 186 mm/s (70 - 150) EPSS: 0.9 cm MV E Zachary: 1.01 m/s MV DecT: 230 ms MV A Zachary: 0.25 m/s MV E/A Ratio: 4.09 RAP: 5.00 mmHg RVSP: 23.88 mmHg FINDINGS -------- Sinus rhythm. This was a technically difficult study with suboptimal views. TDS due to CABG and Bandages. The left ventricle is mildly dilated. There is mild concentric left ventricular hypertrophy. Over all left ventricular systolic function is moderate-severely impaired with, an EF between 30 - 35 %. The right ventricle is normal in size. The left atrial size is normal. The right atrial size is normal. Aortic valve is trileaflet and is mildly thickened. The mitral valve is normal. The mitral valve leaflets are mildly thickened. Mild mitral regurgita tion is present. The tricuspid valve appears structurally normal. Mild tricuspid regurgitation present. Right vent ricular systolic pressure is normal at < 35 mmHg. There is no pulmonic regurgitation present. The aortic root size is normal. IVC Not well visulized. There is no pericardial effusion. CONCLUSIONS -------- 1. Sinus rhythm. 2. This was a technically difficult study with suboptimal views. 3. TDS due to CABG and Bandages. 4. The left ventricle is mildly dilated. 5. There is mild concentric left ventricular hypertrophy. 6. Overall left ventricular systolic function is moderate-severely impaired with, an EF between 30 - 35 %. 7. The right ventricle is normal in size. 8. The left atrial size is normal. 9. The right atrial size is normal. 10. Aortic valve is trileaflet and is mildly thickened. 11. The mitral valve is normal. 12. The mitral valve leaflets are mildly thickened. 13. Mild mitral regurgitation is present. 14. The tricuspid valve appears structurally normal. 15. Mild tricuspid regurgitation present. 16. Right ventricular systolic pressure is normal at < 35 mmHg. 17. There is no pulmonic regurgitation present. 18. The aortic root size is normal. 19. IVC Not well visulized. 20. There is no pericardial effusion. STUDENT ACCOUNTS MANAGER: Jeanna Urias RDCS
--- NOTE | 2019-05-27 10:51 | P.PN ---
Subjective Progress Note Date: 05/27/19 On 05/24/2019 patient seen in follow-up in intensive care unit, this is postop day 3, status post coronary artery bypass grafting surgery. Patient is more arousable on today's exam, still slightly somnolent but easily arousable, and answering questions appropriately, mildly short of breath, but no acute distress, he is on 2 L of oxygen with a pulse ox of 91%. D5 half-normal saline infusing at rate of 40 ML per hour, this is being cut back to KVO, Precedex is infusing at 0.4 mics per kilo per hour. Patient is slightly hypotensive this morning, with systolic blood pressure in the 81/53, in sinus mechanism, with a rate of 62 BPM. Cut dose of Precedex in half. Today's chest x-ray has been reviewed showing increasing vascular prominence with increasing lung markings suspicious for volume overload and early pulmonary edema, CT surgery has ordered a dose of IV Lasix for the patient. PA catheter was discontinued yesterday, patient still has a set of atrial epicardial wires, grounded at this time. Urine output is anywhere between 30-70 ML per hour. Left pleural chest tube remains in place, with a total of 460 mL of serous output in the last 24 hours, no air leak, it is currently to waterseal. Lung sounds reveal diminished breath sounds with some crackles at the bases. She'll incision is clean dry and intact, covered with a surgical dressing, chest tube sites are clean dry and intact, saphenous graft harvest site incisions on bilateral legs are covered with dressings, clean dry and intact. On 05/27/2019 patient seen in follow-up in the intensive care unit, this is postoperative day 6, status post four-vessel bypass grafting. Patient is calm and comfortable, he is awake, alert oriented 3, mentation has significantly improved, no signs of anxiety, agitation, no signs of delirium tremens. Patient is calm and cooperative. Skin questions appropriately, denies any specific complaints, no shortness of breath, his chest x-ray has been reviewed by Dr. Ellis showing a small bilateral pleural effusions, patient was given a dose of IV Lasix. Blood pressures running in the 80s to 90s systolic, with 40s to 50s systolic with a mean of 70 mmHg, per cardiology a small dose of lisinopril was added this morning. Patient is tolerating it well so far. Voiding. All chest tubes have been discontinued, a set of epicardial wires has been grounded, Benjamin has been discontinued, a sinus mechanism with a controlled rate, he is on 2 L of oxygen and the pulse ox of 94%. Objective - Vital Signs Vital signs: Vital Signs Temp 98.1 F 05/27/19 08:00 Pulse 66 05/27/19 09:00 Resp 22 05/27/19 09:00 BP 105/63 05/27/19 09:00 Pulse Ox 94 L 05/27/19 09:00 Intake & Output 05/26/19 05/27/19 05/27/19 18:59 06:59 18:59 Intake Total 680 200 Output Total 730 420 225 Balance -50 -420 -25 Weight 110.4 kg Intake: Oral 680 200 Output: Chest Tube Drainage 130 Left Lateral Chest 130 Urine 600 420 225 Other: Voiding Method Urinal Urinal Urinal # Voids 0 ABP, PAP, CO, CI - Last Documented Arterial Blood Pressure 113/66 Pulmonary Artery Pressure 32/18 Cardiac Output 8.4 Cardiac Index 3.8 - Exam GENERAL EXAM: Awake and alert, oriented 3, calm, cooperative HEAD: Normocephalic/atraumatic. EYES: Normal reaction of pupils, equal size. Conjunctiva pink, sclera white. NOSE: Clear with pink turbinates. THROAT: No erythema or exudates. NECK: No masses, no JVD, no thyroid enlargement, no adenopathy. CHEST: No chest wall deformity. Symmetrical expansion. Midsternal incision is clean dry and intact, interval removal of mediastinal and left pleural chest tube, sites are clean dry and intact, a set of atrial epicardial wires grounded at this time LUNGS: Equal air entry with no crackles, wheeze, rhonchi or dullness. CVS: Regular rate and rhythm, normal S1 and S2, no gallops, no murmurs, no rubs ABDOMEN: Soft, nontender. No hepatosplenomegaly, normal bowel sounds, no gua rding or rigidity. EXTREMITIES: No clubbing, no edema, no cyanosis, 2+ pulses and upper and lower extremities. MUSCULOSKELETAL: Muscle strength and tone normal. SPINE: No scoliosis or deformity SKIN: No rashes, bilateral saphenous graft site incisions clean dry and intact on lower extremities CENTRAL NERVOUS SYSTEM: Alert and oriented -3. No focal deficits, tone is normal in all 4 extremities. PSYCHIATRIC: Alert and oriented -3. Appropriate affect. Intact judgment and insight. - Labs CBC & Chem 7: 05/27/19 05:20 05/27/19 05:20 Labs: Abnormal Lab Results - Last 24 Hours (Table) 05/26/19 05/26/19 05/27/19 Range/Units 11:45 20:47 05:20 RBC 2.71 L (4.30-5.90) m/uL Hgb 8.2 L (13.0-17.5) gm/dL Hct 25.9 L (39.0-53.0) % Sodium (137-145) mmol/L BUN (9-20) mg/dL POC Glucose (mg/dL) 110 H 115 H (75-99) mg/dL Calcium (8.4-10.2) mg/dL 05/27/19 Range/Units 05:20 RBC (4.30-5.90) m/uL Hgb (13.0-17.5) gm/dL Hct (39.0-53.0) % Sodium 136 L (137-145) mmol/L BUN 28 H (9-20) mg/dL POC Glucose (mg/dL) (75-99) mg/dL Calcium 8.2 L (8.4-10.2) mg/dL Assessment and Plan Plan: Assessment: 1. Severe triple-vessel coronary artery disease with significant left main disease, status post four-vessel CABG, currently postop day #6. The patient is hemodynamically stable. The chest tubes, the PA catheter, the a line and a Benjamin have been removed, postoperative delirium tremens has resolved 2. Non-STEMI this admission 3. Hypertension 4. Hyperlipidemia 5. Current chronic tobacco dependence 6. Daily EtOH use, with postoperative delirium tremens. Patient was managed with Precedex in the postop period responded well, currently is not exhibiting any signs of DTs 7. Postoperative acute blood loss anemia, the hemoglobin dropped down to 7 the patient is receiving a unit of packed RBC 8 paroxysmal atrial fibrillation and the patient went into sinus rhythm 9 hypotension, resolved 10 ischemic cardiomyopathy with an ejection fraction of 35% preoperatively 11 COPD and the patient is a chronic cigarette smoker. Well abdominal aortic aneurysm measuring 4.1 cm 12 pulmonary edema, fluid overload, patient will receive a dose of IV Lasix today Plan: Continue encouraging deep breathing and coughing, today's chest x-ray has been reviewed showing small bilateral pleural effusions, dose of IV Lasix was ordered by CT surgery, hemodynamically patient remains stable, was started on small dose of lisinopril per cardiology, mentation has significantly improved, no signs of agitation or anxiety, patient is cooperative, no visual or auditory hallucinations. Tolerating ambulation, vital signs are stable, remains in sinus mechanism. Today's labs have been reviewed, no acute events overnight, anticipate transfer to stepdown floor today. I performed a history & physical examination of the patient and discussed their management with my nurse practitioner, Lindsay Hamlin. I reviewed the nurse practitioner's note and agree with the documented findings and plan of care. Lung sounds are positive for management sounds at the bases with bibasilar crackles. The findings and the impression was discussed with the patient. I attest to the documentation by the nurse practitioner. Time with Patient: Less than 30
--- NOTE | 2019-05-27 11:23 | P.PN ---
Subjective Progress Note Date: 05/27/19 Principal diagnosis: Non-ST elevation myocardial infarction, severe left main disease, severe ostial right coronary artery, subtotal occlusion of the left anterior descending arter y, moderate left ventricular dysfunction with an ejection fraction estimated at 35%, mild mitral valve regurgitation. Previous medical history of evidence of old anteroapical myocardial infarction, hypertension, hyperlipidemia, current chronic tobacco dependence, daily EtOH abuse, abdominal aortic aneurysm measured 3.5 cm in 2017, current CT shows moderate dilatation at 4.1 cm POD #6 quadruple coronary artery bypass grafting using the left internal mammary artery to the left anterior descending artery, reverse saphenous vein graft from the aorta to the high diagonal artery, reverse saphenous vein graft taken from the previous vein graft and an anastomosis to the first obtuse marginal artery, reverse saphenous vein graft from the aorta to the posterior descending artery. Endoscopic harvesting of the left greater saphenous vein from the groin to above the knee level, as well as the right greater saphenous vein from the groin to below the knee level. Exclusion of the left atrial appendage using a 45 mm after clip. Intraoperative graft flow measurements using the [employer] system. Intraoperative transesophageal echocardiogram and epi-aortic scanning. Postoperative acute blood loss anemia, expected secondary to hemodilution and cardiopulmonary bypass pump Postoperative atrial fibrillation with rapid ventricular response, unexpected but potential outcome of cardiac surgery Postoperative DTs, expected due to patient's daily EtOH abuse The patient's currently sitting bhavin 100 no acute distress on the intensive care unit. States chest is sore but denies any significant chest pain, denies shortness of breath. All tubes and wires have been discontinued. Patient has been ambulatory with assist. Remains in normal sinus rhythm, no further evidence of atrial fibrillation. Patient was initiated on Midodrine yesterday, blood pressure currently stable. No further evidence of DTs. No new concerns. Objective - Vital Signs Vital signs: Vital Signs Temp 98.1 F 05/27/19 08:00 Pulse 66 05/27/19 09:00 Resp 22 05/27/19 09:00 BP 105/63 05/27/19 09:00 Pulse Ox 94 L 05/27/19 09:00 Intake & Output 05/26/19 05/27/19 05/27/19 18:59 06:59 18:59 Intake Total 680 200 Output Total 730 420 225 Balance -50 -420 -25 Weight 110.4 kg Intake: Oral 680 200 Output: Chest Tube Drainage 130 Left Lateral Chest 130 Urine 600 420 225 Other: Voiding Method Urinal Urinal Urinal # Voids 0 ABP, PAP, CO, CI - Last Documented Arterial Blood Pressure 113/66 Pulmonary Artery Pressure 32/18 Cardiac Output 8.4 Cardiac Index 3.8 - Constitutional General appearance: Present: cooperative, no acute distress, obese - Respiratory Details: Lungs sounds diminished bilaterally. Respirations even, nonlabored. Currently on room air with oxygen saturation 94%. Able to achieve 1250 mL on his incentive spirometry. Strong cough. - Cardiovascular Details: S1, S2 present. Regular rate and rhythm, sinus rhythm on telemetry. Sternum stable. Bilateral lower extremity edema present. No calf pain or tenderness noted. Heart hugger in place with patient demonstrating appropriate use. Ant iembolism stockings, SCDs present. - Gastrointestinal Gastrointestinal Comment(s): Abdomen soft, nontender, nondistended. Active bowel sounds present 4 quadr ants. Tolerating diet. Positive bowel movement. - Genitourinary Genitourinary Comment(s): Continues to void clear, yellow urine - Integumentary Integumentary Comment(s): Skin is warm and dry with evidence of good perfusion. Anterior chest incision well approximated and covered with dry intact dressing. Right femoral artery site soft, no hematoma. Right and left lower extremity EVH site well approximated. - Neurologic Neurologic: Present: CNII-XII intact - Musculoskeletal Musculoskeletal: Present: gait normal, strength equal bilaterally - Psychiatric Psychiatric: Present: A&O x's 3, appropriate affect, intact judgment & insight - Allied health notes Allied health notes reviewed: nursing - Labs CBC & Chem 7: 05/27/19 05:20 05/27/19 05:20 Labs: Abnormal Lab Results - Last 24 Hours (Table) 05/26/19 05/26/19 05/27/19 Range/Units 11:45 20:47 05:20 RBC 2.71 L (4.30-5.90) m/uL Hgb 8.2 L (13.0-17.5) gm/dL Hct 25.9 L (39.0-53.0) % Sodium (137-145) mmol/L BUN (9-20) mg/dL POC Glucose (mg/dL) 110 H 115 H (75-99) mg/dL Calcium (8.4-10.2) mg/dL 05/27/19 Range/Units 05:20 RBC (4.30-5.90) m/uL Hgb (13.0-17.5) gm/dL Hct (39.0-53.0) % Sodium 136 L (137-145) mmol/L BUN 28 H (9-20) mg/dL POC Glucose (mg/dL) (75-99) mg/dL Calcium 8.2 L (8.4-10.2) mg/dL - Imaging and Cardiology Chest x-ray: report reviewed, image reviewed Assessment and Plan Assessment: 1. Severe triple-vessel coronary artery disease with significant left main disease, status post four-vessel CABG 2. Non-STEMI this admission 3. Hypertension 4. Hyperlipidemia 5. Current chronic tobacco dependence 6. Daily EtOH use 7. Postoperative acute blood loss anemia, status post packed red blood cell transfusion 8. Postoperative paroxysmal atrial fibrillation with rapid ventricular response 9. Postoperative DTs Plan: 1. Continue aspirin, statin, Plavix, beta tosha therapy. Will increase beta tosha therapy as tolerated. Low-dose ROBSON inhibitor initiated by cardiology 2. Continue oral amiodarone. No need for anticoagulation as patient was in atrial fibrillation less than 24 hours and his left atrial appendage was clipped 3. Encourage is a spontaneous 10 times every hour while awake. 4. Bronchodilators, inhaled steroids per pulmonology. 5. Will monitor daily labs and x-rays. Electrolyte replacement per protocol. Will give IV Lasix today. No further transfusion at this point 6. Increase activity as tolerated, ambulate as tolerated. PT/OT/cardiac rehab following. 7. Pain control with current medication regimen 8. Insulin management per primary care service 9. Transthoracic echocardiogram repeated this morning, impaired left ventricular systolic function with EF 30-35%. Patient is a candidate for Life Vest, order placed 10. Transfer orders placed for 3 S. cardiac stepdown unit. May transfer when bed available 11. Discharge planning in progress. Anticipate discharge to home with home care in the next 24-48 hours. 12. More recommendations to follow based on patient's progress. Time with Patient: Greater than 30
[2019-05-27 11:59] LABS: Glucose,Whole Blood 90 mg/dL (75-99)
[2019-05-27] MEDS: LISINOPRIL 2.5 MG TAB PO SCH ×2 (13:10→21:43)
--- NOTE | 2019-05-27 13:39 | P.PN ---
Progress Note - Text Progress Note Date: 05/27/19 Presenting complaint: Chest pain Interval history: Patient admitted with acute non-ST elevation IA. Severe coronary artery disease. EF of 35%. April 22-quadruple bypass. In the ICU. It was discovered that patient takes anywhere from 6-8 beers at night. Did go into alcohol withdrawal. Also went into atrial fibrillation this required IV amiodarone. Today-. Eating better. Did take a shower today. Did walk. Breathing much improved. Sitting up in a chair.. Review of systems: Was done for constitutional, cardiovascular, GI, pulmonary. relevant finding as above Active Medications Acetaminophen (Tylenol Tab) 1,000 mg PO Q6HR PRN PRN Reason: Fever and/ or Pain Albuterol/Ipratropium (Duoneb 0.5 Mg-3 Mg/3 Ml Soln) 3 ml INHALATION RT-Q2H PRN PRN Reason: Shortness Of Breath Or Wheezing Last Admin: 05/23/19 12:28 Dose: 3 ml Documented by: Albuterol/Ipratropium (Duoneb 0.5 Mg-3 Mg/3 Ml Soln) 3 ml INHALATION RT-QID [facility] Last Admin: 05/27/19 11:51 Dose: Not Given Documented by: Amiodarone HCl (Cordarone) 200 mg PO BID [facility] Last Admin: 05/27/19 08:26 Dose: 200 mg Documented by: Ascorbic Acid (Vitamin C) 500 mg PO BID-W/MEALS [facility] Last Admin: 05/27/19 07:05 Dose: 500 mg Documented by: Aspirin (Aspirin) 325 mg PO DAILY [facility] Last Admin: 05/27/19 08:26 Dose: 325 mg Documented by: Atorvastatin Calcium (Lipitor) 80 mg PO DAILY [facility] Last Admin: 05/27/19 08:26 Dose: 80 mg Documented by: Benzocaine/Menthol (Cepacol Lozenge) 1 each MUCOUS MEM Q2H PRN PRN Reason: Sore Throat Bisacodyl (Dulcolax) 10 mg RECTAL DAILY PRN PRN Reason: Constipation Budesonide (Pulmicort) 1 mg INHALATION RT-BID [facility] Last Admin: 05/27/19 07:59 Dose: 1 mg Documented by: Clopidogrel Bisulfate (Plavix) 75 mg PO DAILY [facility] Last Admin: 05/27/19 08:27 Dose: 75 mg Documented by: Ferrous Sulfate (Feosol) 325 mg PO BID-W/MEALS [facility] Last Admin: 05/27/19 07:05 Dose: 325 mg Documented by: Formoterol Fumarate (Perforomist) 20 mcg INHALATION RT-BID [facility] Last Admin: 05/27/19 07:59 Dose: 20 mcg Documented by: Heparin Sodium (Porcine) (Heparin) 5,000 unit SQ Q8HR [facility] Last Admin: 05/27/19 08:26 Dose: 5,000 unit Documented by: Insulin Aspart (Novolog) 0 unit SQ ACHS [facility]; Protocol Last Admin: 05/27/19 13:10 Dose: Not Given Documented by: Lisinopril (Zestril) 2.5 mg PO BID [facility] Last Admin: 05/27/19 13:10 Dose: 2.5 mg Documented by: Magnesium Hydroxide (Milk Of Magnesia) 2,400 mg PO BID PRN PRN Reason: Constipation Melatonin (Melatonin) 6 mg PO HS PRN PRN Reason: Insomnia Metoprolol Tartrate (Lopressor) 12.5 mg PO BID [facility] Last Admin: 05/27/19 08:27 Dose: 12.5 mg Documented by: Midodrine (Proamatine) 5 mg PO AC-BID [facility] Last Admin: 05/27/19 07:05 Dose: 5 mg Documented by: Miscellaneous Information (Potassium Per Protocol) 1 each MISCELLANE DAILY PRN; Protocol PRN Reason: Per Protocol Miscellaneous Information (Magnesium Per Protocol) 1 each MISCELLANE DAILY PRN; Protocol PRN Reason: Per Protocol Miscellaneous Information (Phosphorus Per Protocol) 1 each MISCELLANE DAILY PRN; Protocol PRN Reason: Per Protocol Multivitamins (Theragran) 1 each PO DAILY [facility] Last Admin: 05/27/19 08:27 Dose: 1 each Documented by: Nicotine (Habitrol 14mg/24hr Patch) 1 patch TRANSDERM DAILY PRN PRN Reason: Nicotine Cravings Last Admin: 05/23/19 10:34 Dose: 1 patch Documented by: Patient's Own--Eye (Vitamin) 1 each PO BID [facility] Last Admin: 05/27/19 08:27 Dose: 1 each Documented by: Ondansetron HCl (Zofran) 4 mg IVP Q6HR PRN PRN Reason: Nausea And Vomiting Pantoprazole Sodium (Protonix) 40 mg PO AC-BRKFST [facility] Last Admin: 05/27/19 07:05 Dose: 40 mg Documented by: Senna/Docusate Sodium (Senokot-S) 2 each PO HS [facility] Last Admin: 05/26/19 21:02 Dose: 2 each Documented by: Sodium Chloride (Saline Flush) 10 ml IV BID [facility] Last Admin: 05/27/19 08:37 Dose: 10 ml Documented by: Spironolactone (Aldactone) 25 mg PO DAILY [facility] Last Admin: 05/27/19 08:27 Dose: 25 mg Documented by: Thiamine HCl (Vitamin B-1) 100 mg PO BID-W/MEALS [facility] Last Admin: 05/27/19 07:05 Dose: 100 mg Documented by: On examination: VITAL SIGNS: 98.3, 70, 20, 106/70, 92% room air GENERAL APPEARANCE: Sitting up in a chair, cheerful HEENT: Normal external appearance of nose and ear. EYES: Pupils equal. Conjunctiva pale. NECK: JVD unable to assess. Mass not palpable. RESPIRATORY: Respiratory effort increased. Lungs decreased breath sounds,. CARDIOVASCULAR: Heart sounds regular. No edema. ABDOMEN: Soft. Liver and spleen not palpable. No tenderness. No mass palpable. PSYCHIATRY: AO - times three. Mood and affect normal INVESTIGATIONS, reviewed in the clinical context: White count 7.6, hemoglobin 8.2, potassium 4.6, creatinine 0.9 Previous testing White count 16.1 hemoglobin 8.5 platelets 120 Potassium 4 creatinine 0.82 Assessment: -Status post four-vessel coronary bypass -Severe coronary artery disease per cardiac catheterization -Paroxysmal new onset atrial fibrillation with rapid ventricular rate-normal sinus rhythm -Acute delirium from alcohol withdrawal-improved -Acute non-Q-wave IA, POA -COPD in a current smoker -Hyperlipidemia -Hypotension from blood loss, requiring pressure support, hypotensive status post levo fed. -Primary osteoarthritis -Thoracic aortic aneurysm -Macular degeneration bilaterally -Chronic nicotine dependence patient cigarette smoker -Acute postprocedure. Blood loss anemia expected from surgery-received a unit of blood -Thrombocytopenia-dilutional -Leukocytosis reactive, no evidence of infection-improved Plan: Overall doing much better. Blood pressure improving. Ambulating. Oral intake improved. Continue current medications. Thank you Dr. Kim
[2019-05-27 16:53] LABS: Glucose,Whole Blood 86 mg/dL (75-99)
[2019-05-27 20:27] LABS: Glucose,Whole Blood 86 mg/dL (75-99)
[2019-05-27] MEDS: SENNOSIDES-DOCUSATE SODIUM 1 EACH TAB PO SCH (21:43)
[2019-05-28] MEDS: HEPARIN SODIUM,PORCINE 5,000 UNIT/ML 1 ML VIAL SQ SCH ×2 (00:04→09:52)
[2019-05-28 06:43] LABS: Glucose,Whole Blood 80 mg/dL (75-99)
[2019-05-28] MEDS: INSULIN ASPART (NovoLOG) 100 UNIT/ML VIAL SQ SCH ×2 (06:47→12:54)
[2019-05-28] MEDS: PANTOPRAZOLE 40 MG TABLET PO SCH (06:53)
[2019-05-28] MEDS: FERROUS SULFATE 325 MG TAB PO SCH (06:53)
[2019-05-28] MEDS: ASCORBIC ACID 500 MG TAB PO SCH (06:53)
[2019-05-28] MEDS: MIDODRINE 5 MG TAB PO SCH (06:53)
[2019-05-28] MEDS: THIAMINE 100 MG TAB PO SCH (06:54)
[2019-05-28 07:07] LABS: HCT 25.9 % (39.0-53.0); HGB 8.3 gm/dL (13.0-17.5); Hypochromasia Slight; MCH 30.8 pg (25.0-35.0); MCHC 32.1 g/dL (31.0-37.0); MCV 95.9 fL (80.0-100.0); Mean Platelet Volume 8.7; Platelet Count 224 k/uL (150-450); RDW 15.2 % (11.5-15.5); WBC 12.3 k/uL (3.8-10.6)
[2019-05-28 07:08] LABS: African American GFR (CKD) >90 (>60 ml/min/1.73 sqM); Anion Gap 8 mmol/L; Blood Urea Nitrogen 27 mg/dL (9-20); Calcium 8.3 mg/dL (8.4-10.2); Carbon Dioxide 24 mmol/L (22-30); Chloride 105 mmol/L (98-107); Glucose 86 mg/dL (74-99); Non-African American GFR(CKD) 83 (>60 ml/min/1.73 sqM); Potassium 4.6 mmol/L (3.5-5.1); Sodium 137 mmol/L (137-145)
--- NOTE | 2019-05-28 08:09 | XR ---
EXAMINATION TYPE: XR chest 2V DATE OF EXAM: 05/28/2019 COMPARISON: 05/27/2019 HISTORY: Status post cardiac surgery. Follow-up exam. TECHNIQUE: Frontal and lateral views of the chest are obtained. FINDINGS: Pleural effusions have resolved. Bibasilar airspace disease is also resolved. Minimal inte rstitial pulmonary edema remains. Overlying lead obscures the left costophrenic angle. The cardiac s ilhouette size is enlarged with post CABG change. No residual pneumothorax seen. Subcutaneous emphys nichole on the right supraclavicular region again noted. The osseous structures are intact. IMPRESSION: Resolved pleural effusions and bibasilar airspace disease with minimal interstitial pulm onary edema remaining
[2019-05-28 08:55] VITALS: BP 107/61
[2019-05-28] MEDS: BUDESONIDE 0.5 MG/2 ML NEBU INHALATION SCH (08:55)
--- NOTE | 2019-05-28 08:55 | CDI ---
Documentation Clarification Form Date: 05/24/2019 01:46:51 PM From: Marla Patterson Admit Date: 05/20/2019 12:58:00 PM Patient Name: Brock Ansari Visit Number: [id number] Discharge Date: ATTENTION: The Clinical Documentation Specialists (CDI) and [facility] Coding Staff appreciate your assistance in clarifying documentation. Please respond to the clarification below the line at the bottom and electronically sign. The CDI & [facility] Coding staff will review the response and follow-up if needed. Please note: Queries are made part of the Legal Health Record. If you have any questions, please contact the author of this message via ITS. Dr. Radhika Kim MD Hypotension from blood loss, requiring pressure support, hypotensive shock has been documented in Medical management progress note 3/5 Patients Admitting Diagnosis: Non ST elevation myocardial infarction, severe left main disease, severe ostial right coronary artery disease, subtotal occlusion of the left anterior descending artery, moderate left ventricular dysfunction with an ejection fraction estimated at 35% mild mitral valve regurgitation, HTN, Hyperlipidemia, Tobacco and ETOH abuse. Post-Operative Diagnosis: Same as admitting Diagnosis Procedure performed: Quadruple coronary artery bypass grafting using the left internal mammary artery to the left anterior descending artery reverse saphenous vein graft from the aorta to the high diagonal artery, reverse vein graft taken from the previous vein graft and anastomosed to the first obtuse marginal artery, reverse saphenous vein graft from the aorta to the posterior descending artery . Exclusion of the left atrial appendage. History/Risk Factors: 74-year-old male presents to the ED via EMS for chest discomfort that has been on going for a few weeks. History of Thoracic aortic aneurysm, HTN, HLD, chronic tobacco uses and history of alcohol intake Clinical Indicators: CTS progress note 3/4 Postoperative acute blood loss anemia, expected secondary to hemodilution and cardiopulmonary bypass pump. 05/22 09:45 BP 100/54 hr 67; 05/22 BP 100/48 HR 72; 05/22 10:00 BP 99/55 HR 70; 05/22 10:15 BP 89/47 65; 05/22 10:30 BP 93/46 HR 66; 05/22 10:45 BP 90/53 HR 67; 05/22 11:00 BP 96/48 HR 66; 05/22 12:40 BP 113/60 HR 71 Treatment: 3/5 1 Unit PRBC transfused, 05/20 Norepinephrine 254 mls @ 7.864 mls/hr IV Q 24 Hrs In order to accurately reflect this patients severity of illness, please clarify if the post-operative diagnosis is: * Hypovolemic Shock related to blood loss from surgical procedure has been ruled out * Hypovolemic Shock related to blood loss from surgical procedure is a complication of surgical procedure * Hypovolemic Shock related to blood loss from surgical procedure is an expected outcome of the surgical procedure * Hypovolemic Shock is related to co-morbid condition(s) of [insert comorbid dxs ] * Other please specify * Unable to determine (Last Revision: June 2018) No shock, just hypovolemia as expected post-op cardiac surgery. ZEYADD
[2019-05-28] MEDS: FORMOTEROL FUMARATE 20 MCG/2 ML NEBU INHALATION SCH (09:12)
[2019-05-28] MEDS: IPRATROPIUM-ALBUTEROL 3 ML NEB INHALATION SCH ×2 (09:12→12:21)
--- NOTE | 2019-05-28 09:28 | P.PN ---
Subjective Progress Note Date: 05/28/19 Principal diagnosis: Non-ST elevation myocardial infarction, severe left main disease, severe ostial right coronary artery, subtotal occlusion of the left anterior descending arter y, moderate left ventricular dysfunction with an ejection fraction estimated at 35%, mild mitral valve regurgitation. Previous medical history of evidence of old anteroapical myocardial infarction, hypertension, hyperlipidemia, current chronic tobacco dependence, daily EtOH abuse, abdominal aortic aneurysm measured 3.5 cm in 2017, current CT shows moderate dilatation at 4.1 cm POD #7 quadruple coronary artery bypass grafting using the left internal mammary artery to the left anterior descending artery, reverse saphenous vein graft from the aorta to the high diagonal artery, reverse saphenous vein graft taken from the previous vein graft and an anastomosis to the first obtuse marginal artery, reverse saphenous vein graft from the aorta to the posterior descending artery. Endoscopic harvesting of the left greater saphenous vein from the groin to above the knee level, as well as the right greater saphenous vein from the groin to below the knee level. Exclusion of the left atrial appendage using a 45 mm after clip. Intraoperative graft flow measurements using the [employer] system. Intraoperative transesophageal echocardiogram and epi-aortic scanning. Postoperative acute blood loss anemia, expected secondary to hemodilution and cardiopulmonary bypass pump Postoperative atrial fibrillation with rapid ventricular response, unexpected but potential outcome of cardiac surgery Postoperative DTs, expected due to patient's daily EtOH abuse The patient's currently sitting up in bed in no acute distress on the cardiac stepdown unit. States chest is sore but denies any significant chest pain, denies shortness of breath. Patient has been ambulatory with assist. Remains in normal sinus rhythm, no further evidence of atrial fibrillation. States he is ready to go home today. No new concerns. Objective - Vital Signs Vital signs: Vital Signs Temp 98.3 F 05/28/19 08:50 Pulse 62 05/28/19 09:16 Resp 20 05/28/19 08:50 BP 107/61 05/28/19 08:50 Pulse Ox 98 05/28/19 08:50 Intake & Output 05/27/19 05/28/19 05/28/19 18:59 06:59 18:59 Intake Total 400 Output Total 475 150 Balance -75 -150 Weight 106.2 kg Intake: Oral 400 Output: Urine 475 150 Other: Voiding Method Urinal Urinal ABP, PAP, CO, CI - Last Documented Arterial Blood Pressure 113/66 Pulmonary Artery Pressure 32/18 Cardiac Output 8.4 Cardiac Index 3.8 - Constitutional General appearance: Present: cooperative, no acute distress - Respiratory Details: Lungs sounds diminished bilaterally. Respirations even, nonlabored. Currently on room air with oxygen saturation 96%. Able to achieve 1250 mL on his incentive spirometry. Strong cough. - Cardiovascular Details: S1, S2 present. Regular rate and rhythm, sinus rhythm on telemetry. Sternum stable. Bilateral lower extremity edema present. No calf pain or tenderness noted. Heart hugger in place with patient demonstrating appropriate use. Antiembolism stockings, SCDs present. - Gastrointestinal Gastrointestinal Comment(s): Abdomen soft, nontender, nondistended. Active bowel sounds present 4 quadrants. Tolerating diet. Positive bowel movement. - Genitourinary Genitourinary Comment(s): Continues to void clear, yellow urine - Integumentary Integumentary Comment(s): Skin is warm and dry with evidence of good perfusion. Anterior chest incision well approximated and covered with dry intact dressing. Right femoral artery site soft, no hematoma. Right and left lower extremity EVH site well approximated. - Neurologic Neurologic: Present: CNII-XII intact - Musculoskeletal Musculoskeletal: Present: gait normal, strength equal bilaterally - Psychiatric Psychiatric: Present: A&O x's 3, appropriate affect, intact judgment & insight - Allied health notes Allied health notes reviewed: nursing - Labs CBC & Chem 7: 05/28/19 06:20 05/28/19 06:20 Labs: Abnormal Lab Results - Last 24 Hours (Table) 05/28/19 05/28/19 Range/Units 06:20 06:20 WBC 12.3 H (3.8-10.6) k/uL RBC 2.70 L (4.30-5.90) m/uL Hgb 8.3 L (13.0-17.5) gm/dL Hct 25.9 L (39.0-53.0) % BUN 27 H (9-20) mg/dL Calcium 8.3 L (8.4-10.2) mg/dL - Imaging and Cardiology Chest x-ray: report reviewed, image reviewed Assessment and Plan Assessment: 1. Severe triple-vessel coronary artery disease with significant left main disease, status post four-vessel CABG 2. Non-STEMI this admission 3. Hypertension 4. Hyperlipidemia 5. Current chronic tobacco dependence 6. Daily EtOH use 7. Postoperative acute blood loss anemia, status post packed red blood cell transfusion 8. Postoperative paroxysmal atrial fibrillation with rapid ventricular response 9. Postoperative DTs Plan: 1. Continue aspirin, statin, Plavix, beta tosha therapy, ROBSON inhibitor. 2. Continue oral amiodarone. No need for anticoagulation as patient was in atrial fibrillation less than 24 hours and his left atrial appendage was clipped 3. Encourage incentive spirometer 10 times every hour while awake. 4. Bronchodilators, inhaled steroids per pulmonology. 5. Will monitor daily labs and x-rays. Electrolyte replacement per protocol. 6. Increase activity as tolerated, ambulate as tolerated. PT/OT/cardiac rehab following. 7. Pain control with current medication regimen 8. Insulin management per primary care service 9. Life Vest to remain on patient at all times for 3 months, to remove only for short periods of time to shower. 10. Discharge planning in progress. Anticipate discharge to home with home care today. Follow-up appointments made, verbal discharge instructions given, our contact information given to the patient. Time with Patient: Greater than 30
[2019-05-28] MEDS: METOPROLOL TARTRATE 12.5 MG TAB PO SCH (09:52)
[2019-05-28] MEDS: MULTIVITAMINS, THERA 1 EACH TAB PO SCH (09:52)
[2019-05-28] MEDS: ASPIRIN 325 MG TAB PO SCH (09:52)
[2019-05-28] MEDS: ATORVASTATIN 80 MG TAB PO SCH (09:52)
[2019-05-28] MEDS: AMIODARONE 200 MG TAB PO SCH (09:52)
[2019-05-28] MEDS: CLOPIDOGREL 75 MG TAB PO SCH (09:53)
[2019-05-28] MEDS: LISINOPRIL 2.5 MG TAB PO SCH (09:53)
[2019-05-28] MEDS: SPIRONOLACTONE 25 MG TAB PO SCH (09:56)
[2019-05-28] MEDS: EYE VITAMIN PO SCH (09:58)
--- NOTE | 2019-05-28 11:48 | P.DS ---
Providers Date of admission: 05/20/19 12:58 Expected date of discharge: 05/28/19 Attending physician: Radhika Kim Consults: 05/20/19 12:58 Consult Physician Urgent Consulting Provider: Tavia Lux Consult Reason/Comments: nstemi Do you want consulting provider notified?: Yes 05/20/19 15:26 Consult Physician Routine Consulting Provider: Keith Harris Consult Reason/Comments: pulmonary management Do you want consulting provider notified?: Yes Consult Physician Routine Consulting Provider: Karen Knott Consult Reason/Comments: medical management Do you want consulting provider notified?: Yes Consult to Anesthesia Routine Consulting Provider: Anesthesia,Services Consult Reason/Comments: Cardiac Surgery Pre-Op 05/20/19 15:47 Consult Physician Routine Consulting Provider: Radhika Kim Consult Reason/Comments: cabg Do you want consulting provider notified?: Already Contacted Primary care physician: [facility] Course: FINAL DIAGNOSIS: 1. Non-ST elevation myocardial infarction 2. Severe left main disease, severe ostial right coronary artery, subtotal occlusion of the left anterior descending artery 3. Moderate left ventricular dysfunction with preop ejection fraction 25-30%, mild mitral regurgitation, postoperative ejection fraction 30-35% 4. Evidence of old anterior apical myocardial infarction 5. Hypertension 6. Hyperlipidemia 7. Current chronic tobacco dependence, severe COPD 8. Daily EtOH abuse 9. Abdominal aortic aneurysm measured 3.5 cm in 2017 with current CTA demonstrating moderate dilatation at 4.1 cm 10. Postoperative acute blood loss anemia 11. Postoperative atrial fibrillation 12. Postoperative DTs PRINCIPAL PROCEDURE: 1. Left heart catheterization with placement of intra-aortic balloon pump 2. Emergent quadruple coronary artery bypass grafting using the left internal mammary artery to the left anterior descending artery, reverse saphenous vein graft from the aorta to the high diagonal artery, reverse saphenous vein graft from the previous vein graft and anastomosed to the first obtuse marginal artery, reverse saphenous vein graft from the aorta to the posterior descending artery 3. Endoscopic harvesting of the left greater saphenous vein from the groin to above the knee level, as well as the right greater saphenous vein from the groin to below the knee level 4. Exclusion of the left atrial appendage using a 45 mm AtriClip 5. Intraoperative graft flow measurements using the [employer] system 6. Intraoperative transesophageal echocardiogram and epi-aortic scanning HISTORY OF PRESENT ILLNESS: This is a 74-year-old active gentleman who follows on an outpatient basis with Dr. Baxter. He presented to [facility] emergency room with complaints of severe chest discomfort associated with shortness of breath and diaphoresis. EKG was completed demonstrating normal sinus rhythm without ST elevation, troponins were elevated and he was ruled in for non-STEMI. In addition his BNP was elevated and his chest x-ray demonstrated COPD as well as central vascular congestion and pleural effusions, indicating acute heart failure. Urgent consultation was placed to Dr. Lux who performed heart catheterization demonstrating triple vessel coronary artery disease with significant left main disease. Urgent consultation was placed to Dr. Kim from cardiothoracic surgery who saw the patient in the heart catheterization lab. He was recommended to undergo urgent/emergent CABG. The usual perioperative course was discussed in detail with the patient and his f amily, all risks and benefits were explained, all questions were answered, and consent was obtained to proceed with surgery. Intra-aortic balloon pump was inserted and the patient was scheduled for surgery the next morning. While in the center medical and lab director, a transthoracic echocardiogram was completed demonstrating impaired LV function with ejection fraction 25-30%, as well as hypokinesis of the left ventricle, mild mitral regurgitation, and mild tricuspid regurgitation. HOSPITAL COURSE: The patient was brought to the preoperative area on 05/21/2019, prepared in the usual fashion, and subsequently taken to the operating room where Dr. Kim performed emergent 4 vessel CABG. Upon completion of surgery the patient was transferred to the cardiovascular intensive care unit where he was recovered, monitored hemodynamically, and where he progressed to cardiac rehabilitation phase 1. He was extubated, all lines, tubes, and drips were discontinued when appropriate. He did experience acute blood loss anemia requiring transfusion of 1 unit packed red blood cells, postoperative atrial fibrillation requiring initiation of amiodarone, and postoperative DTs which resolved quickly. He was eventually was transferred to [facility] cardiac stepdown unit for further monitoring and rehabilitation. Repeat transthoracic echocardiogram demonstrated continued left ventricular dysfunction with ejection fraction 30-35%, and he was fitted for a LifeVest to be worn for 3 months. His oxygen was titrated down, he continued to work with physical and occupational therapy, he was tolerating oral diet, his pain was controlled, and he was ready to be discharged to home with [facility] care on postoperative day #7. He received written and verbal instruction regarding his medications, activity restrictions, signs and symptoms requiring physician notification, Life Vest instructions, and follow-up appointments. COMPLICATIONS: The patient experienced postoperative anemia, atrial fibrillation, and DTs, all treated accordingly. Patient Condition at Discharge: Stable Plan - Discharge Summary Discharge Rx Participant: Yes New Discharge Prescriptions: New Spironolactone [Aldactone] 25 mg PO DAILY #30 tab Aspirin 325 mg PO DAILY #30 tab Amiodarone [Cordarone] 200 mg PO BID #20 tab Atorvastatin [Lipitor] 80 mg PO DAILY #30 tab Metoprolol Tartrate [Lopressor] 12.5 mg PO BID #60 tab Melatonin 6 mg PO HS PRN tablet PRN Reason: Insomnia Clopidogrel [Plavix] 75 mg PO DAILY #30 tab Midodrine [ProAmatine] 5 mg PO AC-BID #60 tab Pantoprazole [Protonix] 40 mg PO AC-BRKFST #30 tablet.dr Price-Docusate Sodium [Senokot-S] 2 each PO HS PRN tab PRN Reason: Constipation Acetaminophen Tab [Tylenol] 1,000 mg PO Q6HR PRN tab PRN Reason: Fever And/ Or Pain Lisinopril [Zestril] 2.5 mg PO BID #30 tab Ipratropium-Albuterol Nebulize [Duoneb 0.5 mg-3 mg/3 ml Soln] 3 ml INHALATION RT-QID #120 ml Continue Albuterol Sulfate [Ventolin HFA] 2 puff INHALATION RT-Q4H PRN PRN Reason: Shortness Of Breath Cholecalciferol [Vitamin D3 (25 Mcg = 1000 Iu)] 2,000 unit PO DAILY Vits A,C,E/Lutein/Minerals [Vision Formula with Lutein Tab] 1 tab PO DAILY Discontinued Lisinopril [Zestril] 10 mg PO DAILY Atorvastatin [Lipitor] 20 mg PO HS Discharge Medication List Albuterol Sulfate [Ventolin HFA] 2 puff INHALATION RT-Q4H PRN 05/20/19 [History] Cholecalciferol [Vitamin D3 (25 Mcg = 1000 Iu)] 2,000 unit PO DAILY 05/20/19 [History] Vits A,C,E/Lutein/Minerals [Vision Formula with Lutein Tab] 1 tab PO DAILY 05/20/19 [History] Acetaminophen Tab [Tylenol] 1,000 mg PO Q6HR PRN tab 05/28/19 [Rx] Amiodarone [Cordarone] 200 mg PO BID #20 tab 05/28/19 [Rx] Aspirin 325 mg PO DAILY #30 tab 05/28/19 [Rx] Atorvastatin [Lipitor] 80 mg PO DAILY #30 tab 05/28/19 [Rx] Clopidogrel [Plavix] 75 mg PO DAILY #30 tab 05/28/19 [Rx] Ipratropium-Albuterol Nebulize [Duoneb 0.5 mg-3 mg/3 ml Soln] 3 ml INHALATION RT-QID #120 ml 05/28/19 [Rx] Lisinopril [Zestril] 2.5 mg PO BID #30 tab 05/28/19 [Rx] Melatonin 6 mg PO HS PRN tablet 05/28/19 [Rx] Metoprolol Tartrate [Lopressor] 12.5 mg PO BID #60 tab 05/28/19 [Rx] Midodrine [ProAmatine] 5 mg PO AC-BID #60 tab 05/28/19 [Rx] Pantoprazole [Protonix] 40 mg PO AC-BRKFST #30 tablet. 05/28/19 [Rx] Sennosides-Docusate Sodium [Senokot-S] 2 each PO HS PRN tab 05/28/19 [Rx] Spironolactone [Aldactone] 25 mg PO DAILY #30 tab 05/28/19 [Rx] Follow up Appointment(s)/Referral(s): Jeanna Corona NPC [Nurse Practitioner] - 06/03/19 10:15 am (Monday) Tavia Lux MD [STAFF PHYSICIAN] - 06/05/19 4:00 pm (Monday) [facility] PH,Cardiac [NON-STAFF] - 4 Weeks (You will receive a phone call in approximately 4-6 weeks to set up evaluation for cardiac rehab) Radhika Kim MD [STAFF PHYSICIAN] - 06/21/19 10:15 am (Monday) Dane Baxter MD [Primary Care Provider] - 06/24/19 8:20 am (Monday) [facility], [NON-STAFF] - 1-2 Days Jairon Ellis MD [STAFF PHYSICIAN] - 06/14/19 9:45 am (Monday) Ambulatory/Diagnostic Orders: Complete Blood Count w/diff [LAB.AMB] Time Frame: 3 Days, Location: None Selected Comprehensive Metabolic Panel [LAB.AMB] Time Frame: 3 Days, Location: None Selected Patient Instructions/Handouts: Sternal Precautions (GEN), CABG (Coronary Artery Bypass Graft) (DC), Wearable Cardioverter Defibrillator (DC) Activity/Diet/Wound Care/Special Instructions: DISCHARGE INSTRUCTIONS: 1. No driving for 4 weeks, or until physician gives their ok. 2. The patient should sleep in their own bed, no medical bed needed. 3. Stairs are not an issue. If the bedroom is upstairs, it is advised that the patient go up at night and down in the morning for the first week. Go slowly, using handrail and take 1 step at a time. 4. JESSICA hose are to be worn for 30 days or until physician discontinues. 5. Heart hugger is to be worn 100% of the time until physician discontinues.(except when showering) 6. No lifting, pushing, or pulling more than 10 pounds for 12 weeks. The physician will advise of any restriction changes. 7. The patient is expected to continue the prescribed walking program. 8. Continue pain control per as needed orders. 9. Continue with incentive spirometry and splinting/heart hugger until otherwise directed by the physician. 10. Must shower daily using liquid antibacterial soap and a separate white washcloth for each individual incision. 11. Routine sternal incision care. No powders, lotions, ointments on incisions. No dressings are necessary on incisions unless they are draining. Dermabond tape is to remain on sternal incision until surgeon follow-up. 12. Please call surgeon/TELEPHONIC NURSE for temp greater than 101 F or purulent drainage from incisions. 13. All prescriptions given by surgeon for 30 days. Refills need to be filled through controller mechanic/primary care physician. 14. A Red armband has been placed on the patient. It should be worn for 30 days post surgery and will be removed by the cardiac surgeons. If an ER visit is necessary, please make sure the number on the Red armband is called. 15. You have been referred to and are expected to begin Cardiac Rehab in approximately 4-6 weeks. HOME HEALTH SERVICES TO PROVIDE: RN SKILLED HOME CARE SERVICES FOR POST-OP SURGICAL PATIENTS WITH THE FOLLOWING: Coronary Artery Bypass Surgery (CABG), Mitral Valve Replacement/Repair ( MVR), Aortic Valve Replacement/Repair (AVR) RN TO CONTINUE EDUCATION FROM ``ROAD TO A HEALTH HEART PATIENT EDUCATION MANUAL (GIVEN TO PATIENT IN THE HOSPITAL) MEDICATION RECONCILIATION WITH EDUCATION NEEDED ON FIRST HOME VISIT EMPHASIZE IMPORTANCE OF WEARING BREAST SUPPORT/HEART HUGGER ENCOURAGE USE OF INCENTIVE SPIROMETER 10 X EVERY HOUR WHILE AWAKE ENCOURAGE UTILIZATION OF LOWER EXTREMITY COMPRESSION STOCKINGS/JESSICA HOSE and ELEVATE LEGS ABOVE LEVEL OF HEART WHILE AT REST. ENCOURAGE AMBULATION 3-5x/day INCREASING TOLERATES, WHILE AVOIDING EXTREMES IN TEMPERATURE FREQUENCY: RN TO OPEN THE PATIENT WITHIN 24 HOURS OF DISCHARGE FROM THE HOSPITAL WITH TELEHEALTH INSTALLED AT [facility] – [place], [place], RN TO VISIT 2-3 X A WEEK FOR 4 WEEKS ESTABLISHED BY PATIENT NEEDS. LABORATORY: CBC, CMP TO BE DRAWN ON THE THIRD DAY HOME, (RAN STAT) FAX RESULTS TO [phone]. TELEHEALTH PARAMETERS: WEIGHT: NOTIFY MD OF WEIGHT GAIN OF 2 LBS IN 24 HOURS OR 5 LBS IN ONE WEEK HR: NOTIFY MD OF HR <55 BPM OR HR>100 BPM BP: NOTIFY MD IF BP <90/55 OR BP>140/100 O2 SAT: NOTIFY MD IF PO2<93% ON ROOM AIR SEND TELEHEALTH REPORT TO SITE IDENTIFICATION SPECIALIST AND CARDIOVASCULAR SURGEON THE FIRST WEEK OF CARE AND THEN BI-WEEKLY. PLEASE ADDITIONALLY COMMUNICATE ANY ABNORMALS AND NEW FINDINGS TO THE SURGEONS OFFICE. For any questions or concerns please call inspector Jeanna @ or Phil @ Discharge Disposition: HOME WITH HOME HEALTH SERVICES
[2019-05-28 12:11] VITALS: RESP 18; TEMP 98.2
[2019-05-28 12:14] LABS: Glucose,Whole Blood 87 mg/dL (75-99)
[2019-05-28 12:33] VITALS: PULSE 66
--- NOTE | 2019-05-28 14:53 | P.PN ---
Subjective Progress Note Date: 05/28/19 Patient was seen and examined on the cardiac unit, postoperative day 7 status post four-vessel bypass grafting. He's been up ambulating in the hallway overall doing well. Hemodynamically he is been stable. Blood pressure 108/60 with a heart rate in the 60s, 98% on room air. White blood cell count 12.3, hemoglobin 8.3, platelet count 224. Sodium 137, potassium 4.6, BUN 27 and creatinine 0.9. Objective - Vital Signs Vital signs: Vital Signs Temp 98.2 F 05/28/19 12:00 Pulse 66 05/28/19 12:33 Resp 18 05/28/19 12:00 BP 107/61 05/28/19 08:50 Pulse Ox 92 L 05/28/19 12:00 Intake & Output 05/27/19 05/28/19 05/28/19 18:59 06:59 18:59 Intake Total 400 365 Output Total 475 150 Balance -75 -150 365 Weight 106.2 kg Intake: Oral 400 365 Output: Urine 475 150 Other: Voiding Method Urinal Urinal Urinal ABP, PAP, CO, CI - Last Documented Arterial Blood Pressure 113/66 Pulmonary Artery Pressure 32/18 Cardiac Output 8.4 Cardiac Index 3.8 - Exam HEAD: Normocephalic/atraumatic. EYES: Normal reaction of pupils, equal size. Conjunctiva pink, sclera white. NOSE: Clear with pink turbinates. THROAT: No erythema or exudates. NECK: No masses, no JVD, no thyroid enlargement, no adenopathy. CHEST: No chest wall deformity. Symmetrical expansion. Midsternal incision is clean dry and intact, interval removal of mediastinal and left pleural chest tube, sites are clean dry and intact, a set of atrial epicardial wires grounded at this time LUNGS: Equal air entry with no crackles, wheeze, rhonchi or dullness. CVS: Regular rate and rhythm, normal S1 and S2, no gallops, no murmurs, no rubs ABDOMEN: Soft, nontender. No hepatosplenomegaly, normal bowel sounds, no guarding or rigidity. EXTREMITIES: No clubbing, no edema, no cyanosis, 2+ pulses and upper and lower extremities. MUSCULOSKELETAL: Muscle strength and tone normal. SPINE: No scoliosis or deformity SKIN: No rashes, bilateral saphenous graft site incisions clean dry and intact on lower extremities CENTRAL NERVOUS SYSTEM: Alert and oriented -3. No focal deficits, tone is normal in all 4 extremities. PSYCHIATRIC: Alert and oriented -3. Appropriate affect. Intact judgment and insight. - Labs CBC & Chem 7: 05/28/19 06:20 05/28/19 06:20 Labs: Abnormal Lab Results - Last 24 Hours (Table) 05/28/19 05/28/19 Range/Units 06:20 06:20 WBC 12.3 H (3.8-10.6) k/uL RBC 2.70 L (4.30-5.90) m/uL Hgb 8.3 L (13.0-17.5) gm/dL Hct 25.9 L (39.0-53.0) % BUN 27 H (9-20) mg/dL Calcium 8.3 L (8.4-10.2) mg/dL Assessment and Plan Plan: Assessment and plan: 1. Severe triple-vessel coronary artery disease with significant left main disease, status post four-vessel CABG, currently postop day #7. 2. Non-STEMI this admission 3. Hypertension 4. Hyperlipidemia 5. Current chronic tobacco dependence 6. Daily EtOH use 7. Postoperative acute blood loss anemia 8 Paroxysmal atrial fibrillation and the patient went into sinus rhythm 9 hypotension, resolved 10 ischemic cardiomyopathy with an ejection fraction of 35% 11 COPD Plan We will increase the dose of metoprolol to 25 mg one tablet by mouth twice a day and discontinue the midodrine. Follow-up appointment with Dr. Lux in the [facility] post discharge. DNP note has been reviewed, I agree with a documented findings and plan of care. Patient was seen and examined.
[2019-05-28] MEDS ORDERED: METOPROLOL TARTRATE 25 MG TAB PO SCH (21:00)
--- NOTE | 2019-05-29 10:49 | CDI ---
Documentation Clarification Form Date: 05/29/19 From: Mirna Alejo CCS Phone: If you have a question about this query, please contact Ileana Michelle, Forestry Faculty Member at [phone] between 8am and 5pm. Admit Date: 05/20/19 Discharge Date:05/28/19 Patient Name: Brock Ansari Visit Number: [id number] ATTENTION: The Clinical Documentation Specialists (CDI) and [facility] Coding Staff appreciate your assistance in clarifying documentation. Please respond to the clarification below the line at the bottom and electronically sign. The CDI & [facility] Coding staff will review the response and follow-up if needed. Please note: Queries are made part of the Legal Health Record. If you have any questions, please contact the author of this message via ITS. Dear Dr. Kim, CHF is documented in the ED, Consult, H&P. Discharge Summary documents BNP was elevated and his chest x-ray demonstrated COPD as well as central vascular congestion and pleural effusions, indicating acute heart failure. History/Risk Factors: CAD, HTN, NE, Smoking, ETOH, ICM Clinical Indicators: Bilateral pleural effusions, Pulmonary edema, Fluid overload VS/Pulse OX: BP 93/70, RR 12, NM 76, O2 Sat 97 BNP: 3420 Echocardiogram Results: Overall left ventricular systolic function is severely impaired with, an EF between 25 - 30 % Chest X Ray: Background [id number] emphysematous change with central vascular congestion and small right greater than left pleural effusions along with mild interstitial edema.Suspected fluid overload state.Correlate clinically. Treatment: Lasix 20 mg IV In your professional opinion, can you please clarify the type of acute CHF if known? Systolic Heart Failure: Acute Chronic Acute on Chronic Diastolic Heart Failure: Acute Chronic Acute on Chronic Systolic & Diastolic Heart Failure: Acute Chronic Acute on Chronic Heart Failure Unable to Determine Other, please specify Querry should be directed to patient's armorer technician BOB
--- NOTE | 2019-06-03 11:27 | CDI ---
Documentation Clarification Form Date: 06/03/19 From: Mirna Alejo CCS Phone: If you have a question about this query, please contact Ileana Michelle, Missile Facilities Repairer at [phone] between 8am and 5pm. Admit Date: 05/20/19 Discharge Date:05/28/19 Patient Name: Brock Ansari Visit Number: [id number] ATTENTION: The Clinical Documentation Specialists (CDI) and [facility] Coding Staff appreciate your assistance in clarifying documentation. Please respond to the clarification below the line at the bottom and electronically sign. The CDI & [facility] Coding staff will review the response and follow-up if needed. Please note: Queries are made part of the Legal Health Record. If you have any questions, please contact the author of this message via ITS. Dear Dr. Lux, CHF is documented in the ED, Consult, H&P. Discharge Summary documents BNP was elevated and his chest x-ray demonstrated COPD as well as central vascular congestion and pleural effusions, indicating acute heart failure. History/Risk Factors: CAD, HTN, PA, Smoking, ETOH, ICM Clinical Indicators: Bilateral pleural effusions, Pulmonary edema, Fluid overload VS/Pulse OX: BP 93/70, RR 12, TX 76, O2 Sat 97 BNP: 3420 Echocardiogram Results: Overall left ventricular systolic function is severely impaired with, an EF between 25 - 30 % Chest X Ray: Background [id number] emphysematous change with central vascular congestion and small right greater than left pleural effusions along with mild interstitial edema.Suspected fluid overload state.Correlate clinically. Treatment: Lasix 20 mg IV In your professional opinion, can you please clarify the type of acute CHF if known? Acute Systolic Heart Failure xxx Acute Diastolic Heart Failure Acute Diastolic/Systolic Heart Failure Acute on Chronic Systolic Heart Failure Acute on Chronic Diastolic Heart Failure Acute on Chronic Diastolic/Systolic Heart Failure Unable to Determine Other, please specify MTDD
== END 2019-05-28 14:23 | disposition home health service (06) | DRG 233 ==
LOC: EC 11:21 → 3SCARD 12:58 → 2SICU 15:11 → 3SCARD 05-28 02:55
PROVIDERS: ADMIT Surgery; ATTEND Surgery
PROC: 5A02210 Assistance with Cardiac Output using Balloon Pump, Continuous (ICD-10-PCS; 2019-05-20 18:35)
PROC: 4A023N7 Measurement of Cardiac Sampling and Pressure, Left Heart, Percutaneous Approach (ICD-10-PCS; 2019-05-20 18:35)
PROC: B2111ZZ Fluoroscopy of Multiple Coronary Arteries using Low Osmolar Contrast (ICD-10-PCS; 2019-05-20 18:35)
PROC: 02L70CK Occlusion of Left Atrial Appendage with Extraluminal Device, Open Approach (ICD-10-PCS; principal; 2019-05-21 08:00)
PROC: 06BQ4ZZ Excision of Left Saphenous Vein, Percutaneous Endoscopic Approach (ICD-10-PCS; principal; 2019-05-21 08:00)
PROC: 021209W Bypass Coronary Artery, Three Arteries from Aorta with Autologous Venous Tissue, Open Approach (ICD-10-PCS; principal; 2019-05-21 08:00)
PROC: 02100Z9 Bypass Coronary Artery, One Artery from Left Internal Mammary, Open Approach (ICD-10-PCS; principal; 2019-05-21 08:00)
PROC: 5A1221Z Performance of Cardiac Output, Continuous (ICD-10-PCS; principal; 2019-05-21 08:00)
PROC: 30233N1 Transfusion of Nonautologous Red Blood Cells into Peripheral Vein, Percutaneous Approach (ICD-10-PCS; 2019-05-23)
DX: I21.4 Non-ST elevation (NSTEMI) myocardial infarction (principal); I50.21 Acute systolic (congestive) heart failure; D62 Acute posthemorrhagic anemia; F10.231 Alcohol dependence with withdrawal delirium; F05 Delirium due to known physiological condition; D69.6 Thrombocytopenia, unspecified; I71.2 Thoracic aortic aneurysm, without rupture; I11.0 Hypertensive heart disease with heart failure; E78.5 Hyperlipidemia, unspecified; F17.210 Nicotine dependence, cigarettes, uncomplicated; I25.10 Atherosclerotic heart disease of native coronary artery without angina pectoris; M19.042 Primary osteoarthritis, left hand; M19.041 Primary osteoarthritis, right hand; I71.4 Abdominal aortic aneurysm, without rupture; I34.0 Nonrheumatic mitral (valve) insufficiency; J43.9 Emphysema, unspecified; R59.0 Localized enlarged lymph nodes; E86.1 Hypovolemia; I25.5 Ischemic cardiomyopathy; H35.30 Unspecified macular degeneration; D72.829 Elevated white blood cell count, unspecified; I48.0 Paroxysmal atrial fibrillation; R73.9 Hyperglycemia, unspecified; F41.9 Anxiety disorder, unspecified; I25.2 Old myocardial infarction; Z71.3 Dietary counseling and surveillance; Z79.899 Other long term (current) drug therapy; Z90.49 Acquired absence of other specified parts of digestive tract; Z87.01 Personal history of pneumonia (recurrent); Z86.010 Personal history of colon polyps; Z98.890 Other specified postprocedural states; Z83.3 Family history of diabetes mellitus; Z80.1 Family history of malignant neoplasm of trachea, bronchus and lung
CPT/HCPCS: 33967; 36415; 71045; 71046; 71275; 80048; 80053; 80061; 80074; 81001; 82330; 82805; 83036; 83735; 83880; 84443; 84484; 85025; 85027; 85520; 85610; 85730; 86803; 86850; 86891; 86900; 86901; 86920; 87070; 93005; 93306; 93458; 93880; 93970; 94002; 94003; 94640; 96361; 96365; 96375; 96376; 99291

== ENCOUNTER → 2021-12-16 | Outpatient (CLI) | payer MEDICARE ==
[2021-12-16 11:05] LABS: Partial Thromboplastin Time 25.2 sec (22.0-30.0); Prothrombin Time 11.1 sec (9.0-12.0)
[2021-12-16 14:28] LABS: African American GFR (CKD) 92.1 (60.0-200.0); Albumin 4.1 g/dL (3.8-4.9); Albumin/Globulin Ratio 1.29 (1.60-3.17); Anion Gap 11.4 mmol/L (10.00-18.00); BUN/Creat Ratio 22.64 Ratio (12.00-20.00); Blood Urea Nitrogen 21.3 mg/dL (9.0-27.0); Carbon Dioxide 22.4 mmol/L (20.0-27.5); Globulin 3.2 g/dL (1.6-3.3); Non-African American GFR(CKD) 79.5 (60.0-200.0); Potassium 4.2 mmol/L (3.5-5.5); Total Bilirubin 0.4 mg/dL (0.30-1.20); Total Protein 7.2 g/dL (6.2-8.2)
[2021-12-16 14:46] LABS: HCT 41.9 % (39.6-50.0); HGB 13.6 g/dL (13.0-17.0); MCH 29.7 pg (27.0-32.0); MCHC 32.5 g/dL (32.0-37.0); MCV 91.5 fL (80.0-97.0); Mean Platelet Volume 11.8 fL (9.5-12.2); NRBC Per 100 WBC 0 /100 WBCS (0.0-0.0); Platelet Count 154 X 10*3/uL (140-440); RBC 4.58 X 10*6/uL (4.40-5.60); RDW 14.6 % (11.5-14.5); WBC 7.22 X 10*3/uL (4.50-10.00)
== END | disposition home or self-care (01) ==
LOC: LABPAT 10:22
PROVIDERS: ATTEND Orthopaedic Surgery
DX: Z01.812 Encounter for preprocedural laboratory examination (principal); M16.11 Unilateral primary osteoarthritis, right hip
CPT/HCPCS: 80053; 85027; 85610; 85730; 87070

== ENCOUNTER 2021-12-22 12:10 | Day surgery (SDC) | payer MEDICARE ==
[~2021-12-22 12:10] MED LIST: ACETAMINOPHEN TAB 500 MG TAB PO PRN; DEXAMETHASONE SOD PHOSPHATE 10 MG/ML 1 ML VIAL IV PRN; DEXAMETHASONE SOD PHOSPHATE 4 MG/ML 1 ML VIAL IV ONE; DOCUSATE 100 MG CAP PO PRN; FAMOTIDINE 20 MG/2 ML VIAL IVP PRN; HYDROmorphone 0.5 MG/0.5 ML SYRINGE IVP PRN; KETOROLAC 15 MG/ML 1 ML VIAL IVP PRN; LIDOCAINE 1% (10MG/ML) FOR IV START INTRADERMA PRN; MIDAZOLAM 2 MG/2 ML VIAL IV PRN; ONDANSETRON 4 MG/2 ML VIAL IVP ONE; ONDANSETRON 4 MG/2 ML VIAL IVP PRN; ROPIVACAINE 246.25 MG, EPINEPHrine 0.5 MG, KETOROLAC (30 mg/mL) 30 MG, cloNIDine HCL/PF... MISCELLANE PRN; TRANEXAMIC ACID IN NACL,ISO-OS 1,000 MG in SALINE 1 100ML.BAG IVPB PRN; oxyCODONE ER 10 MG TAB.ER.12H PO PRN
[2021-12-22] MEDS: LACTATED RINGERS 1,000 ML IV SCH ×2 (12:52→17:14)
[2021-12-22] MEDS ORDERED: MIDAZOLAM 2 MG/2 ML VIAL IV ONE (13:09)
[2021-12-22] MEDS ORDERED: fentaNYL (PF) 50 MCG/ML 2 ML AMP IV ONE (13:09)
[2021-12-22] MEDS ORDERED: NEOSTIGMINE 1 MG/ML 10 ML VIAL ONE (13:46)
[2021-12-22] MEDS ORDERED: fentaNYL (PF) 50 MCG/ML 2 ML AMP ONE (13:46)
[2021-12-22] MEDS ORDERED: ROPIVACAINE 5 MG/ML 30 ML VIAL ONE (13:46)
[2021-12-22] MEDS ORDERED: SODIUM CHLORIDE 0.9% (PF) 10 ML VIAL ONE (13:46)
[2021-12-22] MEDS ORDERED: ePHEDrine 50 MG/ML 1 ML VIAL ONE (13:46)
[2021-12-22] MEDS ORDERED: LIDOCAINE 2% INJ 20 MG/ML (2 ML VIAL) ONE (13:46)
[2021-12-22] MEDS ORDERED: ROCURONIUM 10 MG/ML (5 ML VIAL) IV ONE (13:46)
[2021-12-22] MEDS ORDERED: PROPOFOL 10 MG/ML 20 ML VIAL IV ONE (13:46)
[2021-12-22] MEDS ORDERED: SUCCINYLCHOLINE CHLORIDE 200 MG/10 ML VIAL IV ONE (13:46)
[2021-12-22] MEDS ORDERED: MIDAZOLAM 2 MG/2 ML VIAL ONE (13:46)
[2021-12-22] MEDS ORDERED: GLYCOPYRROLATE 0.2 MG/ML 2 ML VIAL ONE (13:46)
[2021-12-22] MEDS ORDERED: HYDROmorphone (PF) 1 MG/ML ONE (13:46)
[2021-12-22] MEDS ORDERED: TRANEXAMIC ACID IN NACL,ISO-OS 1,000 MG/100 ML BAG ONE (13:46)
[2021-12-22] MEDS ORDERED: LACTATED RINGERS 1,000 ML IV ONE (15:46)
--- NOTE | 2021-12-22 15:46 | FL ---
EXAMINATION TYPE: FL guidance operating room, XR Hip Limited RT DATE OF EXAM: 12/22/2021 CLINICAL HISTORY: Right hip pain and osteoarthritis. TECHNIQUE: Fluoroscopy. Limited intraoperative views right hip. COMPARISON: None. FINDINGS: Fluoroscopic guidance was provided during total right hip replacement procedure performed by Dr. Bishop. A total of 28 seconds of fluoroscopic time was utilized during the procedure and 6 spot images was acquired. Intraoperative images acquired show eventual placement of metallic hardware from total right hip arth roplasty which is satisfactory in position on frontal projection. IMPRESSION: As Above.
[2021-12-22] MEDS ORDERED: hydrOXYzine pamoate 25 MG CAP PO PRN (15:58)
[2021-12-22] MEDS ORDERED: NALOXONE 0.4 MG/ML 1 ML VIAL IV PRN (15:58)
[2021-12-22] MEDS ORDERED: HYDROmorphone 0.5 MG/0.5 ML SYRINGE IVP PRN ×3 (15:58)
[2021-12-22] MEDS ORDERED: ONDANSETRON 4 MG/2 ML VIAL IVP PRN (15:58)
[2021-12-22] MEDS ORDERED: HYDROcodone/APAP 5-325MG 1 EACH TAB PO PRN (15:58)
[2021-12-22] MEDS ORDERED: IV FLUID CONTINUATION 1,000 ML IV ONE ×2 (16:05)
--- NOTE | 2021-12-22 16:05 | P.OP ---
Date of Procedure: 12/22/21 Preoperative Diagnosis: 1. Severe right hip osteoarthritis 2. Coronary artery disease status post open heart surgery Postoperative Diagnosis: Same Procedure(s) Performed: Right direct anterior total hip arthroplasty Implants: 1. [place] Trident II Acetabular Cup, Size #56 2. Niko Insignia Size # 7 Femoral Stem, High Offset 3. Biolox delta femoral head, 40mm, - 2.5 neck Anesthesia: KAREN Surgeon: Cj Bishop Butter Melter #1: Mary Carmen Wright Estimated Blood Loss (ml): 200 IV fluids (ml): 1,000 Pathology: none sent Condition: stable Disposition: PACU Indications for Procedure: I had a long discussion with the patient in the office on the potential risks and complications of an elective total hip replacement through a direct anterior approach. Risks discussed include, but are certainly not limited to, risks from anesthesia, superficial infection requiring local wound care or antibiotics, deep katherin-prosthetic joint infection and the treatment required to eradicate infection, intraoperative fracture, postoperative periprosthetic fracture, damage to local blood vessels or nerves particularly the lateral femoral cutaneous nerve, delayed wound healing requiring local wound care or possibly surgical debridement, hip dislocation, leg length discrepancy, soft tissue irritation around the total hip implant such as iliopsoas tendinitis or trochanteric bursitis, wear and osteolysis from the implants, squeaking or audible noises, groin pain, thigh pain, heterotopic ossification, stiffness, aseptic loosening of the implants, dissatisfaction with surgical outcome, need for revision surgery, DVT, PE, swelling of the operative extremity, acute coronary event, stroke, failure to thrive, and possibly loss of life or limb. The patient understands that while these are the most common complications after an elective hip replacement there are certainly other less common complications possible. They were given ample time to ask questions regarding the potential complications of a hip replacement. Following our discussion the patient provided their verbal and written consent to go forward with an elective total hip replacement. Operative Findings: Severe right hip posterior arthritis Description of Procedure: The patient was identified in the preoperative holding area and the correct hip was marked with my initials. I reviewed the procedure and consent with the patient. All of their questions were answered. The patient was then brought back into the operating room by anesthesia. While on the [facility] anesthesia was administered by the anesthesia team. Preoperative antibiotics and tranexamic acid were also given. After the patient was under anesthesia I examined their ankles to determine their preoperative leg length discrepancy. The skin over the anterior aspect of the hip was shaved to remove hair over the site of planned incision. Both feet and ankles were padded with webril and boots for the [place] were applied. The patient was then carefully transferred onto the [place] table. A perineal post was immediately placed. The arms were placed on arm holders and were well-padded. Both boots were secured to the spars on the [place] table. The patient was positioned so that the pelvis was centered over the post. Nonsterile drapes were applied. A timeout was performed identifying the correct patient, operative extremity, and procedure. At this point fluoroscopy was brought in to take preoperative images of the pelvis and operative hip. Using the standing AP pelvis from the office as a template, a comparable image was obtained with fluoroscopy. A metallic bar was used to create a bi-ischial line for use as a reference to leg length adjustments during the procedure. Global offset was also measured on both the operative and nonoperative leg. Fluoroscopy was then brought out and a pre-scrub using a chlorhexidine scrub brush was performed. The operative limb was then prepped and draped in the standard sterile fashion. An anterior longitudinal incision was made lateral and distal to the ASIS. The skin and subcutaneous tissues were incised sharply. The underlying tensor fascia was identified and incised in its midportion. The fascia was dissected free from the underlying muscle and the muscle belly was retracted. A blunt tipped cobra retractor was placed over the superior neck under the muscle fibers of the gluteus minimus. The deep enveloping fascia of the tensor was incised. The anterior leash of vessels were then identified and cauterized. The fascia between the rectus and the capsule was then incised and the pre-capsular fat was excised. A second Cobra was placed inferior to the neck. The interval between the rectus and iliocapsularis and the hip capsule was developed and a retractor was placed carefully over the anterior rim of the acetabulum. A T-shaped anterior capsulotomy was performed. The superior capsular leaflet was left in place in the inferior capsular flap was excised. The Cobra retractors were placed intracapsularly. We then made a femoral neck osteotomy according to preoperative and intraoperative templating and confirmed the level of the o steotomy using fluoroscopic imaging. The femoral head was removed, passed off to the back table, and sized. The superior capsular flap was excised. Retractors were placed circumferentially exposing the acetabulum. We then circumferentially debrided the acetabulum free of labrum and osteophytes. The pulvinar was removed to fully visualize the cotyloid fossa. We then sequentially reamed to achieve peripheral fit and excellent bleeding subchondral bone. The socket was thoroughly irrigated. The acetabular component was impacted into the appropriate position using fluoroscopy to guide version, inclination, and depth of insertion taking care to have a comparable image of the AP pelvis to the standing image taken in the office. An excellent press-fit was achieved and final position was confirmed using fluoroscopy. The press fit was augmented with bony cancellus dome screws. The liner was then impacted into the socket. Attention was then turned to the femur. The remnant dorsal lateral capsule was excised. The short external rotators were visible and protected. A bone hook was used to confirm appropriate translation of the trochanter away from the acetabulum. The leg was then extended and adducted and the bone hook was used to elevate the femur for broaching. A box osteotome and blunt tipped canal sound was then utilized to gain access to the femoral canal. We then seq uentially broached the femur in appropriate anteversion until excellent torsional stability was achieved. The neck cut was brought flush to the trial broach with a calcar planar. A trial neck and head were then placed onto the broach and the hip was atraumatically reduced under direct visualization. External rotation to 90 was performed to assess stability. Fluoroscopy was brought in. An AP and lateral fluoroscopic image of the proximal femur was obtained to assess position and fill of the trial broach. An AP of the pelvis was then obtained and matched to the preoperative image taken. A bi-ischial bar was then placed and measurements were taken to assess changes in length and offset. The hip was then carefully dislocated, the proximal femur was exposed, and the trial implants were removed. The wound and proximal femur was thoroughly irrigated using sterile saline and pulsatile lavage. The final femoral implant was dispensed and gently tapped into place generating an excellent press-fit. The trunnion was cleansed and the final head was tapped into place to engage the [place] taper. The acetabulum was irrigated and visualized to be free of debris. The hip was carefully reduced. Stability was checked clinically with external rotation to 90 and there was no evidence of instability. Final fluoroscopic images were taken. The wound was then thoroughly irrigated and soaked with a dilute Betadine rinse for 3 minutes. 3 L of sterile saline was irrigated through the wound using pulsatile lavage. Local anesthetic cocktail was injected into the soft tissues around the surgical field. A sterile dressing was placed over the surgical incision. The drapes were taken down and the patient was carefully transferred off of the [place] table. Following removal of the boots the leg lengths felt acceptable. The patient was then taken to recovery room having tolerated the procedure well. Mary Carmen Wright PA-C was required as a skilled store administrative assistant for patient positioning, surgical exposure, retraction, placement of implants, and closure of the surgical wound. PLAN: The patient can weight-bear as tolerated on the operative extremity. 2 doses of postoperative antibiotics. DVT prophylaxis with aspirin 81 mg twice a day based on preoperative risk stratification. Physical therapy for gait training.
[2021-12-22] MEDS ORDERED: SENNOSIDES-DOCUSATE SODIUM 1 EACH TAB PO SCH (21:00)
--- NOTE | 2021-12-22 21:51 | P.ANPRN ---
Procedure Note - Anesthesia - Nerve Block Performed Right Erector Spinae Time Out Performed: Yes (13:08) Date of Procedure: 12/22/21 Procedure Start Time: : Procedure Stop Time: :14 Location of Patient: PreOp Indication: Acute Post-Operative Pain, Requested by Surgeon (Dr Bishop) Sedation Type: Sedate with meaningful contact maintained Preparation: Sterile Prep Position: Prone Catheter: None Needle Types: Pajunk Needle Gauge: 21 Ultrasound used to visualize needle placement: Yes Ultrasound used to observe medication spread: Yes Injectate: 0.5% Ropivacaine (see comment for volume) (15cc +10cc PF Normal saline) Blood Aspirated: No Pain Paresthesia on Injection Noted: No Resistance on Injection: Normal Image Stored and Saved: Yes Events: Uneventful and Well Tolerated
[2021-12-22] MEDS: ASPIRIN 81 MG PO SCH (21:53)
[2021-12-23 03:50] VITALS: RESP 16
[2021-12-23] MEDS: HYDROcodone/APAP 5-325MG 1 EACH TAB PO PRN ×2 (04:06→13:29)
[2021-12-23] MEDS: LACTATED RINGERS 1,000 ML IV SCH ×2 (04:07→06:33)
[2021-12-23 07:33] VITALS: BP 104/54; PULSE 87; TEMP 98
--- NOTE | 2021-12-23 08:18 | P.DS ---
Providers Expected date of discharge: 12/23/21 Attending physician: Cj Bishop Consults: 12/22/21 15:58 Consult Physician Routine Consulting Provider: Karen Knott Consult Reason/Comments: medical management Do you want consulting provider notified?: Yes Primary care physician: Dane Baxter [facility] Course: This is a 76-year-old male with known history of degenerative arthritis of the r ight hip. The patient presents for evaluation. After discussion and consideration patient elects to proceed with direct anterior right total hip arthroplasty. The patient is seen preoperatively by Dr. Baxter, Dr. Lux and cleared for surgery. Patient is admitted to [facility] on 12/22/21 for direct anterior right total hip arthroplasty. The procedures performed without complic ation or sequelae. The patient is doing well postoperatively. Labs and vital signs are stable on day of discharge. Patient is examined bedside this morning with Dr. Bishop. Patient states the pain in his right hip is minimal. He has ambulated to the bathroom with a walker with no issues. He is doing well with no complaints this morning. He is comfortable being discharged home today. On examination, the patient is sitting up in bed in no apparent distress. He is alert and oriented 3. On inspection of her right hip, there is a clean, dry, intact OpSite dressing in place with no bleeding or drainage through the dressing. There is mild swelling of the thigh, the thigh soft and compressible. Motor and sensory function is intact of the right lower extremity. Femoral nerve function intact. Right lower extremity were well perfused. Calf is soft and nontender. Patient is discharged to home with home health services in good condition, pending medical clearance. Please see med rec for accurate list of discharge medications. Patient was instructed to follow-up with Dr. Bishop in the office in 2 weeks. Plan - Discharge Summary Discharge Rx Participant: No New Discharge Prescriptions: New Docusate [Colace] 100 mg PO BID 30 Days #60 cap Aspirin 81 mg PO BID 30 Days #60 tab Docusate [Colace] 100 mg PO BID #60 capsule HYDROcodone/APAP 5-325MG [[place] 5-325] 1 - 2 tab PO Q6HR PRN 7 Days #32 tab PRN Reason: Pain Omeprazole 40 mg PO DAILY 30 Days #30 cap No Action Cholecalciferol [Vitamin D3 (25 Mcg = 1000 Iu)] 2,000 unit PO DAILY Vits A,C,E/Lutein/Minerals [Vision Formula with Lutein Tab] 1 tab PO DAILY Atorvastatin [Lipitor] 80 mg PO DAILY #30 tab Pantoprazole [Protonix] 40 mg PO AC-BRKFST #30 tablet. Acetaminophen Tab [Tylenol] 1,000 mg PO Q6HR PRN tab PRN Reason: Fever And/ Or Pain Aspirin 81 mg PO DAILY lisinopriL [Zestril] 2.5 mg PO DAILY Ezetimibe [Zetia] 10 mg PO DAILY Metoprolol Tartrate [Lopressor] 25 mg PO BID Discharge Medication List Cholecalciferol [Vitamin D3 (25 Mcg = 1000 Iu)] 2,000 unit PO DAILY 05/20/19 [History] Vits A,C,E/Lutein/Minerals [Vision Formula with Lutein Tab] 1 tab PO DAILY 05/20/19 [History] Acetaminophen Tab [Tylenol] 1,000 mg PO Q6HR PRN tab 05/28/19 [Rx] Atorvastatin [Lipitor] 80 mg PO DAILY #30 tab 05/28/19 [Rx] Pantoprazole [Protonix] 40 mg PO AC-BRKFST #30 tablet. 05/28/19 [Rx] Aspirin 81 mg PO DAILY 12/21/21 [History] Ezetimibe [Zetia] 10 mg PO DAILY 12/21/21 [History] Metoprolol Tartrate [Lopressor] 25 mg PO BID 12/21/21 [History] lisinopriL [Zestril] 2.5 mg PO DAILY 12/21/21 [History] Aspirin 81 mg PO BID 30 Days #60 tab 12/23/21 [Rx] Docusate [Colace] 100 mg PO BID #60 capsule 12/23/21 [Rx] Docusate [Colace] 100 mg PO BID 30 Days #60 cap 12/23/21 [Rx] HYDROcodone/APAP 5-325MG [[place] 5-325] 1 - 2 tab PO Q6HR PRN 7 Days #32 tab 12/23/21 [Rx] Omeprazole 40 mg PO DAILY 30 Days #30 cap 12/23/21 [Rx] Follow up Appointment(s)/Referral(s): Cj Bishop MD [Medical Doctor] - 2 Weeks Activity/Diet/Wound Care/Special Instructions: Weight bear to tolerance on operative hip with a walker. Keep operative dressing intact until follow-up appointment in the office. Call the office if dressing becomes saturated or falls off. May shower over dressing. Take pain medications as needed. Take aspirin 81mg BID x 4 weeks for blood clot prevention. Follow-up with Dr. Bishop in the office in two weeks. Call the office with any questions or concerns, Discharge Disposition: HOME WITH HOME HEALTH SERVICES
[2021-12-23 08:59] LABS: Basophils # (A) 0.02 X 10*3/uL (0.00-0.10); Basophils % (A) 0.1 %; Eosinophils # (A) 0 X 10*3/uL (0.04-0.35); Eosinophils % (A) 0 %; HCT 36.6 % (39.6-50.0); HGB 11.8 g/dL (13.0-17.0); Immature Grans, Automated 0.4 %; Lymphocytes # (A) 1.02 X 10*3/uL (0.90-5.00); Lymphocytes % (A) 7.2 %; MCHC 32.2 g/dL (32.0-37.0); MCV 93.1 fL (80.0-97.0); Mean Platelet Volume 11.8 fL (9.5-12.2); Monocytes # (A) 0.89 X 10*3/uL (0.20-1.00); Monocytes % (A) 6.3 %; NRBC Per 100 WBC 0 /100 WBCS (0.0-0.0); Neutrophils # (A) 12.23 X 10*3/uL (1.80-7.70); Platelet Count 141 X 10*3/uL (140-440); RBC 3.93 X 10*6/uL (4.40-5.60); RDW 14.4 % (11.5-14.5); WBC 14.21 X 10*3/uL (4.50-10.00)
[2021-12-23] MEDS: ASPIRIN 81 MG PO SCH (09:20)
[2021-12-23] MEDS ORDERED: ATORVASTATIN 80 MG TAB PO SCH (12:45)
[2021-12-23] MEDS ORDERED: EZETIMIBE 10 MG TAB PO SCH (12:45)
--- NOTE | 2021-12-23 12:48 | P.CON ---
Consult Note - . Consult date: 12/23/21 Assessment/Plan:: Reason for consultation; medical management History of present illness; Patient is a 76-year-old male with known history of degenerative arthritis of right hip who presented to the hospital for elective right total hip arthroplasty. Patient was having worsening right hip pain at home and was having trouble with his ADLs. Patient was seen by orthopedic in outpatient setting and they recommended right total hip arthroplasty. Postoperatively the medicine team was consulted for medical management. REVIEW OF SYSTEMS: CONSTITUTIONAL: No fever, no malaise, no fatigue. HEENT: No recent visual problems or hearing problems. Denied any sore throat. CARDIOVASCULAR: No chest pain, orthopnea, PND, no palpitations, no syncope. PULMONARY: No shortness of breath, no cough, no hemoptysis. GASTROINTESTINAL: No diarrhea, no nausea, no vomiting, no abdominal pain. NEUROLOGICAL: No headaches, no weakness, no numbness. HEMATOLOGICAL: Denies any bleeding or petechiae. GENITOURINARY: Denies any burning micturition, frequency, or urgency. MUSCULOSKELETAL/RHEUMATOLOGICAL: Complaining of right hip pain ENDOCRINE: Denies any polyuria or polydipsia. The rest of the 14-point review of systems is negative. PHYSICAL EXAMINATION: GENERAL: The patient is alert and oriented x3, not in any acute distress. Well developed, well nourished. HEENT: Pupils are round and equally reacting to light. EOMI. No scleral icterus. No conjunctival pallor. Normocephalic, atraumatic. No pharyngeal erythema. No thyromegaly. CARDIOVASCULAR: S1 and S2 present. No murmurs, rubs, or gallops. PULMONARY: Chest is clear to auscultation, no wheezing or crackles. ABDOMEN: Soft, nontender, nondistended, normoactive bowel sounds. No palpable organomegaly. EXTREMITIES: Right hip surgical incision seen, no erythema, no drainage NEUROLOGICAL: Gross neurological examination did not reveal any focal deficits. SKIN: No rashes. Assessment and plan Right hip osteoarthritis status post right total hip arthroplasty Hypertension Hyperlipidemia Plan; Continue post op pain management per orthopedic Continue DVT prophylaxis per orthopedic Resume home meds
[2021-12-23] MEDS ORDERED: METOPROLOL TARTRATE 25 MG TAB PO SCH (21:00)
[2021-12-24] MEDS ORDERED: PANTOPRAZOLE 40 MG TABLET PO SCH (07:30)
[2021-12-24] MEDS ORDERED: VIT A,C & E-LUTEIN-MINERALS 1 EACH TAB PO SCH (09:00)
== END 2021-12-23 13:34 | disposition home health service (06) ==
LOC: OR 12:10 → 4SSUR 15:46 → OR 12-23 13:34
PROVIDERS: ATTEND Orthopaedic Surgery
DX: M16.11 Unilateral primary osteoarthritis, right hip (principal); M25.751 Osteophyte, right hip; G89.18 Other acute postprocedural pain; I25.10 Atherosclerotic heart disease of native coronary artery without angina pectoris; I10 Essential (primary) hypertension; E78.5 Hyperlipidemia, unspecified; J44.9 Chronic obstructive pulmonary disease, unspecified; Z95.1 Presence of aortocoronary bypass graft; Z90.89 Acquired absence of other organs; Z87.891 Personal history of nicotine dependence; Z83.3 Family history of diabetes mellitus
CPT/HCPCS: 97161; 64999; 85025; 73501; 27130; C1776; J2250; J0171; J1100; J0690 ×2; J2405; J3010; J1885 ×2; J2795; J0735; 86850; 86900; 86901; 88300

== ENCOUNTER → 2022-02-21 | Outpatient (CLI) | payer MEDICARE ==
[2022-02-21 09:55] LABS: African American GFR (CKD) >90 (>60 ml/min/1.73 sqM); Blood Urea Nitrogen 20 mg/dL (9-20); Non-African American GFR(CKD) 78 (>60 ml/min/1.73 sqM)
--- NOTE | 2022-02-21 11:28 | CT ---
EXAMINATION TYPE: CT angio thor/abd pel aorta CT DLP: 2248.1 mGycm, Automated exposure control for dose reduction was used. DATE OF EXAM: 02/21/2022 10:31 AM COMPARISON: CT chest 05/19/2021 CLINICAL INDICATION:Male, 76 years old with history of I71.2 THORACIC AORTIC ANEURYSM, thoracic aorti c aneurysm TECHNIQUE: Dissection protocol: Multiple axial CT images of the chest, abdomen, and pelvis were obtai titi prior and to the administration of IV contrast. 3-D reformats and maximum intensity projection fo rmat were performed on a separate workstation. Contrast used:100 mL of Isovue 370 without and with IV Contrast, Oral contrast used: None FINDINGS: ARTERIAL VASCULATURE: No evidence for intramural hematoma on noncontrast imaging. There is scattered atherosclerosis throughout the arterial vasculature and including the coronary arteries. Ascending th oracic aorta dilation up to 45 mm . The major branches of the aortic arch are patent. The descending thoracic aorta is within normal limits for size. Saccular infrarenal aortic aneurysm measuring up to 3.1 cm. There is one left renal artery and 2 right renal arteries. The origins of the major vessels o f the abdominal aorta appear patent. PULMONARY ARTERIAL VASCULATURE: Normal caliber. No evidence of filling defect to suggest pulmonary em bolus. VENOUS SYSTEM: Unremarkable. Lungs/pleura: Scattered centrilobular emphysema changes are seen throughout the lung parenchyma. Nodu lar density seen on 05/09/2019 is not definitively visualized may been secondary to congestive heart f ailure changes at that time. Prior pleural effusions and pulmonary vascular congestion have resolved. Heart: Within normal limits. Mediastinum: No gross evidence of adenopathy. Lower Neck: No significant findings. Abdomen: Liver: Unremarkable. Gallbladder and Bile ducts: Unremarkable. Pancreas: Unremarkable. Spleen: Unremarkable. Adrenal glands: Unremarkable. Kidneys and Ureters: No hydronephrosis. Bladder: Unremarkable. Reproductive: Calcifications within the prostate gland are noted. Stomach and Bowel: Appendix is normal No evidence of bowel obstruction. Scattered clonic diverticula are present. Peritoneum: No evidence of pneumoperitoneum, free fluid, or adenopathy. Musculoskeletal: The osseous structures appear intact. Sternotomy wires are present. Right hip arthro plasty which limits evaluation of the pelvis. There is multilevel disc degeneration changes with vary ing degrees of spinal canal and neural foraminal stenosis. Lymph nodes: No evidence of lymphadenopathy. Abdominal wall/soft tissues: Fat-containing umbilical hernia. IMPRESSION: 1. No evidence for aortic dissection. 2. Ascending thoracic aorta ectasia measuring 45 mm, similar to prior exam. 3. Infrarenal aortic saccular aneurysm measuring up to 3.1 cm.
== END | disposition home or self-care (01) ==
LOC: RADCTMAIN 09:01
PROVIDERS: ATTEND Internal Medicine Interventional Cardiology
DX: I71.43 Infrarenal abdominal aortic aneurysm, without rupture (principal); I71.20 Thoracic aortic aneurysm, without rupture, unspecified
CPT/HCPCS: 82565; 84520; 71275; 36415; 74174; Q9967

== ENCOUNTER → 2022-03-30 | Outpatient (CLI) | payer MEDICARE ==
--- NOTE | 2022-03-30 12:02 | XR ---
EXAMINATION TYPE: XR chest 2V DATE OF EXAM: 03/30/2022 COMPARISON: 05/28/2019 INDICATION: Pre-MRI clearance TECHNIQUE: Frontal and lateral views of the chest are obtained. FINDINGS: The heart size is normal. The pulmonary vasculature is normal. There may be some mild subsegmental atelectasis at the right base. 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 No epicardial leads are identified. IMPRESSION: 1. Suggestion of mild subsegmental atelectasis right base.
== END | disposition home or self-care (01) ==
LOC: RADXRMAIN 11:28
PROVIDERS: ATTEND Physical Medicine & Rehabilitation
DX: Z18.10 Retained metal fragments, unspecified (principal)
CPT/HCPCS: 71046

== ENCOUNTER → 2023-05-01 | Outpatient (CLI) | payer MEDICARE ==
[2023-05-01 13:01] LABS: African American GFR (CKD) 85 (>60 ml/min/1.73 sqM); Blood Urea Nitrogen 25 mg/dL (9-20); Non-African American GFR(CKD) 74 (>60 ml/min/1.73 sqM)
--- NOTE | 2023-05-01 13:46 | CT ---
CTA CHEST EXAMINATION TYPE: CT angio chest DATE OF EXAM: 05/01/2023 INDICATION: Thoracic aortic aneurysm w/o rupture. CT DLP: 1064.5 mGycm, Automated exposure control for dose reduction was used. CONTRAST: Patient injected with 100 mL of Isovue 370. COMPARISON: 02/21/2022 TECHNIQUE: CT of the chest is performed on a spiral scan at 2 mm thick sections. Study is performed with intravenous contrast timed for evaluation for thoracic aortic aneurysm. This will limit additio nal portions of the evaluation. 3-D MIP images reconstructed by the technologist are reviewed on the computer in the coronal and sagittal planes. FINDINGS: No persistent filling defects are evident to suggest an acute pulmonary embolism. No mediastinal or hilar adenopathy enlarged by CT criteria is evident. The ascending aorta diameter at the level of the main pulmonary artery is 4.3 cm. The main pulmonary artery diameter at the bifurcation is 2.3 cm. Coronary artery calcification is present.r Aortic root measures 3.0 cm. Transverse dimension of the mid thoracic aortic arch is 3.1 cm. The desc ending thoracic aorta at the diaphragm measures 3.2 cm. Lung windows are clear. Emphysematous changes are present in the upper lung greenberg. Limited CT sections were through the upper abdomen. Upper abdomen appears unremarkable. IMPRESSION: 1. Stable ascending thoracic aortic aneurysm measuring 4.3 cm. 2. Upper lung field emphysematous changes
== END | disposition home or self-care (01) ==
LOC: RADCTMAIN 12:22
PROVIDERS: ATTEND Internal Medicine Interventional Cardiology
DX: I71.21 Aneurysm of the ascending aorta, without rupture (principal); J43.9 Emphysema, unspecified
CPT/HCPCS: 82565; 84520; 71275; 36415; Q9967